=== PATIENT | male | born 1970 | race Caucasian/White ===

== ENCOUNTER → 2020-09-01 11:24 | Outpatient (BNVA) | payer MEDICARE, MEDICAID, SELFPAY | PROVIDERS: PCP Internal Medicine; Visit Provider Anesthesiology | DX: M54.5 Low back pain (principal); M19.011 Primary osteoarthritis, right shoulder; M17.10 Unilateral primary osteoarthritis, unspecified knee; Z79.891 Long term (current) use of opiate analgesic | CPT/HCPCS: 99213 ==

== ENCOUNTER → 2020-10-15 08:23 | Outpatient (BNVA) | payer MEDICARE, MEDICAID, SELFPAY | PROVIDERS: PCP Internal Medicine; Visit Provider Anesthesiology | DX: M19.011 Primary osteoarthritis, right shoulder (principal); M19.012 Primary osteoarthritis, left shoulder; M17.10 Unilateral primary osteoarthritis, unspecified knee; M54.5 Low back pain; Z79.891 Long term (current) use of opiate analgesic | CPT/HCPCS: 99212 ==

== ENCOUNTER → 2020-11-12 09:16 | Outpatient (BNVA) | payer MEDICARE, MEDICAID, SELFPAY | PROVIDERS: PCP Internal Medicine; Visit Provider Anesthesiology | DX: M17.10 Unilateral primary osteoarthritis, unspecified knee (principal); M54.5 Low back pain; M19.011 Primary osteoarthritis, right shoulder; M19.012 Primary osteoarthritis, left shoulder | CPT/HCPCS: 99212 ==

== ENCOUNTER → 2020-12-10 08:48 | Outpatient (BNVA) | payer MEDICARE, MEDICAID, SELFPAY | PROVIDERS: PCP Internal Medicine; Visit Provider Anesthesiology | DX: M54.5 Low back pain (principal); M19.011 Primary osteoarthritis, right shoulder; M19.012 Primary osteoarthritis, left shoulder; M17.10 Unilateral primary osteoarthritis, unspecified knee | CPT/HCPCS: 99212 ==

== ENCOUNTER → 2021-01-07 09:26 | Outpatient (BNVA) | payer MEDICARE, MEDICAID, SELFPAY | PROVIDERS: PCP Internal Medicine; Visit Provider Anesthesiology | DX: M54.5 Low back pain (principal); M19.011 Primary osteoarthritis, right shoulder; M19.012 Primary osteoarthritis, left shoulder; M17.10 Unilateral primary osteoarthritis, unspecified knee | CPT/HCPCS: 99212 ==

== ENCOUNTER → 2021-02-04 15:19 | Outpatient (BNVA) | payer MEDICARE, MEDICAID, SELFPAY | PROVIDERS: PCP Internal Medicine; Visit Provider Anesthesiology | DX: M54.5 Low back pain (principal); M19.011 Primary osteoarthritis, right shoulder; M19.012 Primary osteoarthritis, left shoulder; M17.0 Bilateral primary osteoarthritis of knee; Z79.899 Other long term (current) drug therapy | CPT/HCPCS: 99212 ==

== ENCOUNTER → 2021-03-04 08:29 | Outpatient (BNVA) | payer MEDICARE, MEDICAID, SELFPAY | PROVIDERS: PCP Internal Medicine; Visit Provider Nurse Practitioner Family | DX: M54.5 Low back pain (principal); M19.011 Primary osteoarthritis, right shoulder; M19.012 Primary osteoarthritis, left shoulder; M17.10 Unilateral primary osteoarthritis, unspecified knee | CPT/HCPCS: 99212 ==

== ENCOUNTER → 2021-04-01 08:50 | Outpatient (BNVA) | payer MEDICARE, MEDICAID, SELFPAY | PROVIDERS: PCP Internal Medicine; Visit Provider Nurse Practitioner Family | DX: M54.5 Low back pain (principal); M17.10 Unilateral primary osteoarthritis, unspecified knee; M19.011 Primary osteoarthritis, right shoulder; M19.012 Primary osteoarthritis, left shoulder | CPT/HCPCS: 99212 ==

== ENCOUNTER → 2021-04-29 13:12 | Outpatient (BNVA) | payer MEDICARE, MEDICAID, SELFPAY | PROVIDERS: PCP Internal Medicine; Visit Provider Anesthesiology ==

== ENCOUNTER → 2021-05-28 14:22 | Outpatient (BNVA) | payer MEDICARE, MEDICAID, SELFPAY | PROVIDERS: Visit Provider Anesthesiology | DX: M54.5 Low back pain (principal); M19.011 Primary osteoarthritis, right shoulder; M19.012 Primary osteoarthritis, left shoulder; M17.10 Unilateral primary osteoarthritis, unspecified knee | CPT/HCPCS: 99212 ==

== ENCOUNTER → 2021-06-29 09:34 | Outpatient (BNVA) | payer MEDICARE, MEDICAID, SELFPAY | PROVIDERS: Visit Provider Anesthesiology | DX: M19.011 Primary osteoarthritis, right shoulder (principal); M19.012 Primary osteoarthritis, left shoulder; M17.10 Unilateral primary osteoarthritis, unspecified knee; M54.5 Low back pain | CPT/HCPCS: 99212 ==

== ENCOUNTER → 2021-07-27 08:39 | Outpatient (BNVA) | payer MEDICARE, MEDICAID, SELFPAY | PROVIDERS: PCP Internal Medicine; Visit Provider Anesthesiology | DX: M54.5 Low back pain (principal); M19.011 Primary osteoarthritis, right shoulder; M19.012 Primary osteoarthritis, left shoulder; M17.10 Unilateral primary osteoarthritis, unspecified knee; Z79.899 Other long term (current) drug therapy | CPT/HCPCS: 99212 ==

== ENCOUNTER → 2021-08-24 09:30 | Outpatient (BNVA) | payer MEDICARE, MEDICAID, SELFPAY | PROVIDERS: PCP Internal Medicine; Visit Provider Anesthesiology | DX: Z51.81 Encounter for therapeutic drug level monitoring (principal); M54.5 Low back pain; M19.011 Primary osteoarthritis, right shoulder; M19.012 Primary osteoarthritis, left shoulder; M17.10 Unilateral primary osteoarthritis, unspecified knee | CPT/HCPCS: 99212 ==

== ENCOUNTER → 2021-09-28 09:26 | Outpatient (BNVA) | payer MEDICARE, MEDICAID, SELFPAY | PROVIDERS: PCP Internal Medicine; Visit Provider Anesthesiology | DX: Z51.81 Encounter for therapeutic drug level monitoring (principal); M54.59 Other low back pain; M19.011 Primary osteoarthritis, right shoulder; M19.012 Primary osteoarthritis, left shoulder; M17.10 Unilateral primary osteoarthritis, unspecified knee | CPT/HCPCS: 99212 ==

== ENCOUNTER → 2021-10-26 10:47 | Outpatient (BNVA) | payer MEDICARE, MEDICAID, SELFPAY | PROVIDERS: PCP Internal Medicine; Visit Provider Anesthesiology | DX: Z51.81 Encounter for therapeutic drug level monitoring (principal); M54.59 Other low back pain; M19.011 Primary osteoarthritis, right shoulder; M19.012 Primary osteoarthritis, left shoulder; M17.10 Unilateral primary osteoarthritis, unspecified knee | CPT/HCPCS: 99212 ==

== ENCOUNTER → 2021-11-25 10:50 | Outpatient (BNVA) | payer MEDICARE, MEDICAID, SELFPAY | PROVIDERS: PCP Internal Medicine; Visit Provider Anesthesiology | DX: Z51.81 Encounter for therapeutic drug level monitoring (principal); F11.20 Opioid dependence, uncomplicated; M54.50 Low back pain, unspecified; M19.011 Primary osteoarthritis, right shoulder; M19.012 Primary osteoarthritis, left shoulder; M17.10 Unilateral primary osteoarthritis, unspecified knee | CPT/HCPCS: 99212 ==

== ENCOUNTER → 2021-12-23 09:48 | Outpatient (BNVA) | payer MEDICARE, MEDICAID, SELFPAY | PROVIDERS: PCP Internal Medicine; Visit Provider Anesthesiology | DX: Z51.81 Encounter for therapeutic drug level monitoring (principal); F11.20 Opioid dependence, uncomplicated; M54.50 Low back pain, unspecified; M19.011 Primary osteoarthritis, right shoulder; M19.012 Primary osteoarthritis, left shoulder; M17.10 Unilateral primary osteoarthritis, unspecified knee | CPT/HCPCS: 99212 ==

== ENCOUNTER → 2022-01-20 09:22 | Outpatient (BNVA) | payer MEDICARE, MEDICAID, SELFPAY | PROVIDERS: PCP Internal Medicine; Visit Provider Anesthesiology | DX: Z51.81 Encounter for therapeutic drug level monitoring (principal); F11.20 Opioid dependence, uncomplicated; M54.50 Low back pain, unspecified; M17.10 Unilateral primary osteoarthritis, unspecified knee; M19.011 Primary osteoarthritis, right shoulder; M19.012 Primary osteoarthritis, left shoulder | CPT/HCPCS: 99212 ==

== ENCOUNTER → 2022-03-03 14:19 | Outpatient (BNVA) | payer MEDICARE, MEDICAID, SELFPAY | PROVIDERS: PCP Internal Medicine; Visit Provider Anesthesiology | DX: Z79.891 Long term (current) use of opiate analgesic (principal) | CPT/HCPCS: 99211 ==

== ENCOUNTER → 2022-03-31 10:01 | Outpatient (BNVA) | payer MEDICARE, MEDICAID, SELFPAY | PROVIDERS: PCP Internal Medicine; Visit Provider Anesthesiology | DX: Z51.81 Encounter for therapeutic drug level monitoring (principal); F11.20 Opioid dependence, uncomplicated | CPT/HCPCS: 99211 ==

== ENCOUNTER 2024-02-20 21:56 | Inpatient (IN) | payer MEDICARE, MEDICAID, SELFPAY ==
--- NOTE | ~2024-02-20 | XR_ITS ---
EXAMINATION: XR CHEST CLINICAL INFORMATION: Shortness of breath. COMPARISON: None available. TECHNIQUE: Frontal view of the chest was obtained. FINDINGS: Heart size is normal. There is a subtle patchy opacity at the left lung base for which infection is not excluded. The pleural spaces are clear. There is no pneumothorax. No acute osseous abnormality. XR/XR chest 1V IMPRESSION: Left lower lobe patchy airspace opacity for which infection is not excluded.
[2024-02-20 22:06] VITALS: BP 137/93; PULSE 110; RESP 20; TEMP 36.5; O2SAT 89; BMI 28.0
--- NOTE | 2024-02-20 22:10 | ECG_ITS ---
Test Reason : CHEST PAIN Blood Pressure : / mmHG Vent. Rate : 104 BPM Atrial Rate : 104 BPM P-R Int : 112 ms QRS Dur : 064 ms QT Int : 306 ms P-R-T Axes : 065 036 041 degrees QTc Int : 402 ms Sinus tachycardia Nonspecific T wave abnormality Abnormal ECG No previous ECGs available Referred By: Generic ED Physician Electronically Signed By:Jordan Meehan
--- NOTE | 2024-02-20 22:35 | PC.NURSE ---
Pt A&Ox3, reports 10/10 chest/ABD/headache pain that worsens with coughing. Pt reports increased SOB since 3 weeks, recently Dx with PNA and unable to get prescribed meds r/t insurance issues. Pt SpO2 90% on 2L via NC, RR 22, lung sounds diminished. Pt reports productive cough of yellow/green sputum. IV line placed, blood work collected and sent to lab.
[2024-02-20 22:41] LABS: Basophils Absolute Auto 0.1 X10*3/uL (0.0-0.2); Basophils Percent Auto 0.6 % (0-2); Eosinophils Absolute Auto 5.5 X10*3/uL (0.0-0.4); Eosinophils Percent Auto 25.4 % (0-4); Hematocrit 46.6 % (42.0-52.0); Hemoglobin 15.8 g/dl (14.0-18.0); Imm Gran Abs Auto 0.11 X10*3/uL (0.00-0.03); Imm Gran Pct Auto 0.5 % (0.0-0.4); Lymphocytes Absolute Auto 3.9 X10*3/uL (1.2-4.9); MANUAL DIFF FLAG SCAN; Mean Corpuscular HGB Conc 33.9 g/dl (31.0-36.0); Mean Corpuscular Hemoglobin 29.1 pg (27.0-33.0); Mean Corpuscular Volume 85.8 fL (80.0-98.0); Mean Platelet Volume 10.7 fL (9.4-12.4); Monocytes Absolute Auto 1.4 X10*3/uL (0.1-1.2); Monocytes Percent Auto 6.5 % (2-11); Neutrophils Absolute Auto 10.7 x10*3/uL (2.0-8.3); Platelet Count 314 X10*3/uL (160-400); Red Blood Count 5.43 X10*6/uL (4.60-5.80); Red Cell Distribution Width 13.2 % (11.0-16.0); SCAN SMEAR FLAG 1; White Blood Count 21.8 X10*3/uL (4.8-10.8)
--- NOTE | 2024-02-20 22:55 | ED.CHESTPAIN ---
HPI - Chest Pain General Chief Complaint: Chest Pain Stated Complaint: sob, pneumonina 3 wks ago Time Seen by Provider: 02/20/24 22:33 Source: patient Mode of arrival: ambulatory Limitations: no limitations and language barrier ([place]-speaking director group sales utilized) History of Present Illness HPI narrative: Patient is a 53-year-old male with past medical history of hypertension, diabetes who presents emergency department for evaluation of shortness of breath. Reports onset of symptoms 3 weeks ago. Reportedly was evaluated and diagnosed with pneumonia but states he did not take the antibiotics, because they were not covered by his insurance and unfortunately he could not afford to purchase them. He is having diffuse chest and abdominal pain exacerbated with cough, intermittent headache in addition to shortness of breath. He reports that he has never been intubated in the past due to his asthma. He denies any sick contacts. Denies any fevers, neck pain, neck stiffness, nausea, vomiting, numbness or tingling of the extremities. Related Data Home Medications Medication Instructions Recorded Confirmed rosuvastatin 40 mg tablet 40 mg PO DAILY 08/30/20 02/21/24 albuterol sulfate 90 mcg/actuation 2 puff inhalation Q6H PRN 02/21/24 02/21/24 aerosol inhaler Shortness Of Breath Or Wheezing betamethasone, augmented 0.05 % 1 appl topical BID 02/21/24 02/21/24 topical ointment dulaglutide 4.5 mg/0.5 mL 4.5 mg subcut Q7D 02/21/24 02/21/24 subcutaneous pen injector (Trulicity) enalapril maleate 20 mg tablet 20 mg PO DAILY 02/21/24 02/21/24 ergocalciferol (vitamin D2) 1,250 1,250 mcg PO QWEEK 02/21/24 02/21/24 mcg (50,000 unit) capsule prednisone 10 mg tablet 10 mg PO DAILY 02/21/24 02/21/24 Allergies Allergy/AdvReac Type Severity Reaction Status Date / Time aspirin Allergy Unknown swelling Verified 03/31/22 13:01 Review of Systems Review of Systems: Yes all other systems are reviewed and are negative PMFSH Past Medical History Attestation statement: The following information was validated with the patient. Source: old records reviewed Medical History Depression Pancreatitis Facet arthropathy, cervical Social History Social History Alcohol intake: current Alcohol intake frequency: holidays/special occasions only Patient Tobacco Use Status: Current everyday Tobacco user Cigarettes Per Day: 10 Smoked in Last 30 Days: No Use of substances other than those prescribed or required for medical reasons: No Advance Directives: No Advance Directives Information Provided: No Nutrition Risks: No Nutritional Risk service: No Physical Exam Vital Signs: Vital Signs: Last Vital Signs Temp 98.9 F 02/21/24 16:01 Pulse 102 H 02/21/24 16:02 Resp 16 02/21/24 16:02 BP 150/85 H 02/21/24 16:01 Pulse Ox 93 02/21/24 16:01 O2 Del Method Nasal Cannula 02/21/24 16:01 O2 Flow Rate 3 02/21/24 16:01 BMI result Body Mass Index 28.0 Appearance: Alert.?Oriented to person, place and time. No acute distress.?Normal affect. Eyes: Pupils equal, round and reactive to light.? ENT: Pharynx normal.?? Neck: Normal inspection.? Neck supple.?? CVS: Heart sounds normal. Normal heart rate and rhythm.? Pulses normal.?? Respiratory: Increased work of breathing, room-air hypoxia? Lung sounds tight bilaterally with inspiratory wheezing, rhonchi?? Abdomen: Soft and non-tender. Normoactive bowel sounds. ? Skin: Skin warm and dry.? Normal skin color.?? Extremities: No lower extremity edema.? No calf ttp? Neuro: Moves all extremities spontaneously. Sensation intact bilaterally. Ambulates with normal steady gait. Course Reevaluation(s) Reevaluation #1: O2 saturation 93% on 3 L, reports improvement in shortness of breath but still feels unwell. Auditory wheezing persists though was slightly improved despite Solu-Medrol, and multiple nebulizer dosages with albuterol/DuoNeb/Xopenex. Plan for admission to medicine service for sepsis secondary to pneumonia. Spoke with hospitalist, Dr. Brandon. Time: 01:13 Medications Administered Generic Name Dose Route Start Last Admin Trade Name Freq PRN Reason Stop Dose Admin Acetaminophen 650 mg 02/21/24 01:05 02/21/24 01:30 Acetaminophen 325 Mg Tablet PO 650 mg Q6H PRN Administration Pain, Mild (Pain Scale 1-3) Albuterol/Ipratropium 3 ml 02/21/24 08:00 02/21/24 15:36 Albuterol/Iprat 2.5/0.5mg 3 Ml Ampul.Neb INHALE 3 ml RQ4H WHILE AWAKE IRAM Administration Atorvastatin Calcium 80 mg 02/21/24 09:00 02/21/24 08:48 Atorvastatin Calcium 80 Mg Tablet PO 80 mg DAILY IRAM Administration Enoxaparin Sodium 40 mg 02/21/24 02:00 02/21/24 01:32 Enoxaparin Sodium 40 Mg/0.4 Ml Syringe SUBCUT 40 mg Q24H IRAM Administration Azithromycin 500 mg/ Sodium 250 mls @ 125 mls/hr 02/21/24 01:15 02/21/24 03:33 Chloride IV Infused Q24H IRAM Infusion Insulin Human Lispro 0 unit 02/21/24 07:30 02/21/24 13:14 Insulin Lispro 100 Unit/Ml 3 Ml Vial SUBCUT 8 unit QIDACHS [facility] Administration Protocol Lidocaine 1 patch 02/21/24 13:25 02/21/24 13:36 Lidocaine 4 % Patch Adh..Patch TRANSDERMA Not Given DAILY [facility] Protocol Melatonin 6 mg 02/21/24 01:05 02/21/24 01:51 Melatonin 3 Mg Tablet PO 6 mg BEDTIME PRN Administration Insomnia Methylprednisolone Sodium Succinate 40 mg 02/21/24 09:00 02/21/24 08:47 Methylprednisolone Sod Succ 40 Mg/Ml Vial IVPUSH 40 mg Q12H IRAM Administration Pt Own [Trulicity] 4 4.5 mg 02/21/24 15:00 02/21/24 14:22 .5 Mg/0.5 Ml Pen SUBCUT 4.5 mg Injector Q7D [facility] Administration Sodium Chloride 3 ml 02/21/24 08:00 02/21/24 08:48 0.9 % Sodium Chloride Flush 3 Ml Syringe IVFLUSH 3 ml QSHIFT IRAM Administration Discontinued Medications Generic Name Dose Route Start Last Admin Trade Name Freq PRN Reason Stop Dose Admin Albuterol Sulfate 5 mg/ 7.5 mg 02/21/24 00:04 02/21/24 00:08 Albuterol Sulfate 2.5 mg INHALE 02/21/24 00:05 7.5 mg ONCE ONE Administration Albuterol Sulfate 5 mg/ 0 mg 02/20/24 23:37 02/20/24 23:40 Albuterol/Ipratropium 3 ml INHALE 02/20/24 23:38 2.5 each ONCE ONE Administration Ceftriaxone Sodium 1 gm/ 50 mls @ 100 mls/hr 02/20/24 23:00 02/20/24 23:58 Sodium Chloride IV 02/20/24 23:29 Infused ONCE ONE Infusion Sodium Chloride 2,503.83 mls @ 2,503.83 mls/hr 02/20/24 23:20 02/21/24 00:57 Ns 30 ml/kg infuse over 1 hr (2503.83 ml) 02/21/24 00:19 Infused IV Infusion .Q1H STA Ibuprofen 600 mg 02/21/24 13:23 02/21/24 13:35 Ibuprofen 600 Mg Tablet PO 02/21/24 13:24 Not Given ONCE ONE Levalbuterol HCl 2.5 mg 02/20/24 23:27 02/20/24 23:29 Levalbuterol Hcl 1.25 Mg/3 Ml Vial.Neb INHALE 02/20/24 23:28 2.5 mg ONCE ONE Administration Lisinopril 10 mg 02/21/24 09:00 02/21/24 08:48 Lisinopril 10 Mg Tablet PO 10 mg DAILY IRAM Administration Protocol Methylprednisolone Sodium Succinate 80 mg 02/20/24 23:00 02/20/24 23:15 Methylprednisolone Sod Succ 125 Mg/2 Ml Vial IVPUSH 02/20/24 23:01 80 mg ONCE ONE Administration Medical Decision Making Medical Decision Making [facility] Narrative: Patient is a 53-year-old male with no pneumonia who unfortunately was unable to take his course of antibiotics as prescribed presenting to emergency department with worsening shortness breath. Lung sounds are tight bilaterally with inspiratory wheezing, patient received Solu-Medrol in addition to albuterol nebulizer. Sepsis alert was called, blood cultures pending. Covered with Rocephin for pneumonia; left lower lobe opacity CXR. CBC reveals leukocytosis of 21.8 BMP reveals no evidence of electrolyte derangement, creatinine is 1.21, no priors available for review. Strep a testing is negative. Viral panel negative. No lactic acidosis, no signs of organ dysfunction/severe sepsis. High sensitive troponin 4.3, EKG reveals sinus tachycardia with ventricular rate of 104, QTC 402, no ST elevation, no ST depression, suspect symptoms less likely secondary to ACS. He arrived tachycardic and hypoxic at 89% on room air which improved with 2 L via nasal cannula.. Differential Diagnosis Differential Diagnoses: The differential diagnosis associated with the presentation includes (See narrative above) Admission/Observation Consideration of admission/observation: Escalation of care including admission/observation considered (See narrative above) Consult Healthcare Provider Management of the patient was discussed with: Hospitalist Lab Data MDM Lab Attestation statement: I reviewed the patient's lab results. (See narrative above) 02/21/24 05:45 02/21/24 05:45 Labs: Lab Results 02/20/24 02/20/24 02/20/24 Range/Units 22:29 22:41 23:14 WBC 21.8 H (4.8-10.8) X10*3/uL RBC 5.43 (4.60-5.80) X10*6/uL Hgb 15.8 (14.0-18.0) g/dl Hct 46.6 (42.0-52.0) % MCV 85.8 (80.0-98.0) fL MCH 29.1 (27.0-33.0) pg MCHC 33.9 (31.0-36.0) g/dl RDW 13.2 (11.0-16.0) % Plt Count 314 (160-400) X10*3/uL MPV 10.7 (9.4-12.4) fL Immature Gran % (Auto) 0.5 H (0.0-0.4) % Neut % (Auto) 49.0 (45-73) % Lymph % (Auto) 18.0 L (20-40) % [place] % (Auto) 6.5 (2-11) % Eos % (Auto) 25.4 H (0-4) % Baso % (Auto) 0.6 (0-2) % Lymph # (Auto) 3.9 (1.2-4.9) X10*3/uL [place] # (Auto) 1.4 H (0.1-1.2) X10*3/uL Eos # (Auto) 5.5 H (0.0-0.4) X10*3/uL Baso # (Auto) 0.1 (0.0-0.2) X10*3/uL Abs Immat Gran (auto) 0.11 H (0.00-0.03) X10*3/uL Absolute Neuts (auto) 10.7 H (2.0-8.3) x10*3/uL Absolute Nucleated RBC 0.000 (0.0-0.012) X10*3/uL Nucleated RBC % (auto) 0.0 (0.0-0.2) /100WBC Smear Tech's Comments VERIFIED Sodium 140 (135-145) mmol/L Potassium 4.0 (3.3-5.1) mmol/L Chloride 101 (96-108) mmol/L Carbon Dioxide 29 (22-29) mmol/L Anion Gap 14 (12-20) BUN 14 (9-16) mg/dL Creatinine 1.21 (0.5-1.4) mg/dL Estim Creat Clear Calc 75.1 Estimated GFR > 60 Random Glucose 197 H (60-115) mg/dL Lactic Acid 1.5 (0.5-2.0) mmol/L Calcium 9.9 (8.4-10.2) mg/dL Total Bilirubin 0.7 (0.0-1.0) mg/dL Direct Bilirubin 0.3 (0.0-0.5) mg/dL AST 26 (5-37) U/L ALT 37 (0-40) U/L Alkaline Phosphatase 113 (39-117) U/L Troponin I High Sens 4.3 (<3.5-35.0) ng/L B-Natriuretic Peptide < 10 (<100) pg/mL Total Protein 7.5 (6.5-8.0) g/dL Albumin 4.1 (3.5-5.0) g/dL Influenza Type A (PCR) NEGATIVE (Negative) Influenza Type B (PCR) NEGATIVE (Negative) RSV RNA Qual (PCR) NEGATIVE (Negative) SARS-CoV-2 RNA (RT-PCR) NEGATIVE (Negative) S. pyogenes GrpA SENDY Negative (Negative) Independent Interpretation I performed an independent interpretation of an: Plain X-Ray (Left lower lobe pneumonia) Radiology Impression Discussion of test interpretation with radiology: I have reviewed the radiologist's reading. Radiologist Impression: XR/XR chest 1V IMPRESSION: Left lower lobe patchy airspace opacity for which infection is not excluded. Independent Historian Clinical information obtained from an independent historian. History obtained from or confirmed by: Spouse (Present who confirms history) Critical Care Time Critical Care Time Critical Care Time: Yes Total Critical Care Time: 45 Attestation: I personally attest to this critical care time spent taking care of the patient exclusive of all other billable procedures was approximately 45 minutes including initial evaluation of patient, ordering tests, x-ray interpretation, EKG interpretation, medical consultation, documentation, re-evaluation. Discharge Plan Discharge Clinical Impression: Community acquired pneumonia, Sepsis Patient Disposition: Admitted As Inpatient
[2024-02-20 22:59] LABS: Anion Gap 14 (12-20); Blood Urea Nitrogen 14 mg/dL (9-16); Calcium 9.9 mg/dL (8.4-10.2); Carbon Dioxide 29 mmol/L (22-29); Chloride 101 mmol/L (96-108); Creatinine Clr Calc Pharmacy 75.1; Estimated Glomerular Filt Rate > 60; Glucose Random 197 mg/dL (60-115); Sodium 140 mmol/L (135-145)
[2024-02-20 22:59] LABS: IDNOW Serial# 08D9AD1C; Strep A Nucleic Acid Negative (Negative)
[2024-02-20 23:01] LABS: SLIDE REVIEW VERIFIED
[2024-02-20 23:02] LABS: Troponin-I High Sensitivity 4.3 ng/L (<3.5-35.0)
[2024-02-20 23:03] LABS: Alanine Aminotransferase 37 U/L (0-40); Albumin Level 4.1 g/dL (3.5-5.0); Alkaline Phosphatase 113 U/L (39-117); Aspartate Amino Transferase 26 U/L (5-37); Bilirubin Direct 0.3 mg/dL (0.0-0.5); Bilirubin Total 0.7 mg/dL (0.0-1.0); Total Protein 7.5 g/dL (6.5-8.0)
[2024-02-20 23:14] VITALS: BP 135/96; PULSE 104; RESP 18; O2SAT 94
[2024-02-20] MEDS: methylPREDNISolone Sod Succ 125 MG/2 ML VIAL 80 MG IVPUSH (23:15)
[2024-02-20] MEDS: cefTRIAXone sodium 1 GM in 0.9 % Sodium Chloride 50 ML IV (23:16)
[2024-02-20 23:17] LABS: B Type Natriuretic Peptide < 10 pg/mL (<100)
[2024-02-20 23:18] VITALS: TEMP 37.2
[2024-02-20 23:18] LABS: Influenza A PCR NEGATIVE (Negative); Influenza B PCR NEGATIVE (Negative); Resp Syncy Virus RNA Qual PCR NEGATIVE (Negative); SARS COV2 PCR INHOUSE NEGATIVE (Negative)
[2024-02-20 23:29] VITALS: PULSE 108; RESP 24; O2SAT 93
[2024-02-20] MEDS: levalbuterol HCL 1.25 MG/3 ML VIAL.NEB 2.5 MG INHALE (23:29)
[2024-02-20 23:32] LABS: Lactic Acid 1.5 mmol/L (0.5-2.0)
[2024-02-20] MEDS: Albuterol Sulfate 5 MG, Albuterol/Iprat 2.5/0.5MG 3 ML 3 ML INHALE (23:40)
[2024-02-20 23:41] VITALS: PULSE 87; RESP 24; O2SAT 93
[2024-02-20 23:55] VITALS: BP 149/92; PULSE 102; RESP 20; O2SAT 93
[2024-02-21] VITALS (13 sets, daily range): BP systolic 115–155; BP diastolic 79–99; PULSE 94–116; RESP 14–20; TEMP 36.7–37.2; O2SAT 91–96
[2024-02-21] MEDS: Albuterol Sulfate 5 MG, Albuterol Sulfate (0.083%) 2.5 MG 7.5 MG INHALE (00:08)
--- NOTE | 2024-02-21 01:08 | P.HPHOSP_ITS ---
History of Present Illness Date of Service: 02/21/24 Chief Complaint: Dyspnea This is a 53-year-old male with pertinent history of essential hypertension, mixed hyperlipidemia, [id number] diabetes mellitus who presents to the emergency department for evaluation of dyspnea. Patient states he has been having productive cough, wheezing and shortness of breath for the last 3 weeks. Reportedly he went to an ER in [place] where he was diagnosed with pneumonia and discharged with a prescription of p.o. antibiotics. Patient did not take prescription medications as he states his insurance did not cover and the medications were costly. His symptoms have progressed over the last 3 weeks. Has productive cough, wheezing and dyspnea which is worse with exertion. Does not use home inhalers. No history of asthma or COPD but has a significant smoking history. No fever, chills, chest discomfort, palpitations, abdominal pain, changes in urinary or bowel habits. In the emergency department, patient was found to be septic and imaging concerning for left-sided pneumonia. Review of Systems 2 Constitutional: Constitutional: Reports fatigue, Reports lethargy, Reports malaise, Reports poor appetite and Reports weakness Cardiovascular: Cardiovascular: Reports dyspnea on exertion Respiratory: Respiratory: Reports cough, Reports dyspnea on exertion and Reports wheezing Gastrointestinal: Gastrointestinal: Reports nausea Genitourinary: Genitourinary: Reports no additional male genitourinary complaints Neurologic: Reports weakness Endocrine: Endocrine: Reports fatigue Allergic/Immunologic: Allergic/Immunologic: Reports wheezing [facility] Medical History Depression Pancreatitis Facet arthropathy, cervical Pertinent family history: No family history of CAD Social History Alcohol intake: current Alcohol intake frequency: holidays/special occasions only Patient Tobacco Use Status: Current everyday Tobacco user Cigarettes Per Day: 10 Smoked in Last 30 Days: No Use of substances other than those prescribed or required for medical reasons: No Advance Directives: No Advance Directives Information Provided: No Nutrition Risks: No Nutritional Risk Meds Allergies Allergy/AdvReac Type Severity Reaction Status Date / Time aspirin Allergy Unknown swelling Verified 03/31/22 13:01 Home Medications Medication Instructions Recorded Confirmed Last Taken Type dulaglutide 0.75 mg/0.5 mL 0.75 mg subcut QWEEK 08/30/20 02/21/24 Unknown History subcutaneous pen injector (Trulicity) rosuvastatin 40 mg tablet 40 mg PO DAILY 08/30/20 02/21/24 Unknown History lisinopril 10 mg tablet 10 mg PO DAILY 04/01/21 02/21/24 Unknown History Physical Exam 2 Vital Signs and Narrative: Vital Signs: Last Vital Signs Temp 98.1 F 02/21/24 00:58 Pulse 103 H 02/21/24 00:58 Resp 20 02/21/24 00:58 BP 144/96 H 02/21/24 00:58 Pulse Ox 93 02/21/24 00:58 O2 Del Method Nasal Cannula 02/21/24 00:58 O2 Flow Rate 3 02/21/24 00:58 BMI result Body Mass Index 28.0 Middle-aged male lying in bed in mild distress on supplemental oxygen Neck supple, no JVD Regular rate and rhythm, S1-S2 heard Left-sided crackles with wheezing Abdomen soft nontender, no guarding, no rigidity Patient is awake, alert and oriented to self, place, time and person ; no focal motor deficit Psych: Normal mood No pedal edema Results Labs 02/20/24 22:29 02/20/24 22:29 Labs: Laboratory Results - last 24 hr 02/20/24 02/20/24 02/20/24 22:29 22:41 23:14 MCV 85.8 MCH 29.1 MCHC 33.9 RDW 13.2 Plt Count 314 MPV 10.7 Immature Gran % (Auto) 0.5 H Neut % (Auto) 49.0 Lymph % (Auto) 18.0 L [place] % (Auto) 6.5 Eos % (Auto) 25.4 H Baso % (Auto) 0.6 Lymph # (Auto) 3.9 [place] # (Auto) 1.4 H Eos # (Auto) 5.5 H Baso # (Auto) 0.1 Abs Immat Gran (auto) 0.11 H Absolute Neuts (auto) 10.7 H Absolute Nucleated RBC 0.000 Nucleated RBC % (auto) 0.0 Smear Tech's Comments VERIFIED Anion Gap 14 Estim Creat Clear Calc 75.1 Estimated GFR > 60 Random Glucose 197 H Lactic Acid 1.5 Calcium 9.9 Total Bilirubin 0.7 Direct Bilirubin 0.3 AST 26 ALT 37 Alkaline Phosphatase 113 Troponin I High Sens 4.3 B-Natriuretic Peptide < 10 Total Protein 7.5 Albumin 4.1 Influenza Type A (PCR) NEGATIVE Influenza Type B (PCR) NEGATIVE RSV RNA Qual (PCR) NEGATIVE SARS-CoV-2 RNA (RT-PCR) NEGATIVE S. pyogenes GrpA SENDY Negative Imaging Radiologist's Impressions: Impressions Chest X-Ray 02/20/24 22:25 IMPRESSION: Left lower lobe patchy airspace opacity for which infection is not excluded. Assessment and Plan (1) Hypoxia: Status: Acute (2) Community acquired pneumonia: Status: Acute (3) Sepsis: Status: Acute Plan This is a 53-year-old male with pertinent history of essential hypertension, mixed hyperlipidemia, [id number] diabetes mellitus who presents to the emergency department for evaluation of dyspnea. #. Acute hypoxemic respiratory failure and sepsis due to left-sided pneumonia: Resuscitated with IV crystalloids. Initiating empiric IV antibiotics for community-acquired pneumonia. Blood culture and sputum culture pending. Lactic acid obtained #. Acute exacerbation of obstructive lung disease: Initiating IV systemic steroids. Scheduled and p.r.n. DuoNebs. Likely has underlying COPD with significant smoking history. Will need outpatient follow-up for PFTs #. Ubv-doftsir-zyfzxikfm diabetes mellitus with hyperglycemia: Initiating Accu- Cheks with sliding scale insulin. Obtaining A1c #. Essential hypertension: On lisinopril #. Mixed hyperlipidemia: On rosuvastatin DVT prophylaxis: Lovenox Full code Admit as inpatient and will require two night minimum hospital stay for IV antibiotics, supplemental oxygen (as above), which is not possible in a lesser acute setting. Quality Stroke Does the patient have a stroke diagnosis?: No VTE Prior VTE?: No VTE Risk Level:: Medical - moderate - high VTE Device Contraindication: Treatment Not Indicated VTE Drug Contraindication: N/A - Med Ordered
[2024-02-21] MEDS: Acetaminophen 325 MG TABLET 650 MG PO (01:30)
[2024-02-21] MEDS: Enoxaparin Sodium 40 MG/0.4 ML SYRINGE SUBCUT (01:32)
[2024-02-21] MEDS: Azithromycin 500 MG in 0.9 % Sodium Chloride 250 ML 125 MG IV (01:32)
--- NOTE | 2024-02-21 01:46 | PC.NURSE ---
Med rec done, Pt able to verbalize home meds.
[2024-02-21] MEDS: Melatonin 3 MG TABLET 6 MG PO (01:51)
[2024-02-21 06:43] LABS: Anion Gap 16 (12-20); Blood Urea Nitrogen 17 mg/dL (9-16); Calcium 9.1 mg/dL (8.4-10.2); Carbon Dioxide 25 mmol/L (22-29); Chloride 103 mmol/L (96-108); Creatinine Clr Calc Pharmacy 73.9; Estimated Glomerular Filt Rate > 60; Potassium 4.3 mmol/L (3.3-5.1); Sodium 140 mmol/L (135-145)
[2024-02-21 06:47] LABS: Glucose Random 380 mg/dL (60-115)
[2024-02-21 06:52] LABS: Basophils Percent Auto 0.1 % (0-2); Eosinophils Percent Auto 0.3 % (0-4); Hematocrit 42.1 % (42.0-52.0); Hemoglobin 13.7 g/dl (14.0-18.0); Imm Gran Abs Auto 0.13 X10*3/uL (0.00-0.03); Imm Gran Pct Auto 0.9 % (0.0-0.4); Lymphocytes Absolute Auto 0.9 X10*3/uL (1.2-4.9); Lymphocytes Percent Auto 6.2 % (20-40); MANUAL DIFF FLAG SCAN; Mean Corpuscular HGB Conc 32.5 g/dl (31.0-36.0); Mean Corpuscular Hemoglobin 28.9 pg (27.0-33.0); Mean Corpuscular Volume 88.8 fL (80.0-98.0); Mean Platelet Volume 11.2 fL (9.4-12.4); Monocytes Absolute Auto 0.2 X10*3/uL (0.1-1.2); Monocytes Percent Auto 1.3 % (2-11); Neutrophils Percent Auto 91.2 % (45-73); Platelet Count 268 X10*3/uL (160-400); Red Blood Count 4.74 X10*6/uL (4.60-5.80); Red Cell Distribution Width 12.9 % (11.0-16.0); SCAN SMEAR FLAG 1; White Blood Count 14.3 X10*3/uL (4.8-10.8)
--- NOTE | 2024-02-21 07:06 | PC.NURSE ---
Critical glucose of 380, provider Dr. Brandon made aware, no new orders. Plan of care ongoing.
[2024-02-21 07:26] LABS: Glucose, Whole Blood 289 mg/dL (60-115)
[2024-02-21] MEDS: Albuterol/Iprat 2.5/0.5MG 3 ML AMPUL.NEB INHALE ×5 (07:48→22:01)
[2024-02-21 08:35] LABS: Estimated Average Glucose 260 mg/dL; Hemoglobin A1c % 10.7 % (<6.0)
[2024-02-21] MEDS: Insulin Lispro 100 UNIT/ML 3 ML VIAL SUBCUT ×4 (08:47→21:33)
[2024-02-21] MEDS: methylPREDNISolone Sod Succ 40 MG/ML VIAL IVPUSH ×2 (08:47→21:34)
[2024-02-21] MEDS: Atorvastatin Calcium 80 MG TABLET PO (08:48)
[2024-02-21] MEDS: 0.9 % Sodium Chloride Flush 3 ML SYRINGE IVFLUSH (08:48)
[2024-02-21] MEDS: lisinopriL 10 MG TABLET PO (08:48)
--- NOTE | 2024-02-21 09:06 | PC.NURSE ---
this RN resumed care of pt at this time. vss and up to date aside from pt being sinus tachy on the hospital monitor. pt remains on 3L via NC - resting at 95%. no sob/wob noted. when converasting w/ pt. respirations even and unlabored. pt sitting upright to promote patent airway. pt medicated per provider order/insulin administered per sliding scale. pt c/o 07/07 lower back pain - requesting medication other than tylenol as pt states previous tylenol administration was not helpful. admitting provider notified of pt's request. pt waits for bed assignment at this time. plan of care ongoing. call kessler placed within reach.
--- NOTE | 2024-02-21 09:55 | PHA.MEDREC ---
Addendum entered by Analia Munguia [facility] 02/21/24 10:07: Patient said he's not taking lisinopril 10 mg. He's taking enalapril 20 mg daily now. Original Note: Pharmacy Consult ? Medication Reconciliation Pharmacy has completed the medication reconciliation. Spoke to patient and confirmed medication list.
--- NOTE | 2024-02-21 10:34 | HO.PM.IMPN ---
Subjective Subjective Date of Service: 02/21/24 Review of Systems Follow up resp failure, pna and copd feeling better Physical Exam Vital Signs: Vital Signs: Last Vital Signs Temp 98.1 F 02/21/24 05:28 Pulse 96 02/21/24 05:28 Resp 18 02/21/24 05:28 BP 115/79 02/21/24 05:28 Pulse Ox 96 02/21/24 05:28 O2 Del Method Nasal Cannula 02/21/24 05:28 O2 Flow Rate 3 02/21/24 05:28 BMI result Body Mass Index 28.0 Appearing in no acute distress lung sounds are clear to auscultation heart regular rate rhythm, clear S1, S2 positive bowel sounds, abdomen is soft, nontender neuro patient is alert x3, no focal deficits Objective Data Active Medications Acetaminophen (Acetaminophen 325 Mg Tablet) 650 mg PO Q6H PRN PRN Reason: Pain, Mild (Pain Scale 1-3) Last Admin: 02/21/24 01:30 Dose: 650 mg Documented By: ELISHA Albuterol/Ipratropium (Albuterol/Iprat 2.5/0.5mg 3 Ml Ampul.Neb) 3 ml INHALE RQ4H WHILE AWAKE [facility] Last Admin: 02/21/24 07:48 Dose: 3 ml Documented By: TALIA Albuterol/Ipratropium (Albuterol/Iprat 2.5/0.5mg 3 Ml Ampul.Neb) 3 ml INHALE Q4H PRN PRN Reason: Wheezing Atorvastatin Calcium (Atorvastatin Calcium 80 Mg Tablet) 80 mg PO DAILY [facility] Last Admin: 02/21/24 08:48 Dose: 80 mg Documented By: TE Dextrose (Dextrose 50 % 25 Gm/50 Ml Syringe) 25 gm IVPUSH Q15M PRN; Protocol PRN Reason: per Hypoglycemia Standing Ord. Enoxaparin Sodium (Enoxaparin Sodium 40 Mg/0.4 Ml Syringe) 40 mg SUBCUT Q24H [facility] Last Admin: 02/21/24 01:32 Dose: 40 mg Documented By: ELISHA Glucose (Glucose Gel 15 Gm Gel..Gram.) 15 gm PO Q15M PRN; Protocol PRN Reason: per Hypoglycemia Standing Ord. Ceftriaxone Sodium 1 gm/ (Sodium Chloride) 50 mls @ 100 mls/hr IV Q24H [facility] Azithromycin 500 mg/ Sodium (Chloride) 250 mls @ 125 mls/hr IV Q24H [facility] Last Infusion: 02/21/24 03:33 Dose: Infused Documented By: ELISHA Insulin Human Lispro (Insulin Lispro 100 Unit/Ml 3 Ml Vial) 0 unit SUBCUT QIDACHS [facility]; Protocol Last Admin: 02/21/24 08:47 Dose: 6 unit Documented By: TE Lisinopril (Lisinopril 10 Mg Tablet) 10 mg PO DAILY [facility]; Protocol Last Admin: 02/21/24 08:48 Dose: 10 mg Documented By: TE Melatonin (Melatonin 3 Mg Tablet) 6 mg PO BEDTIME PRN PRN Reason: Insomnia Last Admin: 02/21/24 01:51 Dose: 6 mg Documented By: ELISHA Methylprednisolone Sodium Succinate (Methylprednisolone Sod Succ 40 Mg/Ml Vial) 40 mg IVPUSH Q12H [facility] Last Admin: 02/21/24 08:47 Dose: 40 mg Documented By: TE Ondansetron HCl (Ondansetron Hcl 4 Mg/2 Ml Vial) 4 mg IVPUSH Q8H PRN PRN Reason: Nausea and Vomiting Sodium Chloride (0.9 % Sodium Chloride Flush 3 Ml Syringe) 3 ml IVFLUSH QSHIFT [facility] Last Admin: 02/21/24 08:48 Dose: 3 ml Documented By: TE Labs 02/21/24 05:45 02/21/24 05:45 Labs: Laboratory Results - last 24 hr 02/20/24 02/20/24 02/20/24 22:29 22:41 23:14 MCV 85.8 MCH 29.1 MCHC 33.9 RDW 13.2 Plt Count 314 MPV 10.7 Immature Gran % (Auto) 0.5 H Neut % (Auto) 49.0 Lymph % (Auto) 18.0 L [place] % (Auto) 6.5 Eos % (Auto) 25.4 H Baso % (Auto) 0.6 Lymph # (Auto) 3.9 [place] # (Auto) 1.4 H Eos # (Auto) 5.5 H Baso # (Auto) 0.1 Abs Immat Gran (auto) 0.11 H Absolute Neuts (auto) 10.7 H Absolute Nucleated RBC 0.000 Nucleated RBC % (auto) 0.0 Smear Tech's Comments VERIFIED Anion Gap 14 Estim Creat Clear Calc 75.1 Estimated GFR > 60 POC Glucose Random Glucose 197 H Estimat Average Glucose Hemoglobin A1c % Lactic Acid 1.5 Calcium 9.9 Total Bilirubin 0.7 Direct Bilirubin 0.3 AST 26 ALT 37 Alkaline Phosphatase 113 Troponin I High Sens 4.3 B-Natriuretic Peptide < 10 Total Protein 7.5 Albumin 4.1 Influenza Type A (PCR) NEGATIVE Influenza Type B (PCR) NEGATIVE RSV RNA Qual (PCR) NEGATIVE SARS-CoV-2 RNA (RT-PCR) NEGATIVE S. pyogenes GrpA SENDY Negative 02/21/24 02/21/24 02/21/24 05:45 06:04 07:14 MCV 88.8 MCH 28.9 MCHC 32.5 RDW 12.9 Plt Count 268 MPV 11.2 Immature Gran % (Auto) 0.9 H Neut % (Auto) 91.2 H Lymph % (Auto) 6.2 L [place] % (Auto) 1.3 L Eos % (Auto) 0.3 Baso % (Auto) 0.1 Lymph # (Auto) 0.9 L [place] # (Auto) 0.2 Eos # (Auto) 0.0 Baso # (Auto) 0.0 Abs Immat Gran (auto) 0.13 H Absolute Neuts (auto) 13.0 H Absolute Nucleated RBC 0.000 Nucleated RBC % (auto) 0.0 Smear Tech's Comments Anion Gap 16 Estim Creat Clear Calc 73.9 Estimated GFR > 60 POC Glucose 289 H Random Glucose 380 H* Estimat Average Glucose 260 Hemoglobin A1c % 10.7 H Lactic Acid Calcium 9.1 D Total Bilirubin Direct Bilirubin AST ALT Alkaline Phosphatase Troponin I High Sens B-Natriuretic Peptide Total Protein Albumin Influenza Type A (PCR) Influenza Type B (PCR) RSV RNA Qual (PCR) SARS-CoV-2 RNA (RT-PCR) S. pyogenes GrpA SENDY Microbiology Microbiology Results: Microbiology 02/21/24 01:47 Gram Stain - Final Sputum - Expectorated Assessment and Plan (1) Hypoxia: Status: Acute (2) Community acquired pneumonia: Status: Acute Plan 53-year-old male with pertinent history of essential hypertension, mixed hyperlipidemia, jdd-czthjgi-lihfesfij diabetes mellitus who presents to the emergency department for evaluation of dyspnea. Sepsis secondary to acute hypoxemic respiratory failure due to left-sided pneumonia Resuscitated with IV crystalloids. continue Rocephin and azithromycin Blood culture and sputum culture pending. supplemental oxygen as needed Acute exacerbation of obstructive lung disease continue IV systemic steroids. Scheduled and p.r.nFrank Malhotra. Likely has underlying COPD with significant smoking history. Will need outpatient follow-up for PFTs Dpn-swkvmaf-lhxnagmfh diabetes mellitus with hyperglycemia Initiating Accu-Cheks with sliding scale insulin. Obtaining A1c Essential hypertension On lisinopril Mixed hyperlipidemia On rosuvastatin DVT prophylaxis: Lovenox Attending Dr. Santana Full code continue hospital stay for IV antibiotics, supplemental oxygen (as above), which is not possible in a lesser acute setting. Quality Stroke Does the patient have a stroke diagnosis?: No VTE Prior VTE?: No VTE Risk Level:: Medical - moderate - high VTE Device Contraindication: Treatment Not Indicated VTE Drug Contraindication: N/A - Med Ordered
--- NOTE | 2024-02-21 10:38 | MHC.CM.PN ---
Met with patient and candle wicker in regards to discharge planning. Patient lives with his sig other and daughter, ambulates independently and had no services prior to coming to the hospital. No services anticipated to be needed because patient is not homebound. PCP verified as Yuliya Morrison. Patient denies having a HCP. Information provided. Patient not interested in completing one at this time. Patient vaccinated agains Covid but not boosted. IMM explained and signed. Patient's sig other will transport patient home when medically stable. Continue to monitor for d/c needs.
[2024-02-21 11:57] LABS: Glucose, Whole Blood 328 mg/dL (60-115)
--- NOTE | 2024-02-21 13:40 | PC.NURSE ---
Declined po med/pain patch stating pain patch wont work and he is allergic to asa so cant take ibuprofen or his face will swell, provider notified
--- NOTE | 2024-02-21 14:35 | PC.NURSE ---
pharmacy brought down medication/administered at this time. vss and up to date aside from pt remaining sinus tachy on the groundwater monitoring technician. pt denies chest pain/palpitations. pt still verbalizing 8/10 lower back pain but does not want prn medication. pt resting comfortably in no apparent distress w/ the lights dimmed. pt remains on 3L via NC - no sob/wob noted. respirations remain even and unlabored. partner bedside for support. call kessler placed within reach.
--- NOTE | 2024-02-21 15:27 | PC.NURSE ---
Report given to overroc Reed RN
[2024-02-21 17:36] LABS: Glucose, Whole Blood 221 mg/dL (60-115)
--- NOTE | 2024-02-21 19:25 | PC.NURSE ---
This RN assumed care of pt @ 1900. Pt resting quietly in bed watching TV. RT with pt. Plan of care ongoing.
--- NOTE | 2024-02-21 19:56 | PC.NURSE ---
Pt ambulated to restroom with a steady gait.
--- NOTE | 2024-02-21 19:58 | PC.NURSE ---
Pt ambulated back into room/bed. Plan of care ongoing.
--- NOTE | 2024-02-21 20:40 | PC.NURSE ---
Pt at nurses station requesting and given food. Pt back in bed. Plan of care ongoing.
[2024-02-21 21:00] LABS: Glucose, Whole Blood 238 mg/dL (60-115)
[2024-02-21] MEDS: cefTRIAXone sodium 1 GM in 0.9 % Sodium Chloride 50 ML IV (21:34)
--- NOTE | 2024-02-21 21:38 | PC.NURSE ---
Pt ca&ox4, no signs of distress. Medicated per mar. Pts family member with pt in hospital bed. Pt requesting resp therapist. Resp therapist called. Plan of care ongoing.
--- NOTE | 2024-02-21 21:49 | PC.NURSE ---
Resp therapist with pt. Plan of care ongoing.
--- NOTE | 2024-02-21 23:20 | PC.NURSE ---
Pt requested and given food. Plan of care ongoing.
[2024-02-22] MEDS: 0.9 % Sodium Chloride Flush 3 ML SYRINGE IVFLUSH ×2 (00:45→08:52)
[2024-02-22] MEDS: Azithromycin 500 MG in 0.9 % Sodium Chloride 250 ML 125 MG IV (02:10)
[2024-02-22] MEDS: Enoxaparin Sodium 40 MG/0.4 ML SYRINGE SUBCUT (02:19)
--- NOTE | 2024-02-22 02:36 | PC.NURSE ---
Pt medicated per mar. Plan of care onging.
[2024-02-22 06:15] VITALS: BP 142/86; PULSE 89; RESP 16; TEMP 36.7; O2SAT 94
[2024-02-22 07:41] VITALS: BP 132/88; PULSE 91; RESP 20; TEMP 36.9; O2SAT 93
[2024-02-22] MEDS: Albuterol/Iprat 2.5/0.5MG 3 ML AMPUL.NEB INHALE ×2 (08:15→11:10)
[2024-02-22 08:20] VITALS: PULSE 93; RESP 20; O2SAT 94
--- NOTE | 2024-02-22 08:35 | PC.NURSE ---
PT IS A/O X 4 NO C/O SOB/SEAN NOTED SPEAKS IN FULL SENTENCES. PT IS MAINTAINING HIS O2 LEVEL AT 2L/M VIA N/C. POC 227 GIVEN 4UNITS OF INSULIN COVERAGE PER ORDER. LUNGS - DIMINISHED. NO EDEMA NOTED. PT C/O R SIDE/FLANK AREA PAIN 8/10 TO BE MED WITH PAIN MED. PT AWARE OF PLAN OF CARE WILL CONTINUE TO MONITOR.
--- NOTE | 2024-02-22 08:39 | PC.NURSE ---
PT SEEN BY [facility] WEARING APPAREL ASSEMBLER (GONZÁLEZ) PT AWARE OF PLAN OF CARE.
[2024-02-22] MEDS: methylPREDNISolone Sod Succ 40 MG/ML VIAL IVPUSH (08:51)
[2024-02-22] MEDS: Insulin Lispro 100 UNIT/ML 3 ML VIAL SUBCUT (08:52)
[2024-02-22] MEDS: Atorvastatin Calcium 80 MG TABLET PO (08:53)
[2024-02-22] MEDS: Lidocaine 4 % Patch ADH..PATCH 1 PATCH TRANSDERMA (08:53)
[2024-02-22] MEDS: Enalapril Maleate 10 MG TABLET 20 MG PO (08:58)
[2024-02-22 09:37] LABS: Glucose, Whole Blood 227 mg/dL (60-115)
--- NOTE | 2024-02-22 10:21 | P.DS_ITS ---
DS: Providers Provider Date of Service: 02/22/24 Date of admission: 02/21/24 01:05 Primary care physician: Yuliya Morrison MD DS: Diagnosis Discharge Diagnosis (1) Hypoxia: Status: Acute (2) Community acquired pneumonia: Status: Acute DS: Summary Hospital Course Hospital Course: History and physical as per admitting provider. This is a 53-year-old male with pertinent history of essential hypertension, mixed hyperlipidemia, hdp-pmhfpdm-tsqpxyokv diabetes mellitus who presents to the emergency department for evaluation of dyspnea. Patient states he has been having productive cough, wheezing and shortness of breath for the last 3 weeks. Reportedly he went to an ER in [place] where he was diagnosed with pneumonia and discharged with a prescription of p.o. antibiotics. Patient did not take prescription medications as he states his insurance did not cover and the medications were costly. His symptoms have progressed over the last 3 weeks. Has productive cough, wheezing and dyspnea which is worse with exertion. Does not use home inhalers. No history of asthma or COPD but has a significant smoking history. No fever, chills, chest discomfort, palpitations, abdominal pain, changes in urinary or bowel habits. In the emergency department, patient was found to be septic and imaging concerning for left-sided pneumonia. 53-year-old man treated for acute hypoxemic respiratory failure, sepsis secondary to pneumonia. Treated with IV fluids, Rocephin, azithromycin. Negative blood and sputum cultures. Supplemental oxygen but weaned off to room air. Patient reports a history of smoking and possible asthma versus COPD. Treated with IV systemic steroids and scheduled DuoNebs. He should follow-up with a golf course equipment operator for outpatient PFTs for definitive diagnosis. He was encouraged to quit smoking. Patient will continue total 5 days of antibiotics for pneumonia, prednisone taper. May use Mucinex for dry cough. Albuterol inhaler for wheezing. Hypertension. Continue lisinopril Hyperlipidemia. Continue statin Diabetes mellitus. Continue home medications Time Attestation Discharge Coordination Time (in mins): 45 Quality: Safe Use of Opioids Does Pt have an Active Cancer Diagnosis on the Problem List?: No Quality: Stroke Does the patient have a stroke diagnosis?: No Physical Exam Vital Signs: Vital Signs: Last Vital Signs Temp 98.4 F 02/22/24 07:41 Pulse 93 02/22/24 08:20 Resp 20 02/22/24 08:20 BP 132/88 02/22/24 07:41 Pulse Ox 93 02/22/24 07:41 O2 Del Method Nasal Cannula 02/22/24 07:41 O2 Flow Rate 4 02/22/24 06:15 BMI result Body Mass Index 28.0 Appearing in no acute distress head is normocephalic atraumatic eyes pupils are PERRLA sclera is anicteric mouth throat mucous membranes are intact and moist neck is supple no lymphadenopathy, no JVD noted lung sounds are clear to auscultation heart regular rate rhythm, clear S1, S2 positive bowel sounds, abdomen is soft, nontender neuro patient is alert x3, no focal deficits DS: Data Data Completed and Pending Labs on day of discharge: Laboratory Results - last 24 hr 02/21/24 02/21/24 02/21/24 11:34 17:32 20:56 POC Glucose 328 H 221 H 238 H 02/22/24 07:40 POC Glucose 227 H Preliminary micro results at discharge 02/21/24 01:47 Sputum Culture - Preliminary Sputum - Expectorated Culture in progress. 02/20/24 23:14 Blood Culture - Preliminary Blood - Venous No growth after 24 hours. 02/20/24 23:02 Blood Culture - Preliminary Blood - Venous No growth after 24 hours. Discharge Plan Discharge Anticipated Discharge Date/Time: 02/22/24 09:59 Patient Disposition: Home, Self-Care Discharge Diagnosis: Sepsis Acute hypoxemic respiratory failure Pneumonia Asthma versus COPD Referrals: Yuliya Morrison MD [Primary Care Provider] - 1 Week Miguel Angel Damico MD [Physician] - 1 Week (for workup of copd vs asthma ) Discharge Medications: New cefuroxime axetil 500 mg tablet 500 mg PO BID Qty: 8 0RF azithromycin 500 mg tablet 500 mg PO DAILY 4 Days Qty: 4 0RF prednisone 10 mg tablet See Taper PO DIRECTED Qty: 30 0RF Taper: Prednisone 40 mg daily for 3 Days and 0 Hour 30 mg daily for 3 Days and 0 Hour 20 mg daily for 3 Days and 0 Hour 10 mg daily for 3 Days and 0 Hour Rx Instructions: see taper instructions guaifenesin [Mucus Relief ER] 600 mg tablet extended release 12hr 600 mg PO BID Qty: 6 0RF Continued enalapril maleate 20 mg tablet 20 mg PO DAILY betamethasone, augmented 0.05 % ointment 1 appl topical BID ergocalciferol (vitamin D2) 1,250 mcg (50,000 unit) capsule 1,250 mcg PO QWEEK Trulicity 4.5 mg/0.5 mL pen injector 4.5 mg subcut Q7D albuterol sulfate 90 mcg/actuation HFA aerosol inhaler 2 puff inhalation Q6H PRN (Reason: Shortness Of Breath Or Wheezing) Qty: 6.7 0RF rosuvastatin 40 mg tablet 40 mg PO DAILY Discontinued prednisone 10 mg tablet 10 mg PO DAILY Discharge Orders: Discharge Order (Routine); Ordered 02/22/24 Ordered By: Armida Damico Diet: Advance to usual diet Activity on Discharge: As tolerated Stand Alone Forms: Patient Portal Discharge page Care Plan Goals: Please complete course of antibiotic and steroids Health Concerns: Sepsis Acute hypoxemic respiratory failure Pneumonia Asthma versus COPD Plan of Treatment: Take all medications as prescribed Follow-up with primary care provider as needed Assessment: See discharge summary
--- NOTE | 2024-02-22 10:23 | PC.NURSE ---
PT REFUSED ADL'S AT THIS TIME. PT AMB (I) GAIT STEADY TO BATHROOM AND BTB.
[2024-02-22 11:11] VITALS: PULSE 123; O2SAT 94
[2024-02-22 11:14] VITALS: PULSE 112; RESP 20; O2SAT 93
--- NOTE | 2024-02-22 11:15 | MHC.EDTECH ---
@10:40 Patient ambulated himself and took a shower; independently. He put on street clothing due to him being D/C.
[2024-02-22 11:31] VITALS: BP 132/88; PULSE 112; RESP 20; TEMP 36.9; O2SAT 94
== END 2024-02-22 16:23 | disposition home or self-care (01) | DRG 871 ==
LOC: HO.ED 02-21 01:15 → HO.EDOVER 02-21 01:46
PROVIDERS: Nurse Practitioner Family; Admitting Provider Student in an Organized Health Care Education/Training Program; Emergency Provider Student in an Organized Health Care Education/Training Program; PCP Internal Medicine; Visit Provider Nurse Practitioner Acute Care
DX: A41.9 Sepsis, unspecified organism (principal); J18.9 Pneumonia, unspecified organism; J96.01 Acute respiratory failure with hypoxia; J44.0 Chronic obstructive pulmonary disease with (acute) lower respiratory infection; J44.1 Chronic obstructive pulmonary disease with (acute) exacerbation; E78.2 Mixed hyperlipidemia; I10 Essential (primary) hypertension; E11.65 Type 2 diabetes mellitus with hyperglycemia; T36.96XA Underdosing of unspecified systemic antibiotic, initial encounter; Z91.120 Patient's intentional underdosing of medication regimen due to financial hardship; F17.210 Nicotine dependence, cigarettes, uncomplicated; Z71.6 Tobacco abuse counseling; Z20.822 Contact with and (suspected) exposure to COVID-19; Z79.85 Long-term (current) use of injectable non-insulin antidiabetic drugs; Z79.899 Other long term (current) drug therapy
CPT/HCPCS: 0241U; 36415; 71045; 80048; 80076; 82947; 83036; 83605; 83880; 84484; 85025; 87040; 87070; 87205; 87651; 93005; 94640; 99285; J0456; J0696; J1650; J2920; J2930

== ENCOUNTER → 2024-02-20 22:10 | Outpatient (BNV) | payer MEDICARE, MEDICAID, SELFPAY | PROVIDERS: Admitting Provider Student in an Organized Health Care Education/Training Program; Emergency Provider Student in an Organized Health Care Education/Training Program; PCP Internal Medicine; Visit Provider Internal Medicine Cardiovascular Disease | DX: R07.9 Chest pain, unspecified (principal) | CPT/HCPCS: 93010 ==

== ENCOUNTER → 2024-02-21 01:05 | Outpatient (BNV) | payer MEDICARE, MEDICAID, SELFPAY | PROVIDERS: Admitting Provider Student in an Organized Health Care Education/Training Program; Emergency Provider Student in an Organized Health Care Education/Training Program; Visit Provider Student in an Organized Health Care Education/Training Program | DX: J96.01 Acute respiratory failure with hypoxia (principal); J18.9 Pneumonia, unspecified organism; A41.9 Sepsis, unspecified organism | CPT/HCPCS: 99223; 99239; 99499 ==

== ENCOUNTER 2024-03-30 22:50 | Emergency (ER) | payer OTHER, MEDICAID, SELFPAY ==
--- NOTE | ~2024-03-30 | XR_ITS ---
EXAMINATION: XR CHEST CLINICAL INFORMATION: Cough COMPARISON: 02/20/2024 TECHNIQUE: Frontal view of the chest was obtained. FINDINGS: Linear opacities are again noted at the left lung base, similar to prior and favored to correspond to atelectasis or pleural parenchymal scarring. No consolidation, pneumothorax, or pleural effusion. Cardiac and mediastinal contours are normal. Pulmonary vasculature is unremarkable. Degenerative disc disease is present in the thoracic spine. No acute osseous findings. XR/XR chest 1V IMPRESSION: No acute pulmonary disease.
[2024-03-30 22:51] VITALS: BP 128/87; PULSE 106; RESP 18; TEMP 36.7; O2SAT 94; BMI 27.4
[2024-03-30 23:20] LABS: Basophils Absolute Auto 0.1 X10*3/uL (0.0-0.2); Basophils Percent Auto 0.7 % (0-2); Eosinophils Absolute Auto 1.9 X10*3/uL (0.0-0.4); Eosinophils Percent Auto 13.2 % (0-4); Hematocrit 42.5 % (42.0-52.0); Hemoglobin 14.3 g/dl (14.0-18.0); Imm Gran Abs Auto 0.07 X10*3/uL (0.00-0.03); Imm Gran Pct Auto 0.5 % (0.0-0.4); Lymphocytes Absolute Auto 3.4 X10*3/uL (1.2-4.9); Lymphocytes Percent Auto 23.5 % (20-40); MANUAL DIFF FLAG SCAN; Mean Corpuscular HGB Conc 33.6 g/dl (31.0-36.0); Mean Corpuscular Hemoglobin 29.2 pg (27.0-33.0); Mean Corpuscular Volume 86.9 fL (80.0-98.0); Monocytes Absolute Auto 1.6 X10*3/uL (0.1-1.2); Monocytes Percent Auto 10.8 % (2-11); Neutrophils Absolute Auto 7.4 x10*3/uL (2.0-8.3); Neutrophils Percent Auto 51.3 % (45-73); Platelet Count 299 X10*3/uL (160-400); Red Blood Count 4.89 X10*6/uL (4.60-5.80); Red Cell Distribution Width 13.2 % (11.0-16.0); SCAN SMEAR FLAG 1; White Blood Count 14.5 X10*3/uL (4.8-10.8)
[2024-03-30 23:37] LABS: SLIDE REVIEW VERIFIED
[2024-03-30 23:40] LABS: COVID-19 Test Negative (Negative); IDNOW Serial# 152EDE1D
[2024-03-30 23:42] LABS: IDNOW Serial# 08D9AD1C; Influenza A Negative (Negative); Influenza B2 Negative (Negative)
[2024-03-30 23:48] LABS: Alanine Aminotransferase 37 U/L (0-40); Alkaline Phosphatase 150 U/L (39-117); Anion Gap 18 (12-20); Aspartate Amino Transferase 19 U/L (5-37); Bilirubin Total 0.3 mg/dL (0.0-1.0); Blood Urea Nitrogen 20 mg/dL (9-16); Calcium 9.5 mg/dL (8.4-10.2); Carbon Dioxide 22 mmol/L (22-29); Chloride 97 mmol/L (96-108); Creatinine Clr Calc Pharmacy 47.7; Estimated Glomerular Filt Rate 41; Glucose Random 512 mg/dL (60-115); Potassium 3.8 mmol/L (3.3-5.1); Sodium 133 mmol/L (135-145); Total Protein 6.7 g/dL (6.5-8.0)
[2024-03-31 00:04] VITALS: BP 114/75; PULSE 88; RESP 16; TEMP 36.9; O2SAT 94
--- OUTSIDE RECORDS SUMMARY | 2024-03-31 00:17 | XMS_ITS | Continuity of Care Document ---
Author Organization [facility] Address [address] [place] [address]- Care Team Providers Care Mission Systems Engineer Name Role Phone Not on Staff, PCP Primary Care Physician Unavail able Encounter [facility] [id number] Date(s): 05/26/22 - 07/10/22 [facility] [address] [place] [address]- Encounter Diagnosis Procedure and treatment not carried out for other reasons(Final) - Discharge Disposition: A-D/C Home Attending Physician: Lela Romo DO Admitting Physician: Lela Romo DO Referring Physician: Prince CALLEJAS, Yuliya D Allergies, Adverse Reactions, Alerts No Known Allergies Medications Percocet-5/325 325 mg-5 mg oral tablet 1 tablet, By Mouth, Every 4 hours, PRN for pain, # 15 tablet, 0 Refills, Maintenance, Tablet Start Date: 08/09/11 Status: Ordered
--- OUTSIDE RECORDS SUMMARY | 2024-03-31 00:17 | XMS_ITS | Continuity of Care Document ---
Author Organization [facility] Address [address] [place] [address]- Care Team Providers Care Auto Top Mechanic Name Role Phone Not on Staff, PCP Primary Care Physician Unavail able Encounter [facility] Date(s): 02/17/24 - 02/17/[address] [address]- Discharge Disposition: A-D/C Home Attending Physician: Maury Peace MD Admitting Physician: Maury Peace MD Referring Physician: Not on Staff, Referring MD Allergies, Adverse Reactions, Alerts Substance Reaction Severity Status aspirin Active Medications Albuterol (Eqv-Ventolin HFA) 90 mcg/inh inhalation aerosol 2 puffs, Inhalation, Every 4 hours, for 30 days, INHALE 2 PUFFS EVERY 6 HOURS NEEDED FOR COUGH OR WHEEZING FOR UP TO 30 DAYS, # 8.5 Gm, Physician Stop 03/12/24 20:19:00 EDT Start Date: 02/11/24 Stop Date: 03/12/24 Status: Ordered benzonatate 200 mg oral capsule 1 capsule = 200 mg, By Mouth, 3 times a day, PRN as needed for cough, for 14 days, # 30 capsule, 0 Refills, Acute 02/25/24 22:01:00 EDT, 02/11/24 22:01:00 EDT, Capsule, [id number], Partial fill upon patient request if the prescription is for a... Start Date: 02/11/24 Stop Date: 02/25/24 Status: Ordered cyclobenzaprine 5 mg oral tablet 1 tablet = 5 mg, By Mouth, 3 times a day, # 42 tablet, 0 Refills, Maintenance, 02/11/24 20:20:00 EDT, Tablet, Partial fill upon patient request if the prescription is for a schedule II opioid drug. Start Date: 02/11/24 Stop Date: 02/25/24 Status: Ordered enalapril 10 mg oral tablet 10 mg, 1, tablet, By Mouth, Daily, # 30 tablet, Refills 0, Maintenance, 02/11/24 21:56:00 EDT, Partial fill upon patient request if the prescription is for a schedule II opioid drug. Start Date: 02/11/24 Status: Ordered ezetimibe 10 mg oral tablet 1 tablet = 10 mg, By Mouth, Daily, # 90 tablet, 0 Refills, Maintenance, 02/11/24 20:20:00 EDT, Tablet, Partial fill upon patient request if the prescription is for a schedule II opioid drug. Start Date: 02/11/24 Status: Ordered Percocet-5/325 325 mg-5 mg oral tablet 1 tablet, By Mouth, Every 4 hours, PRN for pain, # 15 tablet, 0 Refills, Maintenance, Tablet Start Date: 08/09/11 Status: Ordered ProAir HFA 90 mcg/inh inhalation aerosol 2 puffs, Inhalation, 4 times a day, PRN as needed for wheezing, use with spacer chamber, # 8.5 Gm, 1 Refills, Maintenance, 02/11/24 22:00:00 EDT, Aerosol, [id number], Partial fill upon patient request if the prescription is for a schedule II o... Start Date: 02/11/24 Stop Date: 04/11/24 Status: Ordered Qvar Redihaler 80 mcg/inh inhalation aerosol 2 puffs, Inhalation, 2 times a day, use with spacer chamber rinse mouth and throat after use Use Albuterol first then follow with QVAR, # 10.6 Gm, 0 Refills, Maintenance, 02/11/24 22:00:00 EDT, Aerosol, [facility] #[id number], Partial fill upon patient... Start Date: 02/11/24 Stop Date: 02/25/24 Status: Ordered rosuvastatin 40 mg oral tablet TAKE 1 TABLET BY MOUTH EVERY DAY Start Date: 02/11/24 Status: Ordered Trulicity Pen 4.5 mg/0.5 mL subcutaneous solution 0 Refills, Maintenance, 02/11/24 20:20:00 EDT, Partial fill upon patient request if the prescription is for a schedule II opioid drug. Start Date: 02/11/24 Status: Ordered Results Radiology Reports * Exam Date Time Procedure Performing Provider Status 02/17/24 4:22 PM Chest 2 Views Frontal and Lat Ping Cooley; Terra (Verified) Notes: (Chest 2 Views Frontal and Lat) Reason For Exam: Chest Pain;Other: RESULT: Chest 2 Views Frontal and Lat Examination: Chest performed on 02/17/2024. History: Shortness of breath and cough. Findings: Frontal and lateral views of the chest are compared to a prior study dated 02/11/24. The cardiac and mediastinal silhouettes are within normal limits. The lungs are clear. The osseous and soft tissue structures are unremarkable. Impression: There is no acute cardiopulmonary disease. WSN: [id number] Ordering Physician: Marsha Hamilton Dictated By: Lara Moreno MD Dictated Date/Time: 02/17/24 4:51 pm Reviewed By: Lara Moreno MD Signed By: Lara Moreno MD Signed Date/Time: 02/17/24 4:51 pm Transcribed By: JASON Transcribed Date/Time: 02/17/24 4:50 pm Vital Signs Most recent to oldest [Reference Range]: 1 2 Height 173 cm (02/17/24 4:05 PM) Weight 84.7 kg (02/17/24 4:05 PM) Oxygen Saturation [94-100 %] 93 % *L* (02/17/24 4:05 PM) 94 % (02/17/24 4:04 PM) Pulse Rate [55-90 bpm] 109 bpm *H* (02/17/24 4:05 PM) 110 bpm *H* (02/17/24 4:04 PM) Blood Pressure [90-138/55-84 mm Hg] 144/ 102mm Hg *H* (02/17/24 4:05 PM) Respiratory Rate [16-30 br/min] 26 br/mi n (02/17/24 4:05 PM) Temperature [96.8-100.4 DegF] 98 DegF (02/17/24 4:05 PM) Mode of Delivery (Oxygen) Room air (02/17/24 4:05 PM) Room air (02/17/24 4:04 PM) Temperature Route Temporal (02/17/24 4:05 PM) Dry Weight 84.7 kg (02/17/24 4:05 PM) Weight Obtained Via Standing scale (02/17/24 4:05 PM) Dry Weight Obtained Via Standing scale (02/17/24 4:05 PM) Patient Care team information Care Team Personnel Name: Not on Staff, PCP Position: S Physician (General Medicine) Member Role: PCP Care Team Related Persons Name: VIRGIE TRUJILLO Address: [address] [address]
--- OUTSIDE RECORDS SUMMARY | 2024-03-31 00:17 | XMS_ITS | Continuity of Care Document ---
Author Organization [facility] Address [address] [place] [address]- Care Team Providers Care Utility Accounts Director Name Role Phone Not on Staff, PCP Primary Care Physician Unavail able [facility] [facility] [place]s): 06/10/22 - 07/10/22 [facility] [address] [place] [id number] Attending Physician: Lisa Boles Admitting Physician: Lisa Boles Referring Physician: Lisa Boles Allergies, Adverse Reactions, Alerts No Known Allergies Medications Percocet-5/325 325 mg-5 mg oral tablet 1 tablet, By Mouth, Every 4 hours, PRN for pain, # 15 tablet, 0 Refills, Maintenance, Tablet Start Date: 08/09/11 Status: Ordered
--- OUTSIDE RECORDS SUMMARY | 2024-03-31 00:17 | XMS_ITS | Continuity of Care Document ---
Author Organization [facility] Address [address] [place] [address]- Care Team Providers Care Inpatient Auditor Name Role Phone Not on Staff, PCP Primary Care Physician Unavail able Encounter [facility] Date(s): 06/10/22 - 07/10/22 [facility] [address] [place] [address]- Allergies, Adverse Reactions, Alerts No Known Allergies Medications Percocet-5/325 325 mg-5 mg oral tablet 1 tablet, By Mouth, Every 4 hours, PRN for pain, # 15 tablet, 0 Refills, Maintenance, Tablet Start Date: 08/09/11 Status: Ordered
--- OUTSIDE RECORDS SUMMARY | 2024-03-31 00:17 | XMS_ITS | Continuity of Care Document ---
Author Organization [facility] Address [address] [place] [address]- Care Team Providers Care Safety Investigator Name Role Phone Not on Staff, PCP Primary Care Physician Unavail able Encounter [facility] Date(s): 02/11/24 - 02/11/[address] [address]- Encounter Diagnosis Acute asthmatic bronchitis(Final) - 02/11/24 Hypertension, uncontrolled(Final) - 02/11/24 Diabetes mellitus, type II(Final) - 02/11/24 Former cigarette smoker(Final) - 02/11/24 Discharge Disposition: A-D/C Home Attending Physician: Kevin Schulte MD Admitting Physician: Kevin Schulte MD Referring Physician: Not on Staff, Referring [...] 22:01:00 EDT, 02/11/24 22:01:00 EDT, Capsule, [id number], Partial fill upon patient request if the [...] 1 Refills, Maintenance, 02/11/24 22:00:00 EDT, Aerosol, [facility] #[id number], Partial fill upon patient request if the prescription is for a schedule II o... Start Date: 02/11/24 Stop Date: 04/11/24 Status: Ordered Qvar Redihaler 80 mcg/inh inhalation aerosol 2 puffs, Inhalation, 2 times a day, use with spacer chamber rinse mouth and throat after use Use Albuterol first then follow with QVAR, # 10.6 Gm, 0 Refills, Maintenance, 02/11/24 22:00:00 EDT, Aerosol, [id number], Partial fill upon patient... Start Date: [...] Exam Date Time Procedure Performing Provider Status 02/11/24 7:53 PM Chest 2 Views Frontal and Lat Carlota Sawyer; Auth (Verified) Notes: (Chest 2 Views Frontal and Lat) Reason For Exam: SOB;Cough RESULT: Chest 2 Views Frontal and Lat Chest 2 Views Frontal and Lat Hx of Present Illness: SOB and non-productive cough that started 2 weeks ago. Pt was seen here and was dx with PNA, but his sx haven't improved. Pt denies fever.; Reason: Cough; SOB; Clinical Question(s): Pneumonia; Special Instructions: This is a protocol film and radiologist should call any findings to the Charge Nurse or appropriate provider COMPARISON: Chest x-ray dated 02/01/2024 FINDINGS: LINES AND TUBES: None. LUNGS AND PLEURA: Interval improved aeration at the lingula. No focal infiltrate or evidence of pulmonary vascular congestion. No pleural effusion. No pneumothorax. HEART, MEDIASTINUM AND DAMEON: Heart is normal in size. Aorta is somewhat tortuous. BONES AND SOFT TISSUES: No acute abnormality. IMPRESSION: Interval improved aeration of the lingula. No acute pulmonary process. WSN: [id number] Ordering Physician: Arsen Vincent Dictated By: Kimberly Canales MD Dictated Date/Time: 02/11/24 8:05 pm Reviewed By: Kimberly Canales MD Signed By: Kimberly Canales MD Signed Date/Time: 02/11/24 8:05 pm Transcribed By: JASON Transcribed Date/Time: 02/11/24 8:04 pm Vital Signs Most recent to oldest [Reference Range]: 1 2 3 Height 173 cm (02/11/24 9:45 PM) 173 cm (02/11/24 7:20 PM) Weight 83.6 kg (02/11/24 9:45 PM) 83.6 kg (02/11/24 7:20 PM) Oxygen Saturation [94-100 %] 97 % (02/11/24 11:51 PM) 95 % (02/11/24 9:45 PM) 95 % (02/11/24 7:20 PM) Pulse Rate [55-90 bpm] 92 bpm *H* (02/11/24 11:51 PM) 91 bpm *H* (02/11/24 9:45 PM) 114 bpm *H* (02/11/24 7:20 PM) Body Mass Index [18.5-24.99 kg/m2] 27.93 kg/m2 *H* (02/11/24 9:45 PM) Blood Pressure [90-138/55-84 mm Hg] 141/97mm Hg *H* (02/11/24 11:51 PM) 163/101mm Hg *H* (02/11/24 9:45 PM) 144/105mm Hg *H* (02/11/24 7:20 PM) Respiratory Rate [16-30 br/min] 17 br/min (02/11/24 11:51 PM) 16 br/min (02/11/24 9:45 PM) 20 br/min (02/11/24 7:20 PM) Temperature [96.8-100.4 DegF] 97.5 DegF (02/11/24 7:20 PM) Mode of Delivery (Oxygen) Room air (02/11/24 11:51 PM) Room air (02/11/24 9:45 PM) Room air (02/11/24 7:20 PM) Blood pressure sites Arm, left (02/11/24 11:51 PM) Arm, left (02/11/24 9:45 PM) Arm, left (02/11/24 7:20 PM) Temperature Route Tympanic (02/11/24 7:20 PM) Dry Weight 83.6 kg (02/11/24 9:45 PM) 83.6 kg (02/11/24 7:20 PM) Weight Obtained Via Standing scale (02/11/24 7:20 PM) Dry Weight Obtained Via Standing scale (02/11/24 7:20 PM) Note * Tone SINGER, Luly WH: PERFORM Event Display: Patient Education Leaflets Authored Date: Using a Metered-Dose Inhaler with a Spacer ?? [id number] Using a Metered-Dose Inhaler with a Spacer To control asthma, you need to use your medicines the right way. Some medicines are inhaled using adevice called a metered-dose??inhaler (MDI). MDIs deliver medicine with a fine spray. Your healthcare provider has prescribed a special chamber or spacer to use with your inhaler. A spacer increases the amount of medicine that goes to your lungs by preventing it from landing on your tongue or the back of your mouth. This reduces the irritation to your throat. It helps increase the amount of medicine that makes it to your lungs. It may make your medicine work better. Steps for using an inhaler with a spacer Step 1: ??? Wash your hands. ??? Check the expiration date and the counter of the inhaler, if present. ??? Remove the cap from the inhaler. ??? Shake the inhaler well. If the inhaler is being used for the first time or has not been used for a while, prime it as directed by the product maker. Make sure to prime the inhaler in the air away from your face. ??? Check to make sure the metal canister is put correctly into the plastic boot, or bustillos, of the inhaler. See the package insert for instructions. ??? Attach the spacer to the inhaler. Then remove the cap from the spacer mouthpiece. Step 2: ??? Breathe out normally, away from the spacer. ??? Put the mouthpiece of the spacer past your teeth and above your tongue. Close your lips tightly around it. ??? Keep your chin up or level. Step 3: ??? Press down on the canister 1 time to release the medicine ??? Then breathe in through your mouth as slowly and deeply as you can. This should take??about 5 to 10??seconds. If you breathe too quickly, you may hear a whistling sound in certain spacers. Step 4: ??? Take the spacer mouthpiece out of your mouth. Close your lips. ??? Hold your breath up to 10 seconds if you are able. ??? Slowly breathe out through your mouth. ??? After using your inhaler, rinse your mouth with water by swishing, gargling, and spitting out the water. Never swallow it. Inhaledcorticosteroids can cause a fungal infection called thrush in your mouth and throat. ??? Wash your hands again when you are done. ?? Important If you???re prescribed more than 1 puff of medicine at a time,??wait up to 60 seconds, or as directed by your healthcare provider, between puffs. This number may be different for different medicines.??Shake the inhaler again. Then repeat steps 2 to 4. You can find important information about the medicine in the package insert. This is the paper thatcomes with the medicine. If you use more than one inhaler, ask your healthcare provider which one to use first. Your healthcare provider or pharmacist can show you how to use your inhaler and spacer the right way. Know how many puffs are left in your inhaler. That way you won't run out of your medicine when you need it. Ask your provider how to know how many puffs are left. Keeping your inhaler and spacer clean will help to keep your inhaler working correctly. Read the package insert for care and cleaning instructions. ?? Last Reviewed Date: 2023 ?? 6204-2772 [employer]. All rights reserved. This information is not intended as a substitute for professional medical care. Always follow your healthcare professional's instructions. ?? Patient Care team information Care Team Personnel Name: Not on Staff, PCP Position: S Physician (General Medicine) Member Role: PCP Care Team Related Persons Name: VIRGIE TRUJILLO Address: [place] [address]
--- OUTSIDE RECORDS SUMMARY | 2024-03-31 00:17 | XMS_ITS | Continuity of Care Document ---
Author Organization [facility] Address [address] [place] [address]- Care Team Providers Care Friction Paint Machine Tender Name Role Phone Not on Staff, PCP Primary Care Physician Unavail able Encounter [facility] Date(s): 02/01/24 - 02/01/[address] [address]- Discharge Disposition: A-D/C Home Attending Physician: Oliver Steven MD Admitting Physician: Oliver Steven MD Referring Physician: Not on Staff, Referring MD Allergies, Adverse Reactions, Alerts No Known Allergies Medications Augmentin 875 mg-125 mg oral tablet 1 tablet, By Mouth, Every 12 hours, for 7 days, # 13 tablet, 0 Refills, Acute 02/08/24 12:22:00 EDT, 02/01/24 12:22:00 EST, Tablet, [id number], Partial fill upon patient request if the prescription is for a schedule II opioid drug., 173, cm, 0... Start Date: 02/01/24 Stop Date: 02/08/24 Status: Ordered Florastor 250 mg oral capsule 1 capsule = 250 mg, By Mouth, 2 times a day, # 50 capsule, 0 Refills, Acute 02/02/24 12:22:00 EST, 02/01/24 12:22:00 EST, Capsule, [id number], Partial fill upon patient request if the prescription is for a schedule II opioid drug., 173, cm, 03... Start Date: 02/01/24 Stop Date: 02/02/24 Status: Ordered Percocet-5/325 325 mg-5 mg oral tablet 1 tablet, By Mouth, Every 4 hours, PRN for pain, # 15 tablet, 0 Refills, Maintenance, Tablet Start Date: 08/09/11 Status: Ordered Zithromax 250 mg oral tablet 1 tablet = 250 mg, By Mouth, Daily, for 4 days, # 4 tablet, 0 Refills, Acute 02/05/24 12:22:00 EDT,02/01/24 12:22:00 EST, Tablet, [facility]/pharm[facility] #[id number], Partial fill upon patient request if the prescription is for a schedule II opioid drug., 173, cm, 03... Start Date: 02/01/24 Stop Date: 02/05/24 Status: Ordered Results Radiology Reports * Exam Date Time Procedure Performing Provider Status 02/01/24 10:28 AM Chest 2 Views Frontal and Lat Mary Silva; Auth (Verified) Notes: (Chest 2 Views Frontal and Lat) Reason For Exam: Cough RESULT: Chest 2 Views Frontal and Lat Chest 2 Views Frontal and Lat Hx of Present Illness: Productive cough, shortenss of breath since yesterday .; Reason: Cough; Clinical Question(s): Pneumonia COMPARISON: None. FINDINGS: LINES AND TUBES: None. LUNGS AND PLEURA: There is patchy airspace opacity within the lingula at the anterior left lung base. Otherwise the lungs are clear. No pleural effusion. No pneumothorax. HEART, MEDIASTINUM AND DAMEON: Heart is normal in size. Normal mediastinal and hilar contour. BONES AND SOFT TISSUES: No acute abnormality. IMPRESSION: Small lingular infiltrate at left anterior lung base. A small developing pneumonia cannot be excluded. An actionable message (Yellow) has been communicated via the [employer] system on 02/01/2024 10:38 AM, Message ID [id number]. WSN: [id number] Ordering Physician: Tobias Gutierres Dictated By: García Vila MD Dictated Date/Time: 02/01/24 10:38 a Reviewed By: García Vila MD Signed By: García Vila MD Signed Date/Time: 02/01/24 10:38 am Transcribed By: JASON Transcribed Date/Time: 02/01/24 10:37 am Vital Signs Most recent to oldest [Reference Range]: 1 Height 173 cm (02/01/24 10:24 AM) Weight 81.9 kg (02/01/24 10:24 AM) Oxygen Saturation [94-100 %] 94 % (02/01/24 10:24 AM) Pulse Rate [55-90 bpm] 73 bpm (02/01/24 10:24 AM) Respiratory Rate [16-30 br/min] 18 br/mi n (02/01/24 10:24 AM) Temperature [96.8-100.4 DegF] 97.3 DegF (02/01/24 10:24 AM) Mode of Delivery (Oxygen) Room air (02/01/24 10:24 AM) Temperature Route Oral (02/01/24 10:24 AM) Dry Weight 81.9 kg (02/01/24 10:24 AM) Weight Obtained Via Standing scale (02/01/24 10:24 AM) Dry Weight Obtained Via Standing scale (02/01/24 10:24 AM) Note * Tenisha CALLEJAS, Oliver Gregory: PERFORM Event Display: Patient Education Leaflets Authored Date: [id number] Zones Pneumonia ?? 438 PNEUMONIA ZONES EVERY DAY EVERY DAY: ??? Take antibiotics as prescribed every day until all pills are gone. ??? Get a pneumonia vaccine and annual flu vaccine. ??? Eat 4-6 small meals, drink 4-6 glasses of water or fluid each day. ??? Get plenty of sleep. ??Rest between activities. ??? Wash your hands often. ??? Make an appointment with your doctor within one week of your discharge. Which Zone are you today? GREEN, YELLOW, or RED? GREEN ZONE ALL CLEAR - This zone is your goal Your symptoms are under control when: ??? Normal temperature (98.6o). ??? Restful night sleep. ??? No shortness of breath. ??? No cough or cold symptoms. ??? No chest pain. ??? Healthy appetite. ??? If you smoke ??? STOP. YELLOW ZONE ?? STOP & CALL CAUTION - This zone is a warning .?? CALL your doctor if you: Doctor: Phone#: Your symptoms may mean that you need an adjustment in your medication. ??? Rash. ??? Fever of 100.5o or higher, may have shaking chills. ??? Shortness of breath. ??? Problem breathing when you are lying down. ??? Cough with greenish, yellow or bloody mucus. ??? More tired, have less energy, or confusion in the elderly. ??? Urinating less or have a fast heart rate. RED ZONE MEDICAL ALERT WHEN: You may need to be evaluated by your doctor right away.?? Call your doctor immediately if: ??? Sharp or stabbing pain in the chest, that worsens with deep breathing. ??? Shortness of breath has increased. ??? Confusion or can???t think clearly. ??? Increased restlessness or nervousness. ? Patient Care team information Care Team Personnel Name: Not on Staff, PCP Position: [facility] Physician (General Medicine) Member Role: PCP Care Team Related Persons Name: VIRGIE TRUJILLO Address: [place] [id number]
--- NOTE | 2024-03-31 00:21 | ED_ITS ---
HPI - SOB/Dyspnea General Chief Complaint: Dyspnea Stated Complaint: pneumonia Time Seen by Provider: 03/31/24 00:07 Source: patient Mode of arrival: ambulatory Limitations: no limitations History of Present Illness HPI Narrative: Patient comes to the emergency room complaining of cough, shortness of breath. Patient states that 2 months ago he was diagnosed with pneumonia, started doing well and then his restarted having symptoms again. Patient states that he has been using albuterol palms without any relief. Also, patient states that he has been out of [facility] for over a month and his glucose has been high when he tests at home. Patient states that he has prescriptions available to him. However, all the pharmacies are out of [facility] due to high demand. Related Data Home Medications ?Medication ?Instructions ?Recorded ?Confirmed rosuvastatin 40 mg tablet 40 mg PO DAILY 08/30/20 02/21/24 betamethasone, augmented 0.05 % 1 appl topical BID 02/21/24 02/21/24 topical ointment dulaglutide 4.5 mg/0.5 mL 4.5 mg subcut Q7D 02/21/24 02/21/24 subcutaneous pen injector ([facility]) enalapril maleate 20 mg tablet 20 mg PO DAILY 02/21/24 02/21/24 ergocalciferol (vitamin D2) 1,250 1,250 mcg PO QWEEK 02/21/24 02/21/24 mcg (50,000 unit) capsule Previous Rx's ?Medication ?Instructions ?Recorded albuterol sulfate 90 mcg/actuation 2 puff inhalation Q6H PRN 02/22/24 aerosol inhaler Shortness Of Breath Or Wheezing #6.7 grams azithromycin 500 mg tablet 500 mg PO DAILY 4 days #4 tabs 02/22/24 cefuroxime axetil 500 mg tablet 500 mg PO BID #8 tabs 02/22/24 guaifenesin 600 mg tablet, 600 mg PO BID #6 tabs 02/22/24 extended release 12 hr (Mucus Relief ER) prednisone 10 mg tablet See Taper PO DIRECTED #30 tabs 02/22/24 albuterol sulfate 90 mcg/actuation 2 puff inhalation Q4-6H PRN 03/31/24 aerosol inhaler shortness of breath or wheezing #8.5 grams glipizide 5 mg tablet 5 mg PO DAILY #30 tabs 03/31/24 prednisone 50 mg tablet 50 mg PO DAILY #4 tabs 03/31/24 Allergies Allergy/AdvReac Type Severity Reaction Status Date / Time aspirin Allergy Unknown swelling Verified 03/30/24 22:53 Review of Systems 2 Review of Systems: Constitutional : No Weight loss, No Fever, No Chills, No Night Sweats, No Fatigue, No Malaise ENT/Mouth : No Hearing loss, No Ear Pain, No Nasal Congestion, No Sinus Pain, No Hoarseness, No sore throat, No Rhinorrhea, No Swallowing Difficulty Eyes: No Eye Pain, No Swelling, No Redness, No Foreign Body, No Discharge, No Vision Changes Cardiovascular : No Chest Pain, No SOB, No Dyspnea on Exertion, No Orthopnea, No Edema, No Palpitations Respiratory : Complaining of cough, wheezing, shortness of breath Gastrointestinal : No Nausea, No Vomiting, No Diarrhea, No Constipation, No abdominal Pain, No Hematochezia, No Melena Genitourinary : no irregular bleeding, No Dysuria, No Urinary Frequency, No Hematuria, No Urinary Incontinence, No Urgency, No Flank Pain, No Urinary Flow Changes, No Hesitancy Musculoskeletal : No joint pain, No Myalgias, No Joint Swelling Skin : No Skin Lesions, No rash Neuro : No Weakness, No Numbness, No Paresthesias, No Loss of Consciousness, No Dizziness, No Headache Psych : No Anxiety/Panic, No Depression, No SI/HI/AH/VH, No Social Issues, Heme/Lymph: No Bruising, No Bleeding,No Lymphadenopathy Endocrine : No Polyuria, No Polydipsia, No Temperature Intolerance [facility] Past Medical History Medical History (Updated 03/31/24 @ 02:46 by Aspen Roth MD) Asthma Depression Pancreatitis Facet arthropathy, cervical Social History Social History Alcohol intake: current Alcohol intake frequency: holidays/special occasions only Patient Tobacco Use Status: Current everyday Tobacco user Cigarettes Per Day: 10 Smoked in Last 30 Days: No Advance Directives: No Advance Directives Information Provided: Yes Do you have a plan to hurt others: No Plan service: No Physical Exam 2 Vital Signs: Vital Signs: Last Vital Signs Temp 98 F 03/31/24 01:57 Pulse 90 03/31/24 01:57 Resp 20 03/31/24 01:57 BP 117/74 03/31/24 01:57 Pulse Ox 93 03/31/24 01:57 O2 Del Method Room Air 03/31/24 01:57 BMI result Body Mass Index 27.4 Const: Other: Appearance: Alert. Oriented X3. No acute distress. Eyes: Pupils equal, round and reactive to light. ENT: Pharynx normal. Neck: Normal inspection. Neck supple. No lymph nodes noted. No crepitus CVS: Normal heart rate and rhythm. Pulses normal. Normal S1 and S2 Respiratory: No respiratory distress. Breath sounds normal. Mild bilateral wheezing, bilateral rales, no crackles Abdomen: Soft and nontender. No rigidity. No distention. Skin: Skin warm and dry. Normal skin color. Normal skin turgor. Extremities: No lower extremity edema. No Lacerations. No Rash Neuro: Oriented X 3. No motor deficit. No sensory deficit. Moving all extremities. No slurred speech. CN 2 through 12 grossly intact Psych: calm, cooperative, normal affect Course Course Course Narrative: -patient receiving nebulization treatments, IV Solu-Medrol and magnesium -also, patient receiving 2 L of normal saline and 10 units of insulin. Medications Administered Discontinued Medications Generic Name Dose Route Start Last Admin Trade Name Freq PRN Reason Stop Dose Admin Albuterol Sulfate 10 mg 03/31/24 00:18 03/31/24 00:32 Albuterol Sulfate (0.083%) 2.5 Mg/3 Ml Vial.Neb INHALE 03/31/24 00:19 10 mg ONCE ONE Administration Sodium Chloride 2,000 mls @ 999 mls/hr 03/31/24 00:10 03/31/24 02:38 Ns IVCONT 03/31/24 02:10 Infused .Q2H1M ONE Infusion Magnesium Sulfate 2 gm in 50 mls @ 25 mls/hr 03/31/24 00:18 03/31/24 02:38 Magnesium Sulfate/H2o IV 03/31/24 02:17 Infused ONCE ONE Infusion Insulin Human Regular 10 unit 03/31/24 00:10 03/31/24 00:26 Insulin Regular, Human 100 Unit/Ml 3 Ml Vial IVPUSH 03/31/24 00:11 10 unit ONCE ONE Administration Methylprednisolone Sodium Succinate 125 mg 03/31/24 00:18 03/31/24 00:28 Methylprednisolone Sod Succ 125 Mg/2 Ml Vial IVPUSH 03/31/24 00:19 125 mg ONCE ONE Administration Medical Decision Making Medical Decision Making [facility] Narrative: -my interpretation of labs: White blood cell count 14.5. Chemistry shows a slightly elevated creatinine at 1.75, new for patient, glucose of 512. Serology negative for COVID and influenza. Hydroxybutyrate negative -patient was ambulated in the emergency room, oxygen saturation above 94% on room air. -my interpretation of chest x-ray: Negative for infiltrates -patient breathing much better, no wheezing, oxygen remains at 94%. -patient's glucose improved to 208. -repeat chemistry: Patient's BYRON resolved, normal creatinine now, glucose 213 -patient requesting p.o. medication for diabetes since his IM medications are not available at any pharmacy. -I discussed with the patient the x-rays, patient likely has bronchitis, no antibiotics indicated. Differential Diagnosis Differential Diagnoses: The differential diagnosis associated with the presentation includes (DKA, hyperglycemia, pneumonia, URI, asthma) Admission/Observation Consideration of admission/observation: Escalation of care including admission/observation considered (Given patient's multiple complaints and labs, admission/observation was considered) Lab Data [facility] Lab Attestation statement: I reviewed the patient's lab results. 03/30/24 23:13 03/31/24 02:15 Labs: Lab Results 03/30/24 03/31/24 Range/Units 23:13 02:15 WBC 14.5 H (4.8-10.8) X10*3/uL RBC 4.89 (4.60-5.80) X10*6/uL Hgb 14.3 (14.0-18.0) g/dl Hct 42.5 (42.0-52.0) % MCV 86.9 (80.0-98.0) fL MCH 29.2 (27.0-33.0) pg MCHC 33.6 (31.0-36.0) g/dl RDW 13.2 (11.0-16.0) % Plt Count 299 (160-400) X10*3/uL MPV 11.0 (9.4-12.4) fL Immature Gran % (Auto) 0.5 H (0.0-0.4) % Neut % (Auto) 51.3 (45-73) % Lymph % (Auto) 23.5 (20-40) % Mercer % (Auto) 10.8 (2-11) % Eos % (Auto) 13.2 H (0-4) % Baso % (Auto) 0.7 (0-2) % Lymph # (Auto) 3.4 (1.2-4.9) X10*3/uL Mercer # (Auto) 1.6 H (0.1-1.2) X10*3/uL Eos # (Auto) 1.9 H (0.0-0.4) X10*3/uL Baso # (Auto) 0.1 (0.0-0.2) X10*3/uL Abs Immat Gran (auto) 0.07 H (0.00-0.03) X10*3/uL Absolute Neuts (auto) 7.4 (2.0-8.3) x10*3/uL Absolute Nucleated RBC 0.000 (0.0-0.012) X10*3/uL Nucleated RBC % (auto) 0.0 (0.0-0.2) /100WBC Smear Tech's Comments VERIFIED Sodium 133 L 142 (135-145) mmol/L Potassium 3.8 3.6 (3.3-5.1) mmol/L Chloride 97 103 (96-108) mmol/L Carbon Dioxide 22 27 (22-29) mmol/L Anion Gap 18 16 (12-20) BUN 20 H 19 H (9-16) mg/dL Creatinine 1.75 H 1.28 (0.5-1.4) mg/dL Estim Creat Clear Calc 47.7 65.3 Estimated GFR 41 59 Random Glucose 512 H* 213 H (60-115) mg/dL Calcium 9.5 8.7 D (8.4-10.2) mg/dL Total Bilirubin 0.3 (0.0-1.0) mg/dL AST 19 (5-37) U/L ALT 37 (0-40) U/L Alkaline Phosphatase 150 H (39-117) U/L Total Protein 6.7 (6.5-8.0) g/dL Albumin 4.0 (3.5-5.0) g/dL Beta-Hydroxybutyrate 0.12 (0.02-0.27) mmol/L COVID-19 (OSMAR) Negative (Negative) COVID-19 Clin Com See Note Influenza Type A (SENDY) Negative (Negative) Influenza Type B (SENDY) Negative (Negative) Influenza A & B Note See Note Independent Interpretation I performed an independent interpretation of an: Plain X-Ray Radiology Impression Discussion of test interpretation with radiology: I have reviewed the radiologist's reading. Radiologist Impression: Linear opacities are again noted at the left lung base, similar to prior and favored to correspond to atelectasis or pleural parenchymal scarring. No consolidation, pneumothorax, or pleural effusion. Cardiac and mediastinal contours are normal. Pulmonary vasculature is unremarkable. Degenerative disc disease is present in the thoracic spine. No acute osseous findings. XR/XR chest 1V IMPRESSION: No acute pulmonary disease. Critical Care Time Critical Care Time Critical Care Time: Yes Total Critical Care Time: 75 Attestation: I have personally provided critical care time. Time includes review of lab data, radiology results, discussion with consultants, and monitoring for potential decompensation. Intervention performed as documented. Discharge Plan Discharge Clinical Impression: BYRON (acute kidney injury), Acute hyperglycemia, Acute viral bronchitis, Asthma exacerbation Patient Disposition: Home, Self-Care Instructions: Asthma (ED), Acute Kidney Injury (DC), Diabetic Hyperglycemia (ED) Additional Instructions: Your glucose will be elevated more than usual over last few days because you will be taking prednisone. Please follow-up with your primary care physician tomorrow. If you have any worsening or new symptoms, please return to the emergency room or call 911 Prescriptions: New albuterol sulfate 90 mcg/actuation HFA aerosol inhaler 2 puff inhalation Q4-6H PRN (Reason: shortness of breath or wheezing) Qty: 8.5 0RF prednisone 50 mg tablet 50 mg PO DAILY Qty: 4 0RF glipizide 5 mg tablet 5 mg PO DAILY Qty: 30 0RF No Action enalapril maleate 20 mg tablet 20 mg PO DAILY betamethasone, augmented 0.05 % ointment 1 appl topical BID ergocalciferol (vitamin D2) 1,250 mcg (50,000 unit) capsule 1,250 mcg PO QWEEK Trulicity 4.5 mg/0.5 mL pen injector 4.5 mg subcut Q7D cefuroxime axetil 500 mg tablet 500 mg PO BID Qty: 8 0RF azithromycin 500 mg tablet 500 mg PO DAILY 4 Days Qty: 4 0RF albuterol sulfate 90 mcg/actuation HFA aerosol inhaler 2 puff inhalation Q6H PRN (Reason: Shortness Of Breath Or Wheezing) Qty: 6.7 0RF prednisone 10 mg tablet See Taper PO DIRECTED Qty: 30 0RF Taper: Prednisone 40 mg daily for 3 Days and 0 Hour 30 mg daily for 3 Days and 0 Hour 20 mg daily for 3 Days and 0 Hour 10 mg daily for 3 Days and 0 Hour Rx Instructions: see taper instructions guaifenesin [Mucus Relief ER] 600 mg tablet extended release 12hr 600 mg PO BID Qty: 6 0RF rosuvastatin 40 mg tablet 40 mg PO DAILY Print Language: Pakistani
[2024-03-31] MEDS: 0.9 % Sodium Chloride 2,000 ML 999 ML IVCONT (00:22)
[2024-03-31] MEDS: Insulin Regular, Human 100 UNIT/ML 3 ML VIAL 10 UNIT IVPUSH (00:26)
[2024-03-31] MEDS: methylPREDNISolone Sod Succ 125 MG/2 ML VIAL IVPUSH (00:28)
[2024-03-31] MEDS: Magnesium Sulfate/H2O 2 GM/50 ML PIGGYBACK IV (00:28)
[2024-03-31 00:29] LABS: Beta-Hydroxybutyrate 0.12 mmol/L (0.02-0.27)
[2024-03-31 00:30] VITALS: O2SAT 94
[2024-03-31 00:32] VITALS: PULSE 95; RESP 20; O2SAT 94
[2024-03-31] MEDS: Albuterol Sulfate (0.083%) 2.5 MG/3 ML VIAL.NEB 10 MG INHALE (00:32)
[2024-03-31 01:57] VITALS: BP 117/74; PULSE 90; RESP 20; TEMP 36.6; O2SAT 93
[2024-03-31 02:31] LABS: Anion Gap 16 (12-20); Blood Urea Nitrogen 19 mg/dL (9-16); Calcium 8.7 mg/dL (8.4-10.2); Carbon Dioxide 27 mmol/L (22-29); Chloride 103 mmol/L (96-108); Creatinine Clr Calc Pharmacy 65.3; Estimated Glomerular Filt Rate 59; Glucose Random 213 mg/dL (60-115); Potassium 3.6 mmol/L (3.3-5.1); Sodium 142 mmol/L (135-145)
[2024-03-31 03:02] VITALS: BP 117/74; PULSE 90; RESP 20; TEMP 36.6; O2SAT 94
[2024-03-31 08:24] LABS: Glucose, Whole Blood 206 mg/dL (60-115)
== END 2024-03-31 03:42 | disposition home or self-care (01) ==
PROVIDERS: Emergency Provider Emergency Medicine
DX: N17.9 Acute kidney failure, unspecified (principal); J20.8 Acute bronchitis due to other specified organisms; E11.65 Type 2 diabetes mellitus with hyperglycemia; J45.901 Unspecified asthma with (acute) exacerbation; R06.02 Shortness of breath; Z79.85 Long-term (current) use of injectable non-insulin antidiabetic drugs; Z79.02 Long term (current) use of antithrombotics/antiplatelets; Z79.899 Other long term (current) drug therapy; F17.210 Nicotine dependence, cigarettes, uncomplicated; Z03.818 Encounter for observation for suspected exposure to other biological agents ruled out
CPT/HCPCS: 36415; 71045; 80048; 80053; 82010; 82947; 85025; 87502; 87635; 94640; 96365; 96366; 96375; 99284; J2919; J3475

== ENCOUNTER 2024-04-16 15:05 | Outpatient (AMB) | payer OTHER, MEDICAID, SELFPAY ==
--- NOTE | 2024-04-16 15:11 | MHC.OFFVIS ---
Vital Signs 04/16/24 15:13 Height 5 ft 8 in Weight 188 lb 7.924 oz BMI 28.7 BP 130/78 Blood Pressure Location Rt brachial Position Sitting Pulse 98 Pulse Source Pulse Oximeter Pulse Oximetry (%) 93 Oxygen Delivery Method Room Air Intake Visit Reasons: Dyspnea ER Follow up Flux Mixer Required: Yes Flux Mixer Language: Cuff Setter Overlock Name: cande Allergies aspirin Allergy (Unknown, Verified 04/16/24 15:17) swelling HPI HPI Dyspnea ER Follow up: Details: Sunny is a pleasant 53-year-old male, former smoker, recently quit 4 months ago with 58 pack-year history, with underlying asthma, HTN and DMII. He was referred from the ED after recent asthma exacerbation 2 weeks ago. He presented to the ED on 03/31/24 with cough and dyspnea, treated with nebs, solumedrol and discharged with prednisone. Prior to this , evaluation, he was seen in January with asthma exacerbation and sepsis secondary to pneumonia, discharged on antibiotics and prednisone. Since discharge he reports moderate improvement in symptoms. Recent CXR unremarkable. He continues to report dyspnea, wheezing, chest tightness and dry cough. He has been using his albuterol every 4 hours with minimal relief. He is not on a daily inhaler. He denies any pertinent family history. He denies any childhood asthma or need for intubation in the past related to respiratory distress. He denies any occupational exposures. He reports seasonal allergies, and no recent allergy testing. He reports recently quitting smoking and has not had any LDCT. [facility] Medical History (Updated 04/16/24 @ 19:57 by Aspen Campos NP) Asthma Depression Pancreatitis Facet arthropathy, cervical Social History (Updated 04/16/24 @ 15:19 by Emily Jimenez CMA) Alcohol intake: current Alcohol intake frequency: holidays/special occasions only Patient Tobacco Use Status: Former Tobacco user Quit Date: quit 4 months ago Cigarettes Per Day: 10 service: No Review of Systems Const Denies chills, Denies excessive sweating, Denies fever(s), Denies headache(s) and Denies night sweats Eyes Denies dry eyes and Denies irritation ENT Reports Normal hearing present, Denies headache(s), Denies nasal discharge, Denies post nasal drip and Denies sore throat Card Denies chest pain, Denies chest pain at rest, Denies chest pain with activity, Denies claudication, Denies leg edema, Denies orthopnea and Denies paroxysmal nocturnal dyspnea Resp Denies chest congestion, Denies excessive phlegm production, Denies pain on inspiration, Denies pain with cough and Denies stridor Musc Denies myalgias Neuro Reports Normal hearing present and Denies headache(s) Endo Denies excessive sweating Geraldo/Lymph Denies lymphadenopathy Physical Exam Vital Signs: Last Vital Signs Pulse 98 04/16/24 15:13 BP 130/78 04/16/24 15:13 Pulse Ox 93 04/16/24 15:13 Oxygen Delivery Method Room Air 04/16/24 15:13 BMI result Body Mass Index 28.7 Const General: cooperative, healthy appearing, comfortable, no acute distress, well developed and alert Orientation/consciousness: patient oriented x3 Limitations: no limitations HEENT Head: Yes normal to inspection, Yes normocephalic and Yes atraumatic Ears: hearing grossly normal bilaterally and external ears normal Eyes General: appearance normal, both eyes and all related structures Eyelids: Yes eyelids normal Sclerae: sclerae normal EOM: EOMs intact bilaterally Neck Neck: Yes normal visual inspection and Yes no lymphadenopathy Lymphatic: no lymphadenopathy noted Chest Chest palpation & inspection: normal inspection of the chest Resp Other: wheezing on exam improved with duoneb Effort & Inspection: normal respiratory effort, able to speak in complete sentences, no audible wheezes, no stridor, not tachypneic, no tripod positioning and no use of accessory muscles Cardio Jugular venous distension: no JVD Rate: regular rate Rhythm: regular rhythm Skin Other: warm, dry General skin exam: no rashes or lesions noted Neuro General: patient oriented x3 Cranial nerves: Yes Normal hearing present Cognition (Neuro): normal cognition Gait exam (Neuro): Normal gait present Extrem General: Yes normal to inspection, Yes capillary refill normal, Yes no clubbing, cyanosis or edema and Yes no pedal edema Psych Appearance: grossly normal and well kempt Speech and movement: Normal speech and movement present and Clear speech present Affect: normal affect Attitude: cooperative Thought process: Normal thought process present Thought content: Normal thought content present Insight: Good insight present (Psych) Judgement: Good judgement present (Psych) Results Reviewed Results Reviewed: [address] [address] XRay Report Signed Patient: Sunny Dorsey MR#: [id number] : 1970 Acct:[id number] Age/Sex: 53 / M ADM Date: 03/31/24 Loc: HO.ED Attending Dr: Ordering Physician: Aspen Roth MD Date of Service: 03/30/24 Procedure(s): XR chest 1V Accession Number(s): [id number] cc: Aspen Roth MD; Physician,Unknown ~ EXAMINATION: XR CHEST CLINICAL INFORMATION: Cough COMPARISON: 02/20/2024 TECHNIQUE: Frontal view of the chest was obtained. FINDINGS: Linear opacities are again noted at the left lung base, similar to prior and favored to correspond to atelectasis or pleural parenchymal scarring. No consolidation, pneumothorax, or pleural effusion. Cardiac and mediastinal contours are normal. Pulmonary vasculature is unremarkable. Degenerative disc disease is present in the thoracic spine. No acute osseous findings. XR/XR chest 1V IMPRESSION: No acute pulmonary disease. Dictated By: Eliazar Ortiz MD Signed By: <Electronically signed by Eliazar Ortiz MD in OV> 03/31/24 0030 DD/ 2303 TD/TT: Manager People: SUZAN Assessment & Plan Assessment & Plan (1) Asthma: Code(s): J45.909 - Unspecified asthma, uncomplicated Category: Medical (2) Environmental allergies: Code(s): Z91.09 - Other allergy status, other than to drugs and biological substances Category: Medical (3) Personal history of tobacco use: Code(s): Z87.891 - Personal history of nicotine dependence Category: Social Hx Plan Sunny's symptoms are likely related to underlying asthma/COPD with possible allergic component. Will send for PFT to assess severity and RAST to evaluate. Will add Breo to regimen, as patient reports suboptimal response to frequent albuterol use. On exam, patient with faint expiratory wheezing throughout, resolved with nebulizer. Nebulizer given in office for home use and duoneb sent to pharmacy. Discussed possible po prednisone, however symptoms resolved with nebulizer and patient is currently having difficulties obtaining trulicity. He has reached out to PCP and is awaiting a call back for an alternative. He is aware if symptoms worsen or signs of hyperglycemia to seek emergent care. All questions were answered and patient is in agreement of plan. Will follow up in 6-8 weeks or sooner if needed. Orders: Orders Complete Blood Count Auto Diff Today Z91.09 - Other allergy status, other than to drugs and biological substances Immunoglobulin E Today Z91.09 - Other allergy status, other than to drugs and biological substances Resp Allergy Profile Region I Today Z91.09 - Other allergy status, other than to drugs and biological substances PFT pulmonary function test Today Z91.09 - Other allergy status, other than to drugs and biological substances CT chest wo IV con Today Z87.891 - Personal history of nicotine dependence Medications: New ipratropium-albuterol 0.5 mg-3 mg(2.5 mg base)/3 mL 3 mL inhalation Q6H PRN 180 mL 0RF wheezing fluticasone furoate-vilanterol 100-25 mcg/dose (Breo Ellipta) 1 inh inhalation DAILY 60 ea 3RF Coding Level of Care Code New Pt Level 4 (92145) Diagnoses Asthma J45.909 Environmental allergies Z91.09 Personal history of tobacco use Z87.891
[2024-04-16 15:13] VITALS: BP 130/78; PULSE 98; O2SAT 93; BMI 28.7
== END 2024-04-16 16:14 | disposition home or self-care (01) ==
PROVIDERS: PCP Student in an Organized Health Care Education/Training Program; Visit Provider Nurse Practitioner Family
DX: J45.909 Unspecified asthma, uncomplicated (principal); Z91.09 Other allergy status, other than to drugs and biological substances; Z87.891 Personal history of nicotine dependence
CPT/HCPCS: 99204

== ENCOUNTER → 2024-04-16 15:05 | Outpatient (BNVA) | payer OTHER, MEDICAID, SELFPAY | PROVIDERS: PCP Student in an Organized Health Care Education/Training Program; Visit Provider Nurse Practitioner Family | DX: J45.909 Unspecified asthma, uncomplicated (principal); Z91.09 Other allergy status, other than to drugs and biological substances; Z87.891 Personal history of nicotine dependence | CPT/HCPCS: 99202 ==

== ENCOUNTER 2024-12-10 15:51 | Emergency (ER) | payer MEDICARE, MEDICAID, SELFPAY ==
--- NOTE | ~2024-12-10 | XR_ITS ---
EXAMINATION: XR CHEST CLINICAL INFORMATION: productive cough COMPARISON: Chest x-ray 03/30/2024 TECHNIQUE: 2 views of the chest were obtained. FINDINGS: The lungs are well-expanded and clear. The heart size and pulmonary vascularity is normal. No gross bony abnormality seen XR/XR chest 2V IMPRESSION: Unremarkable chest examination. Electronically signed by: Manuel Alfonso MD 12/10/2024 04:46 PM EST
[2024-12-10 16:26] VITALS: BP 143/83; PULSE 97; RESP 16; TEMP 36.5; O2SAT 96; BMI 26.6
--- NOTE | 2024-12-10 16:26 | ED.GENADULT ---
HPI - General Adult General Chief complaint: Upper Respiratory Symptoms Stated complaint: diff breathing Time Seen by Provider: 12/10/24 23:42 Related Data Home Medications ?Medication ?Instructions ?Recorded ?Confirmed rosuvastatin 40 mg tablet 40 mg PO DAILY 08/30/20 02/21/24 betamethasone, augmented 0.05 % 1 appl topical BID 02/21/24 02/21/24 topical ointment dulaglutide 4.5 mg/0.5 mL 4.5 mg subcut Q7D 02/21/24 02/21/24 subcutaneous pen injector (Trulicity) enalapril maleate 20 mg tablet 20 mg PO DAILY 02/21/24 02/21/24 ergocalciferol (vitamin D2) 1,250 1,250 mcg PO QWEEK 02/21/24 02/21/24 mcg (50,000 unit) capsule Previous Rx's ?Medication ?Instructions ?Recorded albuterol sulfate 90 mcg/actuation 2 puff inhalation Q6H PRN 02/22/24 aerosol inhaler Shortness Of Breath Or Wheezing #6.7 grams azithromycin 500 mg tablet 500 mg PO DAILY 4 days #4 tabs 02/22/24 cefuroxime axetil 500 mg tablet 500 mg PO BID #8 tabs 02/22/24 guaifenesin 600 mg tablet, 600 mg PO BID #6 tabs 02/22/24 extended release 12 hr (Mucus Relief ER) prednisone 10 mg tablet See Taper PO DIRECTED #30 tabs 02/22/24 albuterol sulfate 90 mcg/actuation 2 puff inhalation Q4-6H PRN 03/31/24 aerosol inhaler shortness of breath or wheezing #8.5 grams glipizide 5 mg tablet 5 mg PO DAILY #30 tabs 03/31/24 prednisone 50 mg tablet 50 mg PO DAILY #4 tabs 03/31/24 ipratropium 0.5 mg-albuterol 3 mg 3 ml inhalation Q6H PRN wheezing 04/16/24 (2.5 mg base)/3 mL nebulization #180 mL soln budesonide-formoterol HFA 80 2 puff inhalation Q12H #10.2 grams 04/20/24 mcg-4.5 mcg/actuation aerosol inhaler (Symbicort) Allergies Allergy/AdvReac Type Severity Reaction Status Date / Time aspirin Allergy Unknown swelling Verified 12/10/24 16:27 [facility] Past Medical History Medical History (Updated 12/13/24 @ 14:48 by Griselda Sweet NP) Asthma Depression Pancreatitis Facet arthropathy, cervical Social History Social History (Updated 04/16/24 @ 15:19 by Emily Jimenez CMA) Alcohol intake: current Alcohol intake frequency: holidays/special occasions only Patient Tobacco Use Status: Former Tobacco user Cigarettes Per Day: 10 Advance Directives: No Advance Directives Information Provided: No Do you have a plan to hurt others: No Plan service: No Physical Exam ED Vital Signs: BMI result Body Mass Index 26.6 Course Course Course Narrative: This is a rapid medical exam performed by Jose Sweet NP: Additional HPI, ROS, PE not included below will be deferred to primary provider. Patient is a 54-year-old male with history of asthma, tobacco use presenting with complaint of cough and shortness of breath for the past 3 days. Generalized abdominal pain which patient attributes to coughing. Denies nausea, vomiting, diarrhea. States symptoms feel similar to when he had pneumonia previously. Plan: viral serology, CXR Medical Decision Making Lab Data Labs: Lab Results 12/10/24 Range/Units 16:38 Influenza Type A (PCR) NEGATIVE (Negative) Influenza Type B (PCR) NEGATIVE (Negative) RSV RNA Qual (PCR) NEGATIVE (Negative) SARS-CoV-2 RNA (RT-PCR) NEGATIVE (Negative) Discharge Plan Discharge Clinical Impression: Cough Patient Disposition: Left W/O Completing Treatment Prescriptions: No Action budesonide-formoterol [Symbicort] 80-4.5 mcg/actuation HFA aerosol inhaler 2 puff inhalation Q12H Qty: 10.2 6RF albuterol sulfate 90 mcg/actuation HFA aerosol inhaler 2 puff inhalation Q4-6H PRN (Reason: shortness of breath or wheezing) Qty: 8.5 0RF prednisone 50 mg tablet 50 mg PO DAILY Qty: 4 0RF glipizide 5 mg tablet 5 mg PO DAILY Qty: 30 0RF enalapril maleate 20 mg tablet 20 mg PO DAILY betamethasone, augmented 0.05 % ointment 1 appl topical BID ergocalciferol (vitamin D2) 1,250 mcg (50,000 unit) capsule 1,250 mcg PO QWEEK Trulicity 4.5 mg/0.5 mL pen injector 4.5 mg subcut Q7D cefuroxime axetil 500 mg tablet 500 mg PO BID Qty: 8 0RF azithromycin 500 mg tablet 500 mg PO DAILY 4 Days Qty: 4 0RF albuterol sulfate 90 mcg/actuation HFA aerosol inhaler 2 puff inhalation Q6H PRN (Reason: Shortness Of Breath Or Wheezing) Qty: 6.7 0RF prednisone 10 mg tablet See Taper PO DIRECTED Qty: 30 0RF Taper: Prednisone 40 mg daily for 3 Days and 0 Hour 30 mg daily for 3 Days and 0 Hour 20 mg daily for 3 Days and 0 Hour 10 mg daily for 3 Days and 0 Hour Rx Instructions: see taper instructions guaifenesin [Mucus Relief ER] 600 mg tablet extended release 12hr 600 mg PO BID Qty: 6 0RF rosuvastatin 40 mg tablet 40 mg PO DAILY ipratropium-albuterol 0.5 mg-3 mg(2.5 mg base)/3 mL solution for nebulization 3 ml inhalation Q6H PRN (Reason: wheezing) Qty: 180 0RF Discharge Date/Time: 12/10/24 23:58
[2024-12-10 17:19] LABS: Influenza A PCR NEGATIVE (Negative); Influenza B PCR NEGATIVE (Negative); Resp Syncy Virus RNA Qual PCR NEGATIVE (Negative); SARS COV2 PCR INHOUSE NEGATIVE (Negative)
--- NOTE | 2024-12-10 23:43 | MHC.EDTECH ---
patient name called in waiting room at [id number] and [phone] with no answer
== END 2024-12-10 23:58 | disposition left against medical advice (07) ==
LOC: HO.ED 12-11 00:01
PROVIDERS: Registered Nurse Emergency; Emergency Provider Emergency Medicine; PCP Student in an Organized Health Care Education/Training Program
DX: R05.9 Cough, unspecified (principal); Z03.818 Encounter for observation for suspected exposure to other biological agents ruled out; J45.909 Unspecified asthma, uncomplicated; Z79.899 Other long term (current) drug therapy; Z87.891 Personal history of nicotine dependence
CPT/HCPCS: 0241U; 71046; 99281; 99283

== ENCOUNTER → 2024-12-10 16:27 | Outpatient (BNV) | payer OTHER, SELFPAY | PROVIDERS: PCP Student in an Organized Health Care Education/Training Program; Visit Provider Radiology Diagnostic Radiology | DX: R05.9 Cough, unspecified (principal) | CPT/HCPCS: 71046 ==

== ENCOUNTER 2024-12-18 18:03 | Emergency (ER) | payer MEDICARE, MEDICAID, SELFPAY ==
--- NOTE | ~2024-12-18 | XR_ITS ---
CLINICAL HISTORY: sob, cough 2 view chest x-ray Comparison: CR/SR - XR CHEST 2V - 12/10/24 16:39 EST Findings: Left basilar subsegmental atelectasis, lungs are otherwise clear. Normal size heart. No acute fracture. IMPRESSION: 1. No acute findings. This document has been electronically signed by: Chantale Mendiola MD on 12/18/2024 19:02:32
--- NOTE | 2024-12-18 18:49 | ED_ITS ---
HPI - SOB/Dyspnea General Chief Complaint: Upper Respiratory Symptoms Stated Complaint: SOB/pneumonia? Related Data Home Medications ?Medication ?Instructions ?Recorded ?Confirmed rosuvastatin 40 mg tablet 40 mg PO DAILY 08/30/20 02/21/24 betamethasone, augmented 0.05 % 1 appl topical BID 02/21/24 02/21/24 topical ointment dulaglutide 4.5 mg/0.5 mL 4.5 mg subcut Q7D 02/21/24 02/21/24 subcutaneous pen injector (Trulicity) enalapril maleate 20 mg tablet 20 mg PO DAILY 02/21/24 02/21/24 ergocalciferol (vitamin D2) 1,250 1,250 mcg PO QWEEK 02/21/24 02/21/24 mcg (50,000 unit) capsule Previous Rx's ?Medication ?Instructions ?Recorded albuterol sulfate 90 mcg/actuation 2 puff inhalation Q6H PRN 02/22/24 aerosol inhaler Shortness Of Breath Or Wheezing #6.7 grams azithromycin 500 mg tablet 500 mg PO DAILY 4 days #4 tabs 02/22/24 cefuroxime axetil 500 mg tablet 500 mg PO BID #8 tabs 02/22/24 guaifenesin 600 mg tablet, 600 mg PO BID #6 tabs 02/22/24 extended release 12 hr (Mucus Relief ER) prednisone 10 mg tablet See Taper PO DIRECTED #30 tabs 02/22/24 albuterol sulfate 90 mcg/actuation 2 puff inhalation Q4-6H PRN 03/31/24 aerosol inhaler shortness of breath or wheezing #8.5 grams glipizide 5 mg tablet 5 mg PO DAILY #30 tabs 03/31/24 prednisone 50 mg tablet 50 mg PO DAILY #4 tabs 03/31/24 ipratropium 0.5 mg-albuterol 3 mg 3 ml inhalation Q6H PRN wheezing 04/16/24 (2.5 mg base)/3 mL nebulization #180 mL soln budesonide-formoterol HFA 80 2 puff inhalation Q12H #10.2 grams 04/20/24 mcg-4.5 mcg/actuation aerosol inhaler (Symbicort) Allergies Allergy/AdvReac Type Severity Reaction Status Date / Time aspirin Allergy Unknown swelling Verified 12/18/24 18:52 [facility] Past Medical History Medical History (Updated 12/19/24 @ 12:06 by GARRETT Bonilla) Asthma Depression Pancreatitis Facet arthropathy, cervical Social History Social History (Updated 04/16/24 @ 15:19 by Emily Jimenez CMA) Alcohol intake: current Alcohol intake frequency: holidays/special occasions only Patient Tobacco Use Status: Former Tobacco user Cigarettes Per Day: 10 Advance Directives: No Advance Directives Information Provided: No service: No Physical Exam Vital Signs: Vital Signs: Last Vital Signs Temp 97.8 F 12/18/24 18:51 Pulse 92 12/18/24 18:51 Resp 18 12/18/24 18:51 BP 149/101 H 12/18/24 18:51 Pulse Ox 96 12/18/24 18:51 O2 Del Method Room Air 12/18/24 18:51 BMI result Body Mass Index 29.2 Course Course Course Narrative: This is a Rapid Medical Examination (RME) performed by Jermaine Pinedo PA-C in triage. Full HPI, ROS, assessment and treatment plan per primary provider in the Main ED. 54 yo male with history of asthma, allergies, PNA who presents to the ER for evaluation of a congested cough, SOB and difficulty breathing for the last 2-3 weeks. he states he got 4 doses of prednisone a few days ago at [facility] that helped a little bit. he states they did not do an xray or swabs. he has been using his inhaler with minimal relief. on exam is he speaking in complete sentences, not in any resp distress. he has a dry cough. he has very mild inspiratory and expiratory wheezes on exam. RRR, no tachycardia. Plan: CXR, viral swab. stable to return to pending bed availabilty Reevaluation(s) Reevaluation #1: patient eloped from the ER prior to completing treatment Medical Decision Making Lab Data Labs: Lab Results 12/18/24 Range/Units 19:21 Influenza Type A (PCR) NEGATIVE (Negative) Influenza Type B (PCR) NEGATIVE (Negative) RSV RNA Qual (PCR) NEGATIVE (Negative) SARS-CoV-2 RNA (RT-PCR) NEGATIVE (Negative) Discharge Plan Discharge Clinical Impression: Cough Patient Disposition: Left W/O Completing Treatment Prescriptions: No Action budesonide-formoterol [Symbicort] 80-4.5 mcg/actuation HFA aerosol inhaler 2 puff inhalation Q12H Qty: 10.2 6RF albuterol sulfate 90 mcg/actuation HFA aerosol inhaler 2 puff inhalation Q4-6H PRN (Reason: shortness of breath or wheezing) Qty: 8.5 0RF prednisone 50 mg tablet 50 mg PO DAILY Qty: 4 0RF glipizide 5 mg tablet 5 mg PO DAILY Qty: 30 0RF enalapril maleate 20 mg tablet 20 mg PO DAILY betamethasone, augmented 0.05 % ointment 1 appl topical BID ergocalciferol (vitamin D2) 1,250 mcg (50,000 unit) capsule 1,250 mcg PO QWEEK Trulicity 4.5 mg/0.5 mL pen injector 4.5 mg subcut Q7D cefuroxime axetil 500 mg tablet 500 mg PO BID Qty: 8 0RF azithromycin 500 mg tablet 500 mg PO DAILY 4 Days Qty: 4 0RF albuterol sulfate 90 mcg/actuation HFA aerosol inhaler 2 puff inhalation Q6H PRN (Reason: Shortness Of Breath Or Wheezing) Qty: 6.7 0RF prednisone 10 mg tablet See Taper PO DIRECTED Qty: 30 0RF Taper: Prednisone 40 mg daily for 3 Days and 0 Hour 30 mg daily for 3 Days and 0 Hour 20 mg daily for 3 Days and 0 Hour 10 mg daily for 3 Days and 0 Hour Rx Instructions: see taper instructions guaifenesin [Mucus Relief ER] 600 mg tablet extended release 12hr 600 mg PO BID Qty: 6 0RF rosuvastatin 40 mg tablet 40 mg PO DAILY ipratropium-albuterol 0.5 mg-3 mg(2.5 mg base)/3 mL solution for nebulization 3 ml inhalation Q6H PRN (Reason: wheezing) Qty: 180 0RF Discharge Date/Time: 12/18/24 22:56
[2024-12-18 18:51] VITALS: BP 149/101; PULSE 92; RESP 18; TEMP 36.6; O2SAT 96; BMI 29.2
[2024-12-18 20:03] LABS: Influenza A PCR NEGATIVE (Negative); Influenza B PCR NEGATIVE (Negative); Resp Syncy Virus RNA Qual PCR NEGATIVE (Negative); SARS COV2 PCR INHOUSE NEGATIVE (Negative)
== END 2024-12-18 22:56 | disposition left against medical advice (07) ==
PROVIDERS: Physician Assistant; Emergency Provider Emergency Medicine; PCP Student in an Organized Health Care Education/Training Program
DX: R05.9 Cough, unspecified (principal); R06.02 Shortness of breath; Z79.899 Other long term (current) drug therapy; Z87.891 Personal history of nicotine dependence; Z03.818 Encounter for observation for suspected exposure to other biological agents ruled out
CPT/HCPCS: 0241U; 71046; 99281; 99283

== ENCOUNTER → 2024-12-18 18:17 | Outpatient (BNV) | payer MEDICARE, MEDICAID, SELFPAY | PROVIDERS: PCP Student in an Organized Health Care Education/Training Program; Visit Provider Student in an Organized Health Care Education/Training Program | DX: R06.02 Shortness of breath (principal); R05.9 Cough, unspecified | CPT/HCPCS: 71046 ==

== ENCOUNTER 2025-01-04 21:19 | Emergency (ER) | payer MEDICARE, MEDICAID, SELFPAY ==
--- NOTE | ~2025-01-04 | XR_ITS ---
CLINICAL HISTORY: sob 1 view chest x-ray Comparison: 12/18/2024 Findings: No consolidation or effusion. Persistent elevation of the left hemidiaphragm. No pneumothorax. Imaged mediastinum and osseous structures appear unchanged bifrontal chest x-ray. IMPRESSION: No consolidation and no significant change compared to 12/18/2024 This document has been electronically signed by: Lamberto Coffman MD on 01/04/2025 22:47:02
[2025-01-04 21:38] VITALS: BP 106/86; PULSE 113; RESP 20; TEMP 37; O2SAT 96; BMI 64.4
[2025-01-04 22:04] LABS: Basophils Absolute Auto 0.1 X10*3/uL (0.0-0.2); Basophils Percent Auto 0.7 % (0-2); Eosinophils Absolute Auto 2.7 X10*3/uL (0.0-0.4); Eosinophils Percent Auto 18.4 % (0-4); Hematocrit 46.9 % (42.0-52.0); Hemoglobin 15.6 g/dl (14.0-18.0); Imm Gran Abs Auto 0.05 X10*3/uL (0.00-0.03); Imm Gran Pct Auto 0.3 % (0.0-0.4); Lymphocytes Absolute Auto 3.9 X10*3/uL (1.2-4.9); MANUAL DIFF FLAG SCAN; Mean Corpuscular HGB Conc 33.3 g/dl (31.0-36.0); Mean Corpuscular Hemoglobin 28.8 pg (27.0-33.0); Mean Corpuscular Volume 86.5 fL (80.0-98.0); Mean Platelet Volume 10.8 fL (9.4-12.4); Monocytes Absolute Auto 1.2 X10*3/uL (0.1-1.2); Monocytes Percent Auto 8.3 % (2-11); Neutrophils Absolute Auto 6.5 x10*3/uL (2.0-8.3); Neutrophils Percent Auto 45.3 % (45-73); Platelet Count 358 X10*3/uL (160-400); Red Blood Count 5.42 X10*6/uL (4.60-5.80); Red Cell Distribution Width 13.2 % (11.0-16.0); SCAN SMEAR FLAG 1; White Blood Count 14.4 X10*3/uL (4.8-10.8)
[2025-01-04 22:17] LABS: Alanine Aminotransferase 29 U/L (0-40); Albumin Level 4.1 g/dL (3.5-5.0); Alkaline Phosphatase 113 U/L (39-117); Anion Gap 15 (12-20); Aspartate Amino Transferase 18 U/L (5-37); Bilirubin Total 0.3 mg/dL (0.0-1.0); Blood Urea Nitrogen 15 mg/dL (9-16); Calcium 9.3 mg/dL (8.4-10.2); Carbon Dioxide 25 mmol/L (22-29); Chloride 105 mmol/L (96-108); Creatinine Clr Calc Pharmacy 180.2; Estimated Glomerular Filt Rate > 60; Glucose Random 162 mg/dL (60-115); Potassium 4.2 mmol/L (3.3-5.1); Sodium 141 mmol/L (135-145); Total Protein 7.2 g/dL (6.5-8.0)
[2025-01-04 22:25] LABS: SLIDE REVIEW VERIFIED
[2025-01-04 22:49] LABS: Influenza A PCR NEGATIVE (Negative); Influenza B PCR NEGATIVE (Negative); Resp Syncy Virus RNA Qual PCR NEGATIVE (Negative); SARS COV2 PCR INHOUSE NEGATIVE (Negative)
--- NOTE | 2025-01-04 23:48 | ED.ASTHMA ---
HPI - Asthma General Chief Complaint: Asthma Stated Complaint: asthma,sob Time Seen by Provider: 01/04/25 23:42 Source: patient and family Limitations: no limitations History of Present Illness HPI Narrative: 54-year-old male who has a history of tobacco use, asthma, diabetes, presents for evaluation of shortness of breath. Patient states symptoms have been going on for approximately 3 weeks. He has been using his albuterol inhaler as well as nebulizer machine however is now out of these medications. Patient states he has been having a dry nonproductive cough. He does have a history of pneumonia. Denies any history of hospital admissions for his asthma. He denies any history of intubation. Patient has otherwise been feeling well. Related Data Home Medications ?Medication ?Instructions ?Recorded ?Confirmed rosuvastatin 40 mg tablet 40 mg PO DAILY 08/30/20 02/21/24 betamethasone, augmented 0.05 % 1 appl topical BID 02/21/24 02/21/24 topical ointment dulaglutide 4.5 mg/0.5 mL 4.5 mg subcut Q7D 02/21/24 02/21/24 subcutaneous pen injector (Trulicity) enalapril maleate 20 mg tablet 20 mg PO DAILY 02/21/24 02/21/24 ergocalciferol (vitamin D2) 1,250 1,250 mcg PO QWEEK 02/21/24 02/21/24 mcg (50,000 unit) capsule Previous Rx's ?Medication ?Instructions ?Recorded albuterol sulfate 90 mcg/actuation 2 puff inhalation Q6H PRN 02/22/24 aerosol inhaler Shortness Of Breath Or Wheezing #6.7 grams azithromycin 500 mg tablet 500 mg PO DAILY 4 days #4 tabs 02/22/24 cefuroxime axetil 500 mg tablet 500 mg PO BID #8 tabs 02/22/24 guaifenesin 600 mg tablet, 600 mg PO BID #6 tabs 02/22/24 extended release 12 hr (Mucus Relief ER) prednisone 10 mg tablet See Taper PO DIRECTED #30 tabs 02/22/24 albuterol sulfate 90 mcg/actuation 2 puff inhalation Q4-6H PRN 03/31/24 aerosol inhaler shortness of breath or wheezing #8.5 grams glipizide 5 mg tablet 5 mg PO DAILY #30 tabs 03/31/24 prednisone 50 mg tablet 50 mg PO DAILY #4 tabs 03/31/24 ipratropium 0.5 mg-albuterol 3 mg 3 ml inhalation Q6H PRN wheezing 04/16/24 (2.5 mg base)/3 mL nebulization #180 mL soln budesonide-formoterol HFA 80 2 puff inhalation Q12H #10.2 grams 04/20/24 mcg-4.5 mcg/actuation aerosol inhaler (Symbicort) albuterol sulfate 2.5 mg/3 mL 2.5 mg (3 mL) inhalation QID PRN 01/05/25 (0.083 %) solution for nebulization shortness of breath or wheezing #75 mL albuterol sulfate 90 mcg/actuation 2 puff inhalation Q6H PRN 01/05/25 aerosol inhaler shortness of breath or wheezing #6.7 grams doxycycline monohydrate 100 mg 100 mg PO BID 7 days #14 tabs 01/05/25 tablet prednisone 20 mg tablet 40 mg (2 x 20 mg) PO DAILY 5 days 01/05/25 #10 tabs Allergies Allergy/AdvReac Type Severity Reaction Status Date / Time aspirin Allergy Unknown swelling Verified 01/04/25 21:40 Review of Systems Constitutional: Constitutional: Denies chills, Denies fever(s) and Denies headache(s) ENT: Denies headache(s), Denies nasal congestion, Denies nasal discharge, Denies neck pain and Denies sore throat Cardiovascular: Cardiovascular: Denies chest pain, Reports dyspnea and Denies orthopnea Respiratory: Respiratory: Reports cough, Reports dyspnea and Reports wheezing Gastrointestinal: Gastrointestinal: Denies abdominal pain, Denies melena, Denies hematochezia, Denies diarrhea, Denies nausea and Denies vomiting Genitourinary: Genitourinary: Denies difficulty urinating, Denies dysuria and Denies urinary urgency Musculoskeletal: Musculoskeletal: Denies back pain, Denies muscle weakness, Denies neck pain and Denies numbness Neurologic: Denies headache(s), Denies focal weakness and Denies numbness Psychiatric: Psychiatric: Denies depression Allergic/Immunologic: Allergic/Immunologic: Reports wheezing PMFSH Past Medical History Medical History Asthma Depression Pancreatitis Facet arthropathy, cervical Social History Social History (Updated 04/16/24 @ 15:19 by Emily Jimenez CMA) Alcohol intake: current Alcohol intake frequency: holidays/special occasions only Patient Tobacco Use Status: Former Tobacco user Cigarettes Per Day: 10 Smoked in Last 30 Days: Yes Use of substances other than those prescribed or required for medical reasons: No Do you have a plan to hurt others: No Plan service: No Physical Exam Vital Signs: Vital Signs: Last Vital Signs Temp 98.3 F 01/05/25 00:00 Pulse 83 01/05/25 00:28 Resp 18 01/05/25 00:28 BP 112/81 01/05/25 00:00 Pulse Ox 94 01/05/25 00:00 O2 Del Method Room Air 01/05/25 00:00 BMI result Body Mass Index 64.4 Speaks full clear sentences. Resp: Other: Diminished lung sounds throughout with coarse wheezing. No intercostal or accessory muscle use. Some clearing with cough. Cardio: Rate: regular rate Rhythm: regular rhythm Extrem: Other: No calf tenderness or pedal edema bilaterally Course Course Course Narrative: Patient with significant improvement after respiratory treatment. Increased aeration without any wheezing. Patient reports feeling better. Ambulatory oxygen saturation 94-96% without any dyspnea or tachypnea. Reviewed all discharge instructions with the patient. No further questions at this time. Medications Administered Discontinued Medications Generic Name Dose Route Start Last Admin Trade Name Freq PRN Reason Stop Dose Admin Albuterol Sulfate 2.5 mg/ 0 mg 01/05/25 00:20 01/05/25 00:25 Albuterol/Ipratropium 3 ml INHALE 01/05/25 00:21 5 dose ONCE ONE Administration Prednisone 60 mg 01/04/25 23:52 01/05/25 00:03 Prednisone 20 Mg Tablet PO 01/04/25 23:53 60 mg ONCE ONE Administration Medical Decision Making Medical Decision Making MDM Narrative: 54-year-old male with a history of asthma, diabetes, with shortness of breath and cough concerning for asthma. Respiratory treatment. Reviewed all labs, viral swab is negative. Remainder of labs are within normal ranges. No evidence of leukocytosis. Chest x-ray without obvious pneumonia. Low suspicion for PE at this time or ACS. Differential Diagnosis Differential Diagnoses: The differential diagnosis associated with the presentation includes Pneumonia Viral syndrome Asthma exacerbation Bronchitis Admission/Observation Consideration of admission/observation: Escalation of care including admission/observation considered Lab Data [facility] Lab Attestation statement: I reviewed the patient's lab results. 01/04/25 21:58 01/04/25 21:58 Labs: Lab Results 01/04/25 Range/Units 21:58 WBC 14.4 H (4.8-10.8) X10*3/uL RBC 5.42 (4.60-5.80) X10*6/uL Hgb 15.6 (14.0-18.0) g/dl Hct 46.9 (42.0-52.0) % MCV 86.5 (80.0-98.0) fL MCH 28.8 (27.0-33.0) pg MCHC 33.3 (31.0-36.0) g/dl RDW 13.2 (11.0-16.0) % Plt Count 358 (160-400) X10*3/uL MPV 10.8 (9.4-12.4) fL Immature Gran % (Auto) 0.3 (0.0-0.4) % Neut % (Auto) 45.3 (45-73) % Lymph % (Auto) 27.0 (20-40) % [place] % (Auto) 8.3 (2-11) % Eos % (Auto) 18.4 H (0-4) % Baso % (Auto) 0.7 (0-2) % Lymph # (Auto) 3.9 (1.2-4.9) X10*3/uL [place] # (Auto) 1.2 (0.1-1.2) X10*3/uL Eos # (Auto) 2.7 H (0.0-0.4) X10*3/uL Baso # (Auto) 0.1 (0.0-0.2) X10*3/uL Abs Immat Gran (auto) 0.05 H (0.00-0.03) X10*3/uL Absolute Neuts (auto) 6.5 (2.0-8.3) x10*3/uL Absolute Nucleated RBC 0.000 (0.0-0.012) X10*3/uL Nucleated RBC % (auto) 0.0 (0.0-0.2) /100WBC Smear Tech's Comments VERIFIED Sodium 141 (135-145) mmol/L Potassium 4.2 (3.3-5.1) mmol/L Chloride 105 (96-108) mmol/L Carbon Dioxide 25 (22-29) mmol/L Anion Gap 15 (12-20) BUN 15 (9-16) mg/dL Creatinine 0.79 (0.5-1.4) mg/dL Estim Creat Clear Calc 180.2 Estimated GFR > 60 Random Glucose 162 H (60-115) mg/dL Calcium 9.3 D (8.4-10.2) mg/dL Total Bilirubin 0.3 (0.0-1.0) mg/dL AST 18 (5-37) U/L ALT 29 (0-40) U/L Alkaline Phosphatase 113 (39-117) U/L Total Protein 7.2 (6.5-8.0) g/dL Albumin 4.1 (3.5-5.0) g/dL Influenza Type A (PCR) NEGATIVE (Negative) Influenza Type B (PCR) NEGATIVE (Negative) RSV RNA Qual (PCR) NEGATIVE (Negative) SARS-CoV-2 RNA (RT-PCR) NEGATIVE (Negative) Radiology Impression Discussion of test interpretation with radiology: I have reviewed the radiologist's reading. Radiologist Impression: [place] [id number] XRay Report Signed Patient: Sunny Dorsey MR#: [id number] : 1970 Acct:[id number] Age/Sex: 54 / M ADM Date: 01/04/25 Loc: .ED Attending Dr: Ordering Physician: Generic ED Physician Date of Service: 01/04/25 Procedure(s): XR chest 1V Accession Number(s): [id number] cc: Generic ED Physician; Camille Patton MD~ CLINICAL HISTORY: sob 1 view chest x-ray Comparison: 12/18/2024 Findings: No consolidation or effusion. Persistent elevation of the left hemidiaphragm. No pneumothorax. Imaged mediastinum and osseous structures appear unchanged bifrontal chest x-ray. IMPRESSION: No consolidation and no significant change compared to 12/18/2024 This document has been electronically signed by: Lamberto Coffman MD on 01/04/2025 22:47:02 Dictated By: Lamberto Coffman MD Signed By: <Electronically signed by Lamberto Coffman MD in OV> 01/04/252246 DD/ 46 TD/TT: 01/04/252246 Cad Detailer: Discharge Plan Discharge Clinical Impression: Acute asthmatic bronchitis Patient Disposition: Home, Self-Care Instructions: Asthma (ED), Acute Bronchitis (ED) Additional Instructions: Continue albuterol as directed. Doxycycline as directed. Finish all antibiotics. Prednisone as directed. Follow-up with your primary care provider. Call this week to schedule a follow-up appointment. Return to the emergency department if you have any worsening of symptoms, or any concerns. Get well soon! Prescriptions: New doxycycline monohydrate 100 mg tablet 100 mg PO BID 7 Days Qty: 14 0RF albuterol sulfate 90 mcg/actuation HFA aerosol inhaler 2 puff inhalation Q6H PRN (Reason: shortness of breath or wheezing) Qty: 6.7 0RF albuterol sulfate 2.5 mg /3 mL (0.083 %) solution for nebulization 2.5 mg inhalation QID PRN (Reason: shortness of breath or wheezing) Qty: 75 0RF prednisone 20 mg tablet 40 mg PO DAILY 5 Days Qty: 10 0RF No Action budesonide-formoterol [Symbicort] 80-4.5 mcg/actuation HFA aerosol inhaler 2 puff inhalation Q12H Qty: 10.2 6RF albuterol sulfate 90 mcg/actuation HFA aerosol inhaler 2 puff inhalation Q4-6H PRN (Reason: shortness of breath or wheezing) Qty: 8.5 0RF prednisone 50 mg tablet 50 mg PO DAILY Qty: 4 0RF glipizide 5 mg tablet 5 mg PO DAILY Qty: 30 0RF enalapril maleate 20 mg tablet 20 mg PO DAILY betamethasone, augmented 0.05 % ointment 1 appl topical BID ergocalciferol (vitamin D2) 1,250 mcg (50,000 unit) capsule 1,250 mcg PO QWEEK Trulicity 4.5 mg/0.5 mL pen injector 4.5 mg subcut Q7D cefuroxime axetil 500 mg tablet 500 mg PO BID Qty: 8 0RF azithromycin 500 mg tablet 500 mg PO DAILY 4 Days Qty: 4 0RF albuterol sulfate 90 mcg/actuation HFA aerosol inhaler 2 puff inhalation Q6H PRN (Reason: Shortness Of Breath Or Wheezing) Qty: 6.7 0RF prednisone 10 mg tablet See Taper PO DIRECTED Qty: 30 0RF Taper: Prednisone 40 mg daily for 3 Days and 0 Hour 30 mg daily for 3 Days and 0 Hour 20 mg daily for 3 Days and 0 Hour 10 mg daily for 3 Days and 0 Hour Rx Instructions: see taper instructions guaifenesin [Mucus Relief ER] 600 mg tablet extended release 12hr 600 mg PO BID Qty: 6 0RF rosuvastatin 40 mg tablet 40 mg PO DAILY ipratropium-albuterol 0.5 mg-3 mg(2.5 mg base)/3 mL solution for nebulization 3 ml inhalation Q6H PRN (Reason: wheezing) Qty: 180 0RF Print Language: Portuguese
[2025-01-05] VITALS: BP 112/81; PULSE 83; RESP 20; TEMP 36.8; O2SAT 94
[2025-01-05] MEDS: predniSONE 20 MG TABLET 60 MG PO (00:03)
[2025-01-05] MEDS: Albuterol Sulfate 2.5 MG, Albuterol/Iprat 2.5/0.5MG 3 ML 3 ML INHALE (00:25)
[2025-01-05 00:28] VITALS: PULSE 83; RESP 18; O2SAT 94
--- OUTSIDE RECORDS SUMMARY | 2025-01-05 01:59 | XMS_ITS | Clinical Summary ---
Author Organization 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 8.5 each 5 12/13/2024 Active guaiFENesin-codeine (ROBITUSSIN-AC) 100-10 mg/5 mL syrup Take 5 mL by mouth every 6 (six) hours if needed for cough for up to 5 days. Max Daily Amount: 20 mL 120 mL 12/20/2024 12/25/2024 azithromycin (ZITHROMAX) 250 mg tablet Take 2 tablets (500 mg total) by mouth 1 (one) time each day for 1 day, THEN 1 tablet (250 mg total) 1 (one) time each day for 4 days. 6 each 12/20/2024 12/25/2024 predniSONE (DELTASONE) 20 mg tablet Take 2 tablets (40 mg total) by mouth 1 (one) time each day for 3 days. 6 each 12/20/2024 12/23/2024 Active Problems No known active problems Encounters Date Type Department Care Team Description 12/20/2024 1:15 AM EST - 12/20/2024 3:10 AM EST Emergency [facility] Emergency [address] [place] [address] Exacerbation of asthma, unspecified asthma severity, unspecified whether persistent (Primary Dx) Discharge Disposition: Home or Self Care from Last 3 Months Immunizations Name Administration Dates Next Due Influenza Quadravalent, MDCK , 0.5ml, preservative free (Flucelvax) 6mo and older 01/23/2024 Pneumococcal conjugate 20 va lent (Prevnar 20, PCV 20) 2mo and older 01/23/2024 Surgical History Surgery Date Site/Laterality Comments HERNIA REPAIR Right PROCEDURE: HISTORICAL HERNIA REPAIR/UMB BACK SURGERY Bilateral PROCEDURE: HISTORICAL BACK SURGERY Medical History Medical History Date Comments Constipation 11/14/2015 DX:Constipation Depression 05/17/2017 DX:Depression Gastro-esophageal reflux dis ease with esophagitis 02/19/2014 DX:Gastro-esophageal reflux disease with esophagitis Hyperlipidemia 06/23/2018 DX:Hyperlipidemi a Hypertension 06/23/2018 DX:Hypertension Insomnia 12/17/2014 DX:Insomnia Obstructive sleep apnea 11/13/2013 DX:Obstr uctive sleep apnea Type 2 diabetes mellitus wit hout complication ([facility]/HCC) 06/23/2018 DX:Type 2 diabetes mellitus without complication ([facility]) Vitamin B12 deficiency 03/01/2013 DX:Vitami n B12 deficiency Vitamin D deficiency 02/07/2015 DX:Vitamin D deficiency Back pain DX:Back pain Family History Medical History Relation Name Comments Colon cancer Brother Diabetes Mother Hypertension Mother Other: HDL Mother Relation Name Status Comments Brother Maternal Grandfather Maternal Grandmother Mother Paternal Grandfather Paternal Grandmother Social History Tobacco Use Types Packs/Day Years Used Date Smoking Tobacco: Every Day Cigarettes Smokeless Tobacco: Never Alcohol Use Standard Drinks/Week Comments Yes 0 (1 standard drink = 0.6 oz pur e alcohol) Sex and Gender Information Value Date Recorded Sex Assigned at Not on file Gender Identity Not on file Sexual Orientation Not on file Job Start Date Occupation Industry Not on file Not on file Not on file Obstetrics History Last Filed Vital Signs Vital Sign Reading Time Taken Comments Blood Pressure 172/115 12/20/2024 1:19 AM EST Pulse 111 12/20/2024 1:19 AM EST Temperature 36.8 ??C (98.2 ??F) 12/20/2024 1:19 AM ES T Respiratory Rate 20 12/20/2024 1:19 AM EST Oxygen Saturation 96% 12/20/2024 1:19 AM EST Inhaled Oxygen Concentration - - Weight 87.1 kg (192 lb) 12/19/2024 3:30 PM EST Height 172.7 cm (5' 8 ) 12/19/2024 3:30 PM EST Body Mass Index 29.19 12/19/2024 3:30 PM EST Plan of Treatment Upcoming Encounters Date Type Department Care Team (Late st Contact Info) Description 01/09/2025 10:45 AM EST Office Visit Internal Medicine - [place] [address] [facility] [address] [place] [id number] Camille Patton MD [address] [facility] [address] [place] [address] Health Maintenance Due Date Last Done Comments Diabetes: Annual Foot Exam 1981 Diabetes: Annual Retina Eye Exam 1981 Hepatitis A Vaccines (1 of 2 - Risk 2-dose series) 1990 Hepatitis B Vaccines (1 of 3 - 19+ 3-dose series) 1990 Zoster Vaccines (1 of 2) 2021 Colorectal Cancer Screening: Colonoscopy 11/06/2022 Depression Screening 11/06/2022 HIV Screening 11/06/2022 Lung Cancer Screening (Low Dose CT) 11/06/2022 Medicare Annual Wellness Visit 11/06/2022 Social Influencers of Health Screening 11/06/2022 Diabetes: Blood Sugar Control Test (HGBA1C) 07/20/2024 01/20/2024 COVID-19 Vaccine ( season) 2024 05/15/2021, 04/17/2021 Influenza Vaccine (#1) 2024 , 08/02/2014, 08/15/2013, Additional history exists Diabetes: Annual Urine Albumin-Creatinine Ratio (uACR) 01/20/2025 01/20/2024 Diabetes: Annual GFR (Glomerular Filtration Rate) 12/19/2025 12/19/2024, 01/20/2024 Hypertension/CHF/CAD Annual BMP Blood Test 12/19/2025 12/19/2024, 01/20/2024 Cholesterol Screening (Lipid Panel) 01/20/2029 01/20/2024 DTaP,Tdap,and Td Vaccines (2 - Td or Tdap) 09/11/2032 09/11/2022 Hepatitis C Screening Completed 01/20/2024 Pneumococcal Vaccine: Pediatrics (0 to 5 Years) and At-Risk Patients (6 to 64 Years) Completed 01/23/2024 HIB Vaccines Aged Out No longer eligi ble based on patient's age to complete this topic HPV Vaccines Aged Out No longer eligi ble based on patient's age to complete this topic IPV Vaccines Aged Out No longer eligi ble based on patient's age to complete this topic MMR Vaccines Aged Out No longer eligi ble based on patient's age to complete this topic Meningococcal ACWY Vaccine Aged Out N o longer eligible based on patient's age to complete this topic RSV Immunization Patients Under 20 months Aged Out No longer eligible based on patient's age to complete this topic Varicella Vaccines Aged Out No longer eligible based on patient's age to complete this topic Procedures Procedure Name Priority Date/Time Associated Diagnosis Comments RESPIRATORY VIRUS PANEL MOLECULAR STUDY STAT 12/20/2024 1:26 AM EST XR CHEST 2 VIEWS STAT 12/19/2024 5:51 PM EST MANUAL DIFFERENTIAL - SYSMEX WAM STAT 12/19/2024 5:43 PM EST CBC WITH AUTO DIFFERENTIAL STAT 12/19/2024 5:43 PM EST BASIC METABOLIC PANEL STAT 12/19/2024 5:43 PM EST CBC AND DIFFERENTIAL STAT 12/19/2024 5:43 PM EST HM HEPATITIS C SCREENING Routine 01/20/2024 HM URINE ALBUMIN CREATININE RATIO Routine 01/20/2024 HEMOGLOBIN A1C Routine 01/20/2024 LIPID PANEL Routine 01/20/2024 from Last 3 Months or Most Recently Relevant to Health Maintenance Results * Respiratory virus panel molecular study (12/20/2024 1:26 AM EST) Adenovirus Detection by PCR Not Detected Not Detected LAB MICROBIOLOGY METHOD 12/20/2024 2:32 AM EST [facility] Influenza A PCR Not Detected Not Detected LAB MICROBIOLOGY METHOD 12/20/2024 2:32 AM EST [facility] Influenza B PCR Not Detected Not Detected LAB MICROBIOLOGY METHOD 12/20/2024 2:32 AM [facility] Coronavirus 229E Not Detected Not Detected LAB MICROBIOLOGY METHOD 12/20/2024 2:32 AM [facility] Coronavirus HKU1 Not Detected Not Detected LAB MICROBIOLOGY METHOD 12/20/2024 2:32 AM [facility] Coronavirus OC43 Not Detected Not Detected LAB MICROBIOLOGY METHOD 12/20/2024 2:32 AM [facility] Coronavirus NL63 Not Detected Not Detected LAB MICROBIOLOGY METHOD 12/20/2024 2:32 AM [facility] Parainfluenza Virus 1 Not Detected Not Detected LAB MICROBIOLOGY METHOD 12/20/2024 2:32 AM [facility] Parainfluenza Virus 2 Not Detected Not Detected LAB MICROBIOLOGY METHOD 12/20/2024 2:32 AM [facility] Parainfluenza Virus 3 Not Detected Not Detected LAB MICROBIOLOGY METHOD 12/20/2024 2:32 AM [facility] Parainfluenza Virus 4 Not Detected Not Detected LAB MICROBIOLOGY METHOD 12/20/2024 2:32 AM [facility] RSV PCR Not Detected Not Detected LAB MICROBIOLOGY METHOD 12/20/2024 2:32 AM [facility] Human Metapneumovirus A and B Not Detected Not Detected LAB MICROBIOLOGY METHOD 12/20/2024 2:32 AM EST [facility] Rhinovirus/Entero virus Not Detected Not Detected LAB MICROBIOLOGY METHOD 12/20/2024 2:32 AM EST [facility] Bordetella pertussis Not Detected Not Detected LAB MICROBIOLOGY METHOD 12/20/2024 2:32 AM EST [facility] Bordetella parapertussis Not Detected Not Detected LAB MICROBIOLOGY METHOD 12/20/2024 2:32 AM EST [facility] Mycoplasma pneumo by PCR Not Detected Not Detected LAB MICROBIOLOGY METHOD 12/20/2024 2:32 AM EST [facility] Chlamydia pneumoniae Not Detected Not Detected LAB MICROBIOLOGY METHOD 12/20/2024 2:32 AM EST [facility] SARS COV-2 Not Detected Not Detected LAB MICROBIOLOGY METHOD 12/20/2024 2:32 AM EST [facility] Swab Both anterior nares / Unknown Non-blood Collection / Unknown 12/20/2024 1:26 AM EST 12/20/2024 1:38 AM EST Narrative [facility] - 12/20/2024 2:32 AM EST Testing was performed using the Admetric Respiratory Pathogen PCR Assay. All results must be correlated with the clinical findings. Results should not be used as the sole basis for diagnosis. False Negative results may occur from the presence of sequence variants in the region targeted by the assay or the presence of inhibitors. Results may be affected by concurrent antiviral/antimicrobial therapy or levels of organisms that are below the limit of detection. Ebonie TUCKER LAB MICROBIOLOGY - G ENERAL ORDERABLES [facility] [address] [place] [address], * XR Chest 2 Views (12/19/2024 5:51 PM EST) Anatomical Region Laterality Modality Body Radiographic Yara ging 12/20/2024 8:07 AM EST Impressions 12/20/2024 8:08 AM EST No acute findings. -------- FINAL REPORT -------- Dictated By: Mauricio Lord Dictated Date: 12/20/2024 08:07 ET Assigned Physician: Mauricio Lord Reviewed and Electronically Signed By: Mauricio Lord Signed Date: 12/20/2024 08:08 ET Workstation ID: [id number] Transcribed By: Self Edit Transcribed Date: 12/20/2024 08:07 ET Narrative 12/20/2024 8:08 AM EST PROCEDURE: PA and lateral radiographs of the chest. HISTORY: dyspnea. COMPARISON: 05/14/2023. FINDINGS: There is a small amount of stable scarring at the left lung base with mild tenting of the diaphragm. ??Lungs otherwise clear. ??Pleural spaces and pulmonary vasculature are normal. ??Cardiomediastinal contours are normal. Procedure Note Mauricio Lord MD - 12/20/2024 PROCEDURE: PA and lateral radiographs of the chest. HISTORY: dyspnea. COMPARISON: 05/14/2023. FINDINGS: There is a small amount of stable scarring at the left lung base with mildtenting of the diaphragm. Lungs otherwise clear. Pleural spaces andpulmonary vasculature are normal. Cardiomediastinal contours arenormal. IMPRESSION: No acute findings. -------- FINAL REPORT -------- Dictated By: Mauricio Lord Dictated Date: 12/20/2024 08:07 ET Assigned Physician: Mauricio Lord Reviewed and Electronically Signed By: Mauricio Lord Signed Date: 12/20/2024 08:08 ET Workstation ID: [id number] Transcribed By: Self Edit Transcribed Date: 12/20/2024 08:07 ET Missael Bass DO IMG XR PROCEDURES * (ABNORMAL) Manual differential (12/19/2024 5:43 PM EST) Neutrophils % 62.0 % LAB HEMETOLOGY METHOD 12/19/2024 6:21 PM EST [facility] Bands % 2.0 % LAB HEMETOLOGY METHOD 12/19/2024 6:21 PM [facility] Lymphocytes % 12.0 % LAB HEMETOLOGY METHOD 12/19/2024 6:21 PM [facility] Monocytes % 10.0 % LAB HEMETOLOGY METHOD 12/19/2024 6:21 PM [facility] Eosinophils % 14.0 % LAB HEMETOLOGY METHOD 12/19/2024 6:21 PM [facility] Basophils % 0.0 % LAB HEMETOLOGY METHOD 12/19/2024 6:21 PM [facility] Neutrophils Absolute Manual 10.48(H) 1.50 - 7.00 K/mcL LAB HEMETOLOGY METHOD 12/19/2024 6:21 PM [facility] Bands Absolute Manual 0.34(H) 0.00 - 0.00 K/mcL LAB HEMETOLOGY METHOD 12/19/2024 6:21 PM [facility] Lymphocytes Absolute 2.03 1.00 - 5.00 K/mcL LAB HEMETOLOGY METHOD 12/19/2024 6:21 PM [facility] Monocytes Absolute Manual 1.69(H) 0.20 - 1.00 K/mcL LAB HEMETOLOGY METHOD 12/19/2024 6:21 PM [facility] Eosinophils Absolute Manual 2.37(H) 0.00 - 0.50 K/mcL LAB HEMETOLOGY METHOD 12/19/2024 6:21 PM [facility] Basophils Absolute Manual 0.00 0.00 - 0.20 K/mcL LAB HEMETOLOGY METHOD 12/19/2024 6:21 PM [facility] Rbc Morphology Consistent with indices Consistent with indices, Normal for [facility] LAB HEMETOLOGY METHOD 12/19/2024 6:21 PM [facility] Comment:RBC: Morphology agre es with CBC Platelet Morphology - WAM See Note(A) Normal LAB HEMETOLOGY METHOD 12/19/2024 6:21 PM [facility] Comment:PLT: Giant platelets seen Blood Venous blood specimen / Unknown Venipuncture / Unknown 12/19/2024 5:43 PM EST 12/19/2024 5:51 PM EST Missael Bass DO LAB BLOOD ORDERABLES [facility] [address] [place] [address], * (ABNORMAL) CBC auto differential (12/19/2024 5:43 PM EST) WBC 16.9(H) 4.8 - 10.8 K/mcL LAB HEMETOLOGY METHOD 12/19/2024 6:21 PM [facility] RBC 5.50 4.50 - 5.50 M/mcL LAB HEMETOLOGY METHOD 12/19/2024 6:21 PM [facility] Hemoglobin 16.0 13.5 - 17.5 g/dL LAB HEMETOLOGY METHOD 12/19/2024 6:21 PM [facility] Hematocrit 49.1 42.0 - 54.0 % LAB HEMETOLOGY METHOD 12/19/2024 6:21 PM [facility] MCV 89.6 79.0 - 98.0 FL LAB HEMETOLOGY METHOD 12/19/2024 6:21 PM [facility] MCH 29.2 27.0 - 32.0 pcg LAB HEMETOLOGY METHOD 12/19/2024 6:21 PM [facility] MCHC 32.6 32.0 - 37.0 g/dL LAB HEMETOLOGY METHOD 12/19/2024 6:21 PM [facility] RDW 12.8 11.0 - 15.0 % LAB HEMETOLOGY METHOD 12/19/2024 6:21 PM [facility] Platelets 324 130 - 400 K/mcL LAB HEMETOLOGY METHOD 12/19/2024 6:21 PM EST [facility] MPV 11.2(H) 7.0 - 11.0 FL LAB HEMETOLOGY METHOD 12/19/2024 6:21 PM [facility] NRBC 0.0 <1.0 % LAB HEMETOLOGY METHOD 12/19/2024 6:21 PM [facility] NRBC Absolute 0.00 <0.10 K/mcL LAB HEMETOLOGY METHOD 12/19/2024 6:21 PM [facility] Blood Venous blood specimen / Unknown Venipuncture / Unknown 12/19/2024 5:43 PM EST 12/19/2024 5:51 PM EST Missael Bass DO LAB BLOOD ORDERABLES [facility] [address] [place] [address], * (ABNORMAL) Basic metabolic panel (12/19/2024 5:43 PM EST) Sodium 139 133 - 145 mmol/L LAB CHEMISTRY METHOD 12/19/2024 6:11 PM [facility] Potassium 4.2 3.5 - 5.5 mmol/L LAB CHEMISTRY METHOD 12/19/2024 6:11 PM [facility] Chloride 105 96 - 110 mmol/L LAB CHEMISTRY METHOD 12/19/2024 6:11 PM [facility] CO2 30 21 - 32 mmol/L LAB CHEMISTRY METHOD 12/19/2024 6:11 PM [facility] Anion Gap 4 3 - 11 LAB CHEMISTRY METHOD 12/19/2024 6:11 PM [facility] Glucose 238(H) 70 - 100 mg/dL LAB CHEMISTRY METHOD 12/19/2024 6:11 PM EST [facility] BUN 12 5 - 25 mg/dL LAB CHEMISTRY METHOD 12/19/2024 6:11 PM [facility] Creatinine 1.41(H) 0.70 - 1.30 mg/dL LAB CHEMISTRY METHOD 12/19/2024 6:11 PM [facility] eGFR 60 >=60 mL/min/1. 73m2 LAB CHEMISTRY METHOD 12/19/2024 6:11 PM [facility] Comment:Calculation based on the??Chronic Kidney Disease Epidemiology Collaboration (CKD-EPI) equation refit??without adjustment for race. BUN/Creatinine Ratio 8.5 LAB CHEMISTRY METHOD 12/19/2024 6:11 PM [facility] Calcium 9.0 8.5 - 10.5 mg/dL LAB CHEMISTRY METHOD 12/19/2024 6:11 PM [facility] Blood Venous blood specimen / Unknown Venipuncture / Unknown 12/19/2024 5:43 PM EST 12/19/2024 5:51 PM EST Missael Bass DO LAB BLOOD ORDERABLES [facility] [address] [place] [address], * Urine Albumin Creatinine Ratio (01/20/2024) Urine Albumin Creatinine Ratio abstracted Historical Provider MD ANUJ TAN E * Hepatitis C Screening (01/20/2024) Pathologist [facility] Hepatitis C Screening abstracted Historical Provider MD ANUJ TAN E * (ABNORMAL) Hemoglobin A1c (01/20/2024) Pathologist [facility] Hemoglobin A1C 10.8(A) 6.5 % Blood Venous blood specimen / Unknown Historical Provider LAB BLOOD ORDERAB LES * (ABNORMAL) Lipid panel (01/20/2024) LDL/HDL Ratio 6(A) 0 - 4 Triglycerides 474(A) 0 - 150 mg/dL Cholesterol 250(A) 0 - 200 mg/dL HDL 42 40 mg/dL LDL Cholesterol 114(A) 0 - 100 mg/dL Blood Venous blood specimen / Unknown Historical Provider LAB BLOOD ORDERAB LES from Last 3 Months or Most Recently Relevant to Health Maintenance Care Teams [employer]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
[2025-01-05 02:03] VITALS: BP 126/78; PULSE 78; RESP 20; TEMP 36.8; O2SAT 96
[2025-01-05 02:10] VITALS: BP 126/78; PULSE 78; RESP 20; TEMP 36.8; O2SAT 96
== END 2025-01-05 02:10 | disposition home or self-care (01) ==
PROVIDERS: Emergency Provider Emergency Medicine; PCP Student in an Organized Health Care Education/Training Program
DX: J20.9 Acute bronchitis, unspecified (principal); J45.909 Unspecified asthma, uncomplicated; R06.02 Shortness of breath; E11.9 Type 2 diabetes mellitus without complications; Z03.818 Encounter for observation for suspected exposure to other biological agents ruled out; Z87.891 Personal history of nicotine dependence; Z79.02 Long term (current) use of antithrombotics/antiplatelets; Z79.85 Long-term (current) use of injectable non-insulin antidiabetic drugs; Z79.899 Other long term (current) drug therapy
CPT/HCPCS: 0241U; 36415; 71045; 80053; 85025; 94640; 99284

== ENCOUNTER → 2025-01-04 22:10 | Outpatient (BNV) | payer MEDICARE, MEDICAID, SELFPAY | PROVIDERS: PCP Student in an Organized Health Care Education/Training Program; Visit Provider Radiology Neuroradiology | DX: R07.9 Chest pain, unspecified (principal); R06.02 Shortness of breath | CPT/HCPCS: 71045 ==

== ENCOUNTER 2025-01-14 16:21 | Emergency (ER) | payer MEDICARE, MEDICAID, SELFPAY ==
--- NOTE | ~2025-01-14 | XR_ITS ---
CLINICAL HISTORY: CP, SOB 2 views of the chest. Comparison 01/04/2025. Findings: Heart size is normal. There is no consolidation. No pleural effusion is seen. There is mild scarring in the left lower lung. Impression: No consolidation. This document has been electronically signed by: Low Quispe MD on 01/14/2025 18:43:16
[2025-01-14 16:52] VITALS: BP 163/109; PULSE 94; RESP 18; TEMP 37.2; O2SAT 94; BMI 29.2
--- NOTE | 2025-01-14 16:57 | ED_ITS ---
HPI - SOB/Dyspnea General Chief Complaint: Upper Respiratory Symptoms Stated Complaint: SOB Related Data Home Medications ?Medication ?Instructions ?Recorded ?Confirmed rosuvastatin 40 mg tablet 40 mg PO DAILY 08/30/20 02/21/24 betamethasone, augmented 0.05 % 1 appl topical BID 02/21/24 02/21/24 topical ointment dulaglutide 4.5 mg/0.5 mL 4.5 mg subcut Q7D 02/21/24 02/21/24 subcutaneous pen injector (Trulicity) enalapril maleate 20 mg tablet 20 mg PO DAILY 02/21/24 02/21/24 ergocalciferol (vitamin D2) 1,250 1,250 mcg PO QWEEK 02/21/24 02/21/24 mcg (50,000 unit) capsule Previous Rx's ?Medication ?Instructions ?Recorded albuterol sulfate 90 mcg/actuation 2 puff inhalation Q6H PRN 02/22/24 aerosol inhaler Shortness Of Breath Or Wheezing #6.7 grams azithromycin 500 mg tablet 500 mg PO DAILY 4 days #4 tabs 02/22/24 cefuroxime axetil 500 mg tablet 500 mg PO BID #8 tabs 02/22/24 guaifenesin 600 mg tablet, 600 mg PO BID #6 tabs 02/22/24 extended release 12 hr (Mucus Relief ER) prednisone 10 mg tablet See Taper PO DIRECTED #30 tabs 02/22/24 albuterol sulfate 90 mcg/actuation 2 puff inhalation Q4-6H PRN 03/31/24 aerosol inhaler shortness of breath or wheezing #8.5 grams glipizide 5 mg tablet 5 mg PO DAILY #30 tabs 03/31/24 prednisone 50 mg tablet 50 mg PO DAILY #4 tabs 03/31/24 ipratropium 0.5 mg-albuterol 3 mg 3 ml inhalation Q6H PRN wheezing 04/16/24 (2.5 mg base)/3 mL nebulization #180 mL soln budesonide-formoterol HFA 80 2 puff inhalation Q12H #10.2 grams 04/20/24 mcg-4.5 mcg/actuation aerosol inhaler (Symbicort) albuterol sulfate 2.5 mg/3 mL 2.5 mg (3 mL) inhalation QID PRN 01/05/25 (0.083 %) solution for nebulization shortness of breath or wheezing #75 mL albuterol sulfate 90 mcg/actuation 2 puff inhalation Q6H PRN 01/05/25 aerosol inhaler shortness of breath or wheezing #6.7 grams doxycycline monohydrate 100 mg 100 mg PO BID 7 days #14 tabs 01/05/25 tablet prednisone 20 mg tablet 40 mg (2 x 20 mg) PO DAILY 5 days 01/05/25 #10 tabs Allergies Allergy/AdvReac Type Severity Reaction Status Date / Time aspirin Allergy Unknown swelling Verified 01/14/25 16:57 [facility] Past Medical History Medical History Asthma Depression Pancreatitis Facet arthropathy, cervical Social History Social History (Updated 04/16/24 @ 15:19 by Emily Jimenez [facility]) Alcohol intake: current Alcohol intake frequency: holidays/special occasions only Patient Tobacco Use Status: Former Tobacco user Cigarettes Per Day: 10 Advance Directives: No Advance Directives Information Provided: No Do you have a plan to hurt others: No Plan service: No Physical Exam 2 Vital Signs: Vital Signs: Last Vital Signs Temp 98.9 F 01/14/25 16:52 Pulse 94 01/14/25 16:52 Resp 18 01/14/25 16:52 BP 163/109 H 01/14/25 16:52 Pulse Ox 94 01/14/25 16:52 O2 Del Method Room Air 01/14/25 16:52 BMI result Body Mass Index 29.2 Course Course Course Narrative: This is an RME: Additional HPI, ROS, PE not included below will be deferred to primary provider. RME assessment and note performed by: Odette Hernandez PA-C 54-year-old male who has a history of tobacco use, asthma, diabetes, presents for evaluation of shortness of breath. Patient has been seen here multiple times, December 10 of December 18, and December 04 for similar symptoms. Plan: Labs, EKG, CXR, further ER eval needed Reevaluation(s) Reevaluation #1: Patient left without completing treatment. Medical Decision Making Lab Data 01/14/25 17:13 01/14/25 17:13 Labs: Lab Results 01/14/25 Range/Units 17:13 WBC 16.1 H (4.8-10.8) X10*3/uL RBC 4.93 (4.60-5.80) X10*6/uL Hgb 14.5 (14.0-18.0) g/dl Hct 42.9 (42.0-52.0) % MCV 87.0 (80.0-98.0) fL MCH 29.4 (27.0-33.0) pg MCHC 33.8 (31.0-36.0) g/dl RDW 12.9 (11.0-16.0) % Plt Count 318 (160-400) X10*3/uL MPV 10.7 (9.4-12.4) fL Immature Gran % (Auto) 0.7 H (0.0-0.4) % Neut % (Auto) 60.1 (45-73) % Lymph % (Auto) 17.8 L (20-40) % Rooks % (Auto) 9.2 (2-11) % Eos % (Auto) 11.5 H (0-4) % Baso % (Auto) 0.7 (0-2) % Lymph # (Auto) 2.9 (1.2-4.9) X10*3/uL Rooks # (Auto) 1.5 H (0.1-1.2) X10*3/uL Eos # (Auto) 1.8 H (0.0-0.4) X10*3/uL Baso # (Auto) 0.1 (0.0-0.2) X10*3/uL Abs Immat Gran (auto) 0.11 H (0.00-0.03) X10*3/uL Absolute Neuts (auto) 9.7 H (2.0-8.3) x10*3/uL Absolute Nucleated RBC 0.000 (0.0-0.012) X10*3/uL Nucleated RBC % (auto) 0.0 (0.0-0.2) /100WBC PT 9.3 L (10.9-12.4) SEC INR 0.8 L (0.9-1.1) APTT 28.1 (26.0-36.8) SEC Sodium 141 (135-145) mmol/L Potassium 4.1 (3.3-5.1) mmol/L Chloride 103 (96-108) mmol/L Carbon Dioxide 31 H (22-29) mmol/L Anion Gap 11 L (12-20) BUN 10 (9-16) mg/dL Creatinine 0.93 (0.5-1.4) mg/dL Estim Creat Clear Calc 98.5 Estimated GFR > 60 Random Glucose 164 H (60-115) mg/dL Calcium 9.1 (8.4-10.2) mg/dL Magnesium 2.2 (1.6-2.6) mg/dL Total Bilirubin 0.4 (0.0-1.0) mg/dL Direct Bilirubin 0.1 (0.0-0.5) mg/dL AST 24 (5-37) U/L ALT 36 (0-40) U/L Alkaline Phosphatase 131 H (39-117) U/L Troponin I High Sens 4.1 (<3.5-35.0) ng/L B-Natriuretic Peptide 23 (<100) pg/mL Total Protein 7.0 (6.5-8.0) g/dL Albumin 4.0 (3.5-5.0) g/dL Influenza Type A (PCR) NEGATIVE (Negative) Influenza Type B (PCR) NEGATIVE (Negative) RSV RNA Qual (PCR) NEGATIVE (Negative) SARS-CoV-2 RNA (RT-PCR) NEGATIVE (Negative) Discharge Plan Discharge Clinical Impression: Shortness of breath Patient Disposition: Left W/O Completing Treatment Prescriptions: No Action budesonide-formoterol [Symbicort] 80-4.5 mcg/actuation HFA aerosol inhaler 2 puff inhalation Q12H Qty: 10.2 6RF albuterol sulfate 90 mcg/actuation HFA aerosol inhaler 2 puff inhalation Q4-6H PRN (Reason: shortness of breath or wheezing) Qty: 8.5 0RF prednisone 50 mg tablet 50 mg PO DAILY Qty: 4 0RF glipizide 5 mg tablet 5 mg PO DAILY Qty: 30 0RF doxycycline monohydrate 100 mg tablet 100 mg PO BID 7 Days Qty: 14 0RF albuterol sulfate 90 mcg/actuation HFA aerosol inhaler 2 puff inhalation Q6H PRN (Reason: shortness of breath or wheezing) Qty: 6.7 0RF albuterol sulfate 2.5 mg /3 mL (0.083 %) solution for nebulization 2.5 mg inhalation QID PRN (Reason: shortness of breath or wheezing) Qty: 75 0RF prednisone 20 mg tablet 40 mg PO DAILY 5 Days Qty: 10 0RF enalapril maleate 20 mg tablet 20 mg PO DAILY betamethasone, augmented 0.05 % ointment 1 appl topical BID ergocalciferol (vitamin D2) 1,250 mcg (50,000 unit) capsule 1,250 mcg PO QWEEK Trulicity 4.5 mg/0.5 mL pen injector 4.5 mg subcut Q7D cefuroxime axetil 500 mg tablet 500 mg PO BID Qty: 8 0RF azithromycin 500 mg tablet 500 mg PO DAILY 4 Days Qty: 4 0RF albuterol sulfate 90 mcg/actuation HFA aerosol inhaler 2 puff inhalation Q6H PRN (Reason: Shortness Of Breath Or Wheezing) Qty: 6.7 0RF prednisone 10 mg tablet See Taper PO DIRECTED Qty: 30 0RF Taper: Prednisone 40 mg daily for 3 Days and 0 Hour 30 mg daily for 3 Days and 0 Hour 20 mg daily for 3 Days and 0 Hour 10 mg daily for 3 Days and 0 Hour Rx Instructions: see taper instructions guaifenesin [Mucus Relief ER] 600 mg tablet extended release 12hr 600 mg PO BID Qty: 6 0RF rosuvastatin 40 mg tablet 40 mg PO DAILY ipratropium-albuterol 0.5 mg-3 mg(2.5 mg base)/3 mL solution for nebulization 3 ml inhalation Q6H PRN (Reason: wheezing) Qty: 180 0RF Discharge Date/Time: 01/14/25 22:31
--- NOTE | 2025-01-14 16:59 | ECG_ITS ---
Test Reason : SOB Blood Pressure : */* mmHG Vent. Rate : 93 BPM Atrial Rate : 93 BPM P-R Int : 124 ms QRS Dur : 66 ms QT Int : 332 ms P-R-T Axes : 60 32 43 degrees QTcB Int : 412 ms Normal sinus rhythm with sinus arrhythmia Normal ECG When compared with ECG of 20-Feb-2024 22:12, No significant change was found Referred By: Odette Hernandez Electronically Signed By: LARA MATA
[2025-01-14 17:20] LABS: MANUAL DIFF FLAG NO
[2025-01-14 17:23] LABS: Basophils Absolute Auto 0.1 X10*3/uL (0.0-0.2); Basophils Percent Auto 0.7 % (0-2); Eosinophils Absolute Auto 1.8 X10*3/uL (0.0-0.4); Eosinophils Percent Auto 11.5 % (0-4); Hematocrit 42.9 % (42.0-52.0); Hemoglobin 14.5 g/dl (14.0-18.0); Imm Gran Abs Auto 0.11 X10*3/uL (0.00-0.03); Imm Gran Pct Auto 0.7 % (0.0-0.4); Lymphocytes Absolute Auto 2.9 X10*3/uL (1.2-4.9); Lymphocytes Percent Auto 17.8 % (20-40); Mean Corpuscular HGB Conc 33.8 g/dl (31.0-36.0); Mean Corpuscular Hemoglobin 29.4 pg (27.0-33.0); Mean Platelet Volume 10.7 fL (9.4-12.4); Monocytes Absolute Auto 1.5 X10*3/uL (0.1-1.2); Monocytes Percent Auto 9.2 % (2-11); Neutrophils Absolute Auto 9.7 x10*3/uL (2.0-8.3); Neutrophils Percent Auto 60.1 % (45-73); Platelet Count 318 X10*3/uL (160-400); Red Blood Count 4.93 X10*6/uL (4.60-5.80); Red Cell Distribution Width 12.9 % (11.0-16.0); White Blood Count 16.1 X10*3/uL (4.8-10.8)
[2025-01-14 17:42] LABS: Alanine Aminotransferase 36 U/L (0-40); Alkaline Phosphatase 131 U/L (39-117); Anion Gap 11 (12-20); Aspartate Amino Transferase 24 U/L (5-37); Bilirubin Direct 0.1 mg/dL (0.0-0.5); Bilirubin Total 0.4 mg/dL (0.0-1.0); Blood Urea Nitrogen 10 mg/dL (9-16); Calcium 9.1 mg/dL (8.4-10.2); Carbon Dioxide 31 mmol/L (22-29); Chloride 103 mmol/L (96-108); Creatinine Clr Calc Pharmacy 98.5; Estimated Glomerular Filt Rate > 60; Glucose Random 164 mg/dL (60-115); INTERNATIONAL NORM RATIO 0.8 (0.9-1.1); Magnesium 2.2 mg/dL (1.6-2.6); Potassium 4.1 mmol/L (3.3-5.1); Prothrombin Time 9.3 SEC (10.9-12.4); Sodium 141 mmol/L (135-145)
[2025-01-14 17:45] LABS: Partial Thromboplastin Time 28.1 SEC (26.0-36.8)
[2025-01-14 17:46] LABS: B Type Natriuretic Peptide 23 pg/mL (<100)
[2025-01-14 17:49] LABS: Troponin-I High Sensitivity 4.1 ng/L (<3.5-35.0)
[2025-01-14 18:00] LABS: Influenza A PCR NEGATIVE (Negative); Influenza B PCR NEGATIVE (Negative); Resp Syncy Virus RNA Qual PCR NEGATIVE (Negative); SARS COV2 PCR INHOUSE NEGATIVE (Negative)
--- OUTSIDE RECORDS SUMMARY | 2025-01-14 22:30 | XMS_ITS | Clinical Summary ---
Author Organization [facility] Address [address] [place] [address] Phone Care Team Providers Care Ux Manager Name Role Phone Camille Patton MD Primary Care Provider [phone] Allergies Active Allergy Reactions Criticality Noted Date Comments Nsaids (Non-Steroidal Anti-I nflammatory Drug) 07/30/2015 Medications albuterol HFA (PROAIR HFA ; PROVENTIL HFA ; VENTOLIN HFA) 90 mcg/actuation inhaler Inhale 2 puffs by mouth every 6 (six) hours if needed for wheezing. 8.5 each 5 12/13/2024 Active rosuvastatin (CRESTOR) 40 mg tablet TAKE 1 TABLET BY MOUTH EVERY DAY 90 tablet 1 01/14/2025 Active guaiFENesin-cod eine (ROBITUSSIN-AC) 100-10 mg/5 mL syrup Take 5 mL by mouth every 6 (six) hours if needed for cough for up to 5 days. Max Daily Amount: 20 mL 120 mL 12/20/2024 12/25/19 25 azithromycin (ZITHROMAX) 250 mg tablet Take 2 tablets (500 mg total) by mouth 1 (one) time each day for 1 day, THEN 1 tablet (250 mg total) 1 (one) time each day for 4 days. 6 each 12/20/2024 12/25/19 25 predniSONE (DELTASONE) 20 mg tablet Take 2 tablets (40 mg total) by mouth 1 (one) time each day for 3 days. 6 each 12/20/2024 12/23/19 25 Active Problems No known active problems Encounters Date Type Department Care Team Description 12/20/2024 1:15 AM EST - 12/20/2024 3:10 AM EST Emergency [facility] Emergency [address] [place] [address] Exacerbation of asthma, unspecified asthma [...] Type 2 diabetes mellitus wit hout complication ([facility]/HCC) 06/23/2018 DX:Type 2 diabetes mellitus without complication (HCC) Vitamin B12 deficiency 03/01/2013 DX:Vitami n B12 [...] Recorded Sex Assigned at Not on file Legal Sex Male 11:52 AM EST Gender Identity Not on file Sexual Orientation Not on file Obstetrics History Last Filed [...] Upcoming Encounters Date Type Department Care Team ([facility] st Contact Info) Description 01/30/2025 1:30 PM EST Office Visit Internal Medicine - [place] [address] [facility] [address] [place] [id number] Camille Patton MD [address] [facility] [address] [place] [address] Health Maintenance Due Date Last Done Comments [...] Hepatitis C Screening Completed 01/20/2024 Pneumococcal Vaccine: 50+ Years Completed 01/23/2024 Pneumococcal Vaccine: Pediatrics (0 to 5 Years) [...] patient's age to complete this topic Meningococcal B Vacine Aged Out No lo nger eligible based on patient's age to complete [...] AND DIFFERENTIAL STAT 12/19/2024 5:43 PM EST HEPATITIS C SCREENING Routine 01/20/2024 HM URINE ALBUMIN CREATININE RATIO Routine 01/20/2024 HEMOGLOBIN A1C Routine 01/20/2024 LIPID PANEL Routine 01/20/2024 from Last 3 Months or Most Recently Relevant to Health Maintenance Results * Respiratory virus panel molecular study (12/20/2024 1:26 AM EST) Pathologist [facility] Adenovirus Detection by PCR Not Detected Not Detected LAB MICROBIOLOGY METHOD 12/20/2024 2:32 AM [facility] Influenza A PCR Not Detected Not Detected LAB MICROBIOLOGY METHOD 12/20/2024 2:32 AM [facility] Influenza B PCR Not Detected Not Detected LAB MICROBIOLOGY METHOD 12/20/2024 2:32 AM [facility] Coronavirus 229E Not Detected Not Detected LAB MICROBIOLOGY METHOD 12/20/2024 2:32 AM [facility] Coronavirus HKU1 Not Detected Not Detected LAB MICROBIOLOGY METHOD 12/20/2024 2:32 AM [facility] Coronavirus OC43 Not Detected Not Detected LAB MICROBIOLOGY METHOD 12/20/2024 2:32 AM [facility] Coronavirus NL63 Not Detected Not Detected LAB MICROBIOLOGY METHOD 12/20/2024 2:32 AM [facility] Parainfluenza Virus 1 Not Detected Not Detected LAB MICROBIOLOGY METHOD 12/20/2024 2:32 AM [facility] Parainfluenza Virus 2 Not Detected Not Detected LAB MICROBIOLOGY METHOD 12/20/2024 2:32 AM [facility] Parainfluenza Virus 3 Not Detected Not Detected LAB MICROBIOLOGY METHOD 12/20/2024 2:32 AM [facility] Parainfluenza Virus 4 Not Detected Not Detected LAB MICROBIOLOGY METHOD 12/20/2024 2:32 AM EST [facility] RSV PCR Not Detected Not Detected LAB MICROBIOLOGY METHOD 12/20/2024 2:32 AM [facility] Human Metapneumovirus A and B Not Detected Not Detected LAB MICROBIOLOGY METHOD 12/20/2024 2:32 AM [facility] Rhinovirus/Entero virus Not Detected Not Detected LAB MICROBIOLOGY METHOD 12/20/2024 2:32 AM EST [facility] Bordetella pertussis Not Detected Not Detected LAB MICROBIOLOGY METHOD 12/20/2024 2:32 AM [facility] Bordetella parapertussis Not Detected Not Detected LAB MICROBIOLOGY METHOD 12/20/2024 2:32 AM [facility] Mycoplasma pneumo by PCR Not Detected Not Detected LAB MICROBIOLOGY METHOD 12/20/2024 2:32 AM [facility] Chlamydia pneumoniae Not Detected Not Detected LAB MICROBIOLOGY METHOD 12/20/2024 2:32 AM [facility] SARS COV-2 Not Detected Not Detected LAB MICROBIOLOGY METHOD 12/20/2024 2:32 AM [facility] Swab Both anterior nares / Unknown Non-blood Collection / Unknown 12/20/2024 1:26 AM EST 12/20/2024 1:38 AM EST [facility] - 12/20/2024 2:32 AM EST Testing was performed using the [employer] Respiratory Pathogen PCR Assay. All results must [...] that are below the limit of detection. us Ebonie TUCKER LAB MICROBIOLOGY - GENERAL ORDER ELISEO Final Result [facility] [address] [place] [address], [place] [phone] * XR Chest 2 Views (12/19/2024 5:51 PM EST) Anatomical Region Laterality Modality Body Radiographic Yara ging 12/20/2024 8:07 AM EST Impressions 12/20/2024 8:08 AM EST No acute findings. -------- FINAL REPORT -------- Dictated By: Mauricio Lord Dictated Date: 12/20/2024 08:07 ET Assigned Physician: Mauricio Lord Reviewed and Electronically Signed By: Mauricio Lord Signed Date: 12/20/2024 08:08 ET Workstation ID: [id number] Transcribed By: Self Edit Transcribed Date: 12/20/2024 [...] Signed Date: 12/20/2024 08:08 ET Workstation ID: [id number] Transcribed By: Self Edit Transcribed Date: 12/20/2024 08:07 ET Missael Bass DO IMG XR PROCEDURES Final Result * (ABNORMAL) Manual differential (12/19/2024 5:43 PM EST) Neutrophils % 62.0 % LAB HEMETOLOGY METHOD 12/19/2024 6:21 PM [facility] Bands % 2.0 % LAB HEMETOLOGY METHOD 12/19/2024 6:21 PM [facility] Lymphocytes % 12.0 % LAB HEMETOLOGY METHOD 12/19/2024 6:21 PM [facility] Monocytes % 10.0 % LAB HEMETOLOGY METHOD 12/19/2024 6:21 PM [facility] Eosinophils % 14.0 % LAB HEMETOLOGY METHOD 12/19/2024 6:21 PM [facility] Basophils % 0.0 % LAB HEMETOLOGY METHOD 12/19/2024 6:21 PM [facility] Neutrophils Absolute Manual 10.48(H) 1.50 - 7.00 K/mcL LAB HEMETOLOGY METHOD 12/19/2024 6:21 PM [facility] Bands Absolute Manual 0.34(H) 0.00 - 0.00 K/mcL LAB HEMETOLOGY METHOD 12/19/2024 6:21 PM [facility] Lymphocytes Absolute 2.03 1.00 - 5.00 K/mcL LAB HEMETOLOGY METHOD 12/19/2024 6:21 PM [facility] Monocytes Absolute Manual 1.69(H) 0.20 - 1.00 K/mcL LAB HEMETOLOGY METHOD 12/19/2024 6:21 PM [facility] Eosinophils Absolute Manual 2.37(H) 0.00 - 0.50 K/mcL LAB HEMETOLOGY METHOD 12/19/2024 6:21 PM [facility] Basophils Absolute Manual 0.00 0.00 - 0.20 K/mcL LAB HEMETOLOGY METHOD 12/19/2024 6:21 PM EST [facility] Rbc Morphology Consistent with indices Consistent with indices, Normal for Richards LAB HEMETOLOGY METHOD 12/19/2024 6:21 PM EST [facility] Comment:RBC: Morphology agre es with CBC Platelet Morphology - WAM See Note(A) Normal LAB HEMETOLOGY METHOD 12/19/2024 6:21 PM EST [facility] Comment:PLT: Giant platelets seen Blood Venous blood specimen / Unknown Venipuncture / Unknown 12/19/2024 5:43 PM EST 12/19/2024 5:51 PM EST us Missael Bass DO LAB BLOOD ORDERABLES Final Resu lt [facility] [address] [place] [address], [place] [phone] * (ABNORMAL) CBC auto differential (12/19/2024 5:43 PM EST) WBC 16.9(H) 4.8 - 10.8 K/mcL LAB HEMETOLOGY METHOD 12/19/2024 6:21 PM [facility] RBC 5.50 4.50 - 5.50 M/mcL LAB HEMETOLOGY METHOD 12/19/2024 6:21 PM [facility] Hemoglobin 16.0 13.5 - 17.5 g/dL LAB HEMETOLOGY METHOD 12/19/2024 6:21 PM EST [facility] Hematocrit 49.1 42.0 - 54.0 % LAB HEMETOLOGY METHOD 12/19/2024 6:21 PM [facility] MCV 89.6 79.0 - 98.0 FL LAB HEMETOLOGY METHOD 12/19/2024 6:21 PM [facility] MCH 29.2 27.0 - 32.0 pcg LAB HEMETOLOGY METHOD 12/19/2024 6:21 PM [facility] MCHC 32.6 32.0 - 37.0 g/dL LAB HEMETOLOGY METHOD 12/19/2024 6:21 PM EST [facility] RDW 12.8 11.0 - 15.0 % LAB HEMETOLOGY METHOD 12/19/2024 6:21 PM [facility] Platelets 324 130 - 400 K/mcL LAB HEMETOLOGY METHOD 12/19/2024 6:21 PM [facility] MPV 11.2(H) 7.0 - 11.0 FL LAB HEMETOLOGY METHOD 12/19/2024 6:21 PM EST [facility] NRBC 0.0 <1.0 % LAB HEMETOLOGY METHOD 12/19/2024 6:21 PM [facility] NRBC Absolute 0.00 <0.10 K/mcL LAB HEMETOLOGY METHOD 12/19/2024 6:21 PM [facility] Blood Venous blood specimen / Unknown Venipuncture / Unknown 12/19/2024 5:43 PM EST 12/19/2024 5:51 PM EST us Missael aBss DO LAB BLOOD ORDERABLES Final Resu lt [facility] [address] [place] [address], * (ABNORMAL) Basic metabolic panel (12/19/2024 5:43 PM EST) Sodium 139 133 - 145 mmol/L LAB CHEMISTRY METHOD 12/19/2024 6:11 PM EST [facility] Potassium 4.2 3.5 - 5.5 mmol/L LAB CHEMISTRY METHOD 12/19/2024 6:11 PM [facility] Chloride 105 96 - 110 mmol/L LAB CHEMISTRY METHOD 12/19/2024 6:11 PM EST [facility] CO2 30 21 - 32 mmol/L LAB CHEMISTRY METHOD 12/19/2024 6:11 PM [facility] Anion Gap 4 3 - 11 LAB CHEMISTRY METHOD 12/19/2024 6:11 PM [facility] Glucose 238(H) 70 - 100 mg/dL LAB CHEMISTRY METHOD 12/19/2024 6:11 PM [facility] BUN 12 5 - 25 mg/dL LAB CHEMISTRY METHOD 12/19/2024 6:11 PM [facility] Creatinine 1.41(H) 0.70 - 1.30 mg/dL LAB CHEMISTRY METHOD 12/19/2024 6:11 PM [facility] eGFR 60 >=60 mL/min/1. 73m2 LAB CHEMISTRY METHOD 12/19/2024 6:11 PM [facility] Comment:Calculation based on the??Chronic Kidney Disease Epidemiology Collaboration (CKD-EPI) equation refit??without adjustment for race. BUN/Creatinine Ratio 8.5 LAB CHEMISTRY METHOD 12/19/2024 6:11 PM [facility] Calcium 9.0 8.5 - 10.5 mg/dL LAB CHEMISTRY METHOD 12/19/2024 6:11 PM [facility] Blood Venous blood specimen / Unknown Venipuncture / Unknown 12/19/2024 5:43 PM EST 12/19/2024 5:51 PM EST us Missael Bass DO LAB BLOOD ORDERABLES Final Resu lt [facility] [address] [place] [address], [place] [phone] * Urine Albumin Creatinine Ratio (01/20/2024) Urine Albumin Creatinine Ratio abstracted us Historical Provider HEALTH MAINTENANCE Final Result * Hepatitis C Screening (01/20/2024) Hepatitis C Screening abstracted Historical Provider HEALTH MAINTENANCE Final Result * (ABNORMAL) Hemoglobin A1c (01/20/2024) Pathologist [facility] Hemoglobin A1C 10.8(A) <=6.5 % Blood Venous blood specimen / Unknown Result [facility] Provider LAB BLOOD ORDERABLES Brandy l Result * (ABNORMAL) Lipid panel (01/20/2024) Pathologist [facility] LDL/HDL Ratio 6(A) 0 - 4 Triglycerides 474(A) 0 - 150 mg/dL Cholesterol 250(A) 0 - 200 mg/dL HDL 42 >=40 mg/dL LDL Cholesterol 114(A) 0 - 100 mg/dL Blood Venous blood specimen / Unknown Result [facility] Provider LAB BLOOD ORDERABLES Brandy l Result from Last 3 Months or Most Recently Relevant to Health Maintenance Insurance MEDICAID - [place] MEDICARE Care Teams Ux Manager Relationship Specialty Start Date End Date Camille Patton MD [address] [place] [address] PCP - General Internal Medicine 12/20/24
--- OUTSIDE RECORDS SUMMARY | 2025-01-14 22:30 | XMS_ITS | Encounter Summary ---
Author Organization [employer] [place] [address] Care Team Providers Care Imaging Account Manager Name Role Phone Camille Patton MD Primary Care Provider [phone] Reason for Visit * Reason Comments Shortness of Breath I have pneumonia I left [place] without treatment yesterday and wasn't put on antibiotics Encounter Details Date Type Department Care Team (Late st Contact Info) Description 12/20/2024 1:15 AM EST - 12/20/2024 3:[address] [facility] Emergency [address] [place] [address] Exacerbation of asthma, unspecified asthma severity, unspecified whether persistent (Primary Dx) Discharge Disposition: Home or Self Care Social History Tobacco Use Types Packs/Day Years Used Date Smoking Tobacco: Every Day Cigarettes Smokeless Tobacco: Never Alcohol Use Standard Drinks/Week Comments Yes 0 (1 standard drink = 0.6 oz pur e alcohol) Sex and Gender Information Value Date Recorded Sex Assigned at Not on file Legal Sex Male 11:52 AM EST Gender Identity Not on file Sexual Orientation Not on file documented as of this encounter Last Filed Vital Signs Vital Sign Reading [...] Mass Index 29.19 12/19/2024 3:30 PM EST documented in this encounter Discharge Instructions * Discharge Instructions* GARRETT Paige - 12/20/2024 3:04 AM EST You may be continuing to have an exacerbation of your underlying asthma. You have been sent a prescription for cough syrup with codeine, please only take this before bedtime as it can cause lethargy/drowsiness but will help cough out any additional phlegm you may be having. Your rib pain is likely due to musculoskeletal strain from your coughing. I extended your steroid course and additionally added on an antibiotic to cover for possible pneumonia given your worsening symptoms. Please follow-up with your primary care provider otherwise you may call 911 or back to the emergency department for any new or worsening symptoms of concern. documented in this encounter Medications at Time of Discharge albuterol HFA (PROAIR HFA ; PROVENTIL HFA ; VENTOLIN HFA) 90 mcg/actuation inhaler Inhale 2 puffs by mouth every 6 (six) hours if needed for wheezing. 8.5 each 5 12/13/2024 azithromycin (ZITHROMAX) 250 mg tablet Take 2 tablets (500 mg total) by mouth 1 (one) time each day for 1 day, THEN 1 tablet (250 mg total) 1 (one) time each day for 4 days. 6 each 12/20/2024 12/25/2024 guaiFENesin-codei ne (ROBITUSSIN-AC) 100-10 mg/5 mL syrup Take 5 mL by mouth every 6 (six) hours if needed for cough for up to 5 days. Max Daily Amount: 20 mL 120 mL 12/20/2024 12/25/2024 predniSONE (DELTASONE) 20 mg tablet Take 2 tablets (40 mg total) by mouth 1 (one) time each day for 3 days. 6 each 12/20/2024 12/23/2024 documented as of this encounter Ordered Prescriptions Prescription Sig Dispense Quantity Refills Last Filled Start Date End Date predniSONE (DELTASONE) 20 mg tablet Take 2 tablets (40 mg total) by mouth 1 (one) time each day for 3 days. 6 each 12/20/2024 5 azithromycin (ZITHROMAX) 250 mg tablet Take 2 tablets (500 mg total) by mouth 1 (one) time each day for 1 day, THEN 1 tablet (250 mg total) 1 (one) time each day for 4 days. 6 each 12/20/2024 5 guaiFENesin-codein e (ROBITUSSIN-AC) 100-10 mg/5 mL syrup Take 5 mL by mouth every 6 (six) hours if needed for cough for up to 5 days. Max Daily Amount: 20 mL 120 mL 12/20/2024 5 documented in this encounter Discharge Disposition Disposition Code Departure Means Destination Comment s Home or Self Care documented in this encounter Progress Notes * Ricarda Francis RN - 12/19/2024 3:33 PM EST Pt comes to ER after experiencing 2-3 weeks of pnemonia . Pt states he was at [facility] yesterday and [place] prior to that. Pt states he received 4 days of prednisone and its not enough. Pt reports SOB with productive cough- yellow sputum. States he was not given abx, just prednisone. Pt able to speakin full sentences, a&ox4, ambulatory. * GARRETT Paige - 12/19/2024 3:22 PM EST Emergency Medicine Note Patient Name: Sunny Tapia Initial Evaluation: 12/19/2024 : 1970 Patient's PCP: Camille Patton MD Emergency Physician: GARRETT Paige History of Present Illness Chief Complaint: Chief Complaint Patient presents with Shortness of Breath I have pneumonia I left [place] without treatment yesterday and wasn't put on antibiotics HPI: This is a 54-year-old male with history of asthma, GERD, hypertension, hyperlipidemia, YOVANNY, diabetes presenting for concerns of pneumonia with worsening symptoms. Patient reports that he has been having flulike illness for the last 2 to 3 weeks, was seen at [facility] yesterday andgiven a 4-day course of prednisone which he reports has not been sufficient in treating his symptoms. Patient does report shortness of breath, cough productive of yellow sputum. Denies fever but endorses chills. No chest pain, headache, lightheadedness or dizziness. He denies being on antibiotics at any point during the course of these symptoms. He has been using his inhaler more frequently during this time, good effect but symptoms resolution is temporary. No sick contacts, recent travel or illness. ROS: I have performed a ROS with the pertinent positives and negatives documented in the history ofpresent illness. Previous History Past Medical History: Diagnosis Date Back pain DX:Back pain Constipation 11/14/2015 DX:Constipation Depression 05/17/2017 DX:Depression Gastro-esophageal reflux disease with esophagitis 02/19/2014 DX:Gastro-esophageal reflux disease with esophagitis Hyperlipidemia 06/23/2018 DX:Hyperlipidemia Hypertension 06/23/2018 DX:Hypertension Insomnia 12/17/2014 DX:Insomnia Obstructive sleep apnea 11/13/2013 DX:Obstructive sleep apnea Type 2 diabetes mellitus without complication ([facility]/HCC) 06/23/2018 DX:Type 2 diabetes mellitus without complication (HCC) Vitamin B12 deficiency 03/01/2013 DX:Vitamin B12 deficiency Vitamin D deficiency 02/07/2015 DX:Vitamin D deficiency Past Surgical History: Procedure Laterality Date BACK SURGERY Bilateral PROCEDURE: HISTORICAL BACK SURGERY HERNIA REPAIR Right PROCEDURE: HISTORICAL HERNIA REPAIR/UMB Social History Tobacco Use Smoking status: Every Day Current packs/day: 0.50 Types: Cigarettes Smokeless tobacco: Never Substance Use Topics Alcohol use: Yes Drug use: Not Currently Family History Problem Relation Name Age of Onset Hypertension Mother Diabetes Mother Other (Other: HDL) Mother Colon cancer Brother is allergic to nsaids (non-steroidal anti-inflammatory drug). No current facility-administered medications on file prior to encounter. Current Outpatient Medications on File Prior to Encounter Medication Sig Dispense Refill albuterol HFA (PROAIR HFA ; PROVENTIL HFA ; VENTOLIN HFA) 90 mcg/actuation inhaler Inhale 2 puffs by mouth every 6 (six) hours if needed for wheezing. 8.5 each 5 Physical Exam ED Triage Vitals [12/19/24 1530] Temp Heart Rate Resp BP 36.9 ??C (98.4 ??F) 90 20 (!) 150/88 SpO2 Temp Source Heart Rate Source Patient Position 94 % Oral Monitor Sitting BP Location FiO2 (%) Right arm -- Physical Exam Constitutional: General: He is awake. He is not in acute distress. Appearance: Normal appearance. He is not ill-appearing or toxic-appearing. HENT: Head: Normocephalic and atraumatic. Eyes: Conjunctiva/sclera: Conjunctivae normal. Pulmonary: Effort: Pulmonary effort is normal. No tachypnea, accessory muscle usage, respiratory distress or retractions. Breath sounds: Wheezing (Diffuse expiratory) present. No decreased breath sounds, rhonchi or rales. Musculoskeletal: General: Normal range of motion. Cervical back: Normal range of motion and neck supple. Skin: General: Skin is warm and dry. Neurological: Mental Status: He is alert, oriented to person, place, and time and easily aroused. Mental status is at baseline. Gait: Gait normal. Psychiatric: Mood and Affect: Mood normal. Behavior: Behavior normal. Thought Content: Thought content normal. Judgment: Judgment normal. Results Labs Reviewed BASIC METABOLIC PANEL - Abnormal Result Value Sodium 139 Potassium 4.2 Chloride 105 CO2 30 Anion Gap 4 Glucose 238 (*) BUN 12 Creatinine 1.41 (*) eGFR 60 BUN/Creatinine Ratio 8.5 Calcium 9.0 CBC WITH AUTO DIFFERENTIAL - Abnormal WBC 16.9 (*) RBC 5.50 Hemoglobin 16.0 Hematocrit 49.1 MCV 89.6 MCH 29.2 MCHC 32.6 RDW 12.8 Platelets 324 MPV 11.2 (*) NRBC 0.0 NRBC Absolute 0.00 MANUAL DIFFERENTIAL - INSTRUMENT DIFFERENTIAL - Abnormal Neutrophils % 62.0 Bands % 2.0 Lymphocytes % 12.0 Monocytes % 10.0 Eosinophils % 14.0 Basophils % 0.0 Neutrophils Absolute Manual 10.48 (*) Bands Absolute Manual 0.34 (*) Lymphocytes Absolute 2.03 Monocytes Absolute Manual 1.69 (*) Eosinophils Absolute Manual 2.37 (*) Basophils Absolute Manual 0.00 Rbc Morphology Consistent with indices Platelet Morphology - WAM See Note (*) RESPIRATORY VIRUS PANEL MOLECULAR STUDY - Normal Adenovirus Detection by PCR Not Detected Influenza A PCR Not Detected Influenza B PCR Not Detected Coronavirus 229E Not Detected Coronavirus HKU1 Not Detected Coronavirus OC43 Not Detected Coronavirus NL63 Not Detected Parainfluenza Virus 1 Not Detected Parainfluenza Virus 2 Not Detected Parainfluenza Virus 3 Not Detected Parainfluenza Virus 4 Not Detected RSV PCR Not Detected Human Metapneumovirus A and B Not Detected Rhinovirus/Enterovirus Not Detected Bordetella pertussis Not Detected Bordetella parapertussis Not Detected Mycoplasma pneumo by PCR Not Detected Chlamydia pneumoniae Not Detected SARS COV-2 Not Detected Narrative: Testing was performed using the [employer] Respiratory Pathogen PCR Assay. All results must [...] that are below the limit of detection. CBC AND DIFFERENTIAL Narrative: The following orders were created for panel order CBC and differential. Procedure Abnormality Status --------- ------ CBC auto differential[[id number]] Abnormal Final result Please view results for these tests on the individual orders. Abnormal Labs Reviewed BASIC METABOLIC PANEL - Abnormal; Notable for the following components: Result Value Glucose 238 (*) Creatinine 1.41 (*) All other components within normal limits CBC WITH AUTO DIFFERENTIAL - Abnormal; Notable for the following components: WBC 16.9 (*) MPV 11.2 (*) All other components within normal limits MANUAL DIFFERENTIAL - INSTRUMENT DIFFERENTIAL - Abnormal; Notable for the following components: Neutrophils Absolute Manual 10.48 (*) Bands Absolute Manual 0.34 (*) Monocytes Absolute Manual 1.69 (*) Eosinophils Absolute Manual 2.37 (*) Platelet Morphology - WAM See Note (*) All other components within normal limits XR Chest 2 Views Final Result No acute findings. -------- FINAL REPORT -------- Dictated By: Mauricio Lord Dictated Date: 12/20/2024 08:07 ET Assigned Physician: Mauricio Lord Reviewed and Electronically Signed By: Mauricio Lord Signed Date: 12/20/2024 08:08 ET Workstation ID: [id number] Transcribed By: Self Edit Transcribed Date: 12/20/2024 08:07 ET I have discussed the incidental/abnormal imaging and/or lab abnormalities with the patient and haveinstructed them the need for further evaluation and workup with their primary care doctor. I have provided the patient with a paper copy of the abnormality. The laboratory results, imaging results and other diagnostic exam results were reviewed in the EMR. EKG Interpretation Critical Care Time None ? Medical Decision Making DDX: Asthma exacerbation, viral illness, pneumonia, dehydration 54-year-old male with history of asthma presenting for continued flulike illness for the last 2 to 3 days. Based on his exam and his symptoms, I do suspect that this is more likely exacerbation of his asthma. He does have heart rate of 111 at the time of my exam and his creatinine is slightly elevated at 1.41, will give fluids for concerns of dehydration. Patient will be given Solu-Medrol and a DuoNeb to see if this improves his wheezing and subjective shortness of breath. As well as some coughsyrup at his request. Notably he does have a white blood cell count of 16.9, this could be secondary to acute infectious process or could be related to recent prednisone use. Chest x-ray is pending. Medications ipratropium-albuteroL (DUONEB) 0.5-2.5 mg/3 mL nebulizer solution 3 mL (3 mL nebulization Given 12/20/24 0126) sodium chloride 0.9 % bolus 1,000 mL (0 mL intravenous Stopped 12/20/24 0233) methylPREDNISolone sodium succ (SOLU-Medrol) injection 125 mg (125 mg intravenous Given 12/20/24 0220) guaiFENesin-codeine (ROBITUSSIN-AC) 100-10 mg/5 mL syrup 10 mL (10 mL oral Given 12/20/24 0233) ED Course as of 01/02/25 0218 Vanessa Dec 20, 2024 0300 Patient feeling significant improvement after DuoNeb and Solu-Medrol. He was additionally given some Robitussin AC, he does have a family member onsite to drive him home. Notably his white countis 16.9, this may be secondary to his prednisone although he was told that he did have findings of pneumonia previously. His chest x-ray today is largely unremarkable but given his length of symptoms, worsening symptoms at this time, I do think that it would be beneficial to give him a Z-Mike for further management. Patient understands and is agreement with this plan, will be appropriate for discharge at this time. [EN] ED Course User Index [EN] GARRETT Paige Clinical Impressions as of 01/02/25217 Exacerbation of asthma, unspecified asthma severity, unspecified whether persistent Procedures Procedures Diagnosis 1. Exacerbation of asthma, unspecified asthma severity, unspecified whether persistent Disposition Discharge ED Prescriptions Medication Sig Dispense Start Date End Date Auth. Provider guaiFENesin-codeine (ROBITUSSIN-AC) 100-10 mg/5 mL syrup () Take 5 mL by mouth every 6 (six)hours if needed for cough for up to 5 days. Max Daily Amount: 20 mL 120 mL 12/20/2024 12/25/2024 GARRETT Paige azithromycin (ZITHROMAX) 250 mg tablet () Take 2 tablets (500 mg total) by mouth 1 (one) time each day for 1 day, THEN 1 tablet (250 mg total) 1 (one) time each day for 4 days. 6 each 12/20/2024 12/25/2024 GARRETT Paige predniSONE (DELTASONE) 20 mg tablet () Take 2 tablets (40 mg total) by mouth 1 (one) time each day for 3 days. 6 each 12/20/2024 12/23/2024 GARRETT Paige Physician Attestation GARRETT Paige 12/28/24725 GARRETT Paige 01/02/25217 Cosigned by Elissa Gonzalez MD at 01/03/2025 8:25 AM EST documented in this encounter Plan of Treatment Upcoming Encounters Date Type Department Care Team (Late st Contact Info) Description 01/30/2025 1:30 PM EST Office Visit Internal Medicine - [address] [place] [phone] Camille Patton MD [address] [address] Scheduled Orders Name Type Priority Associated Diagnoses Orde r Schedule ECG 12 lead ECG STAT Once for 1 Oc currences starting 12/19/2024 until 12/19/2024 documented as of this encounter Procedures Procedure Name Priority Date/Time Associated Diagnosis Comments RESPIRATORY VIRUS PANEL MOLECULAR STUDY STAT 12/20/2024 1:26 AM EST XR CHEST 2 VIEWS STAT 12/19/2024 5:51 PM EST MANUAL DIFFERENTIAL - SYSMEX WAM STAT 12/19/2024 5:43 PM EST CBC WITH AUTO DIFFERENTIAL STAT 12/19/2024 5:43 PM EST CBC AND DIFFERENTIAL STAT 12/19/2024 5:43 PM EST BASIC METABOLIC PANEL STAT 12/19/2024 5:43 PM EST documented in this encounter Results * Respiratory virus panel molecular study (12/20/2024 1:26 AM EST) Adenovirus Detection by PCR Not Detected Not Detected LAB MICROBIOLOGY METHOD 12/20/2024 2:32 AM [facility] Influenza A PCR Not Detected Not Detected LAB MICROBIOLOGY METHOD 12/20/2024 2:32 AM EST [facility] Influenza B PCR Not Detected Not Detected LAB MICROBIOLOGY METHOD 12/20/2024 2:32 AM [facility] Coronavirus 229E Not Detected Not Detected LAB MICROBIOLOGY METHOD 12/20/2024 2:32 AM [facility] Coronavirus HKU1 Not Detected Not Detected LAB MICROBIOLOGY METHOD 12/20/2024 2:32 AM [facility] Coronavirus OC43 Not Detected Not Detected LAB MICROBIOLOGY METHOD 12/20/2024 2:32 AM [facility] Coronavirus NL63 Not Detected Not Detected LAB MICROBIOLOGY METHOD 12/20/2024 2:32 AM [facility] Parainfluenza Virus 1 Not Detected Not Detected LAB MICROBIOLOGY METHOD 12/20/2024 2:32 AM [facility] Parainfluenza Virus 2 Not Detected Not Detected LAB MICROBIOLOGY METHOD 12/20/2024 2:32 AM [facility] Parainfluenza Virus 3 Not Detected Not Detected LAB MICROBIOLOGY METHOD 12/20/2024 2:32 AM [facility] Parainfluenza Virus 4 Not Detected Not Detected LAB MICROBIOLOGY METHOD 12/20/2024 2:32 AM [facility] RSV PCR Not Detected Not Detected LAB MICROBIOLOGY METHOD 12/20/2024 2:32 AM [facility] Human Metapneumovirus A and B Not Detected Not Detected LAB MICROBIOLOGY METHOD 12/20/2024 2:32 AM [facility] Rhinovirus/Entero virus Not Detected Not Detected LAB MICROBIOLOGY METHOD 12/20/2024 2:32 AM [facility] Bordetella pertussis Not Detected Not Detected LAB MICROBIOLOGY METHOD 12/20/2024 2:32 AM [facility] Bordetella parapertussis Not Detected Not Detected LAB MICROBIOLOGY METHOD 12/20/2024 2:32 AM [facility] Mycoplasma pneumo by PCR Not Detected Not Detected LAB MICROBIOLOGY METHOD 12/20/2024 2:32 AM [facility] Chlamydia pneumoniae Not Detected Not Detected LAB MICROBIOLOGY METHOD 12/20/2024 2:32 AM [facility] SARS COV-2 Not Detected Not Detected LAB MICROBIOLOGY METHOD 12/20/2024 2:32 AM [facility] Swab Both anterior nares / Unknown Non-blood Collection / Unknown 12/20/2024 1:26 AM EST 12/20/2024 1:38 AM EST Narrative [facility] [place] [facility] - 12/20/2024 2:32 AM EST Testing was performed using the [employer] Respiratory Pathogen PCR Assay. All results must [...] MICROBIOLOGY - GENERAL ORDER ELISEO Final Result [facility] ([facility]) [facility] [address] [place] [address], * XR Chest 2 Views (12/19/2024 5:51 PM EST) Anatomical Region Laterality Modality Body Radiographic Yara ging 12/20/2024 8:07 AM EST Impressions 12/20/2024 8:08 AM EST No acute findings. -------- FINAL REPORT -------- Dictated By: Mauricio Lord Dictated Date: 12/20/2024 08:07 ET Assigned Physician: Mauricio Lord Reviewed and Electronically Signed By: Mauricio Lord Signed Date: 12/20/2024 08:08 ET Workstation ID: [id number] Transcribed By: Self Edit Transcribed Date: 12/20/2024 [...] Signed Date: 12/20/2024 08:08 ET Workstation ID: [id number] Transcribed By: Self Edit Transcribed Date: 12/20/2024 08:07 ET Missael Bass DO IMG XR PROCEDURES Final Result * (ABNORMAL) Manual differential (12/19/2024 5:43 PM EST) Neutrophils % 62.0 % LAB HEMETOLOGY METHOD 12/19/2024 6:21 PM [facility] Bands % 2.0 % LAB HEMETOLOGY METHOD 12/19/2024 6:21 PM [facility] Lymphocytes % 12.0 % LAB HEMETOLOGY METHOD 12/19/2024 6:21 PM [facility] Monocytes % 10.0 % LAB HEMETOLOGY METHOD 12/19/2024 6:21 PM [facility] Eosinophils % 14.0 % LAB HEMETOLOGY METHOD 12/19/2024 6:21 PM [facility] Basophils % 0.0 % LAB HEMETOLOGY METHOD 12/19/2024 6:21 PM [facility] Neutrophils Absolute Manual 10.48(H) 1.50 - 7.00 K/mcL LAB HEMETOLOGY METHOD 12/19/2024 6:21 PM [facility] Bands Absolute Manual 0.34(H) 0.00 - 0.00 K/mcL LAB HEMETOLOGY METHOD 12/19/2024 6:21 PM [facility] Lymphocytes Absolute 2.03 1.00 - 5.00 K/[facility] LAB HEMETOLOGY METHOD 12/19/2024 6:21 PM EST [facility] Monocytes Absolute Manual 1.69(H) 0.20 - 1.00 K/[facility] LAB HEMETOLOGY METHOD 12/19/2024 6:21 PM EST [facility] Eosinophils Absolute Manual 2.37(H) 0.00 - 0.50 K/[facility] LAB HEMETOLOGY METHOD 12/19/2024 6:21 PM EST [facility] Basophils Absolute Manual 0.00 0.00 - 0.20 K/[facility] LAB HEMETOLOGY METHOD 12/19/2024 6:21 PM EST [facility] Rbc Morphology Consistent with indices Consistent with indices, Normal for LAB HEMETOLOGY METHOD 12/19/2024 6:21 PM EST [facility] Comment:RBC: Morphology agre es with CBC Platelet Morphology - WAM See Note(A) Normal LAB HEMETOLOGY METHOD 12/19/2024 6:21 PM EST [facility] Comment:PLT: Giant platelets seen Blood Venous blood specimen / Unknown Venipuncture / Unknown 12/19/2024 5:43 PM EST 12/19/2024 5:51 PM EST us Missael Bass DO LAB BLOOD ORDERABLES Final Resu lt [facility] [address] [place] [address], [place] [phone] * (ABNORMAL) CBC auto differential (12/19/2024 5:43 PM EST) WBC 16.9(H) 4.8 - 10.8 K/[facility] HEMETOLOGY METHOD 12/19/2024 6:21 PM EST [facility] RBC 5.50 4.50 - 5.50 M/[facility] LAB HEMETOLOGY METHOD 12/19/2024 6:21 PM EST [facility] Hemoglobin 16.0 13.5 - 17.5 g/dL LAB HEMETOLOGY METHOD 12/19/2024 6:21 PM [facility] Hematocrit 49.1 42.0 - 54.0 % LAB HEMETOLOGY METHOD 12/19/2024 6:21 PM [facility] MCV 89.6 79.0 - 98.0 FL LAB HEMETOLOGY METHOD 12/19/2024 6:21 PM EST [facility] MCH 29.2 27.0 - 32.0 pcg LAB HEMETOLOGY METHOD 12/19/2024 6:21 PM [facility] MCHC 32.6 32.0 - 37.0 g/dL LAB HEMETOLOGY METHOD 12/19/2024 6:21 PM [facility] RDW 12.8 11.0 - 15.0 % LAB HEMETOLOGY METHOD 12/19/2024 6:21 PM [facility] Platelets 324 130 - 400 K/mcL LAB HEMETOLOGY METHOD 12/19/2024 6:21 PM [facility] MPV 11.2(H) 7.0 - 11.0 FL LAB HEMETOLOGY METHOD 12/19/2024 6:21 PM [facility] NRBC 0.0 <1.0 % LAB HEMETOLOGY METHOD 12/19/2024 6:21 PM [facility] NRBC Absolute 0.00 <0.10 K/mcL LAB HEMETOLOGY METHOD 12/19/2024 6:21 PM [facility] Blood Venous blood specimen / Unknown Venipuncture / Unknown 12/19/2024 5:43 PM EST 12/19/2024 5:51 PM EST us Missael Bass DO LAB BLOOD ORDERABLES Final Resu lt [facility] [address] [place] [address], [place] [phone] * (ABNORMAL) Basic metabolic panel (12/19/2024 5:43 PM EST) Sodium 139 133 - 145 mmol/L LAB CHEMISTRY METHOD 12/19/2024 6:11 PM EST [facility] Potassium 4.2 3.5 - 5.5 mmol/L LAB CHEMISTRY METHOD 12/19/2024 6:11 PM [facility] Chloride 105 96 - 110 mmol/L LAB CHEMISTRY METHOD 12/19/2024 6:11 PM [facility] CO2 30 21 - 32 mmol/L LAB CHEMISTRY METHOD 12/19/2024 6:11 PM [facility] Anion Gap 4 3 - 11 LAB CHEMISTRY METHOD 12/19/2024 6:11 PM [facility] Glucose 238(H) 70 - 100 mg/dL LAB CHEMISTRY METHOD 12/19/2024 6:11 PM [facility] BUN 12 5 - 25 mg/dL LAB CHEMISTRY METHOD 12/19/2024 6:11 PM [facility] Creatinine 1.41(H) 0.70 - 1.30 mg/dL LAB CHEMISTRY METHOD 12/19/2024 6:11 PM [facility] eGFR 60 >=60 mL/min/1. 73m2 LAB CHEMISTRY METHOD 12/19/2024 6:11 PM [facility] Comment:Calculation based on the??Chronic Kidney Disease Epidemiology Collaboration (CKD-EPI) equation refit??without adjustment for race. BUN/Creatinine Ratio 8.5 LAB CHEMISTRY METHOD 12/19/2024 6:11 PM [facility] Calcium 9.0 8.5 - 10.5 mg/dL LAB CHEMISTRY METHOD 12/19/2024 6:11 PM [facility] Blood Venous blood specimen / Unknown Venipuncture / Unknown 12/19/2024 5:43 PM EST 12/19/2024 5:51 PM EST us Missael John Bass DO LAB BLOOD ORDERABLES Final [facility] lt [facility] [address] [place] [address], documented in this encounter Visit Diagnoses Diagnosis Exacerbation of asthma, unspecified asthma severity, unspecified whether persistent- Primary documented in this encounter Administered Medications Inactive Administered Medications - up to 3 most recent administrations Medication Order MAR Action Action Date Dose Rate Site guaiFENesin-codeine (ROBITUSSIN-AC) 100-10 mg/5 mL syrup 10 mL 10 mL, oral, Once, On Vanessa 12/20/24 at 0224, For 1 dose Given 12/20/2024 2:33 AM EST 10 mL ipratropium-albuteroL (DUONEB) 0.5-2.5 mg/3 mL nebulizer solution 3 mL 3 mL, nebulization, Once, On Vanessa 12/20/24 at 0124, For 1 dose Given 12/20/2024 1:26 AM EST 3 mL methylPREDNISolone sodium succ (SOLU-Medrol) injection 125 mg 125 mg, intravenous, Once, On Vanessa 12/20/24 at 0217, For 1 dose, Reconstitute each 125 mg vial with 2 mL sterile water for injection to a concentration of 62.5 mg/mL. Given 12/20/2024 2:20 AM EST 125 mg sodium chloride 0.9 % bolus 1,000 mL 1,000 mL, intravenous, at 2,000 mL/hr, Administer over 30 Minutes, Once, On Vanessa 12/20/24 at 0142, For 1 dose New Bag 12/20/2024 1:43 AM EST 1,000 mL 2000 mL/hr documented in this encounter Active and Recently Administered Medications Times are shown in EST. Scheduled Medication Order 12/18/2024 12/19/2024 12/20/2024 guaiFENesin-codeine (ROBITUSSIN-AC) 100-10 mg/5 mL syrup 10 mL (COMPLETED) 10 mL, oral, Once, On Vanessa 1/23/25 at 0224, For 1 dose 0233 (Given - Provid er: Patience Valentine RN) ipratropium-albuteroL (DUONEB) 0.5-2.5 mg/3 mL nebulizer solution 3 mL (COMPLETED) 3 mL, nebulization, Once, On Vanessa 12/20/24 at 0124, For 1 dose 0126 (Given - Provid er: Patience Valentine RN) methylPREDNISolone sodium succ (SOLU-Medrol) injection 125 mg (COMPLETED) 125 mg, intravenous, Once, On Vanessa 12/20/24 at 0217, For 1 dose, Reconstitute each 125 mg vial with 2 mL sterile water for injection to a concentration of 62.5 mg/mL. 0220 (Given - Provid er: Patience Valentine RN) sodium chloride 0.9 % bolus 1,000 mL (COMPLETED) 1,000 mL, intravenous, at 2,000 mL/hr, Administer over 30 Minutes, Once, On Vanessa 12/20/24 at 0142, For 1 dose 0143 (New Bag - Prov ider: Patience Valentine RN)0233 (Stopped - Provider: Patience Valentine RN) documented in this encounter Additional Health Concerns Infection Onset Date Last Indicated Resolved Time Respiratory Rule-Out 12/20/2024 12/20/2024 025 2:32 AM EST COVID-19 Rule-Out 12/20/2024 12/20/2024 12/20/2024 2:32 AM EST documented as of this encounter Care Teams Imaging Account Manager Relationship Specialty Start Date End Date Camille Patton MD [address] [place] [address] PCP - General Internal Medicine 12/20/24 documented as of this encounter
== END 2025-01-14 22:31 | disposition left against medical advice (07) ==
LOC: HO.ED 22:28
PROVIDERS: Physician Assistant Medical; Emergency Provider Emergency Medicine; PCP Internal Medicine
DX: R06.02 Shortness of breath (principal); I49.8 Other specified cardiac arrhythmias; R07.89 Other chest pain; Z87.891 Personal history of nicotine dependence; Z79.899 Other long term (current) drug therapy; Z03.818 Encounter for observation for suspected exposure to other biological agents ruled out
CPT/HCPCS: 0241U; 36415; 71046; 80048; 80076; 83735; 83880; 84484; 85025; 85610; 85730; 93005; 99283

== ENCOUNTER → 2025-01-14 16:59 | Outpatient (BNV) | payer MEDICARE, MEDICAID, SELFPAY | PROVIDERS: PCP Internal Medicine; Visit Provider Radiology Diagnostic Radiology | DX: R07.9 Chest pain, unspecified (principal); R06.02 Shortness of breath | CPT/HCPCS: 71046 ==

== ENCOUNTER → 2025-01-14 16:59 | Outpatient (BNV) | payer MEDICARE, MEDICAID, SELFPAY | PROVIDERS: Emergency Provider Emergency Medicine; PCP Internal Medicine; Visit Provider Internal Medicine | DX: R06.02 Shortness of breath (principal); I49.8 Other specified cardiac arrhythmias | CPT/HCPCS: 93010 ==

== ENCOUNTER 2025-03-07 15:24 | Emergency (ER) | payer MEDICARE, MEDICAID, SELFPAY ==
--- NOTE | ~2025-03-07 | XR_ITS ---
CLINICAL HISTORY: cough 2 view chest x-ray Comparison: CR - XR CHEST 2V - 01/14/25 17:23 EST Findings: No consolidation, pleural effusion or pneumothorax. Mild left lower lobe scarring. Normal size heart. No acute fracture. IMPRESSION: No acute cardiopulmonary process. This document has been electronically signed by: Cecilia Magana DO on 03/07/2025 16:57:59
--- NOTE | 2025-03-07 15:44 | ED.URI ---
HPI - URI/Sore Throat General Chief Complaint: Asthma Stated Complaint: SOB Time Seen by Provider: 03/07/25 15:57 Source: patient, family, RN notes reviewed and old records reviewed Mode of arrival: ambulatory Limitations: no limitations History of Present Illness ED Provider: Sahara Carranza PA-C HPI Narrative: Patient seeks medical attention in emergency department today for concerns of his asthma worsening. Over the past week he has felt short of breath with a dry cough. He has not had an inhaler for at least a month or 2 now from what he can recall. He only has a rescue inhaler but also has albuterol via nebulization. No maintenance. He has not had any fevers or chills or night sweats denies any abdominal discomfort nausea vomiting or diarrhea. Enzymes in the morning he has clear white sputum when he wakes up but otherwise remains dry. Denies any body aches joint pain or rashes he is without any headaches or dizziness. Patient is accompanied by his significant other. Past medical history significant for tobacco use He received a rapid medical exam when he arrived he was given 8 puffs of an albuterol inhaler with chest x-ray labs ordered as well. He has never had to be hospitalized or intubated for his asthma but was hospitalized for cap last January 2024. He was formally seen by [facility] on 04/16/2024: This note mentions that his hospitalization in 2023 for pneumonia was actually sepsis secondary to pneumonia with an acute asthma exacerbation. Note: Sunny's symptoms are likely related to underlying asthma/COPD with possible allergic component he had formal pulmonary function test ordered along with CT of the chest without contrast. He was given nebulization for DuoNeb as well as given script for Breo Ellipta. He was seen her multiple times for sob. Last seen here on 01/14/2025: Given prednisone taper and he left prior to completing treatment.CXR without consolidation, but WBC was noted to be 16.1 Asthma History: childhood onset MD elicited complaint: cough Related Data Home Medications ?Medication ?Instructions ?Recorded ?Confirmed rosuvastatin 40 mg tablet 40 mg PO DAILY 08/30/20 02/21/24 betamethasone, augmented 0.05 % 1 appl topical BID 02/21/24 02/21/24 topical ointment dulaglutide 4.5 mg/0.5 mL 4.5 mg subcut Q7D 02/21/24 02/21/24 subcutaneous pen injector (Trulicity) enalapril maleate 20 mg tablet 20 mg PO DAILY 02/21/24 02/21/24 ergocalciferol (vitamin D2) 1,250 1,250 mcg PO QWEEK 02/21/24 02/21/24 mcg (50,000 unit) capsule Previous Rx's ?Medication ?Instructions ?Recorded albuterol sulfate 90 mcg/actuation 2 puff inhalation Q6H PRN 02/22/24 aerosol inhaler Shortness Of Breath Or Wheezing #6.7 grams azithromycin 500 mg tablet 500 mg PO DAILY 4 days #4 tabs 02/22/24 cefuroxime axetil 500 mg tablet 500 mg PO BID #8 tabs 02/22/24 guaifenesin 600 mg tablet, 600 mg PO BID #6 tabs 02/22/24 extended release 12 hr (Mucus Relief ER) prednisone 10 mg tablet See Taper PO DIRECTED #30 tabs 02/22/24 albuterol sulfate 90 mcg/actuation 2 puff inhalation Q4-6H PRN 03/31/24 aerosol inhaler shortness of breath or wheezing #8.5 grams glipizide 5 mg tablet 5 mg PO DAILY #30 tabs 03/31/24 prednisone 50 mg tablet 50 mg PO DAILY #4 tabs 03/31/24 ipratropium 0.5 mg-albuterol 3 mg 3 ml inhalation Q6H PRN wheezing 04/16/24 (2.5 mg base)/3 mL nebulization #180 mL soln budesonide-formoterol HFA 80 2 puff inhalation Q12H #10.2 grams 04/20/24 mcg-4.5 mcg/actuation aerosol inhaler (Symbicort) albuterol sulfate 2.5 mg/3 mL 2.5 mg (3 mL) inhalation QID PRN 01/05/25 (0.083 %) solution for nebulization shortness of breath or wheezing #75 mL albuterol sulfate 90 mcg/actuation 2 puff inhalation Q6H PRN 01/05/25 aerosol inhaler shortness of breath or wheezing #6.7 grams doxycycline monohydrate 100 mg 100 mg PO BID 7 days #14 tabs 01/05/25 tablet prednisone 20 mg tablet 40 mg (2 x 20 mg) PO DAILY 5 days 02/08/25 #10 tabs albuterol sulfate 2.5 mg/3 mL 2.5 mg (3 mL) inhalation Q6H prn 03/07/25 (0.083 %) solution for nebulization wheezing #180 mL albuterol sulfate 90 mcg/actuation 2 puff inhalation Q6H PRN 03/07/25 aerosol inhaler shortness of breath or wheezing #6.7 grams fluticasone furoate 50 2 inh inhalation BID 30 days #1 ea 03/07/25 mcg-vilanterol 25 mcg/dose inhalation powder (Breo Ellipta) inhalational spacing device (Michael #1 ea 03/07/25 Aerosol [place] Enhancer spacer) prednisone 20 mg tablet 40 mg (2 x 20 mg) PO DAILY 5 days 03/07/25 #10 tabs Allergies Allergy/AdvReac Type Severity Reaction Status Date / Time aspirin Allergy Unknown swelling Verified 03/07/25 15:46 Review of Systems Review of Systems: Yes all other systems are reviewed and are negative PMFSH Past Medical History Attestation statement: The following information was validated with the patient. Source: old records reviewed, obtained from family and nursing notes reviewed Medical History Asthma Depression Pancreatitis Facet arthropathy, cervical Social History Social History Alcohol intake: current Alcohol intake frequency: a few times a month Patient Tobacco Use Status: Former Tobacco user Cigarettes Per Day: 10 Use of substances other than those prescribed or required for medical reasons: No Advance Directives: No Advance Directives Information Provided: Yes Do you have a plan to hurt others: No Plan service: No Physical Exam Vital Signs: Vital Signs: Last Vital Signs Temp 98.3 F 03/07/25 18:28 Pulse 89 03/07/25 18:28 Resp 20 03/07/25 18:28 BP 132/84 03/07/25 18:28 Pulse Ox 98 03/07/25 18:28 O2 Del Method Room Air 03/07/25 18:28 BMI result Body Mass Index 29.6 Const: General: cooperative, healthy appearing, comfortable, no acute distress, well developed, alert, awake and Physically active Nutritional Appearance: average body habitus Orientation/consciousness: patient oriented x3 Limitations: no limitations HEENT: Head: Yes normal to inspection Ears: hearing grossly normal bilaterally General nose exam: Normal external nose present, Normal nares present, No nasal polyps present, Normal nasal mucous membranes and turbinates present and Normal septum present Face and sinus: Yes normal facial exam Mouth: Normal oral and palatal mucosa present, lip normal, tongue normal, Normal salivary glands and ducts present, oropharynx normal and moist mucous membranes Teeth and gingiva: dentition normal Throat: Yes posterior oropharynx normal Eyes: General: appearance normal, both eyes and all related structures Visual Arzate: normal visual arzate by confrontation Periorbital: periorbital findings normal Eyelids: Yes eyelids normal Conjunctivae: conjunctivae normal Sclerae: sclerae normal Corneas: corneas normal Pupils: Equal, round and reactive pupils present EOM: EOMs intact bilaterally Neck: Neck: Yes normal visual inspection, Yes full ROM and Yes no lymphadenopathy Chest: Chest palpation & inspection: normal inspection of the chest and normal palpation of entire chest wall Resp: Effort & Inspection: Actively coughing and prolonged expiratory phase Auscultation: wheezes expiratory wheezes and throughout Percussion: percussion normal Cardio: Jugular venous distension: no JVD Palpation: normal PMI Rate: regular rate Rhythm: regular rhythm Heart sounds: S1 normal heart sound present and S2 normal heart sound present GI: Inspection: Yes normal to inspection Skin: General skin exam: no rashes or lesions noted Lesions: no lesions Rashes: no rashes Wounds: no wounds Neuro: General: patient oriented x3 Cranial nerves: Yes Equal, round and reactive pupils present Extrem: General: Yes normal to inspection and Yes capillary refill normal Course Course Course Narrative: This is a Rapid Medical Exam performed in triage by Keshia Perkins PA-C. Full HPI, ROS and PE to be performed by primary ED provider. 54 yo M w/PMHx asthma, presenting to the ED c/o congestion, prod cough x 1 week. States ran out of home asthma meds. +SOB. Denies CP PE: lungs w/insp/exp wheeze, dry cough appreciated Plan: EKG, CXR, SARs, Labs Medications Administered Discontinued Medications Generic Name Dose Route Start Last Admin Trade Name Freq PRN Reason Stop Dose Admin Albuterol Sulfate 5 mg/ 0 mg 03/07/25 15:57 03/07/25 15:59 Albuterol/Ipratropium 3 ml INHALE 03/07/25 15:58 1 each ONCE ONE Administration Magnesium Sulfate 2 gm in 50 mls @ 25 mls/hr 03/07/25 16:01 03/07/25 16:16 Magnesium Sulfate/H2o IV 03/07/25 18:00 25 mls/hr ONCE ONE Administration Methylprednisolone Sodium Succinate 60 mg 03/07/25 16:01 03/07/25 16:16 Methylprednisolone Sod Succ 125 Mg/2 Ml Vial IVPUSH 03/07/25 16:02 60 mg ONCE ONE Administration Medical Decision Making Medical Decision Making [facility] Narrative: Well-appearing 54-year-old male presenting to the emergency department today for evaluation of respiratory symptoms. Past medical history significant for asthma. He arrived via private vehicle. Upon arrival he was noted to be mildly tachycardic at 01:12 and have an oxygen saturation on room air at 93 but with normal respirations. On physical exam he has decreased lung sounds with faint wheezing. Nebulization initiated the same time I saw patient. I ordered to 2mg of Mag as well as IV Solu-Medrol 60 mg. Basic labs COVID and flu and chest x-ray ordered. He is stable at this time does not require CPAP or BiPAP or nasal cannula oxygen. Chest x-ray compared to imaging that he had on January 14 2025 as well as 01/04/2025 he left prior to completing treatment. Both showing no evidence of acute consolidation but scarring in the left lower lung no changes today. He is afebrile. 4:55 pm: White blood cell count today is 14.5 lower than it was from January 14 when he was here last at 16.1 eosinophils remain high at 15.4. No shift. Troponin is normal this is not consistent with cardiac etiology such as ACS, EKG without evidence of acute ischemia or malignant arrhythmia. Oxygen saturation remains around his baseline at his prior visits low clinical concern for PE. COVID and flu test negative. Lungs improved. Patient feeling better. Will d/c to home. His presentation seems likely viral URI with mild asthma exacerbation. Refill on his asthma medications have been given. He was given strict return precautions. Pt demonstrated verbal understanding of the plan and agreed; he was d/c to home stable. Differential Diagnosis Differential Diagnoses: The differential diagnosis associated with the presentation includes asthma exacerbation pneumonia ACS/PE: deemed very unlikely COVID FLU Admission/Observation Consideration of admission/observation: Escalation of care including admission/observation considered Patient would have been admitted to the hospital had his work up had any findings where hospital admission was appropriate and had his clinical presentation warranted hospital admission. Lab Data MDM Lab Attestation statement: I reviewed the patient's lab results. 03/07/25 16:13 03/07/25 16:13 Labs: Lab Results 03/07/25 03/07/25 Range/Units 16:13 16:16 WBC 14.5 H (4.8-10.8) X10*3/uL RBC 5.04 (4.60-5.80) X10*6/uL Hgb 14.8 (14.0-18.0) g/dl Hct 43.1 (42.0-52.0) % MCV 85.5 (80.0-98.0) fL MCH 29.4 (27.0-33.0) pg MCHC 34.3 (31.0-36.0) g/dl RDW 13.3 (11.0-16.0) % Plt Count 288 (160-400) X10*3/uL MPV 11.1 (9.4-12.4) fL Immature Gran % (Auto) 0.4 (0.0-0.4) % Neut % (Auto) 57.2 (45-73) % Lymph % (Auto) 16.8 L (20-40) % [place] % (Auto) 9.4 (2-11) % Eos % (Auto) 15.4 H (0-4) % Baso % (Auto) 0.8 (0-2) % Lymph # (Auto) 2.4 (1.2-4.9) X10*3/uL [place] # (Auto) 1.4 H (0.1-1.2) X10*3/uL Eos # (Auto) 2.2 H (0.0-0.4) X10*3/uL Baso # (Auto) 0.1 (0.0-0.2) X10*3/uL Abs Immat Gran (auto) 0.06 H (0.00-0.03) X10*3/uL Absolute Neuts (auto) 8.3 (2.0-8.3) x10*3/uL Absolute Nucleated RBC 0.000 (0.0-0.012) X10*3/uL Nucleated RBC % (auto) 0.0 (0.0-0.2) /100WBC Smear Tech's Comments VERIFIED Sodium 144 (135-145) mmol/L Potassium 4.1 (3.3-5.1) mmol/L Chloride 111 H (96-108) mmol/L Carbon Dioxide 25 (22-29) mmol/L Anion Gap 12 (12-20) BUN 9 (9-16) mg/dL Creatinine 0.92 (0.5-1.4) mg/dL Estim Creat Clear Calc 97.1 Estimated GFR > 60 Random Glucose 147 H (60-115) mg/dL Calcium 8.8 (8.4-10.2) mg/dL Troponin I High Sens < 2.7 (<3.5-35.0) ng/L Influenza Type A (PCR) NEGATIVE (Negative) Influenza Type B (PCR) NEGATIVE (Negative) RSV RNA Qual (PCR) NEGATIVE (Negative) SARS-CoV-2 RNA (RT-PCR) NEGATIVE (Negative) Independent Interpretation I performed an independent interpretation of an: EKG and Plain X-Ray Interpretation: CXR: Compared to imaging on January 04 and January 12 this year: no acute cardiacpulmonary pathology. EKG: No malignant arrhythmia, acute ischemia, delta or epsilon waves noted. Radiology Impression Discussion of test interpretation with radiology: I have reviewed the radiologist's reading. Radiologist Impression: No acute cardiopulmonary process Independent Historian Clinical information obtained from an independent historian. History obtained from or confirmed by: Spouse External Record Review External record reviewed: Inpatient record, Office record, Outpatient record and Prior outpatient labs [facility] pulmonary [place] reviewed discussed in HPI Tests considered The following testing was considered but not selected: The patient's oxygen status worsened I would have considered D-dimer testing as well as further ACS workup and potential admit Prescription Management I considered prescription management with: Antibiotic and Other Asthma medications discussed; no bacterial infection to warrant PO abx. Chronic Conditions Patient?s care impacted by: Other ASTHMA, nicotine dependence Discharge Plan Discharge Clinical Impression: Asthma exacerbation, Upper respiratory infection, viral Patient Disposition: Home, Self-Care Instructions: Asthma (ED), How to Use a Nebulizer (ED) Additional Instructions: You seen in the emergency department today due to worsening asthma and a cough. He had a chest x-ray that shows no acute pneumonia. It does not appear that your asthma is well controlled. 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 I have also put you on small amount of a steroid. We discussed the risks of being on chronic steroid medications such as decreasing her immune system. Please return for any worsening of symptoms such as increased work of breathing or shortness of breath hope you continue to feel better soon Prescriptions: New albuterol sulfate 90 mcg/actuation HFA aerosol inhaler 2 puff inhalation Q6H PRN (Reason: shortness of breath or wheezing) Qty: 6.7 1RF albuterol sulfate 2.5 mg /3 mL (0.083 %) solution for nebulization 2.5 mg inhalation Q6H Qty: 180 0RF Breo Ellipta 50-25 mcg/dose blister with device 2 inh inhalation BID 30 Days Qty: 1 0RF (DME) Michael Aerosol [place] Enhancer Spacer See Rx Instructions .Route Qty: 1 0RF Rx Instructions: As directed prednisone 20 mg tablet 40 mg PO DAILY 5 Days Qty: 10 0RF No Action budesonide-formoterol [Symbicort] 80-4.5 mcg/actuation HFA aerosol inhaler 2 puff inhalation Q12H Qty: 10.2 6RF albuterol sulfate 90 mcg/actuation HFA aerosol inhaler 2 puff inhalation Q4-6H PRN (Reason: shortness of breath or wheezing) Qty: 8.5 0RF prednisone 50 mg tablet 50 mg PO DAILY Qty: 4 0RF glipizide 5 mg tablet 5 mg PO DAILY Qty: 30 0RF doxycycline monohydrate 100 mg tablet 100 mg PO BID 7 Days Qty: 14 0RF albuterol sulfate 90 mcg/actuation HFA aerosol inhaler 2 puff inhalation Q6H PRN (Reason: shortness of breath or wheezing) Qty: 6.7 0RF albuterol sulfate 2.5 mg /3 mL (0.083 %) solution for nebulization 2.5 mg inhalation QID PRN (Reason: shortness of breath or wheezing) Qty: 75 0RF prednisone 20 mg tablet 40 mg PO DAILY 5 Days Qty: 10 0RF enalapril maleate 20 mg tablet 20 mg PO DAILY betamethasone, augmented 0.05 % ointment 1 appl topical BID ergocalciferol (vitamin D2) 1,250 mcg (50,000 unit) capsule 1,250 mcg PO QWEEK Trulicity 4.5 mg/0.5 mL pen injector 4.5 mg subcut Q7D cefuroxime axetil 500 mg tablet 500 mg PO BID Qty: 8 0RF azithromycin 500 mg tablet 500 mg PO DAILY 4 Days Qty: 4 0RF albuterol sulfate 90 mcg/actuation HFA aerosol inhaler 2 puff inhalation Q6H PRN (Reason: Shortness Of Breath Or Wheezing) Qty: 6.7 0RF prednisone 10 mg tablet See Taper PO DIRECTED Qty: 30 0RF Taper: Prednisone 40 mg daily for 3 Days and 0 Hour 30 mg daily for 3 Days and 0 Hour 20 mg daily for 3 Days and 0 Hour 10 mg daily for 3 Days and 0 Hour Rx Instructions: see taper instructions guaifenesin [Mucus Relief ER] 600 mg tablet extended release 12hr 600 mg PO BID Qty: 6 0RF rosuvastatin 40 mg tablet 40 mg PO DAILY ipratropium-albuterol 0.5 mg-3 mg(2.5 mg base)/3 mL solution for nebulization 3 ml inhalation Q6H PRN (Reason: wheezing) Qty: 180 0RF Referrals: [facility] [Provider Group] - 1 week Interventions: ED Discharge Assessment Last Done: 03/07/25 18:28 Discharge Date/Time: 03/07/25 18:30 Print Language: Monegasque
[2025-03-07 15:45] VITALS: BP 116/83; PULSE 112; RESP 18; TEMP 36.3; O2SAT 93; BMI 29.6
--- NOTE | 2025-03-07 15:46 | ECG_ITS ---
Test Reason : sob Blood Pressure : */* mmHG Vent. Rate : 92 BPM Atrial Rate : 92 BPM P-R Int : 120 ms QRS Dur : 70 ms QT Int : 346 ms P-R-T Axes : 57 27 36 degrees QTcB Int : 427 ms Normal sinus rhythm Nonspecific T wave abnormality Abnormal ECG When compared with ECG of 14-Jan-2025 17:08, No significant change was found Referred By: Keshia Perkins Electronically Signed By: Jordan Meehan
[2025-03-07] MEDS: Albuterol Sulfate 5 MG, Albuterol/Iprat 2.5/0.5MG 3 ML 3 ML INHALE (15:59)
[2025-03-07 16:01] VITALS: PULSE 103; RESP 24; O2SAT 94
[2025-03-07] MEDS: Magnesium Sulfate/H2O 2 GM/50 ML PIGGYBACK IV (16:16)
[2025-03-07] MEDS: methylPREDNISolone Sod Succ 125 MG/2 ML VIAL 60 MG IVPUSH (16:16)
[2025-03-07 16:26] LABS: Basophils Absolute Auto 0.1 X10*3/uL (0.0-0.2); Basophils Percent Auto 0.8 % (0-2); Eosinophils Absolute Auto 2.2 X10*3/uL (0.0-0.4); Eosinophils Percent Auto 15.4 % (0-4); Hematocrit 43.1 % (42.0-52.0); Hemoglobin 14.8 g/dl (14.0-18.0); Imm Gran Abs Auto 0.06 X10*3/uL (0.00-0.03); Imm Gran Pct Auto 0.4 % (0.0-0.4); Lymphocytes Absolute Auto 2.4 X10*3/uL (1.2-4.9); Lymphocytes Percent Auto 16.8 % (20-40); MANUAL DIFF FLAG SCAN; Mean Corpuscular HGB Conc 34.3 g/dl (31.0-36.0); Mean Corpuscular Hemoglobin 29.4 pg (27.0-33.0); Mean Corpuscular Volume 85.5 fL (80.0-98.0); Mean Platelet Volume 11.1 fL (9.4-12.4); Monocytes Absolute Auto 1.4 X10*3/uL (0.1-1.2); Monocytes Percent Auto 9.4 % (2-11); Neutrophils Absolute Auto 8.3 x10*3/uL (2.0-8.3); Neutrophils Percent Auto 57.2 % (45-73); Platelet Count 288 X10*3/uL (160-400); Red Blood Count 5.04 X10*6/uL (4.60-5.80); Red Cell Distribution Width 13.3 % (11.0-16.0); SCAN SMEAR FLAG 1; White Blood Count 14.5 X10*3/uL (4.8-10.8)
[2025-03-07 16:29] LABS: Anion Gap 12 (12-20); Blood Urea Nitrogen 9 mg/dL (9-16); Calcium 8.8 mg/dL (8.4-10.2); Carbon Dioxide 25 mmol/L (22-29); Chloride 111 mmol/L (96-108); Creatinine Clr Calc Pharmacy 97.1; Estimated Glomerular Filt Rate > 60; Glucose Random 147 mg/dL (60-115); Potassium 4.1 mmol/L (3.3-5.1); Sodium 144 mmol/L (135-145)
--- NOTE | 2025-03-07 16:37 | ED_ITS ---
HPI - Asthma General Chief Complaint: Asthma Stated Complaint: SOB Time Seen by Provider: 03/07/25 15:57 Source: patient and family Mode of arrival: ambulatory Limitations: no limitations History of Present Illness ED Provider: Sahara Carranza PA-C HPI Narrative: Patient seeks medical attention in emergency department today for concerns of his asthma worsening. Over the past week he has felt short of breath with a dry cough. He has not had an inhaler for at least a month or 2 now from what he can recall. He only has a rescue inhaler but also has albuterol via nebulization. No maintenance. He has not had any fevers or chills or night sweats denies any abdominal discomfort nausea vomiting or diarrhea. Enzymes in the morning he has clear white sputum when he wakes up but otherwise remains dry. Denies any body aches joint pain or rashes he is without any headaches or dizziness. Patient is accompanied by his significant other. Past medical history significant for tobacco use He received a rapid medical exam when he arrived he was given 8 puffs of an albuterol inhaler with chest x-ray labs ordered as well. He has never had to be hospitalized or intubated for his asthma but was hospitalized for cap last January 2024. He was formally seen by [facility] pulmonary center on 04/16/2024: This note mentions that his hospitalization in 2023 for pneumonia was actually sepsis secondary to pneumonia with an acute asthma exacerbation. Note: Sunny's symptoms are likely related to underlying asthma/COPD with possible allergic component he had formal pulmonary function test ordered along with CT of the chest without contrast. He was given nebulization for DuoNeb as well as given script for Breo Ellipta. He was seen her multiple times for sob. Last seen here on 01/14/2025: Given prednisone taper and he left prior to completing treatment.CXR without consolidation, but WBC was noted to be 16.1 Asthma History: childhood onset Related Data Current Asthma Therapy: inhaled bronchodilator Home Medications ?Medication ?Instructions ?Recorded ?Confirmed rosuvastatin 40 mg tablet 40 mg PO DAILY 08/30/20 02/21/24 betamethasone, augmented 0.05 % 1 appl topical BID 02/21/24 02/21/24 topical ointment dulaglutide 4.5 mg/0.5 mL 4.5 mg subcut Q7D 02/21/24 02/21/24 subcutaneous pen injector (Trulicity) enalapril maleate 20 mg tablet 20 mg PO DAILY 02/21/24 02/21/24 ergocalciferol (vitamin D2) 1,250 1,250 mcg PO QWEEK 02/21/24 02/21/24 mcg (50,000 unit) capsule Previous Rx's ?Medication ?Instructions ?Recorded albuterol sulfate 90 mcg/actuation 2 puff inhalation Q6H PRN 02/22/24 aerosol inhaler Shortness Of Breath Or Wheezing #6.7 grams azithromycin 500 mg tablet 500 mg PO DAILY 4 days #4 tabs 02/22/24 cefuroxime axetil 500 mg tablet 500 mg PO BID #8 tabs 02/22/24 guaifenesin 600 mg tablet, 600 mg PO BID #6 tabs 02/22/24 extended release 12 hr (Mucus Relief ER) prednisone 10 mg tablet See Taper PO DIRECTED #30 tabs 02/22/24 albuterol sulfate 90 mcg/actuation 2 puff inhalation Q4-6H PRN 03/31/24 aerosol inhaler shortness of breath or wheezing #8.5 grams glipizide 5 mg tablet 5 mg PO DAILY #30 tabs 03/31/24 prednisone 50 mg tablet 50 mg PO DAILY #4 tabs 03/31/24 ipratropium 0.5 mg-albuterol 3 mg 3 ml inhalation Q6H PRN wheezing 04/16/24 (2.5 mg base)/3 mL nebulization #180 mL soln budesonide-formoterol HFA 80 2 puff inhalation Q12H #10.2 grams 04/20/24 mcg-4.5 mcg/actuation aerosol inhaler (Symbicort) albuterol sulfate 2.5 mg/3 mL 2.5 mg (3 mL) inhalation QID PRN 01/05/25 (0.083 %) solution for nebulization shortness of breath or wheezing #75 mL albuterol sulfate 90 mcg/actuation 2 puff inhalation Q6H PRN 01/05/25 aerosol inhaler shortness of breath or wheezing #6.7 grams doxycycline monohydrate 100 mg 100 mg PO BID 7 days #14 tabs 01/05/25 tablet prednisone 20 mg tablet 40 mg (2 x 20 mg) PO DAILY 5 days 01/05/25 #10 tabs albuterol sulfate 2.5 mg/3 mL 2.5 mg (3 mL) inhalation Q6H prn 03/07/25 (0.083 %) solution for nebulization wheezing #180 mL albuterol sulfate 90 mcg/actuation 2 puff inhalation Q6H PRN 03/07/25 aerosol inhaler shortness of breath or wheezing #6.7 grams fluticasone furoate 50 2 inh inhalation BID 30 days #1 ea 03/07/25 mcg-vilanterol 25 mcg/dose inhalation powder (Breo Ellipta) inhalational spacing device (Michael #1 ea 03/07/25 Aerosol Kidder Enhancer spacer) prednisone 20 mg tablet 40 mg (2 x 20 mg) PO DAILY 5 days 03/07/25 #10 tabs Allergies Allergy/AdvReac Type Severity Reaction Status Date / Time aspirin Allergy Unknown swelling Verified 03/07/25 15:46 Review of Systems 2 Review of Systems: Yes all other systems are reviewed and are negative PMFSH Past Medical History Attestation statement: The following information was validated with the patient. Source: obtained from family and nursing notes reviewed Medical History Asthma Depression Pancreatitis Facet arthropathy, cervical Social History Social History Alcohol intake: current Alcohol intake frequency: a few times a month Patient Tobacco Use Status: Former Tobacco user Cigarettes Per Day: 10 Use of substances other than those prescribed or required for medical reasons: No Advance Directives: No Advance Directives Information Provided: Yes Do you have a plan to hurt others: No Plan service: No Physical Exam 2 Vital Signs: Vital Signs: Last Vital Signs Temp 98.3 F 03/07/25 18:28 Pulse 89 03/07/25 18:28 Resp 20 03/07/25 18:28 BP 132/84 03/07/25 18:28 Pulse Ox 98 03/07/25 18:28 O2 Del Method Room Air 03/07/25 18:28 BMI result Body Mass Index 29.6 Const: General: cooperative, healthy appearing, comfortable, no acute distress and alert Nutritional Appearance: obese Orientation/consciousness: patient oriented x3 Limitations: no limitations HEENT: Head: Yes normal to inspection Ears: hearing grossly normal bilaterally, external ears normal and TM's normal bilaterally General nose exam: Normal external nose present, Normal nares present, No nasal polyps present, Normal nasal mucous membranes and turbinates present and Nasal discharge present (trace clear) clear Face and sinus: Yes normal facial exam and Yes sinuses nontender Mouth: Normal oral and palatal mucosa present, lip normal, tongue normal, oropharynx normal and moist mucous membranes Throat: Y es posterior oropharynx normal Eyes: General: appearance normal, both eyes and all related structures E yelids: Yes eyelids normal Conjunctivae: conjunctivae normal Sclerae: s clerae normal Corneas: corneas normal Neck: Neck: Yes normal visual inspection, Yes full ROM and Yes no lymphadenopathy Resp: Effort & Inspection: able to speak in complete sentences, Actively coughing and prolonged expiratory phase Auscultation: wheezes expiratory wheezes, inspiratory wheezes, scattered wheezes and throughout Cardio: Jugular venous distension: no JVD Rate: regular rate Rhythm: r egular rhythm Peripheral pulses: Peripheral pulses 2+ throughout GI: Inspection: Yes normal to inspection Skin: General skin exam: no rashes or lesions noted, elasticity normal and turgor normal Rashes: no rashes Neuro: General: patient oriented x3 Extrem: General: Yes no clubbing, cyanosis or edema and Yes no pedal edema Right upper extremity: normal capillary refill Left upper extremity: normal capillary refill Right lower extremity: normal capillary refill Left lower extremity: normal capillary refill Medications Administered Discontinued Medications Generic Name Dose Route Start Last Admin Trade Name Freq PRN Reason Stop Dose Admin Albuterol Sulfate 5 mg/ 0 mg 03/07/25 15:57 03/07/25 15:59 Albuterol/Ipratropium 3 ml INHALE 03/07/25 15:58 1 each ONCE ONE Administration Magnesium Sulfate 2 gm in 50 mls @ 25 mls/hr 03/07/25 16:01 03/07/25 16:16 Magnesium Sulfate/H2o IV 03/07/25 18:00 25 mls/hr ONCE ONE Administration Methylprednisolone Sodium Succinate 60 mg 03/07/25 16:01 03/07/25 16:16 Methylprednisolone Sod Succ 125 Mg/2 Ml Vial IVPUSH 03/07/25 16:02 60 mg ONCE ONE Administration Medical Decision Making Medical Decision Making MDM Narrative: Well-appearing 54-year-old male presenting to the emergency department today for evaluation of respiratory symptoms. Past medical history significant for asthma. He arrived via private vehicle. Upon arrival he was noted to be mildly tachycardic at 01:12 and have an oxygen saturation on room air at 93 but with normal respirations. On physical exam he has decreased lung sounds with faint wheezing. Nebulization initiated the same time I saw patient. I ordered to 2mg of Mag as well as IV Solu-Medrol 60 mg. Basic labs COVID and flu and chest x- ray ordered. He is stable at this time does not require CPAP or BiPAP or nasal cannula oxygen. Chest x-ray compared to imaging that he had on January 14 2025 as well as 01/04/2025 he left prior to completing treatment. Both showing no evidence of acute consolidation but scarring in the left lower lung no changes today. He is afebrile. 4:55 pm: White blood cell count today is 14.5 lower than it was from January 14 when he was here last at 16.1 eosinophils remain high at 15.4. No shift. Troponin is normal this is not consistent with cardiac etiology such as ACS, EKG without acute ischemic findings, troponin negative. Oxygen saturation remains around his baseline at his prior visits low clinical concern for PE. COVID and flu test pending. COVID/FLU/RSV negative, final read CXR no infiltrate. ML viral URI with mild asthma exacerbation. Steroids given along with asthma medicine refills. Advised f/u with outdoor fitness trainer and PCP. He was given return precautions. Lungs clear. He demonstrated verbal understanding of the plan and agreed; he was d/c to home stable. Differential Diagnosis Differential Diagnoses: The differential diagnosis associated with the presentation includes See above. Admission/Observation Consideration of admission/observation: Escalation of care including admission/observation considered Patient would have been admitted to the hospital had his work up and clinical presentation had any findings where hospital admission was appropriate and warranted. Lab Data [facility] Lab Attestation statement: I reviewed the patient's lab results. see [facility] 03/07/25 16:13 03/07/25 16:13 Labs: Lab Results 03/07/25 03/07/25 Range/Units 16:13 16:16 WBC 14.5 H (4.8-10.8) X10*3/uL RBC 5.04 (4.60-5.80) X10*6/uL Hgb 14.8 (14.0-18.0) g/dl Hct 43.1 (42.0-52.0) % MCV 85.5 (80.0-98.0) fL MCH 29.4 (27.0-33.0) pg MCHC 34.3 (31.0-36.0) g/dl RDW 13.3 (11.0-16.0) % Plt Count 288 (160-400) X10*3/uL MPV 11.1 (9.4-12.4) fL Immature Gran % (Auto) 0.4 (0.0-0.4) % Neut % (Auto) 57.2 (45-73) % Lymph % (Auto) 16.8 L (20-40) % Emery % (Auto) 9.4 (2-11) % Eos % (Auto) 15.4 H (0-4) % Baso % (Auto) 0.8 (0-2) % Lymph # (Auto) 2.4 (1.2-4.9) X10*3/uL Emery # (Auto) 1.4 H (0.1-1.2) X10*3/uL Eos # (Auto) 2.2 H (0.0-0.4) X10*3/uL Baso # (Auto) 0.1 (0.0-0.2) X10*3/uL Abs Immat Gran (auto) 0.06 H (0.00-0.03) X10*3/uL Absolute Neuts (auto) 8.3 (2.0-8.3) x10*3/uL Absolute Nucleated RBC 0.000 (0.0-0.012) X10*3/uL Nucleated RBC % (auto) 0.0 (0.0-0.2) /100WBC Smear Tech's Comments VERIFIED Sodium 144 (135-145) mmol/L Potassium 4.1 (3.3-5.1) mmol/L Chloride 111 H (96-108) mmol/L Carbon Dioxide 25 (22-29) mmol/L Anion Gap 12 (12-20) BUN 9 (9-16) mg/dL Creatinine 0.92 (0.5-1.4) mg/dL Estim Creat Clear Calc 97.1 Estimated GFR > 60 Random Glucose 147 H (60-115) mg/dL Calcium 8.8 (8.4-10.2) mg/dL Troponin I High Sens < 2.7 (<3.5-35.0) ng/L Influenza Type A (PCR) NEGATIVE (Negative) Influenza Type B (PCR) NEGATIVE (Negative) RSV RNA Qual (PCR) NEGATIVE (Negative) SARS-CoV-2 RNA (RT-PCR) NEGATIVE (Negative) Independent Interpretation I performed an independent interpretation of an: EKG and Plain X-Ray Interpretation: See MDM Radiology Impression Discussion of test interpretation with radiology: I have reviewed the radiologist's reading. Independent Historian Clinical information obtained from an independent historian. History obtained from or confirmed by: Spouse External Record Review External record reviewed: Outpatient record and Primary care record Tests considered The following testing was considered but not selected: considered further cardiac work up including ruling out PE had his breathing not improved with nebulization. Prescription Management I considered prescription management with: Pain Medication and Antibiotic No infectious etiology noted, ABX not indicated. Chronic Conditions Patient?s care impacted by: Other (Moderate asthma, not being treated adequately at home) Discharge Plan Discharge Clinical Impression: Asthma exacerbation, Upper respiratory infection, viral Patient Disposition: Home, Self-Care Instructions: Asthma (ED), How to Use a Nebulizer (ED) Additional Instructions: You seen in the emergency department today due to worsening asthma and a cough. He had a chest x-ray that shows no acute pneumonia. It does not appear that your asthma is well controlled. Used to be on a steroid long-acting inhaler I have given you a prescription for this I can not guarantee this will be covered by insurance without a prior authorization therefore you should contact your primary care versus outdoor fitness trainer to receive this but just in case I still sent to your rescue inhaler and medication for your nebulizer. I have also put you on small amount of a steroid. We discussed the risks of being on chronic steroid medications such as decreasing her immune system. Please return for any worsening of symptoms such as increased work of breathing or shortness of breath hope you continue to feel better soon Prescriptions: New albuterol sulfate 90 mcg/actuation HFA aerosol inhaler 2 puff inhalation Q6H PRN (Reason: shortness of breath or wheezing) Qty: 6.7 1RF albuterol sulfate 2.5 mg /3 mL (0.083 %) solution for nebulization 2.5 mg inhalation Q6H Qty: 180 0RF Breo Ellipta 50-25 mcg/dose blister with device 2 inh inhalation BID 30 Days Qty: 1 0RF (DME) Michael Aerosol Kidder Enhancer Spacer See Rx Instructions .Route Qty: 1 0RF Rx Instructions: As directed prednisone 20 mg tablet 40 mg PO DAILY 5 Days Qty: 10 0RF No Action budesonide-formoterol [Symbicort] 80-4.5 mcg/actuation HFA aerosol inhaler 2 puff inhalation Q12H Qty: 10.2 6RF albuterol sulfate 90 mcg/actuation HFA aerosol inhaler 2 puff inhalation Q4-6H PRN (Reason: shortness of breath or wheezing) Qty: 8.5 0RF prednisone 50 mg tablet 50 mg PO DAILY Qty: 4 0RF glipizide 5 mg tablet 5 mg PO DAILY Qty: 30 0RF doxycycline monohydrate 100 mg tablet 100 mg PO BID 7 Days Qty: 14 0RF albuterol sulfate 90 mcg/actuation HFA aerosol inhaler 2 puff inhalation Q6H PRN (Reason: shortness of breath or wheezing) Qty: 6.7 0RF albuterol sulfate 2.5 mg /3 mL (0.083 %) solution for nebulization 2.5 mg inhalation QID PRN (Reason: shortness of breath or wheezing) Qty: 75 0RF prednisone 20 mg tablet 40 mg PO DAILY 5 Days Qty: 10 0RF enalapril maleate 20 mg tablet 20 mg PO DAILY betamethasone, augmented 0.05 % ointment 1 appl topical BID ergocalciferol (vitamin D2) 1,250 mcg (50,000 unit) capsule 1,250 mcg PO QWEEK Trulicity 4.5 mg/0.5 mL pen injector 4.5 mg subcut Q7D cefuroxime axetil 500 mg tablet 500 mg PO BID Qty: 8 0RF azithromycin 500 mg tablet 500 mg PO DAILY 4 Days Qty: 4 0RF albuterol sulfate 90 mcg/actuation HFA aerosol inhaler 2 puff inhalation Q6H PRN (Reason: Shortness Of Breath Or Wheezing) Qty: 6.7 0RF prednisone 10 mg tablet See Taper PO DIRECTED Qty: 30 0RF Taper: Prednisone 40 mg daily for 3 Days and 0 Hour 30 mg daily for 3 Days and 0 Hour 20 mg daily for 3 Days and 0 Hour 10 mg daily for 3 Days and 0 Hour Rx Instructions: see taper instructions guaifenesin [Mucus Relief ER] 600 mg tablet extended release 12hr 600 mg PO BID Qty: 6 0RF rosuvastatin 40 mg tablet 40 mg PO DAILY ipratropium-albuterol 0.5 mg-3 mg(2.5 mg base)/3 mL solution for nebulization 3 ml inhalation Q6H PRN (Reason: wheezing) Qty: 180 0RF Referrals: [facility] Pulmonology Services [Provider Group] - 1 week Interventions: ED Discharge Assessment Last Done: 03/07/25 18:28 Discharge Date/Time: 03/07/25 18:30 Print Language: Qatari
[2025-03-07 16:38] LABS: Troponin-I High Sensitivity < 2.7 ng/L (<3.5-35.0)
[2025-03-07 16:39] LABS: SLIDE REVIEW VERIFIED
[2025-03-07 17:00] VITALS: BP 132/84; PULSE 103; RESP 20; O2SAT 93
[2025-03-07 17:11] LABS: Influenza A PCR NEGATIVE (Negative); Influenza B PCR NEGATIVE (Negative); Resp Syncy Virus RNA Qual PCR NEGATIVE (Negative); SARS COV2 PCR INHOUSE NEGATIVE (Negative)
--- OUTSIDE RECORDS SUMMARY | 2025-03-07 18:07 | XMS_ITS | Encounter Summary ---
Author Organization [employer] Address [address] [place] [address] Care Team Providers Care Diabetes Nurse Name Role Phone Camille Patton MD Primary Care Provider [phone] Reason for Visit * Reason Onset Date Comments Pooja: X-Ray 02/08/2025 Encounter Details Date Type Department Care Team (Late st Contact Info) Description 02/08/2025 Telephone Internal Medicine - [place] [address] [address] Camille Patton MD 175 [facility] [address] [place] [address] Pooja: X-Ray Social History Tobacco Use Types Packs/Day Years [...] on file documented as of this encounter Progress Notes * Vale Lopez MA - 02/11/2025 11:31 AM EDT Patient is aware of the message and the date of the pulmonology appt * Camille Patton MD - 02/09/2025 12:32 PM EDT For heart tightness of the chest and shortness of the breath I sent the patient to the pulmonology.Pulmonology will decide if she need any x-ray. Please help the patient to get the pulmonology appointment as soon as possible. * Vale Lopez MA - 02/08/2025 3:10 PM EDT Please advice * Odilia Rodriguez - 02/08/2025 2:38 PM EDT *[facility] Preferred PT requesting x-ray of right of chest, PT discussed during last visit however order was not placed. Would like to be called once order is placed. PT states that he has a tightness in right of chest. Please call: [phone] documented in this encounter Plan of Treatment Upcoming Encounters Date Type Department Care Team (Late st Contact Info) Description 05/02/2025 10:30 AM EDT Office Visit Internal Medicine - [address] [phone] Camille Patton MD [address] [id number] documented as of this encounter Visit Diagnoses Not on filedocumented in this encounter Care Teams Diabetes Nurse Relationship Specialty Start Date End Date Camille Patton MD [address] [place] [id number] PCP - General Internal Medicine 12/20/24 documented as of this encounter
--- OUTSIDE RECORDS SUMMARY | 2025-03-07 18:08 | XMS_ITS | Clinical Summary ---
Author Organization [facility] Address [address] [place] [address] Phone Care Team Providers Care Correction Warden Name Role Phone Camille Patton MD Primary Care Provider [phone] Allergies Active Allergy Reactions Criticality Noted Date Comments Nsaids (Non-Steroidal Anti-I nflammatory Drug) 07/30/2015 Medications rosuvastatin (CRESTOR) 40 mg tablet TAKE 1 TABLET BY MOUTH EVERY DAY 90 tablet 1 01/14/20 25 Active dulaglutide (Trulicity) 1.5 mg/0.5 mL pen injector injectionIndic ations:Type 2 diabetes mellitus without complication, without long-term current use of insulin ([facility] V24, [facility] V28) Inject 0.5 mL (1.5 mg total) under the skin every 7 (seven) days. 2 mL 5 01/31/20 25 025 Active enalapril (Vasotec) 20 mg tablet Take 1 tablet (20 mg total) by mouth 1 (one) time each day. 30 each 11 01/31/20 25 026 Active guaiFENesin (MUCINEX) 1,200 mg 12 hr tablet Take 1 tablet (1,200 mg total) by mouth 2 (two) times a day if needed for cough. 60 tablet 01/31/20 25 025 Active albuterol HFA (PROAIR HFA ; PROVENTIL HFA ; VENTOLIN HFA) 90 mcg/actuation inhaler Inhale 2 puffs by mouth every 6 (six) hours if needed for wheezing. 8.5 each 5 01/31/20 25 Active albuterol 2.5 mg /3 mL (0.083 %) nebulizer solutionIndica tions:Chronic obstructive pulmonary disease, unspecified COPD type (CMS/HCC V24, CMS/HCC V28) Take 3 mL (2.5 mg total) by nebulization 4 (four) times a day if needed for wheezing or shortness of breath. 75 mL 3 01/31/20 25 025 Active clotrimazole-b etamethasone (LOTRISONE) 1-0.05 % cream Apply topically 2 (two) times a day. 30 g 1 01/31/20 25 025 Active fexofenadine (HEBERT) 180 mg tablet TAKE 1 TABLET (180 MG TOTAL) BY MOUTH 1 (ONE) TIME EACH DAY IF NEEDED (COUGH). 30 tablet 02/05/20 25 Active fluticasone furoate-vilant Carlos (Breo Ellipta) 200-25 mcg/dose inhaler Inhale 1 puff by mouth 1 (one) time each day. 1 each 02/27/20 25 026 Active fluticasone-sa lmeterol (ADVAIR DISKUS) 250-50 mcg/dose diskus inhaler Inhale 1 puff by mouth 2 (two) times a day. Rinse mouth with water after use to reduce aftertaste and incidence of candidiasis. Do not swallow. 1 each 01/31/20 25 025 Discontinued benzonatate (TESSALON) 100 mg capsule Take 1 capsule (100 mg total) by mouth 3 (three) times a day if needed for cough. Do not crush or chew. 42 capsule 01/31/20 25 025 fluticasone furoate-vilant Carlos (Breo Ellipta) 200-25 mcg/dose inhaler Inhale 1 puff by mouth 1 (one) time each day. 1 each 02/27/20 25 025 Discontinued Active Problems Problem Noted Date Diagnosed Date Mixed hyperlipidemia 01/30/2025 Type 2 diabetes mellitus wit hout complication, without long-term current use of insulin ([facility], [facility] V28) 01/30/2025 Primary hypertension 01/30/2025 Encounters Date Type Department Care Team Description 02/08/2025 Telephone Internal Medicine [facility] [address] [address] Camille Patton MD Khan: X-Ray 01/30/2025 1:30 PM EST Office Visit Internal Medicine [facility] 175 [facility] [address] [place] [address] Camille Patton MD Adult general medical examination (Primary Dx); Chronic obstructive pulmonary disease, unspecified COPD type ([facility] V24, [facility] V28); Mixed hyperlipidemia; Type 2 diabetes mellitus without complication, without long-term current use of insulin ([facility] V24, [facility] V28); Primary hypertension; Elevated blood pressure reading; Other fatigue; Skin rash; Chronic cough 12/20/2024 1:15 AM EST - 12/20/2024 3:10 AM EST Emergency Emergency [address] [place] [address] Exacerbation of asthma, unspecified asthma [...] Type 2 diabetes mellitus wit hout complication ([facility] V24, CMS/HCC V28) 06/23/2018 DX:Type 2 diabetes mellitus without complication [...] Sign Reading Time Taken Comments Blood Pressure 148/98 01/30/2025 1:36 PM EST Pulse 104 01/30/2025 1:35 PM EST Temperature 36.8 ??C (98.2 ??F) 12/20/2024 1:19 AM ES T Respiratory Rate 20 12/20/2024 1:19 AM EST Oxygen Saturation 96% 01/30/2025 1:35 PM EST Inhaled Oxygen Concentration - - Weight 86.2 kg (190 lb) 01/30/2025 1:35 PM EST Height 172.7 cm (5' 8 ) 12/19/2024 3:30 PM EST Body Mass Index 28.89 12/19/2024 3:30 PM EST Plan of Treatment Upcoming Encounters Date Type Department Care Team (Late st Contact Info) Description 05/02/2025 10:30 AM EDT Office Visit Internal Medicine - [place] [address] [facility] [address] [place] [phone] Camille Patton MD [address] [address] Health Maintenance Due Date Last Done Comments Diabetes: Annual Foot Exam 1981 Diabetes: Annual Retina Eye Exam 1981 Hepatitis B Vaccines (1 of 3 - 19+ 3-dose series) 1990 Zoster Vaccines (1 of 2) 2021 Colorectal Cancer Screening: Colonoscopy 11/06/2022 Depression Screening 11/06/2022 HIV Screening 11/06/2022 Lung Cancer Screening (Low Dose CT) 11/06/2022 Medicare Annual Wellness Visit 11/06/2022 Social Influencers of Health Screening 11/06/2022 Diabetes: Blood Sugar Control Test (HGBA1C) 07/20/2024 01/20/2024 COVID-19 Vaccine ( season) 2024 05/15/2021, 04/17/2021 Diabetes: Annual Urine Albumin-Creatinine Ratio (uACR) 01/20/2025 01/20/2024 Influenza Vaccine (Season Ended) 2025 01/23/2024, 08/02/2014, 08/15/2013, Additional history exists Diabetes: Annual GFR (Glomerular Filtration Rate) 12/19/2025 [...] on patient's age to complete this topic Hepatitis A Vaccines Aged Out No long er eligible based on patient's age to complete this topic IPV Vaccines Aged Out No longer eligi ble based on patient's age to complete this topic MMR Vaccines Aged Out No longer eligi ble based on patient's age to complete this topic Meningococcal ACWY Vaccine Aged Out N o longer eligible based on patient's age to complete this topic Meningococcal B Vaccine Aged Out No l onger eligible based on patient's age to complete [...] LAB MICROBIOLOGY METHOD 12/20/2024 2:32 AM EST [facility] Influenza A PCR Not Detected Not Detected LAB MICROBIOLOGY METHOD 12/20/2024 2:32 AM EST [facility] Influenza B PCR Not Detected Not Detected LAB MICROBIOLOGY METHOD 12/20/2024 2:32 AM EST [facility] Coronavirus 229E Not Detected Not Detected LAB MICROBIOLOGY METHOD 12/20/2024 2:32 AM EST [facility] Coronavirus HKU1 Not Detected Not Detected LAB MICROBIOLOGY METHOD 12/20/2024 2:32 AM EST [facility] Coronavirus OC43 Not Detected Not Detected LAB MICROBIOLOGY METHOD 12/20/2024 2:32 AM [facility] Coronavirus NL63 Not Detected Not Detected LAB MICROBIOLOGY METHOD 12/20/2024 2:32 AM [facility] Parainfluenza Virus 1 Not Detected Not Detected LAB MICROBIOLOGY METHOD 12/20/2024 2:32 AM [facility] Parainfluenza Virus 2 Not Detected Not Detected LAB MICROBIOLOGY METHOD 12/20/2024 2:32 AM [facility] Parainfluenza Virus 3 Not Detected Not Detected LAB MICROBIOLOGY METHOD 12/20/2024 2:32 AM [facility] Parainfluenza Virus 4 Not Detected Not Detected LAB MICROBIOLOGY METHOD 12/20/2024 2:32 AM [facility] RSV PCR Not Detected Not Detected LAB MICROBIOLOGY METHOD 12/20/2024 2:32 AM [facility] Human Metapneumovirus A and B Not Detected Not Detected LAB MICROBIOLOGY METHOD 12/20/2024 2:32 AM [facility] Rhinovirus/Entero virus Not Detected Not Detected LAB MICROBIOLOGY METHOD 12/20/2024 2:32 AM [facility] Bordetella pertussis Not Detected Not Detected LAB MICROBIOLOGY METHOD 12/20/2024 2:32 AM [facility] Bordetella parapertussis Not Detected Not Detected LAB MICROBIOLOGY METHOD 12/20/2024 2:32 AM [facility] Mycoplasma pneumo by PCR Not Detected Not Detected LAB MICROBIOLOGY METHOD 12/20/2024 2:32 AM [facility] Chlamydia pneumoniae Not Detected Not Detected LAB MICROBIOLOGY METHOD 12/20/2024 2:32 AM [facility] SARS COV-2 Not Detected Not Detected LAB MICROBIOLOGY METHOD 12/20/2024 2:32 AM [facility] Swab Both anterior nares / Unknown Non-blood Collection / Unknown 12/20/2024 1:26 AM EST 12/20/2024 1:38 AM EST [facility]ative [facility] - 12/20/2024 2:32 AM EST Testing was performed using the SezWho Respiratory Pathogen PCR Assay. All results must [...] MICROBIOLOGY - GENERAL ORDER ELISEO Final Result [facility] [address] [place] [address], * XR Chest 2 Views (12/19/2024 5:51 PM EST) Anatomical Region Laterality Modality Body Radiographic Yara ging 12/20/2024 8:07 AM EST Impressions 12/20/2024 8:08 AM EST No acute findings. -------- FINAL REPORT -------- Dictated By: Mauricio Lord Dictated Date: 12/20/2024 08:07 ET Assigned Physician: Mauricio Lord Reviewed and Electronically Signed By: Mauricio Lord Signed Date: 12/20/2024 08:08 ET Workstation ID: [id number] Transcribed By: Self Edit Transcribed Date: 12/20/2024 [...] Signed Date: 12/20/2024 08:08 ET Workstation ID: [id number] Transcribed By: Self Edit Transcribed Date: 12/20/2024 08:07 ET us Missael Bass DO IMG XR PROCEDURES Final Result * (ABNORMAL) Manual differential (12/19/2024 5:43 PM EST) Neutrophils % 62.0 % LAB HEMETOLOGY METHOD 12/19/2024 6:21 PM [facility] Bands % 2.0 % LAB HEMETOLOGY METHOD 12/19/2024 6:21 PM [facility] Lymphocytes % 12.0 % LAB HEMETOLOGY METHOD 12/19/2024 6:21 PM [facility] Monocytes % 10.0 % LAB HEMETOLOGY METHOD 12/19/2024 6:21 PM [facility] Eosinophils % 14.0 % LAB HEMETOLOGY METHOD 12/19/2024 6:21 PM [facility] Basophils % 0.0 % LAB HEMETOLOGY METHOD 12/19/2024 6:21 PM [facility] Neutrophils Absolute Manual 10.48(H) 1.50 - 7.00 K/mcL LAB HEMETOLOGY METHOD 12/19/2024 6:21 PM [facility] Bands Absolute Manual 0.34(H) 0.00 - 0.00 K/mcL LAB HEMETOLOGY METHOD 12/19/2024 6:21 PM EST [facility] Lymphocytes Absolute 2.03 1.00 - 5.00 K/[facility] LAB HEMETOLOGY METHOD 12/19/2024 6:21 PM EST [facility] Monocytes Absolute Manual 1.69(H) 0.20 - 1.00 K/mcL LAB HEMETOLOGY METHOD 12/19/2024 6:21 PM EST [facility] Eosinophils Absolute Manual 2.37(H) 0.00 - 0.50 K/[facility] LAB HEMETOLOGY METHOD 12/19/2024 6:21 PM EST [facility] Basophils Absolute Manual 0.00 0.00 - 0.20 K/[facility] LAB HEMETOLOGY METHOD 12/19/2024 6:21 PM [facility] Rbc Morphology Consistent with indices Consistent with indices, Normal for [place] LAB HEMETOLOGY METHOD 12/19/2024 6:21 PM [facility] Comment:RBC: Morphology agre es with CBC Platelet Morphology - WAM See Note(A) Normal LAB HEMETOLOGY METHOD 12/19/2024 6:21 PM EST [facility] Comment:PLT: Giant platelets seen Blood Venous blood specimen / Unknown Venipuncture / Unknown 12/19/2024 5:43 PM EST 12/19/2024 5:51 PM EST us Missael Bass DO LAB BLOOD ORDERABLES Final Resu lt [facility] [address] [place] [address], [place] [phone] * (ABNORMAL) CBC auto differential (12/19/2024 5:43 PM EST) WBC 16.9(H) 4.8 - 10.8 K/mcL LAB HEMETOLOGY METHOD 12/19/2024 6:21 PM EST [facility] RBC 5.50 4.50 - 5.50 M/mcL LAB HEMETOLOGY METHOD 12/19/2024 6:21 PM [facility] Hemoglobin 16.0 13.5 - 17.5 g/dL LAB HEMETOLOGY METHOD 12/19/2024 6:21 PM [facility] Hematocrit 49.1 42.0 - 54.0 % LAB HEMETOLOGY METHOD 12/19/2024 6:21 PM [facility] MCV 89.6 79.0 - 98.0 FL LAB HEMETOLOGY METHOD 12/19/2024 6:21 PM [facility] MCH 29.2 27.0 - 32.0 pcg LAB HEMETOLOGY METHOD 12/19/2024 6:21 PM [facility] MCHC 32.6 32.0 - 37.0 g/dL LAB HEMETOLOGY METHOD 12/19/2024 6:21 PM [facility] RDW 12.8 11.0 - 15.0 % LAB HEMETOLOGY METHOD 12/19/2024 6:21 PM [facility] Platelets 324 130 - 400 K/mcL LAB HEMETOLOGY METHOD 12/19/2024 6:21 PM [facility] MPV 11.2(H) 7.0 - 11.0 FL LAB HEMETOLOGY METHOD 12/19/2024 6:21 PM [facility] NRBC 0.0 <1.0 % LAB HEMETOLOGY METHOD 12/19/2024 6:21 PM [facility] NRBC Absolute 0.00 <0.10 K/mcL LAB HEMETOLOGY METHOD 12/19/2024 6:21 PM [facility] Blood Venous blood specimen / Unknown Venipuncture / Unknown 12/19/2024 5:43 PM EST 12/19/2024 5:51 PM EST us Missael Bass DO LAB BLOOD ORDERABLES Final Resu lt [facility] [address] [place] [address], [place] [phone] * (ABNORMAL) Basic metabolic panel (12/19/2024 5:43 PM EST) Sodium 139 133 - 145 mmol/L LAB CHEMISTRY METHOD 12/19/2024 6:11 PM EST [facility] Potassium 4.2 3.5 - 5.5 mmol/L LAB CHEMISTRY METHOD 12/19/2024 6:11 PM [facility] Chloride 105 96 - 110 mmol/L LAB CHEMISTRY METHOD 12/19/2024 6:11 PM [facility] CO2 30 21 - 32 mmol/L LAB CHEMISTRY METHOD 12/19/2024 6:11 PM [facility] Anion Gap 4 3 - 11 LAB CHEMISTRY METHOD 12/19/2024 6:11 PM [facility] Glucose 238(H) 70 - 100 mg/dL LAB CHEMISTRY METHOD 12/19/2024 6:11 PM [facility] BUN 12 5 - 25 mg/dL LAB CHEMISTRY METHOD 12/19/2024 6:11 PM [facility] Creatinine 1.41(H) 0.70 - 1.30 mg/dL LAB CHEMISTRY METHOD 12/19/2024 6:11 PM [facility] eGFR 60 >=60 mL/min/1. 73m2 LAB CHEMISTRY METHOD 12/19/2024 6:11 PM [facility] Comment:Calculation based on the??Chronic Kidney Disease Epidemiology Collaboration (CKD-EPI) equation refit??without adjustment for race. BUN/Creatinine Ratio 8.5 LAB CHEMISTRY METHOD 12/19/2024 6:11 PM [facility] Calcium 9.0 8.5 - 10.5 mg/dL LAB CHEMISTRY METHOD 12/19/2024 6:11 PM [facility] Blood Venous blood specimen / Unknown Venipuncture / Unknown 12/19/2024 5:43 PM EST 12/19/2024 5:51 PM EST Missael Bass DO LAB BLOOD ORDERABLES Final Resu lt [facility] [address] [place] [address], * HM Urine Albumin Creatinine Ratio (01/20/2024) Urine Albumin Creatinine Ratio abstracted Historical Provider HEALTH MAINTENANCE Final Result * Hepatitis C Screening (01/20/2024) Pathologist [facility] Hepatitis C Screening abstracted Historical Provider HEALTH MAINTENANCE Final Result * (ABNORMAL) Hemoglobin A1c (01/20/2024) Pathologist [facility] Hemoglobin A1C 10.8(A) <=6.5 % Blood Venous blood specimen / Unknown Historical Provider LAB BLOOD ORDERABLES Brandy l Result * (ABNORMAL) Lipid panel (01/20/2024) Pathologist [facility] LDL/HDL Ratio 6(A) 0 - 4 Triglycerides 474(A) 0 - 150 mg/dL Cholesterol 250(A) 0 - 200 mg/dL HDL 42 >=40 mg/dL LDL Cholesterol 114(A) 0 - 100 mg/dL Blood Venous blood specimen / Unknown Historical Provider LAB BLOOD ORDERABLES Brandy l Result from Last 3 Months or Most Recently Relevant to Health Maintenance Insurance MEDICAID - [place] MEDICARE Care Teams Correction Warden Relationship Specialty Start Date End Date Camille Patton MD [address] [place] [address] PCP - General Internal Medicine 12/20/24
[2025-03-07 18:28] VITALS: BP 132/84; PULSE 89; RESP 20; TEMP 36.8; O2SAT 98
== END 2025-03-07 18:30 | disposition home or self-care (01) ==
PROVIDERS: Physician Assistant; Emergency Provider Emergency Medicine Emergency Medical Services
DX: J06.9 Acute upper respiratory infection, unspecified (principal); J45.901 Unspecified asthma with (acute) exacerbation; R06.02 Shortness of breath; Z03.818 Encounter for observation for suspected exposure to other biological agents ruled out
CPT/HCPCS: 0241U; 71046; 80048; 84484; 85025; 93005; 94640; 96374; 96375; 99284; 99285; J2919; J3475

== ENCOUNTER → 2025-03-07 15:46 | Outpatient (BNV) | payer MEDICARE, MEDICAID, SELFPAY | PROVIDERS: Visit Provider Radiology Diagnostic Radiology | DX: R05.9 Cough, unspecified (principal) | CPT/HCPCS: 71046 ==

== ENCOUNTER → 2025-03-07 15:46 | Outpatient (BNV) | payer MEDICARE, MEDICAID, SELFPAY | PROVIDERS: Emergency Provider Emergency Medicine Emergency Medical Services; Visit Provider Internal Medicine Cardiovascular Disease | DX: R94.31 Abnormal electrocardiogram [ECG] [EKG] (principal); R06.02 Shortness of breath | CPT/HCPCS: 93010 ==

== ENCOUNTER 2025-04-11 09:29 | Outpatient (AMB) | payer MEDICARE, MEDICAID, SELFPAY ==
--- NOTE | 2025-04-11 09:31 | MHC.OFFVIS ---
Vital Signs 04/11/25 09:37 04/11/25 09:38 Height 5 ft 8 in Weight 198 lb 2 oz BMI 30.1 BP 195/125 H 114/96 H Blood Pressure Location Rt brachial Lt brachial Position Sitting Sitting Pulse 114 H Pulse Oximetry (%) 96 Oxygen Delivery Method Room Air Comment bp recheck, patient states he doesnt take his bp meds Intake Visit Reasons: Chronic mid line low back pain/last seen 2021 Allergies aspirin Allergy (Unknown, Verified 03/07/25 15:46) swelling HPI Comments Details: Sunny is very pleasant 54 years old gentleman who presents in my office with complains on pain in the lower back with radiation down the right lower extremity all the way to the ankle, however not into the foot and not into the toe. He also reports on cervicalgia but cervicalgia is on the background. He was under care of this office originally he came with the intention to receive comprehensive pain management in our office however later on he refused to receive any injections on the premise that he is diabetic. I explained today to the patient that we are interventional pain management office and we will be able to help him only if he agrees to participate in interventional pain management. Patient expressed understanding and agreed to go for interventional pain treatment. He reports flexing forward and flexing backwards aggravate his pain. Because of his pain he can not sleep normally can not do activities of daily living, he can take care of himself, but he can not function normally. He is on permanent disability. He reports his pain very severe 08/07. He reports his pain in terms of tissue damage are stabbing and lancinating. He had images of his lumbar spine long time ago. He had MRI also long time ago. More than 5 years ago. He never had physical therapy. He never had any injections. [facility] Medical History (Updated 04/11/25 @ 09:50 by Juarez Montoya MD) Eczema Chronic midline low back pain Mixed hyperlipidemia Hypertension Diabetes mellitus without complication, without long-term current use of insulin COPD (chronic obstructive pulmonary disease) Cigarette smoker Asthma Depression Pancreatitis Facet arthropathy, cervical Social History Alcohol intake: current Alcohol intake frequency: a few times a month Patient Tobacco Use Status: Former Tobacco user Cigarettes Per Day: 10 service: No Review of Systems Const All systems reviewed & are unremarkable except as noted in HPI and below ENT Reports Normal hearing present Neuro Reports Normal hearing present, Denies Abnormal speech present, Denies confusion and Denies Sensory deficit (Neuro) Psych Denies confusion Physical Exam Vital Signs: Last Vital Signs Pulse 114 H 04/11/25 09:37 BP 114/96 H 04/11/25 09:38 Pulse Ox 96 04/11/25 09:37 Oxygen Delivery Method Room Air 04/11/25 09:37 BMI result Body Mass Index 30.1 Const General: no acute distress; No confusion Orientation/consciousness: patient oriented x3 and No confusion Eyes General: appearance normal, both eyes and all related structures Pupils: Equal, round and reactive pupils present EOM: EOMs intact bilaterally Neck Neck: Yes full ROM Chest Chest palpation & inspection: normal inspection of the chest Resp Effort & Inspection: normal respiratory effort, able to speak in complete sentences, normal respiratory pattern, no audible wheezes and no cough Cardio Jugular venous distension: no JVD GI Inspection: Yes normal to inspection Back/Spine/Pelvis Other: Able to stand on bilateral tiptoes in bilateral heels without difficulty. Gait is unaffected. Flexing forward and flexing backwards aggravate his pain. SLR is positive on the right. Lasegue test is positive on the right. Neuro General: patient oriented x3, gait normal and No confusion Cranial nerves: Yes CN's II-XII intact bilaterally, Yes Equal, round and reactive pupils present, Yes Normal hearing present and Yes Ability to bilaterally elevate shoulders present Speech: No Abnormal speech present Gait exam (Neuro): Normal gait present Motor exam (neuro): 5/5 motor strength present throughout Sensory Exam: No Sensory deficit (Neuro) Extrem General: No pedal edema Psych Speech and movement: Normal speech and movement present Affect: normal affect Attitude: cooperative Thought process: Normal thought process present Thought content: Normal thought content present Insight: Good insight present (Psych) Judgement: Good judgement present (Psych) Assessment & Plan Assessment & Plan (1) Disc degeneration, lumbar: Code(s): M51.369 - Other intervertebral disc degeneration, lumbar region without mention of lumbar back pain or lower extremity pain Category: Medical (2) Spondylosis of lumbar joint: Code(s): M47.816 - Spondylosis without myelopathy or radiculopathy, lumbar region Category: Medical (3) Radiculopathy, lumbar region: Code(s): M54.16 - Radiculopathy, lumbar region Category: Medical Plan This patient reports severe pain out of 10 radiating down to the lower extremity. Suspicious for radiculopathy. Never had physical therapy. I will send him for physical therapy today. However severity of his pain make me think about advanced changes in his lumbar spine. I will send him for the MRI of the lumbar spine. Possibility exists that the patient is required to be examined by a neurosurgeon and then MRI will be required for him to be examined by neurosurgeon. I will see him after MRI is done and ready. Orders: Orders PT Evaluation and Treatment Today M47.816 - Spondylosis without myelopathy or radiculopathy, lumbar region, M51.369 - Other intervertebral disc degeneration, lumbar region without mention of lumbar back pain or lower extremity pain, M54.16 - Radiculopathy, lumbar region MR lumbar spine wo con Today M47.816 - Spondylosis without myelopathy or radiculopathy, lumbar region, M51.369 - Other intervertebral disc degeneration, lumbar region without mention of lumbar back pain or lower extremity pain, M54.16 - Radiculopathy, lumbar region Coding Level of Care Code New Pt Level 3 (34610) Diagnoses Disc degeneration, lumbar M51.369 Spondylosis of lumbar joint M47.816 Radiculopathy, lumbar region M54.16
[2025-04-11 09:37] VITALS: BP 195/125; PULSE 114; O2SAT 96; BMI 30.1
[2025-04-11 09:38] VITALS: BP 114/96
--- OUTSIDE RECORDS SUMMARY | 2025-04-11 10:16 | XMS_ITS | Encounter Summary ---
Author Organization [facility] Address [address] [place] [address] Care Team Providers Care Diamond Broker Name Role Phone Camille Patton MD Primary Care Provider [phone] Encounter Details Date Type Department Care Team ([facility] Contact Info) Description 03/12/2025 Telephone Internal Medicine - [place] 175 [facility] 200 [place] [phone] Camille Patton MD 175 [facility] 200 [place] [address] Social History Tobacco Use Types Packs/Day Years [...] on file documented as of this encounter Plan of Treatment Upcoming Encounters Date Type Department Care Team (Late Contact Info) Description 05/02/2025 10:30 AM EDT Office Visit Internal Medicine - [place] 175 [facility] 200 [place] [phone] Camille Patton MD 175 [facility] 200 [place] [address] 05/02/2025 1:45 PM EDT Clinical Support Lung Screening Program - [place] 299 [facility] 410 [place] [phone] 05/02/2025 2:15 PM EDT Appointment [facility] Scan [address] [place] [address] 07/01/2025 1:00 PM EDT Ancillary Procedure [facility] - [facility] [address] [place] [address] 10/04/2025 10:45 AM EST Office Visit Pulmonolgy - [place] 175 [facility] [address] [place] [address] Deborah Molina MD 175 [facility] 200 [place] [address] documented as of this encounter Visit Diagnoses Not on filedocumented in this encounter Care Teams Diamond Broker Relationship Specialty Start Date End Date Camille Patton MD [address] [place] [address] PCP - General Internal Medicine 12/20/24 documented as of this encounter
--- OUTSIDE RECORDS SUMMARY | 2025-04-11 10:16 | XMS_ITS | Clinical Summary ---
Author Organization [facility] Address [address] [place] [address] Phone Care Team Providers Care Orchid Grower Name Role Phone Camille Patton MD Primary Care Provider [phone] Allergies Active Allergy Reactions Criticality Noted Date Comments Nsaids (Non-Steroidal Anti-I nflammatory Drug) 07/30/2015 Medications rosuvastatin (CRESTOR) 40 mg tablet TAKE 1 TABLET BY MOUTH EVERY DAY 90 tablet 1 01/14/20 25 Active enalapril (Vasotec) 20 mg tablet Take 1 tablet (20 mg total) by mouth 1 (one) time each day. 30 each 01/31/20 25 026 Active fexofenadine (HEBERT) 180 mg tablet TAKE 1 TABLET (180 MG TOTAL) BY MOUTH 1 (ONE) TIME EACH DAY IF NEEDED (COUGH). 30 tablet 02/05/20 25 Active albuterol 2.5 mg /3 mL (0.083 %) nebulizer solutionIndicat ions:Chronic obstructive pulmonary disease, unspecified COPD type ([facility] V24, [facility] V28) Take 3 mL (2.5 mg total) by nebulization 4 (four) times a day if needed for wheezing or shortness of breath. 75 mL 3 03/11/20 25 025 Active insulin syringe-needle U-100 0.5 mL 29 gauge x 1/2 syringe Use to inject 1-4 times daily. 100 each 11 03/13/20 25 026 Active albuterol HFA (PROAIR HFA ; PROVENTIL HFA ; VENTOLIN HFA) 90 mcg/actuation inhaler Inhale 2 puffs by mouth every 6 (six) hours if needed for wheezing. 8.5 each 5 03/13/20 25 Active fluticasone furoate-vilante roL (Breo Ellipta) 100-25 mcg/dose inhaler Inhale 2 puffs by mouth 1 (one) time each day. 1 each 12 03/13/20 25 026 Active dulaglutide (Trulicity) 1.5 mg/0.5 mL pen injector injectionIndica tions:Type 2 diabetes mellitus without complication, without long-term current use of insulin ([facility] V24, [facility] V28) Inject 0.5 mL (1.5 mg total) under the skin every 7 (seven) days. 2 mL 5 03/15/20 25 025 Active clotrimazole-be tamethasone (LOTRISONE) 1-0.05 % cream Apply topically 2 (two) times a day. 30 g 1 03/15/20 25 025 Active ipratropium-alb uteroL (Combivent Respimat) 20-100 mcg/actuation inhaler Inhale 1 puff by mouth 4 (four) times a day. 3 g 4 03/29/20 25 026 Active dulaglutide (Trulicity) 1.5 mg/0.5 mL pen injector injectionIndica tions:Type 2 diabetes mellitus without complication, without long-term current use of insulin ([facility] V24, [facility] V28) Inject 0.5 mL (1.5 mg total) under the skin every 7 (seven) days. 2 mL 5 01/31/20 25 025 Discontinu ed(Non-com pliance) guaiFENesin (MUCINEX) 1,200 mg 12 hr tablet Take 1 tablet (1,200 mg total) by mouth 2 (two) times a day if needed for cough. 60 tablet 01/31/20 25 025 albuterol HFA (PROAIR HFA ; PROVENTIL HFA ; VENTOLIN HFA) 90 mcg/actuation inhaler Inhale 2 puffs by mouth every 6 (six) hours if needed for wheezing. 8.5 each 5 03/05/ 025 Discontinu ed(Reorder ) clotrimazole-be tamethasone (LOTRISONE) 1-0.05 % cream Apply topically 2 (two) times a day. 30 g 1 01/31/20 25 025 Discontinu ed(Reorder ) fluticasone furoate-vilante roL (Breo Ellipta) 200-25 mcg/dose inhaler Inhale 1 puff by mouth 1 (one) time each day. 1 each 12 02/27/20 25 025 Discontinu ed(Reorder ) tirzepatide 2.5 mg/0.1 mL syringe Inject 2.5 mg under the skin every 7 (seven) days. 10 mL 3 03/13/20 25 025 Discontinu ed(Cost of medication ) Active Problems Problem Noted Date Diagnosed Date Chronic obstructive pulmonar y disease ([facility] V24, [facility] V28) 03/13/2025 Mixed hyperlipidemia 01/30/2025 Type 2 diabetes mellitus wit hout complication, without long-term current use of insulin ([facility] V24, [facility] V28) 01/30/2025 Primary hypertension 01/30/2025 Encounters Date Type Department Care Team Description 03/29/2025 8:45 AM EDT Office Visit Pulmonolgy [address] [phone] Deborah Molina MD Chronic obstructive pulmonary disease, unspecified COPD type ([facility] V24, [facility] V28) (Primary Dx); Ex-smoker; CONNER (dyspnea on exertion) 03/13/2025 1:30 PM EDT Office Visit Internal Medicine [address] [phone] Camille Patton MD Chronic obstructive pulmonary disease, unspecified COPD type ([facility] V24, [facility] V28) (Primary Dx); Cigarette smoker; Type 2 diabetes mellitus without complication, without long-term current use of insulin ([facility] V24, [facility] V28); Primary hypertension; Mixed hyperlipidemia; Chronic midline low back pain, unspecified whether sciatica present; Eczema, unspecified type 03/12/2025 Telephone Internal Medicine - [address] [place] [address] Camille Patton MD 03/12/2025 Telephone Internal Medicine [address] [place] [address] Camille Patton MD Khan: Medication 02/08/2025 Telephone Internal Medicine [address] [place] [address] Camille Patton MD Khan: X-Ray 01/30/2025 1:30 PM EST Office Visit Internal Medicine [address] [phone] Camille Patton MD Adult general medical examination (Primary Dx); Chronic obstructive pulmonary disease, unspecified COPD type ([facility] V24, [facility] V28); Mixed hyperlipidemia; Type 2 diabetes mellitus without complication, without long-term current use of insulin ([facility] V24, [facility] V28); Primary hypertension; Elevated blood pressure reading; Other fatigue; Skin rash; Chronic cough from Last 3 Months Immunizations Name Administration [...] Type 2 diabetes mellitus wit hout complication ([facility] V24, [facility] V28) 06/23/2018 DX:Type 2 diabetes mellitus without complication ([facility]) Vitamin B12 deficiency 03/01/2013 DX:Vitami n B12 deficiency Vitamin D deficiency 02/07/2015 DX:Vitamin D deficiency Back pain DX:Back pain Family History Medical History Relation Name Comments Colon cancer Brother Diabetes Mother Hypertension Mother Other: HDL Mother Relation Name Status Comments Brother Maternal Grandfather Maternal Grandmother Mother Paternal Grandfather Paternal Grandmother Social History Tobacco Use Types Packs/Day Years Used Date Smoking Tobacco: Former Cigarettes 0.8 36 1 2024 Smokeless Tobacco: Never Tobacco Cessation:Counseling Given: Not Answered Alcohol Use Standard Drinks/Week Comments Yes 0 (1 standard drink = 0.6 oz pur e alcohol) Sex and Gender Information Value Date Recorded Sex Assigned at Not on file Legal Sex Male 11:52 AM EST Gender Identity Not on file Sexual Orientation Not on file Obstetrics History Last Filed Vital Signs Vital Sign Reading Time Taken Comments Blood Pressure 135/89 03/29/2025 8:32 AM EDT Pulse 87 03/29/2025 8:32 AM EDT Temperature 35.5 ??C (95.9 ??F) 03/29/2025 8:32 AM ED T Respiratory Rate 16 03/29/2025 8:32 AM EDT Oxygen Saturation 95% 03/29/2025 8:32 AM EDT Inhaled Oxygen Concentration - - Weight 85.6 kg (188 lb 12.8 oz) 03/29/2025 8:32 AM EDT Height 172.7 cm (5' 8 ) 03/29/2025 8:32 AM EDT Body Mass Index 28.71 03/29/2025 8:32 AM EDT Plan of Treatment Upcoming Encounters Date Type Department Care Team (Late st Contact Info) Description 05/02/2025 10:30 AM EDT Office Visit Internal Medicine - [place] 175 [facility] 200 [place] [phone] Camille Patton MD 175 [facility] 200 [place] [address] 05/02/2025 1:45 PM EDT Clinical Support Lung Screening Program - [place] 299 [facility] [address] [place] [phone] 05/02/2025 2:15 PM EDT Appointment [facility] Scan [address] [place] [phone] 07/01/2025 1:00 PM EDT Ancillary Procedure [facility] - [facility] [address] [facility] [address] [place] [phone] 10/04/2025 10:45 AM EST Office Visit Pulmonolgy - [place] 175 [facility] [address] [place] [phone] Deborah Molina MD 175 [facility] 200 [place] [address] Health Maintenance Due Date Last Done Comments [...] 11/06/2022 Social Influencers of Health Screening 11/06/2022 COVID-19 Vaccine ( season) 2024 05/15/2021, 04/17/2021 Influenza Vaccine (Season Ended) 2025 01/23/2024, 08/02/2014, 08/15/2013, Additional history exists Diabetes: Blood Sugar Control Test (HGBA1C) 09/12/2025 03/13/2025, 01/20/2024 Diabetes: Annual Urine Albumin-Creatinine Ratio (uACR) 03/13/2026 03/13/2025, 01/20/2024 Diabetes: Annual GFR (Glomerular Filtration Rate) 03/13/2026 03/13/2025, 12/19/2024, 01/20/2024 Hypertension/CHF/CAD Annual BMP Blood Test 03/13/2026 03/13/2025, 12/19/2024, 01/20/2024 Cholesterol Screening (Lipid Panel) 03/13/2030 03/13/2025, 01/20/2024 DTaP,Tdap,and Td Vaccines (2 - Td [...] Procedure Name Priority Date/Time Associated Diagnosis Comments MANUAL DIFFERENTIAL - SYSMEX WAM Routine 03/13/2025 11:16 AM EDT Adult general medical examination Other fatigue CBC WITH AUTO DIFFERENTIAL Routine 03/13/2025 11:16 AM EDT Adult general medical examination Other fatigue LIPID PANEL WITH REFLEX TO DIRECT LDL Routine 03/13/2025 11:16 AM EDT Mixed hyperlipidemia Adult general medical examination CBC AND DIFFERENTIAL Routine 03/13/2025 11:16 AM EDT Adult general medical examination Other fatigue COMPREHENSIVE METABOLIC PANEL Routine 03/13/2025 11:16 AM EDT Adult general medical examination HEMOGLOBIN A1C Routine 03/13/2025 11:16 AM EDT Type 2 diabetes mellitus without complication, without long-term current use of insulin ([facility] V24, [facility] V28) Adult general medical examination MICROALBUMIN CREATININE URINE RATIO Routine 03/13/2025 11:16 AM EDT Type 2 diabetes mellitus without complication, without long-term current use of insulin ([facility] V24, [facility] V28) Adult general medical examination HEPATITIS C SCREENING Routine 01/20/2024 from Last 3 Months or Most Recently Relevant to Health Maintenance Results * (ABNORMAL) Lipid panel with reflex to direct LDL (03/13/2025 11:16 AM EDT) Cholesterol 170 0 - 200 mg/dL LAB CHEMISTRY METHOD 03/13/2025 4:48 PM EDT [facility] Triglycerides 244(H) 0 - 150 mg/dL LAB CHEMISTRY METHOD 03/13/2025 4:48 PM EDT [facility] HDL 51 >=40 mg/dL LAB CHEMISTRY METHOD 03/13/2025 4:48 PM EDT [facility] LDL Calculated 70 0 - 100 mg/dL LAB CHEMISTRY METHOD 03/13/2025 4:48 PM EDT [facility] VLDL Cholesterol Toribio 48.8 mg/dL LAB CHEMISTRY METHOD 03/13/2025 4:48 PM EDT [facility] Non HDL Chol. (LDL+VLDL) 119 <145 mg/dL LAB CHEMISTRY METHOD 03/13/2025 4:48 PM EDT [facility] Chol/HDL Ratio 3.3 0.0 - 4.4 LAB CHEMISTRY METHOD 03/13/2025 4:48 PM EDT [facility] Blood Venous blood specimen / Unknown Venipuncture / Unknown 03/13/2025 11:16 AM EDT 03/13/2025 11:28 AM EDT us Camille Patton MD LAB BLOOD ORDERABLES Final Resul t [facility] [address] [place] [address], * (ABNORMAL) Manual differential (03/13/2025 11:16 AM EDT) Neutrophils % 50.0 % LAB [facility] Lymphocytes % 31.0 % [facility] Reactive Lymphocyte 6.00 % LAB [facility]EM[facility]OLOGY [facility]/13[facility]25 12:[facility] Monocytes % 5.0 % LAB [facility]EM[facility]OLOGY METHOD 03/13[facility]2025 12:[facility] PM [facility] Eosinophils % 5.0 % LAB HEMETOLOGY METHOD 03/13/2025 12:31 PM [facility] Basophils % 4.0 % LAB HEMETOLOGY METHOD 03/13/2025 12:31 PM [facility] Neutrophils Absolute Manual 7.30(H) 1.50 - 7.00 K/mcL LAB HEMETOLOGY METHOD 03/13/2025 12:31 PM [facility] Lymphocytes Absolute 4.53 1.00 - 5.00 K/mcL LAB HEMETOLOGY METHOD 03/13/2025 12:31 PM [facility] Reactive Lymph Abs Manual 0.88(H) 0.00 - 0.00 lym LAB HEMETOLOGY METHOD 03/13/2025 12:31 PM [facility] Monocytes Absolute Manual 0.73 0.20 - 1.00 K/mcL LAB HEMETOLOGY METHOD 03/13/2025 12:31 PM [facility] Eosinophils Absolute Manual 0.73(H) 0.00 - 0.50 K/mcL LAB HEMETOLOGY METHOD 03/13/2025 12:31 PM [facility] Basophils Absolute Manual 0.58(H) 0.00 - 0.20 K/mcL LAB HEMETOLOGY METHOD 03/13/2025 12:31 PM EDT [facility] Rbc Morphology Consistent with indices Consistent with indices, Normal for Comfrey LAB HEMETOLOGY METHOD 03/13/2025 12:31 PM EDT [facility] Platelet Morphology - WAM See Note(A) Normal LAB HEMETOLOGY METHOD 03/13/2025 12:31 PM EDT [facility] Comment:PLT: Normal Blood Venous blood specimen / Unknown Venipuncture / Unknown 03/13/2025 11:16 AM EDT 03/13/2025 11:34 AM EDT Camille Patton MD LAB BLOOD ORDERABLES Final Resul t [facility] [address] [place] [address], [place] [phone] * (ABNORMAL) CBC auto differential (03/13/2025 11:16 AM EDT) WBC 14.6(H) 4.8 - 10.8 K/mcL LAB HEMETOLOGY METHOD 03/13/2025 12:31 PM EDT [facility] RBC 5.20 4.50 - 5.50 M/mcL LAB HEMETOLOGY METHOD 03/13[facility]25 12[facility] PM [facility] Hemoglobin 15.2 13.5 - 17.5 g/dL LAB HEMETOLOGY METHOD 03/13/2025 12:31 PM EDT [facility] Hematocrit 46.1 42.0 - 54.0 % LAB HEMETOLOGY METHOD 03/13/2025 12:31 PM EDT [facility] MCV 88.5 79.0 - 98.0 FL LAB HEMETOLOGY METHOD 03/13/2025 12:31 PM [facility] MCH 29.2 27.0 - 32.0 pcg LAB HEMETOLOGY METHOD 03/13/2025 12:31 PM EDT [facility] MCHC 33.0 32.0 - 37.0 g/dL LAB HEMETOLOGY METHOD 03/13/2025 12:31 PM EDT [facility] RDW 12.9 11.0 - 15.0 % LAB HEMETOLOGY METHOD 03/13/2025 12:31 PM EDT [facility] Platelets 323 130 - 400 K/mcL LAB HEMETOLOGY METHOD 03/13/2025 12:31 PM EDT [facility] MPV 11.4(H) 7.0 - 11.0 FL LAB HEMETOLOGY METHOD 03/13/2025 12:31 PM EDT [facility] NRBC 0.0 <1.0 % LAB HEMETOLOGY METHOD 03/13/2025 12:31 PM EDT [facility] NRBC Absolute 0.00 <0.10 K/mcL LAB HEMETOLOGY METHOD 03/13/2025 12:31 PM EDT [facility] Blood Venous blood specimen / Unknown Venipuncture / Unknown 03/13/2025 11:16 AM EDT 03/13/2025 11:34 AM EDT Camille Patton MD LAB BLOOD ORDERABLES Final Resul t [facility] [address] [place] [address], * Microalbumin creatinine urine ratio (03/13/2025 11:16 AM EDT) Creatinine, Urine 157.0 mg/dL LAB CHEMISTRY METHOD 03/13/2025 8:33 PM EDT [facility] Microalb, Ur 9.4 0.0 - 29.0 mg/L LAB CHEMISTRY METHOD 03/13/2025 8:33 PM EDT [facility] Microalb/Creat Ratio 6 <30 mg/g creat LAB CHEMISTRY METHOD 03/13/2025 8:33 PM EDT [facility] Urine Urine specimen from urethra / Unknown Non-blood Collection / Unknown 03/13/2025 11:16 AM EDT 03/13/2025 11:35 AM EDT Camille Patton MD LAB URINE ORDERABLES Final Resul t Performing Organization Address [facility] de Phone Number [facility] [address] [place] [address], [place] [phone] * (ABNORMAL) Hemoglobin A1c (03/13/2025 11:16 AM EDT) Hemoglobin A1C 8.5(H) <6.5 % LAB CHEMISTRY METHOD 03/13/2025 1:13 PM EDT [facility] Mean Bld Glu Estim. 197 mg/dL LAB CHEMISTRY METHOD 03/13/2025 1:13 PM EDT [facility] Blood Venous blood specimen / Unknown Venipuncture / Unknown 03/13/2025 11:16 AM EDT 03/13/2025 11:34 AM EDT Camille Patton MD LAB BLOOD ORDERABLES Final Resul t Performing Organization Address [facility] de Phone Number [facility] [address] [place] [address], [place] [phone] * (ABNORMAL) Comprehensive metabolic panel (03/13/2025 11:16 AM EDT) Sodium 140 133 - 145 mmol/L LAB CHEMISTRY METHOD 03/13/2025 4:48 PM EDT [facility] Potassium 4.0 3.5 - 5.5 mmol/L LAB CHEMISTRY METHOD 03/13/2025 4:48 PM EDT [facility] Chloride 106 96 - 110 mmol/L LAB CHEMISTRY METHOD 03/13/2025 4:48 PM EDT [facility] CO2 27 21 - 32 mmol/L LAB CHEMISTRY METHOD 03/13/2025 4:48 PM [facility] Anion Gap 7 3 - 11 LAB CHEMISTRY METHOD 03/13/2025 4:48 PM [facility] Glucose 186(H) 70 - 100 mg/dL LAB CHEMISTRY METHOD 03/13/2025 4:48 PM [facility] BUN 13 5 - 25 mg/dL LAB CHEMISTRY METHOD 03/13/2025 4:48 PM [facility] Creatinine 1.00 0.70 - 1.30 mg/dL LAB CHEMISTRY METHOD 03/13/2025 4:48 PM [facility] eGFR 90 >=60 mL/min/1. 73m2 LAB CHEMISTRY METHOD 03/13/2025 4:48 PM [facility] Comment:Calculation based on the??Chronic Kidney Disease Epidemiology Collaboration (CKD-EPI) equation refit??without adjustment for race. BUN/Creatinine Ratio 13.0 LAB CHEMISTRY METHOD 03/13/2025 4:48 PM [facility] Calcium 8.9 8.5 - 10.5 mg/dL LAB CHEMISTRY METHOD 03/13/2025 4:48 PM [facility] AST (SGOT) 15 10 - 42 unit/L LAB CHEMISTRY METHOD 03/13/2025 4:48 PM [facility] ALT (SGPT) 29 10 - 60 unit/L LAB CHEMISTRY METHOD 03/13/2025 4:48 PM [facility] Alkaline Phosphatase 134(H) 42 - 121 unit/L LAB CHEMISTRY METHOD 03/13/2025 4:48 PM [facility] Total Protein 6.1 6.0 - 8.0 g/dL LAB CHEMISTRY METHOD 03/13/2025 4:48 PM [facility] Albumin 3.2 3.2 - 5.0 g/dL LAB CHEMISTRY METHOD 03/13/2025 4:48 PM EDT [facility] Total Bilirubin 0.3 0.0 - 1.4 mg/dL LAB CHEMISTRY METHOD 03/13/2025 4:48 PM EDT [facility] Blood Venous blood specimen / Unknown Venipuncture / Unknown 03/13/2025 11:16 AM EDT 03/13/2025 11:28 AM EDT Camille Patton MD LAB BLOOD ORDERABLES Final Resul t [facility] [address] [place] [address], * Hepatitis C Screening (01/20/2024) [facility] Hepatitis C Screening abstracted Historical Provider HEALTH MAINTENANCE Final Result from Last 3 Months or Most Recently Relevant to Health Maintenance Insurance MEDICAID - [place] MEDICARE Care Teams Orchid Grower Relationship Specialty Start Date End Date Camille aPtton MD [address] [place] [address] PCP - General Internal Medicine 12/20/24
== END 2025-04-11 09:46 | disposition home or self-care (01) ==
LOC: HO.PMC 09:30
PROVIDERS: PCP Student in an Organized Health Care Education/Training Program; Referring Provider Student in an Organized Health Care Education/Training Program; Visit Provider Anesthesiology
DX: M51.369 Other intervertebral disc degeneration, lumbar region without mention of lumbar back pain or lower extremity pain (principal); M47.816 Spondylosis without myelopathy or radiculopathy, lumbar region; M54.16 Radiculopathy, lumbar region
CPT/HCPCS: 99203

== ENCOUNTER → 2025-04-11 09:29 | Outpatient (BNVA) | payer MEDICARE, MEDICAID, SELFPAY | PROVIDERS: PCP Student in an Organized Health Care Education/Training Program; Referring Provider Student in an Organized Health Care Education/Training Program; Visit Provider Anesthesiology | DX: M51.369 Other intervertebral disc degeneration, lumbar region without mention of lumbar back pain or lower extremity pain (principal); M47.816 Spondylosis without myelopathy or radiculopathy, lumbar region; M54.16 Radiculopathy, lumbar region | CPT/HCPCS: 99202 ==

== ENCOUNTER → 2025-07-27 09:43 | Outpatient (BNV) | payer MEDICARE, MEDICAID, SELFPAY | PROVIDERS: Visit Provider Radiology Diagnostic Radiology | DX: M54.16 Radiculopathy, lumbar region (principal) | CPT/HCPCS: 72148 ==

== ENCOUNTER 2025-07-27 09:50 | Outpatient (REF) | payer MEDICARE, MEDICAID, SELFPAY ==
--- NOTE | ~2025-07-27 | MR_ITS ---
EXAMINATION: MR LUMBAR SPINE WITHOUT CONTRAST CLINICAL INFORMATION: Radiculopathy, lumbar region. COMPARISON: None available. TECHNIQUE: MRI of the lumbar spine was obtained using routine sequences without contrast. FINDINGS: Last rib-bearing vertebra labeled T12. No bone marrow STIR signal abnormality. Marginal osteophyte formation, decreased intervertebral disc height and signal at L4-5, L3-4 and to a lesser extent L2-3, L1 to and L5-S1 levels. There is a grade 1 retrolisthesis L4-5. Conus medullaris ends at inferior endplate of T12 with normal signal. T11-12: No disc herniation. No neuroforamina stenosis. T12-L1: No disc herniation. No neuroforamina stenosis. L1-2: Broad-based disc bulging. No central spinal canal or neuroforamina stenosis. L2-3: Broad based disc bulging. Facet joint hypertrophy. Reduced AP diameter of the thecal sac and neuroforamina. No compression upon neural limits. L3-4: Broad-based disc bulging. Facet joint and ligamentum flavum hypertrophy. Reduced AP diameter of the thecal sac and bilateral neuroforamina stenosis encroaching the neural elements. L4-5: Grade 1 retrolisthesis a central and right subarticular herniated disc with caudal migration beneath the posterior longitudinal ligament on the posterior right of L5. Facet joint and ligamentum flavum hypertrophy. Reduced AP diameter of the thecal sac and bilateral neuroforamina narrowing encroaching the neural elements mostly the right L5 nerve root. L5-S1: Broad-based disc bulging. Facet joint hypertrophy. No central spinal canal or neuroforamina stenosis. No prevertebral compartment hematoma, mass or fluid collection. There is a 9 mm isointense T2 nodular lesion in the left adrenal gland. There is a questionable 5 mm isointense T2 nodular lesion in the right adrenal gland. MR/MR lumbar spine wo con IMPRESSION: Multilevel spondylosis resulting in grade 1 retrolisthesis L4-5 and right subarticular extruded disc with caudal migration at L4-5 encroaching the right L5 nerve root. Central spinal canal and bilateral neuroforamina stenosis at L3-4 encroaching the neural elements of the thecal sac. Probable subcentimeter nodular lesions, adrenal glands. Statistically may represent adenoma. Electronically signed by: Billy Mckeon MD 07/29/2025 09:56 AM EDT
--- OUTSIDE RECORDS SUMMARY | 2025-07-27 10:02 | XMS_ITS | Clinical Summary ---
Author Organization [facility] Address [address] [place] [address] Phone Care Team Providers Care Assistant Professor Of Education Name Role Phone Camille Patton MD Primary Care Provider [phone] Allergies Active Allergy Reactions Criticality Noted Date Comments Nsaids (Non-Steroidal Anti-I nflammatory Drug) 07/30/2015 Medications rosuvastatin (CRESTOR) 40 mg tablet TAKE 1 TABLET BY MOUTH EVERY DAY 90 tablet 1 5 Active enalapril (Vasotec) 20 mg tablet Take 1 tablet (20 mg total) by mouth 1 (one) time each day. 30 each 5 01/31/20 26 Active fexofenadine (HEBERT) 180 mg tablet TAKE 1 TABLET (180 MG TOTAL) BY MOUTH 1 (ONE) TIME EACH DAY IF NEEDED (COUGH). 30 tablet 5 Active albuterol 2.5 mg /3 mL (0.083 %) nebulizer solutionIndicat ions:Chronic obstructive pulmonary disease, unspecified COPD type (CMS/HCC V24, CMS/HCC V28) Take 3 mL (2.5 mg total) by nebulization 4 (four) times a day if needed for wheezing or shortness of breath. 75 mL 3 5 09/07/20 25 Active insulin syringe-needle U-100 0.5 mL 29 gauge x 1/2 syringe Use to inject 1-4 times daily. 100 each 5 03/13/20 26 Active albuterol HFA (PROAIR HFA ; PROVENTIL HFA ; VENTOLIN HFA) 90 mcg/actuation inhaler Inhale 2 puffs by mouth every 6 (six) hours if needed for wheezing. 8.5 each 5 5 Active fluticasone furoate-vilante roL (Breo Ellipta) 100-25 mcg/dose inhaler Inhale 2 puffs by mouth 1 (one) time each day. 1 each 12 5 03/13/20 26 Active dulaglutide (Trulicity) 1.5 mg/0.5 mL pen injector injectionIndica tions:Type 2 diabetes mellitus without complication, without long-term current use of insulin ([facility] V24, [facility] V28) Inject 0.5 mL (1.5 mg total) under the skin every 7 (seven) days. 2 mL 5 5 09/11/20 25 Active ipratropium-alb uteroL (Combivent Respimat) 20-100 mcg/actuation inhaler Inhale 1 puff by mouth 4 (four) times a day. 3 g 4 5 03/29/20 26 Active Active Problems Problem Noted Date Diagnosed Date Chronic obstructive pulmonar y disease ([facility] V24, [facility] V28) 03/13/2025 Mixed hyperlipidemia 01/30/2025 Type 2 diabetes mellitus wit hout complication, without long-term current use of insulin ([facility] V24, [facility] V28) 01/30/2025 Primary hypertension 01/30/2025 Encounters Date Type Department Care Team Description 05/07/2025 Telephone Internal Medicine - [place] [address] [facility] [address] [place] [address] Dmitriy Young MA 05/02/2025 2:11 PM EDT - 05/02/2025 11:59 PM EDT Hospital Encounter [facility] CT Scan [address] [place] [address] Encounter for screening for malignant neoplasm of respiratory organs; Nicotine dependence, cigarettes, uncomplicated Discharge Disposition: Home or Self Care 05/02/2025 1:45 PM EDT Office Visit Lung Screening Program - [place] [address] [facility] [address] [place] [address] Zamzam Mijares PA Encounter for screening for malignant neoplasm of lung in former smoker who quit in past 15 years with 30 pack year history or greater (Primary Dx); Ex-smoker from Last 3 Months Immunizations Name Administration [...] Type 2 diabetes mellitus wit hout complication (CMS/HCC V24, CMS/HCC V28) 06/23/2018 DX:Type 2 diabetes mellitus without complication ([facility]) Vitamin B12 deficiency 03/01/2013 DX:Vitami n B12 deficiency Vitamin D deficiency 02/07/2015 DX:Vitamin D deficiency Back pain DX:Back pain Family History Medical History Relation Name Comments Colon cancer Brother Diabetes Mother Hypertension Mother Other: HDL Mother Lung cancer Neg Hx Relation Name Status Comments Brother Maternal Grandfather Maternal Grandmother Mother Paternal Grandfather Paternal Grandmother Social History Tobacco Use Types Packs/Day Years Used Date Smoking Tobacco: Former Cigarettes 0.8 37.2 1 988 - 01/26/2025 Smokeless Tobacco: Never Alcohol Use Standard Drinks/Week [...] Pulse 87 03/29/2025 8:32 AM EDT Temperature 36.8 C (98.2 F) 05/02/2025 1:49 PM EDT Respiratory Rate 16 03/29/2025 8:32 AM EDT Oxygen Saturation 95% 03/29/2025 8:32 AM EDT Inhaled Oxygen Concentration - - Weight 85.6 kg (188 lb 12.8 oz) 03/29/2025 8:32 AM EDT Height 172.7 cm (5' 8 ) 03/29/2025 8:32 AM EDT Body Mass Index 28.71 03/29/2025 8:32 AM EDT Plan of Treatment Upcoming Encounters Date Type Department Care Team (Late st Contact Info) Description 10/04/2025 10:45 AM EST Office Visit Pulmonolgy - [address] [place] [address] Deborah Molina MD [address] [place] [phone] Health Maintenance Due Date Last Done Comments Diabetes: Annual Foot Exam 1981 Diabetes: Annual Retina Eye Exam 1981 Hepatitis B Vaccines (1 of 3 - 19+ 3-dose series) 1990 Zoster Vaccines (1 of 2) 2021 Colorectal Cancer Screening: Colonoscopy 11/06/2022 HIV Screening 11/06/2022 Medicare Annual Wellness Visit 11/06/2022 Social Influencers of Health Screening 11/06/2022 COVID-19 Vaccine ( season) 2024 05/15/2021, 04/17/2021 Depression Screening 11/28/2024 Influenza Vaccine (#1) 2025 , 08/02/2014, 08/15/2013, Additional history exists Diabetes: Blood Sugar Control Test (HGBA1C) 09/12/2025 03/13/2025, 01/20/2024 Diabetes: Annual Urine Albumin-Creatinine Ratio (uACR) 03/13/2026 03/13/2025, 01/20/2024 Diabetes: Annual GFR (Glomerular Filtration Rate) 03/13/2026 03/13/2025, 12/19/2024, 01/20/2024 Hypertension/CHF/CAD Annual BMP Blood Test 03/13/2026 03/13/2025, 12/19/2024, 01/20/2024 Lung Cancer Screening (Low Dose CT) 05/02/2026 05/02/2025 Cholesterol Screening (Lipid Panel) 03/13/2030 03/13/2025, 01/20/2024 DTaP,Tdap,and Td Vaccines (2 - Td or Tdap) 09/11/2032 09/11/2022 Hepatitis C Screening Completed 01/20/2024 Pneumococcal Vaccine: 50+ Years Completed 01/23/2024 HIB Vaccines Aged Out No [...] Procedure Name Priority Date/Time Associated Diagnosis Comments CT LUNG SCREENING Routine 05/02/2025 2:1 8 PM EDT Encounter for screening for malignant neoplasm of respiratory organs Nicotine dependence, cigarettes, uncomplicated MICROALBUMIN CREATININE URINE RATIO Routine 03/13/2025 11:16 AM EDT Type 2 diabetes mellitus without complication, without long-term current use of insulin ([facility] V24, CMS/[facility] V28) Adult general medical examination COMPREHENSIVE METABOLIC PANEL Routine 03/13/2025 11:16 AM EDT Adult general medical examination HEMOGLOBIN A1C Routine 03/13/2025 11:16 AM EDT Type 2 diabetes mellitus without complication, without long-term current use of insulin (CMS/HCC V24, CMS/[facility] V28) Adult general medical examination LIPID PANEL WITH REFLEX TO DIRECT LDL Routine 03/13/2025 11:16 AM EDT Mixed hyperlipidemia Adult general medical examination HEPATITIS C SCREENING Routine 01/20/2024 from Last 3 Months or Most Recently Relevant to Health Maintenance Results * CT Lung Screening (05/02/2025 2:18 PM EDT) Anatomical Region Laterality Modality Chest Computed Tomogra phy 05/02/2025 4:31 PM EDT Impressions 05/02/2025 4:43 PM EDT Lung RADS 1. No suspicious pulmonary nodule. Guidelines recommend repeat low-dose screening CT in 12 months. -------- FINAL REPORT -------- Dictated By: Mauricio Lord Dictated Date: 05/02/2025 16:31 ET Assigned Physician: Mauricio Lord Reviewed and Electronically Signed By: Mauricio Lord Signed Date: 05/02/2025 16:43 ET Workstation ID: [id number] Transcribed By: Self Edit Transcribed Date: 05/02/2025 16:31 ET Narrative 05/02/2025 4:43 PM EDT PROCEDURE: Low-dose CT of the chest without intravenous contrast. TECHNIQUE: Low-dose CT of the chest without intravenous contrast administration. Coronal and sagittal reformats and MIP reconstructions were created. Dose length product: 114 mGy-cm. HISTORY: Lung cancer screening, >=20 pk yr current smoker (Age 50-80y) COMPARISON: No prior studies available for review. FINDINGS: Lungs/pleura: Small amount of aspirated debris in the trachea. Mild diffuse bronchial wall thickening. Small amount of scarring in the anterolateral lingula. Mild peripheral scarring at the right lung apex. No suspicious pulmonary nodule. No pleural effusion or pneumothorax. Mediastinum/marie: No mediastinal mass or lymphadenopathy. No appreciable hilar lymphadenopathy on limited noncontrast evaluation. Vasculature: Normal caliber pulmonary arteries. Normal appearance of the great vessels. Cardiac: Normal heart size. Mild coronary artery calcification. Chest wall: No axillary or supraclavicular lymphadenopathy. Limited abdomen: Unremarkable. Bones: Degenerative changes of the spine. Procedure Note Mauricio Lord MD - 05/02/2025 PROCEDURE: Low-dose CT of the chest without intravenous contrast. TECHNIQUE: Low-dose CT of the chest without intravenous contrastadministration. Coronal and sagittal reformats and MIP reconstructionswere created. Dose length product: 114 mGy-cm. HISTORY: Lung cancer screening, >=20 pk yr current smoker (Age 50-80y) COMPARISON: No prior studies available for review. FINDINGS: Lungs/pleura: Small amount of aspirated debris in the trachea. Milddiffuse bronchial wall thickening. Small amount of scarring in theanterolateral lingula. Mild peripheral scarring at the right lung apex.No suspicious pulmonary nodule. No pleural effusion or pneumothorax. Mediastinum/marie: No mediastinal mass or lymphadenopathy. No appreciablehilar lymphadenopathy on limited noncontrast evaluation. Vasculature: Normal caliber pulmonary arteries. Normal appearance of thegreat vessels. Cardiac: Normal heart size. Mild coronary artery calcification. Chest wall: No axillary or supraclavicular lymphadenopathy. Limited abdomen: Unremarkable. Bones: Degenerative changes of the spine. IMPRESSION: Lung RADS 1. No suspicious pulmonary nodule. Guidelines recommend repeatlow-dose screening CT in 12 months. -------- FINAL REPORT -------- Dictated By: Mauricio Lord Dictated Date: 05/02/2025 16:31 ET Assigned Physician: Mauricio Lord Reviewed and Electronically Signed By: Mauricio Lord Signed Date: 05/02/2025 16:43 ET Workstation ID: [id number] Transcribed By: Self Edit Transcribed Date: 05/02/2025 16:31 ET Miguel Dexter MD [facility] PROCEDURES Final Result * (ABNORMAL) Lipid panel with reflex to direct LDL (03/13/2025 11:16 AM EDT) Cholesterol 170 0 - 200 mg/dL LAB CHEMISTRY METHOD 03/13/2025 4:48 PM EDT [facility] Triglycerides 244(H) 0 - 150 mg/dL LAB CHEMISTRY METHOD 03/13/2025 4:48 PM EDT [facility] HDL 51 >=40 mg/dL LAB CHEMISTRY METHOD 03/13/2025 4:48 PM EDT [facility] LDL Calculated 70 0 - 100 mg/dL LAB CHEMISTRY METHOD 03/13/2025 4:48 PM EDT [facility] VLDL Cholesterol Toribio 48.8 mg/dL LAB CHEMISTRY METHOD 03/13/2025 4:48 PM EDT [facility] Non HDL Chol. (LDL+VLDL) 119 <145 mg/dL LAB CHEMISTRY METHOD 03/13/2025 4:48 PM EDT [facility] Chol/HDL Ratio 3.3 0.0 - 4.4 LAB CHEMISTRY METHOD 03/13/2025 4:48 PM EDT [facility] Blood Venous blood specimen / Unknown Venipuncture / Unknown 03/13/2025 11:16 AM EDT 03/13/2025 11:28 AM EDT Camille Patton MD LAB BLOOD ORDERABLES Final Resul t [facility] [address] [place] [address], [place] [phone] * Microalbumin creatinine urine ratio (03/13/2025 11:16 AM EDT) Creatinine, Urine 157.0 mg/dL LAB CHEMISTRY METHOD 03/13/2025 8:33 PM EDT [facility] Microalb, Ur 9.4 0.0 - 29.0 mg/L LAB CHEMISTRY METHOD 03/13/2025 8:33 PM EDT [facility] Microalb/Creat Ratio 6 <30 mg/g creat LAB CHEMISTRY METHOD 03/13/2025 8:33 PM EDT [facility] Urine Urine specimen from urethra / Unknown Non-blood Collection / Unknown 03/13/2025 11:16 AM EDT 03/13/2025 11:35 AM EDT Camille Patton MD LAB URINE ORDERABLES Final Resul t Performing Organization Address [facility] Co de Phone Number [facility] [address] [place] [address], * (ABNORMAL) Hemoglobin A1c (03/13/2025 11:16 AM EDT) Hemoglobin A1C 8.5(H) <6.5 % LAB CHEMISTRY METHOD 03/13/2025 1:13 PM EDT [facility] Mean Bld Glu Estim. 197 mg/dL LAB CHEMISTRY METHOD 03/13/2025 1:13 PM EDT [facility] Blood Venous blood specimen / Unknown Venipuncture / Unknown 03/13/2025 11:16 AM EDT 03/13/2025 11:34 AM EDT Camille Patton MD LAB BLOOD ORDERABLES Final Resul t Performing Organization Address [facility] Co de Phone Number [facility] [address] [place] [address], [place] [phone] * (ABNORMAL) Comprehensive metabolic panel (03/13/2025 11:16 AM EDT) Pathologist [facility] Sodium 140 133 - 145 mmol/L LAB CHEMISTRY METHOD 03/13/2025 4:48 PM EDT [facility] Potassium 4.0 3.5 - 5.5 mmol/L LAB CHEMISTRY METHOD 03/13/2025 4:48 PM EDT [facility] Chloride 106 96 - 110 mmol/L LAB CHEMISTRY METHOD 03/13/2025 4:48 PM EDT [facility] CO2 27 21 - 32 mmol/L LAB CHEMISTRY METHOD 03/13/2025 4:48 PM EDT [facility] Anion Gap 7 3 - 11 LAB CHEMISTRY METHOD 03/13/2025 4:48 PM EDT [facility] Glucose 186(H) 70 - 100 mg/dL LAB CHEMISTRY METHOD 03/13/2025 4:48 PM [facility] BUN 13 5 - 25 mg/dL LAB CHEMISTRY METHOD 03/13/2025 4:48 PM [facility] Creatinine 1.00 0.70 - 1.30 mg/dL LAB CHEMISTRY METHOD 03/13/2025 4:48 PM [facility] eGFR 90 >=60 mL/min/1. 73m2 LAB CHEMISTRY METHOD 03/13/2025 4:48 PM [facility] Comment:Calculation based on the Chronic Kidney Disease Epidemiology Collaboration (CKD-EPI) equation refit without adjustment for race. BUN/Creatinine Ratio 13.0 LAB CHEMISTRY METHOD 03/13/2025 4:48 PM [facility] Calcium 8.9 8.5 - 10.5 mg/dL LAB CHEMISTRY METHOD 03/13/2025 4:48 PM [facility] AST (SGOT) 15 10 - 42 unit/L LAB CHEMISTRY METHOD 03/13/2025 4:48 PM [facility] ALT (SGPT) 29 10 - 60 unit/L LAB CHEMISTRY METHOD 03/13/2025 4:48 PM [facility] Alkaline Phosphatase 134(H) 42 - 121 unit/L LAB CHEMISTRY METHOD 03/13/2025 4:48 PM [facility] Total Protein 6.1 6.0 - 8.0 g/dL LAB CHEMISTRY METHOD 03/13/2025 4:48 PM [facility] Albumin 3.2 3.2 - 5.0 g/dL LAB CHEMISTRY METHOD 03/13/2025 4:48 PM [facility] Total Bilirubin 0.3 0.0 - 1.4 mg/dL LAB CHEMISTRY METHOD 03/13/2025 4:48 PM [facility] Blood Venous blood specimen / Unknown Venipuncture / Unknown 03/13/2025 11:16 AM EDT 03/13/2025 11:28 AM EDT Camille Patton MD LAB BLOOD ORDERABLES Final Resul t [facility] [address] [place] [address], * Hepatitis C Screening (01/20/2024) Pathologist [facility] Hepatitis C Screening abstracted Historical Provider HEALTH MAINTENANCE Final Result from Last 3 Months or Most Recently Relevant to Health Maintenance Insurance [place]ICA[place] - [place] MEDICARE Care Teams Assistant Professor Of Education Relationship Specialty Start Date End Date Camille Patton MD [address] [place] [phone] PCP - General Internal Medicine 12/20/24
== END 2025-07-27 09:51 | disposition home or self-care (01) ==
LOC: HO.MRI 09:50
PROVIDERS: Visit Provider Anesthesiology
DX: M54.16 Radiculopathy, lumbar region (principal); M47.816 Spondylosis without myelopathy or radiculopathy, lumbar region; M51.369 Other intervertebral disc degeneration, lumbar region without mention of lumbar back pain or lower extremity pain
CPT/HCPCS: 72148

== ENCOUNTER 2025-08-03 18:18 | Emergency (ER) | payer MEDICARE, MEDICAID, SELFPAY ==
--- NOTE | ~2025-08-03 | XR_ITS ---
CLINICAL HISTORY: sob Two views of the chest. COMPARISON: XR chest dated 03/07/25 at 16:39 EDT FINDINGS: Normal heart and mediastinal contours. Mild tethering of the left hemidiaphragm, similar to prior imaging. No consolidation. Mild bronchial wall thickening. No pleural effusion or pneumothorax. No acute fracture. IMPRESSION: 1. Bronchial wall thickening. Nonspecific finding can be seen with a multifocal infectious or inflammatory process. This document has been electronically signed by: Steve Lang MD on 08/03/2025 19:33:03
[2025-08-03 18:36] VITALS: BP 153/99; PULSE 92; RESP 22; TEMP 37; O2SAT 94; BMI 28.2
--- NOTE | 2025-08-03 18:36 | ED_ITS ---
HPI - General Adult General Chief complaint: Dyspnea Stated complaint: sob Time Seen by Provider: 08/03/25 20:02 Source: patient Mode of arrival: ambulatory Limitations: no limitations History of Present Illness ED Provider: Vivi Hollingsworth PA-C HPI narrative: Patient is a 54 year old assigned male at with a history of asthma, OA, and tobacco use presenting to the emergency department today with shortness of breath and a cough. Patient states that over the last 3 days he has had wheezing, a cough, and increased inhaler use. Patient denies any other complaints at this time. Related Data Home Medications ?Medication ?Instructions ?Recorded ?Confirmed rosuvastatin 40 mg tablet 40 mg PO DAILY 08/30/2001/27 enalapril maleate 20 mg tablet 20 mg PO DAILY 02/21/24 02/21/24 ergocalciferol (vitamin D2) 1,250 1,250 mcg PO QWEEK 0 02/21/24 02/21/24 mcg (50,000 unit) capsule dulaglutide 1.5 mg/0.5 mL mg subcut 04/11/25 subcutaneous pen injector (Trulicity) fluticasone furoate 100 1 ea inhalation DAILY mcg-vilanterol 25 mcg/dose inhalation powder (Breo Ellipta) Previous Rx's ?Medication ?Instructions ?Recorded guaifenesin 600 mg tablet, 600 mg PO BID #6 tabs 02/21 extended release 12 hr (Mucus Relief ER) glipizide 5 mg tablet 5 mg PO DAILY #30 tabs 03/31 albuterol sulfate 2.5 mg/3 mL 2.5 mg (3 mL) inhalation QID PRN 01/05/25 (0.083 %) solution for nebulization shortness of breat h or wheezing #75 mL albuterol sulfate 90 mcg/actuation 2 puff inhalation Q 6H PRN 03/07/25 aerosol inhaler shortness of breath or wheez ing #6.7 grams inhalational spacing device (Michael #1 ea 03/07/25 Aerosol Mono Enhancer spacer) amoxicillin 875 mg-potassium 1 tab PO BID 7 days #14 t abs 08/03/25 clavulanate 125 mg tablet doxycycline hyclate 100 mg tablet 100 mg PO BID 7 days #14 tabs 08/03/25 prednisone 20 mg tablet 40 mg (2 x 20 mg) PO DAILY C OPD 08/03/25 exacerbation 5 days #10 tabs Allergies Allergy/AdvReac Type Severity Reaction Status Date / Time aspirin Allergy Unknown swelling Verified 08/03/25 18:38 Review of Systems Constitutional: Constitutional: Reports as per HPI Eyes: Eyes: Reports as per HPI ENT: Reports as per HPI Cardiovascular: Cardiovascular: Reports as per HPI Respiratory: Respiratory: Reports as per HPI Gastrointestinal: Gastrointestinal: Reports as per HPI Genitourinary: Genitourinary: Reports as per HPI Musculoskeletal: Musculoskeletal: Reports as per HPI Integumentary/Breasts: Skin/Breast: Reports as per HPI Neurologic: Reports as per HPI Psychiatric: Psychiatric: Reports as per HPI Endocrine: Endocrine: Reports as per HPI Hematologic/Lymphatic: Hematologic/Lymphatic: Reports as per HPI Allergic/Immunologic: Allergic/Immunologic: Reports as per HPI PMFSH Past Medical History Attestation statement: The following information was validated with the patient. Source: old records reviewed and nursing notes reviewed Medical History Eczema Chronic midline low back pain Mixed hyperlipidemia Hypertension Diabetes mellitus without complication, without long-term current use of insulin COPD (chronic obstructive pulmonary disease) Cigarette smoker Asthma Depression Pancreatitis Facet arthropathy, cervical Social History Social History Alcohol intake: current Alcohol intake frequency: a few times a month Patient Tobacco Use Status: Former Tobacco user Cigarettes Per Day: 10 Advance Directives: No Advance Directives Information Provided: No service: No Physical Exam ED Vital Signs: Vital Signs - 24 hr 08/03/25 18:36 08/03/25 20:22 Temperature 98.6 F Pulse Rate 92 82 Respiratory Rate 22 H 18 Blood Pressure 153/99 H Pulse Oximetry 94 Oxygen Delivery Method Room Air BMI result Body Mass Index 28.2 Const General: cooperative, no acute distress, alert and awake Nutritional Appearance: well nourished Orientation/consciousness: patient oriented x3 HENMT Head: Yes normal to inspection and Yes atraumatic Ears: hearing grossly normal bilaterally and external ears normal General nose exam: Normal external nose present, no nasal discharge noted and no epistaxis Face and sinus: Yes normal facial exam, No abrasion and No laceration Mouth: Normal oral and palatal mucosa present, no drooling and no muffled voice Eyes General: appearance normal, both eyes and all related structures Periorbital: periorbital findings normal Eyelids: Yes eyelids normal Conjunctivae: conjunctivae normal Pupils: Equal, round and reactive pupils present EOM: EOMs intact bilaterally Neck Neck: Yes normal visual inspection and Yes full ROM Resp Effort & Inspection: normal respiratory effort, able to speak in complete sentences and Actively coughing Auscultation: wheezes Neuro General: patient oriented x3, moves all extremities and CN's II-XI intact bilaterally Cranial nerves: Yes Equal, round and reactive pupils present Cognition (Neuro): normal cognition Extrem General: Yes normal to inspection, Yes full ROM and Yes capillary refill normal Psych Appearance: grossly normal Mental Status: mental status grossly normal Affect: normal affect Attitude: cooperative Thought process: Normal thought process present Thought content: Normal thought content present Insight: Good insight present (Psych) Course Course Course Narrative: This is a Rapid Medical Examination (RME) performed by Rohit Santoyo PA-C in triage. Full HPI, ROS, assessment and treatment plan per primary provider in the Main ED. Hx: 54 yo M hx of asthma here for eval of sob x3 days. I feel like im going to . reports using his inhaler >10 times today, no relief. PE/vitals: diffuse exp wheezes and rhonchi. satting 95% on RA. Plan: cxr, flu/covid. will need steroid tx. Medications Administered Discontinued Medications Generic Name Dose Route Start Last Admin Trade Name Freq PRN Reason Stop Dose Admin Amoxicillin/Clavulanate Potassium 875 mg 08/03/25 20:05 08/03/25 20:32 Amoxicillin/Potassium Clav 875 Mg Tablet PO 08/03/25 20:06 875 mg ONCE ONE Administration Doxycycline Monohydrate 100 mg 08/03/25 20:05 08/03/25 20:32 Doxycycline Monohydrate 100 Mg Capsule PO 08/03/25 20:06 100 mg ONCE ONE Administration Methylprednisolone Sodium Succinate 60 mg 08/03/25 20:02 08/03/25 20:31 Methylprednisolone Sod Succ 125 Mg/2 Ml Vial IM 08/03/25 20:03 60 mg ONCE ONE Administration Medical Decision Making Medical Decision Making MDM Narrative: Patient is a 54 year old assigned male at with a history of asthma, OA, and tobacco use presenting to the emergency department today with shortness of breath and a cough. Patient's physical exam was as noted in the physical exam portion of this note. Patient's chest x-ray showed evidence of pneumonia and asthma. I explained my physical exam findings as well as all test results to the patient. I answered all questions asked by the patient. Patient received solu- medrol and a breathing treatment which, upon re-evaluation, he stated it helped his symptoms significantly. I stressed the importance of the patient taking his medication as directed (either prescribed or as the over the counter packaging recommends). I stressed the importance of the patient following up with his primary care provider. I stressed the importance of the patient returning to the emergency department immediately if his symptoms were to worsen or if he were to develop any dizziness, shortness of breath, difficulty breathing, chest pain, blurry vision, loss of vision, nausea, vomiting, abdominal pain, fever, chills, back pain, or any other complaints. Patient verbalized agreement and understanding with this treatment plan and discharge. Differential Diagnosis Differential Diagnoses: The differential diagnosis associated with the presentation includes Pneumonia Wheezing Asthma exacerbation COVID-19 Influenza Admission/Observation Consideration of admission/observation: Escalation of care including admission/observation considered Patient would have been admitted to the hospital had his work up had any findings where hospital admission was appropriate and his clinical presentation warranted hospital admission. Lab Data MDM Lab Attestation statement: I reviewed the patient's lab results. My interpretation of these studies and their corresponding values is that they are grossly normal. Labs: Lab Results 08/03/25 Range/Units 18:59 COVID-19 (OSMAR) Negative (Negative) COVID-19 Clin Com See Note Influenza Type A (SENDY) Negative (Negative) Influenza Type B (SENDY) Negative (Negative) Influenza A & B Note See Note Independent Interpretation I performed an independent interpretation of an: Plain X-Ray Interpretation: My interpretation is in agreement with the radiologist's impression of this imaging study. CLINICAL HISTORY: sob Two views of the chest. COMPARISON: XR chest dated 03/07/25 at 16:39 EDT FINDINGS: Normal heart and mediastinal contours. Mild tethering of the left hemidiaphragm, similar to prior imaging. No consolidation. Mild bronchial wall thickening. No pleural effusion or pneumothorax. No acute fracture. IMPRESSION: 1. Bronchial wall thickening. Nonspecific finding can be seen with a multifocal infectious or inflammatory process. This document has been electronically signed by: Steve Lang MD on 08/03/2025 19:33:03 Dictated By: Steve Lang MD Signed By: Electronically signed by Steve Lang MD 08/03/251933 Radiology Impression Discussion of test interpretation with radiology: I have reviewed the radiologist's reading. Prescription Management I considered prescription management with: Antibiotic (patient prescribed an antibiotic for PNA) Discharge Plan Discharge Clinical Impression: Atypical pneumonia, Asthma exacerbation Patient Disposition: Home, Self-Care Instructions: Asthma (DC), Pneumonia (ED) Additional Instructions: Take your medication as prescribed. Avoid prolonged periods of time in the direct sunlight while on your antibiotics. IF you are prescribed home medications and/or you are taking over the counter medications at home - it is very important you continue to do so as prescribed / directed unless told otherwise. SI le recetan medicamentos y/o est? tomando medicamentos de venta archana, es muy importante que contin?e haci?ndolo seg?n lo recetado/indicado a menos que le indiquen lo contrario. Follow up with your primary care provider. Return to the emergency department immediately if your symptoms worsen or if you develop any dizziness, shortness of breath, difficulty breathing, chest pain, blurry vision, loss of vision, nausea, vomiting, abdominal pain, fever, chills, back pain, or any other complaints. Katelynn?seguimiento?con decker m?dico de atenci?n primaria. Acuda inmediatamente al servicio de urgencias si mary kate s?ntomas empeoran o si presenta falta de aliento, dificultad para respirar, dolor tor?cico, mareos, aturdimiento, dolor de espalda, dolor abdominal, fiebre, escalofr?os o cualquier otro s?ntoma. If you do not have a primary care provider - call any of the below numbers to establish and follow up with a primary care provider. Si no tiene un proveedor de atenci?n primaria, llame a cualquiera de los n?meros que aparecen a continuaci?n para establecer y hacer seguimiento con un proveedor de atenci?n primaria. [facility] ([place]) [phone] [place] [address], [address] [facility] ([facility] [place]) [phone] [place] [address], [address] [facility], [address] [facility] ([facility] [address] [place]) [phone] [place] [address], [address] [facility], [address] [facility] ([place]) [phone] [place] [address], [address] [facility], [address] [facility] [phone] [place] [address], [address] Please see the information below about our Patient Portal. If you are not yet enrolled in the [facility] Patient Portal, you will receive an enrollment email invitation following your visit to any [facility] setting. You may also self-enroll in the Patient Portal by visiting our website: [email or web address] The following information is required to access the Patient Portal: - Your [facility] Medical Record Number - Your personal home email address (must match what is in your electronic medical record, Registration staff can assist with this) - Name - Date of Capabilities of the Patient Portal: - Message some providers - View upcoming appointments - Access your health summary, medical history, and visit history - View current conditions and allergies - View procedure and lab results - View your medications, including guidelines, side effects, and precautions - Complete pre-appointment questionnaires requested by your provider - Ready summary reports of your office visits and procedures To access the Patient Portal Mobile Veronique, follow these directions: - Search [email or web address] in the Veronique Store or 4moms Store - Download the Veronique - Search for [facility] - Enter your login/password Portal del paciente Si usted no esta inscrito en el portal de pacientes de [facility], recibira logan invitacion de inscripcion despues de decker visita al [facility] o al [facility] via correo electronico. Tambien puede inscribirse voluntariamente en el portal de pacientes visitando nuestra pagina web: [email or web address] La siguiente informacion sera requerida para acceder al portal: - Decker maggie de historia medica de [facility] - Decker direccion de correo electronico personal - Nombre - Fecha de nacimiento Capacidades: Las siguientes capacidades estan disponibles en el portal de pacientes: - Enviar mensajes a algunos doctores - Verificar proximas citas - Acceso a decker historial de hank, registro medico e historial de visitas - Jane las condiciones actuales y alergias jane procedimientos y resultados del laboratorio - Jane mary kate medicamentos, incluyendo las pautas - Efectos secundarios y precauciones - Completar o llenar formularios / cuestionarios de - Citas solicitadas por decker doctor - Leer los resumenes de reportes medicos de mary kate visitas y procedimientos Avinash acceder a la aplicacion movil: - Busque [email or web address] en la Veronique Store o [employer]moms Store - Descargue la aplicacion - Busque [facility] - Ingrese decker nombre de usuario / Contrasena Prescriptions: New prednisone 20 mg tablet 40 mg PO DAILY 5 Days Qty: 10 0RF doxycycline hyclate 100 mg tablet 100 mg PO BID 7 Days Qty: 14 0RF amoxicillin-pot clavulanate 875-125 mg tablet 1 tab PO BID 7 Days Qty: 14 0RF No Action glipizide 5 mg tablet 5 mg PO DAILY Qty: 30 0RF albuterol sulfate 2.5 mg /3 mL (0.083 %) solution for nebulization 2.5 mg inhalation QID PRN (Reason: shortness of breath or wheezing) Qty: 75 0RF enalapril maleate 20 mg tablet 20 mg PO DAILY ergocalciferol (vitamin D2) 1,250 mcg (50,000 unit) capsule 1,250 mcg PO QWEEK guaifenesin [Mucus Relief ER] 600 mg tablet extended release 12hr 600 mg PO BID Qty: 6 0RF albuterol sulfate 90 mcg/actuation HFA aerosol inhaler 2 puff inhalation Q6H PRN (Reason: shortness of breath or wheezing) Qty: 6.7 1RF (DME) Michael Aerosol Mono Enhancer Spacer See Rx Instructions .Route Qty: 1 0RF Rx Instructions: As directed rosuvastatin 40 mg tablet 40 mg PO DAILY fluticasone furoate-vilanterol [Breo Ellipta] 100-25 mcg/dose blister with device 1 ea inhalation DAILY Trulicity 1.5 mg/0.5 mL pen injector subcut Print Language: Albanian
[2025-08-03 19:56] LABS: COVID-19 Test Negative (Negative); IDNOW Serial# 152EDE1D; IDNOW Serial# 16C4AD1C; Influenza B2 Negative (Negative)
--- OUTSIDE RECORDS SUMMARY | 2025-08-03 20:07 | XMS_ITS | Patient Health Record ---
Author Organization [facility] Address [address] [place] [address] Care Team Providers Care Concrete Buildings Assembler Name Role Phone Prince CALLEJAS, Yuliya Primary Care Provider Unavailab le Allergies Allergen (clinical drug ingredient) Drug/Non Drug Allergy documented on EMR Reaction Allergy Type Onset Date Status aspirin Aspirin Unknown Drug Allergy Active oxycodone OxyContin hives Drug Allergy Active Reason For Referral No Information Medications Medication SIG (Take, Route, Frequency, Duration) Notes Start Date End Date Status Dicyclomine HCl 20 MG 1 tablet Orally Tw ice a day Active Rosuvastatin Calcium 40 MG 1 tablet Oral ly Once a day Active Enalapril Maleate 10 MG 1 tablet Orally Once a day Active Varenicline Tartrate 0.5 MG X 11 & 1 MG X 42 as directed Orally Activ e oxyCODONE HCl 10 MG 1 tablet Orally TID Active hydrOXYzine HCl 50 MG 1 tablet Orally BID Active Insulin Aspart 100 UNIT/ML 0.3 Unit/KG S ubcutaneous one time Active Folic Acid 1 MG 1 tablet Orally Once a day Active Hydrocortisone 2.5 % 1 application Exter yesi Twice a day Active Naloxone HCl 4 MG/0.1ML Nasally Active Nystatin 446105 UNIT/GM Externally 1-2 t imes a day Active Insulin Glargine 100 UNIT/ML Subcutaneous Active metFORMIN HCl 500 MG Orally Active Diclofenac Potassium 25 MG 1 capsule Ora lly Twice a day Active Social History Tobacco Use: Social History Observation Description Date Details (start date - stop date) Former Smoker NA - NA Tobacco Use/Smoking Question Answer Notes Are you a former smoker How long has it been since you last smoked? 1-5 years Additional Findings: Tobacco Non-User Current no n-smoker Alcohol Screen (Audit-C) Question Answer Notes Did you have a drink containing alcohol in the p ast year? No Points 0 Interpretation Negative Plan Of Treatment No Information Insurance Providers Payer Name Payer Address Payer Phone Subscriber Number Group Number Insured Name Patient Relationship to Insured Coverage Start Date Coverage End Date [place] [address] [place] [id number] MARIBETH LAWRENCE Self - patient is the insured [employer] of [place] [address] [place] [address] [id number] MARIBETH LAWRENCE Self - patient is the insured Medical (General) History Medical History History ICD Code type 2 diabetes hypertension hypercholesterolemia major depressive disorder anemia vitamin D deficiency Surgical History Surgery Date(Month/Year) hernia 2009
--- OUTSIDE RECORDS SUMMARY | 2025-08-03 20:07 | XMS_ITS | Clinical Summary ---
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 2 mL 5 5 09/11/20 25 Active ipratropium-alb uteroL (Combivent Respimat) 20-100 mcg/actuation inhaler Inhale 1 puff by mouth 4 (four) times a day. 3 g 4 5 03/29/20 26 Active Active Problems Problem Noted Date Diagnosed Date Chronic obstructive pulmonar y disease ([facility] [place] [facility] [place] 03/13/2025 Mixed hyperlipidemia 01/30/2025 Type 2 diabetes mellitus wit hout complication, without long-term current use of insulin [place] [place] [facility] [place] 01/30/2025 Primary hypertension 01/30/2025 Encounters Date Type Department Care Team Description 05/07/2025 Telephone Internal Medicine - [address] [place] [address] Dmitriy Young MA from Last 3 Months Immunizations Name Administration [...] Type 2 diabetes mellitus wit hout complication ([facility] V24, [facility] V28) 06/23/2018 DX:Type 2 diabetes mellitus without complication ([facility]) Vitamin B12 deficiency 03/01/2013 DX:Vitami n B12 [...] 10:45 AM EST Office Visit Pulmonolgy - [place] [address] [facility] [address] [place] [address] Deborah Molina MD [address] [place] [address] [address] [place] [address] Health Maintenance Due Date Last Done Comments Diabetes: Annual Foot Exam 1981 Diabetes: Annual Retina Eye Exam 1981 Hepatitis B Vaccines (1 of 3 - 19+ 3-dose series) 1990 Zoster Vaccines (1 of 2) 2021 Colorectal Cancer Screening: Colonoscopy 11/06/2022 HIV Screening 11/06/2022 Medicare Annual Wellness Visit 11/06/2022 Social Influencers of Health Screening 11/06/2022 Depression Screening 11/28/2024 COVID-19 Vaccine ( season) 2025 05/15/2021, 04/17/2021 Influenza Vaccine (#1) 2025 , 08/02/2014, 08/15/2013, [...] complication, without long-term current use of insulin ([facility] V24, [facility] V28) Adult general medical examination COMPREHENSIVE METABOLIC PANEL Routine 03/13/2025 11:16 AM EDT Adult general medical examination HEMOGLOBIN A1C Routine 03/13/2025 11:16 AM EDT Type 2 diabetes mellitus without complication, without long-term current use of insulin ([facility] V24, [facility] V28) Adult general medical examination LIPID PANEL WITH REFLEX TO DIRECT LDL Routine 03/13/2025 11:16 AM EDT Mixed hyperlipidemia Adult general medical examination HM HEPATITIS C SCREENING Routine 01/20/2024 from Last [...] Signed Date: 05/02/2025 16:43 ET Workstation ID: [id number] Transcribed By: Self Edit Transcribed Date: 05/02/2025 [...] Signed Date: 05/02/2025 16:43 ET Workstation ID: [id number] Transcribed By: Self Edit Transcribed Date: 05/02/2025 16:31 ET Miguel Dexter MD [facility] PROCEDURES Final Result * (ABNORMAL) Lipid panel with reflex to direct LDL (03/13/2025 11:16 AM EDT) Cholesterol 170 0 - 200 mg/dL LAB CHEMISTRY METHOD 03/13/2025 4:48 PM EDT [facility] Triglycerides 244(H) 0 - 150 mg/dL LAB CHEMISTRY METHOD 03/13/2025 4:48 PM EDT [facility] HDL 51 >=40 mg/dL LAB CHEMISTRY METHOD 03/13/2025 4:48 PM EDT [facility] LDL Calculated 70 0 - 100 mg/dL LAB CHEMISTRY METHOD 03/13/2025 4:48 PM EDT [facility] VLDL Cholesterol Toribio 48.8 mg/dL LAB CHEMISTRY METHOD 03/13/2025 4:48 PM EDT [facility] Non HDL Chol. (LDL+VLDL) 119 <145 mg/dL LAB CHEMISTRY METHOD 03/13/2025 4:48 PM EDT [facility] Chol/HDL Ratio 3.3 0.0 - 4.4 LAB CHEMISTRY METHOD 03/13/2025 4:48 PM EDT [facility] Blood Venous blood specimen / Unknown Venipuncture / Unknown 03/13/2025 11:16 AM EDT 03/13/2025 11:28 AM EDT Camille Patton MD LAB BLOOD ORDERABLES Final Resul t Performing Organization Address City/[facility]/ZIP Co de Phone Number [facility] [address] [place] [address], [place] [phone] * Microalbumin creatinine urine ratio (03/13/2025 11:16 AM EDT) Creatinine, Urine 157.0 mg/dL LAB CHEMISTRY METHOD 03/13/2025 8:33 PM EDT [facility] Microalb, Ur 9.4 0.0 - 29.0 mg/L LAB CHEMISTRY METHOD 03/13/2025 8:33 PM EDT [facility] Microalb/Creat Ratio 6 <30 mg/g creat LAB CHEMISTRY METHOD 03/13/2025 8:33 PM EDT [facility] Urine Urine specimen from urethra / Unknown Non-blood Collection / Unknown 03/13/2025 11:16 AM EDT 03/13/2025 11:35 AM EDT us Camille Patton MD LAB URINE ORDERABLES Final Resul t Performing Organization Address City/[facility]/ZIP Co de Phone Number [facility] [address] [place] [address], [place] [phone] * (ABNORMAL) Hemoglobin A1c (03/13/2025 11:16 AM EDT) Hemoglobin A1C 8.5(H) <6.5 % LAB CHEMISTRY METHOD 03/13/2025 1:13 PM EDT [facility] Mean Bld Glu Estim. 197 mg/dL LAB CHEMISTRY METHOD 03/13/2025 1:13 PM EDT [facility] Blood Venous blood specimen / Unknown Venipuncture / Unknown 03/13/2025 11:16 AM EDT 03/13/2025 11:34 AM EDT us Camille Patton MD LAB BLOOD ORDERABLES Final Resul t [facility] [address] [place] [address], * (ABNORMAL) Comprehensive metabolic panel (03/13/2025 11:16 AM EDT) Sodium 140 133 - 145 mmol/L LAB CHEMISTRY METHOD 03/13/2025 4:48 PM [facility] Potassium 4.0 3.5 - 5.5 mmol/L LAB CHEMISTRY METHOD 03/13/2025 4:48 PM [facility] Chloride 106 96 - 110 mmol/L LAB CHEMISTRY METHOD 03/13/2025 4:48 PM [facility] CO2 27 21 - 32 mmol/L LAB CHEMISTRY METHOD 03/13/2025 4:48 PM [facility] Anion Gap 7 3 - 11 LAB CHEMISTRY METHOD 03/13/2025 4:48 PM [facility] Glucose 186(H) 70 - 100 mg/dL LAB CHEMISTRY METHOD 03/13/2025 4:48 PM [facility] BUN 13 5 - 25 mg/dL LAB CHEMISTRY METHOD 03/13/2025 4:48 PM [facility] Creatinine 1.00 0.70 - 1.30 mg/dL LAB CHEMISTRY METHOD 03/13/2025 4:48 PM [facility] eGFR 90 >=60 mL/min/1. 73m2 LAB CHEMISTRY METHOD 03/13/2025 4:48 PM [facility] Comment:Calculation based on the Chronic Kidney Disease Epidemiology Collaboration (CKD-EPI) equation refit without adjustment for race. BUN/Creatinine Ratio 13.0 LAB CHEMISTRY METHOD 03/13/2025 4:48 PM EDT [facility] Calcium 8.9 8.5 - 10.5 mg/dL LAB CHEMISTRY METHOD 03/13/2025 4:48 PM EDT [facility] AST (SGOT) 15 10 - 42 unit/L LAB CHEMISTRY METHOD 03/13/2025 4:48 PM T [facility] ALT (SGPT) 29 10 - 60 unit/L LAB CHEMISTRY METHOD 03/13/2025 4:48 PM T [facility] Alkaline Phosphatase 134(H) 42 - 121 unit/L LAB CHEMISTRY METHOD 03/13/2025 4:48 PM EDT [facility] Total Protein 6.1 6.0 - 8.0 g/dL LAB CHEMISTRY METHOD 03/13/2025 4:48 PM EDT [facility] Albumin 3.2 3.2 - 5.0 g/dL LAB CHEMISTRY METHOD 03/13/2025 4:48 PM [facility] Total Bilirubin 0.3 0.0 - 1.4 mg/dL LAB CHEMISTRY METHOD 03/13/2025 4:48 PM [facility] Blood Venous blood specimen / Unknown Venipuncture / Unknown 03/13/2025 11:16 AM EDT 03/13/2025 11:28 AM EDT Camille Patton MD LAB BLOOD ORDERABLES Final Resul t [facility] [address] [place] [address], * Hepatitis C Screening (01/20/2024) Hepatitis C Screening abstracted us Historical Provider HEALTH MAINTENANCE Final Result from Last 3 Months or Most Recently Relevant to Health Maintenance Insurance MEDICA[place] - [place] MEDICARE Care Teams Journeyman 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
[2025-08-03 20:22] VITALS: PULSE 82; RESP 18; O2SAT 94
[2025-08-03] MEDS: Albuterol Sulfate 2.5 MG, Albuterol/Iprat 2.5/0.5MG 3 ML 3 ML INHALE (20:33)
[2025-08-03 20:45] VITALS: BP 140/76; PULSE 82; RESP 18; TEMP 36.8; O2SAT 97
== END 2025-08-03 20:45 | disposition home or self-care (01) ==
PROVIDERS: Physician Assistant Medical; Emergency Provider Emergency Medicine
DX: J18.8 Other pneumonia, unspecified organism (principal); J45.901 Unspecified asthma with (acute) exacerbation; R06.00 Dyspnea, unspecified; J45.909 Unspecified asthma, uncomplicated; M19.90 Unspecified osteoarthritis, unspecified site; R06.02 Shortness of breath; R05.9 Cough, unspecified; F17.200 Nicotine dependence, unspecified, uncomplicated
CPT/HCPCS: 71046; 87502; 87635; 94640; 96372; 99283; 99284; J2919

== ENCOUNTER → 2025-08-03 18:38 | Outpatient (BNV) | payer MEDICARE, MEDICAID, SELFPAY | PROVIDERS: Visit Provider Radiology Diagnostic Radiology | DX: R06.02 Shortness of breath (principal) | CPT/HCPCS: 71046 ==

== ENCOUNTER 2025-08-14 14:58 | Outpatient (AMB) | payer MEDICARE, MEDICAID, SELFPAY ==
[2025-08-14 15:02] VITALS: BP 137/92; PULSE 101; RESP 20; O2SAT 94
--- NOTE | 2025-08-14 15:02 | A.OFFVIS_ITS ---
Vital Signs 08/14/25 15:02 Weight 190 lb BP 137/92 H Blood Pressure Location Lt brachial Position Sitting Respiration 20 Pulse 101 H Pulse Source Pulse Oximeter Pulse Oximetry (%) 94 Oxygen Delivery Method Room Air Intake Visit Reasons: Lumbar Spine MRI Review Allergies aspirin Allergy (Unknown, Verified 08/03/25 18:38) swelling HPI Comments Details: Sunny is back in my office after MRI was done. He also completed full course of physical therapy and reported very minimal pain improvement after physical therapy. The full dictation of the MRI reported as below, however attention was attracted to L4-5 nerve root compression on the right. The patient has right- sided radiculopathic pain. I will schedule him for transforaminal L4-5 epidural steroid injection. I will see him 4 weeks after the procedure. very pleasant 54 years old gentleman who presents in my office with complains on pain in the lower back with radiation down the right lower extremity all the way to the ankle, however not into the foot and not into the toe. He also reports on cervicalgia but cervicalgia is on the background. He was under care of this office originally he came with the intention to receive comprehensive pain management in our office however later on he refused to receive any injections on the premise that he is diabetic. I explained today to the patient that we are interventional pain management office and we will be able to help him only if he agrees to participate in interventional pain management. Patient expressed understanding and agreed to go for interventional pain treatment. [facility] Medical History Eczema Chronic midline low back pain Mixed hyperlipidemia Hypertension Diabetes mellitus without complication, without long-term current use of insulin COPD (chronic obstructive pulmonary disease) Cigarette smoker Asthma Depression Pancreatitis Facet arthropathy, cervical Social History Alcohol intake: current Alcohol intake frequency: a few times a month Patient Tobacco Use Status: Former Tobacco user Cigarettes Per Day: 10 service: No Review of Systems Const All systems reviewed & are unremarkable except as noted in HPI and below ENT Reports Normal hearing present Neuro Reports Normal hearing present, Denies Abnormal speech present, Denies confusion and Denies Sensory deficit (Neuro) Psych Denies confusion Physical Exam Vital Signs: Last Vital Signs Pulse 101 H 08/14/25 15:02 Resp 20 08/14/25 15:02 BP 137/92 H 09/17/25 15:02 Pulse Ox 94 08/14/25 15:02 Oxygen Delivery Method Room Air 08/14/25 15:02 Const General: no acute distress; No confusion Orientation/consciousness: patient oriented x3 and No confusion Eyes General: appearance normal, both eyes and all related structures Pupils: Equal, round and reactive pupils present EOM: EOMs intact bilaterally Neck Neck: Yes full ROM Chest Chest palpation & inspection: normal inspection of the chest Resp Effort & Inspection: normal respiratory effort, able to speak in complete sentences, normal respiratory pattern, no audible wheezes and no cough Cardio Jugular venous distension: no JVD GI Inspection: Yes normal to inspection Back/Spine/Pelvis Other: Able to stand on bilateral tiptoes in bilateral heels without difficulty. Gait is unaffected. Flexing forward and flexing backwards aggravate his pain. SLR is positive on the right. Lasegue test is positive on the right. Neuro General: patient oriented x3, gait normal and No confusion Cranial nerves: Yes CN's II-XII intact bilaterally, Yes Equal, round and reactive pupils present, Yes Normal hearing present and Yes Ability to bilaterally elevate shoulders present Speech: No Abnormal speech present Gait exam (Neuro): Normal gait present Motor exam (neuro): 5/5 motor strength present throughout Sensory Exam: No Sensory deficit (Neuro) Extrem General: No pedal edema Psych Speech and movement: Normal speech and movement present Affect: normal affect Attitude: cooperative Thought process: Normal thought process present Thought content: Normal thought content present Insight: Good insight present (Psych) Judgement: Good judgement present (Psych) Results Reviewed Results Reviewed: MR LUMBAR SPINE WITHOUT CONTRAST CLINICAL INFORMATION: Radiculopathy, lumbar region. COMPARISON: None available. TECHNIQUE: MRI of the lumbar spine was obtained using routine sequences without contrast. FINDINGS: Last rib-bearing vertebra labeled T12. No bone marrow STIR signal abnormality. Marginal osteophyte formation, decreased intervertebral disc height and signal at L4-5, L3-4 and to a lesser extent L2-3, L1 to and L5-S1 levels. There is a grade 1 retrolisthesis L4-5. Conus medullaris ends at inferior endplate of T12 with normal signal. T11-12: No disc herniation. No neuroforamina stenosis. T12-L1: No disc herniation. No neuroforamina stenosis. L1-2: Broad-based disc bulging. No central spinal canal or neuroforamina stenosis. L2-3: Broad based disc bulging. Facet joint hypertrophy. Reduced AP diameter of the thecal sac and neuroforamina. No compression upon neural limits. L3-4: Broad-based disc bulging. Facet joint and ligamentum flavum hypertrophy. Reduced AP diameter of the thecal sac and bilateral neuroforamina stenosis encroaching the neural elements. L4-5: Grade 1 retrolisthesis a central and right subarticular herniated disc with caudal migration beneath the posterior longitudinal ligament on the posterior right of L5. Facet joint and ligamentum flavum hypertrophy. Reduced AP diameter of the thecal sac and bilateral neuroforamina narrowing encroaching the neural elements mostly the right L5 nerve root. L5-S1: Broad-based disc bulging. Facet joint hypertrophy. No central spinal canal or neuroforamina stenosis. No prevertebral compartment hematoma, mass or fluid collection. There is a 9 mm isointense T2 nodular lesion in the left adrenal gland. There is a questionable 5 mm isointense T2 nodular lesion in the right adrenal gland. IMPRESSION: Multilevel spondylosis resulting in grade 1 retrolisthesis L4-5 and right subarticular extruded disc with caudal migration at L4-5 encroaching the right L5 nerve root. Central spinal canal and bilateral neuroforamina stenosis at L3-4 encroaching the neural elements of the thecal sac. Probable subcentimeter nodular lesions, adrenal glands. Statistically may represent adenoma. Assessment & Plan Assessment & Plan (1) Disc degeneration, lumbar: Code(s): M51.369 - Other intervertebral disc degeneration, lumbar region without mention of lumbar back pain or lower extremity pain Category: Medical (2) Spondylosis of lumbar joint: Code(s): M47.816 - Spondylosis without myelopathy or radiculopathy, lumbar region Category: Medical (3) Radiculopathy, lumbar region: Code(s): M54.16 - Radiculopathy, lumbar region Category: Medical Plan This patient reports severe pain out of 10 radiating down to the lower extremity. Suspicious for radiculopathy. He completed physical therapy with minimal improvement. Continues home exercise program at this time with minimal improvement. The dictation of the MRI see as above. I will schedule him for L4-5 transforaminal epidural steroid injection on the right.. I will see this patient 4 weeks after the procedure. Patient Instructions: I here by testify that I spent 30 minutes in conversation with this patient as well as planning his care and organizing this note. documentation lead Miranda Taylor was helping us to maintain this conversation in Sinhala. Coding Level of Care Code Est Pt Level 4 (19358) Diagnoses Disc degeneration, lumbar M51.369 Spondylosis of lumbar joint M47.816 Radiculopathy, lumbar region M54.16
--- OUTSIDE RECORDS SUMMARY | 2025-08-14 18:31 | XMS_ITS | Patient Health Record ---
Author Organization [facility] Address [address] [place] [address] Care Team Providers Care Location Man Name Role Phone Prince CALLEJAS, Yuliya Primary [...] Naloxone HCl 4 MG/0.1ML Nasally Active Nystatin [id number] UNIT/GM Externally 1-2 t imes a day [...] B [place] [address] [place] [address] [id number] MARIBETH LAWRENCE Self - patient is the insured [employer] of [place] [address] [place] [address] [id number] MARIBETH LAWRENCE Self - patient is the insured Medical (General) History Medical History History ICD Code type 2 diabetes hypertension hypercholesterolemia major depressive disorder anemia vitamin D deficiency Surgical History Surgery Date(Month/Year) hernia 2009
== END 2025-08-14 15:16 | disposition home or self-care (01) ==
LOC: HO.PMC 14:59
PROVIDERS: Visit Provider Anesthesiology
DX: M51.369 Other intervertebral disc degeneration, lumbar region without mention of lumbar back pain or lower extremity pain (principal); M47.816 Spondylosis without myelopathy or radiculopathy, lumbar region; M54.16 Radiculopathy, lumbar region
CPT/HCPCS: 99214

== ENCOUNTER → 2025-08-14 14:58 | Outpatient (BNVA) | payer MEDICARE, MEDICAID, SELFPAY | PROVIDERS: Visit Provider Anesthesiology | DX: M51.362 Other intervertebral disc degeneration, lumbar region with discogenic back pain and lower extremity pain (principal); M47.26 Other spondylosis with radiculopathy, lumbar region | CPT/HCPCS: 99212 ==

== ENCOUNTER 2025-09-24 06:22 | Outpatient (REF) | payer MEDICARE, MEDICAID, SELFPAY ==
--- OUTSIDE RECORDS SUMMARY | 2025-09-24 06:24 | XMS_ITS | Clinical Summary ---
Author Organization [facility] Address [address] [place] [address] Phone Care Team Providers Care Billing Manager Name Role Phone Camille Patton MD Primary Care Provider Allergies Active Allergy Reactions Criticality Noted Date Comments Nsaids (Non-Steroidal Anti-I nflammatory Drug) 07/30/2015 Medications rosuvastatin (CRESTOR) 40 mg tablet TAKE 1 TABLET BY MOUTH EVERY DAY 90 tablet 1 5 Active enalapril (Vasotec) 20 mg tablet Take 1 tablet (20 mg total) by mouth 1 (one) time each day. 30 each 5 026 Active fexofenadine (HEBERT) 180 mg tablet [...] shortness of breath. 75 mL 3 5 Active insulin syringe-needle U-100 0.5 mL 29 gauge x 1/2 syringe Use to inject 1-4 times daily. 100 each 11 5 026 Active albuterol HFA (PROAIR HFA ; PROVENTIL HFA ; VENTOLIN HFA) 90 mcg/actuation inhaler Inhale 2 puffs by mouth every 6 (six) hours if needed for wheezing. 8.5 each 5 5 Active fluticasone furoate-vilante roL (Breo Ellipta) 100-25 mcg/dose inhaler Inhale 2 puffs by mouth 1 (one) time each day. 1 each 12 5 026 Active ipratropium-alb uteroL (Combivent Respimat) 20-100 mcg/actuation inhaler Inhale 1 puff by mouth 4 (four) times a day. 3 g 4 5 026 Active dulaglutide (Trulicity) 1.5 mg/0.5 mL pen injector injectionIndica tions:Type 2 diabetes mellitus without complication, without long-term current use of insulin ([facility] V24, [facility] V28) Inject 0.5 mL (1.5 mg total) under the skin every 7 (seven) days. 2 mL 5 5 025 Active Problems Problem Noted Date Diagnosed Date Chronic obstructive pulmonar y disease ([facility] V24, [facility] V28) 03/13/2025 Mixed hyperlipidemia 01/30/2025 Type 2 diabetes mellitus wit hout complication, without long-term current use of insulin ([facility] V24, [facility] V28) 01/30/2025 Primary hypertension 01/30/2025 Immunizations Immunization Administration Dates Next Due Influenza Quadravalent, MDCK [...] Type 2 diabetes mellitus wit hout complication 06/23/2018 DX:Type 2 diabetes mellitus without complication [...] Description 10/04/2025 10:45 AM EST Office Visit Pulmonology - [address] [place] [address] Deborah Molina MD [address] [place] [phone] Health Maintenance Due Date Last Done Comments Colorectal Cancer Screening: Colonoscopy 1971 Diabetes: Annual Foot Exam 1981 Diabetes: Annual Retina Eye Exam 1981 Hepatitis B Vaccines (1 of 3 - 19+ 3-dose series) 1990 RSV Immunization Adult Patients (1 - Risk 50-74 years 1-dose series) 2021 Zoster Vaccines (1 of 2) 2021 HIV Screening 11/06/2022 Medicare Annual Wellness Visit 11/06/2022 Social Influencers of Health Screening 11/06/2022 Depression Screening 11/28/2024 COVID-19 Vaccine (3 - 2024- season) 2025 05/15/2021, 04/17/2021 Influenza Vaccine (#1) [...] complication, without long-term current use of insulin ([facility] V24, [facility] V28) Adult general medical examination COMPREHENSIVE METABOLIC PANEL Routine 03/13/2025 11:16 AM EDT Adult general medical examination HEMOGLOBIN A1C Routine 03/13/2025 11:16 AM EDT Type 2 diabetes mellitus without complication, without long-term current use of insulin ([facility] V24, [facility] V28) Adult general medical examination LIPID PANEL [...] Signed Date: 05/02/2025 16:43 ET Workstation ID: [id number] Transcribed By: Self Edit Transcribed Date: 05/02/2025 [...] Signed Date: 05/02/2025 16:43 ET Workstation ID: [id number] Transcribed By: Self Edit Transcribed Date: 05/02/2025 16:31 ET Miguel Dexter MD [facility] CT PROCEDURES Final Result * (ABNORMAL) Lipid panel with reflex to direct LDL (03/13/2025 11:16 AM EDT) Cholesterol 170 0 - 200 mg/dL LAB CHEMISTRY METHOD 03/13/2025 4:48 PM [facility] Triglycerides 244(H) 0 - 150 mg/dL LAB CHEMISTRY METHOD 03/13/2025 4:48 PM [facility] HDL 51 >=40 mg/dL LAB CHEMISTRY METHOD 03/13/2025 4:48 PM [facility] LDL Calculated 70 0 - 100 mg/dL LAB CHEMISTRY METHOD 03/13/2025 4:48 PM [facility] VLDL Cholesterol Toribio 48.8 mg/dL LAB CHEMISTRY METHOD 03/13/2025 4:48 PM [facility] Non HDL Chol. (LDL+VLDL) 119 <145 mg/dL LAB CHEMISTRY METHOD 03/13/2025 4:48 PM [facility] Chol/HDL Ratio 3.3 0.0 - 4.4 LAB CHEMISTRY METHOD 03/13/2025 4:48 PM [facility] Blood Venous blood specimen / Unknown Venipuncture / Unknown 03/13/2025 11:16 AM EDT 03/13/2025 11:28 AM EDT Camille Patton MD LAB BLOOD ORDERABLES Final Resul t Performing Organization Address City/[facility]/ZIP Co de Phone Number [facility] [address] [place] [address], [place] [phone] * Microalbumin creatinine urine ratio (03/13/2025 11:16 AM EDT) Creatinine, Urine 157.0 mg/dL LAB CHEMISTRY METHOD 03/13/2025 8:33 PM EDT [facility] Microalb, Ur 9.4 0.0 - 29.0 mg/L LAB CHEMISTRY METHOD 03/13/2025 8:33 PM EDT [facility] Microalb/Creat Ratio 6 <30 mg/g creat LAB CHEMISTRY METHOD 03/13/2025 8:33 PM EDT [facility] Urine Urine specimen from urethra / Unknown Non-blood Collection / Unknown 03/13/2025 11:16 AM EDT 03/13/2025 11:35 AM EDT Camille Patton MD LAB URINE ORDERABLES Final Resul t Performing Organization Address [facility] Co de Phone Number [facility] [address] [place] [address], [place] [phone] * (ABNORMAL) Hemoglobin A1c (03/13/2025 11:16 AM EDT) Hemoglobin A1C 8.5(H) <6.5 % LAB CHEMISTRY METHOD 03/13/2025 1:13 PM EDT [facility] Mean Bld Glu Estim. 197 mg/dL LAB CHEMISTRY METHOD 03/13/2025 1:13 PM EDT [facility] Blood Venous blood specimen / Unknown Venipuncture / Unknown 03/13/2025 11:16 AM EDT 03/13/2025 11:34 AM EDT us Camille Patton MD LAB BLOOD ORDERABLES Final Resul t [facility] [address] [place] [address], [place] [phone] * (ABNORMAL) Comprehensive metabolic panel (03/13/2025 11:16 AM EDT) Sodium 140 133 - 145 mmol/L LAB CHEMISTRY METHOD 03/13/2025 4:48 PM [facility] Potassium 4.0 3.5 - 5.5 mmol/L LAB CHEMISTRY METHOD 03/13/2025 4:48 PM [facility] Chloride 106 96 - 110 mmol/L LAB CHEMISTRY METHOD 03/13/2025 4:48 PM [facility] CO2 27 21 - 32 mmol/L LAB CHEMISTRY METHOD 03/13/2025 4:48 PM [facility] Anion Gap 7 3 - 11 LAB CHEMISTRY METHOD 03/13/2025 4:48 PM [facility] Glucose 186(H) 70 - 100 mg/dL LAB CHEMISTRY METHOD 03/13/2025 4:48 PM [facility] BUN 13 5 - 25 mg/dL LAB CHEMISTRY METHOD 03/13/2025 4:48 PM [facility] Creatinine 1.00 0.70 - 1.30 mg/dL LAB CHEMISTRY METHOD 03/13/2025 4:48 PM [facility] eGFR 90 >=60 mL/min/1. 73m2 LAB CHEMISTRY METHOD 03/13/2025 4:48 PM [facility] Comment:Calculation based on the Chronic Kidney Disease Epidemiology Collaboration (CKD-EPI) equation refit without adjustment for race. BUN/Creatinine Ratio 13.0 LAB CHEMISTRY METHOD 03/13/2025 4:48 PM [facility] Calcium 8.9 8.5 - 10.5 mg/dL LAB CHEMISTRY METHOD 03/13/2025 4:48 PM EDT [facility] AST (SGOT) 15 10 - 42 unit/L LAB CHEMISTRY METHOD 03/13/2025 4:48 PM EDT [facility] ALT (SGPT) 29 10 - 60 unit/L LAB CHEMISTRY METHOD 03/13/2025 4:48 PM EDT [facility] Alkaline Phosphatase 134(H) 42 - 121 unit/L LAB CHEMISTRY METHOD 03/13/2025 4:48 PM T [facility] Total Protein 6.1 6.0 - 8.0 g/dL LAB CHEMISTRY METHOD 03/13/2025 4:48 PM [facility] Albumin 3.2 3.2 - 5.0 g/dL LAB CHEMISTRY METHOD 03/13/2025 4:48 PM [facility] Total Bilirubin 0.3 0.0 - 1.4 mg/dL LAB CHEMISTRY METHOD 03/13/2025 4:48 PM T [facility] Blood Venous blood specimen / Unknown Venipuncture / Unknown 03/13/2025 11:16 AM EDT 03/13/2025 11:28 AM EDT Camille Patton MD LAB BLOOD ORDERABLES Final Resul t [facility] [address] [place] [address], * Hepatitis C Screening (01/20/2024) Hepatitis C Screening abstracted Historical Provider HEALTH MAINTENANCE Final Result from Last 3 Months or Most Recently Relevant to Health Maintenance Insurance [place]ARE Care Teams Billing Manager Relationship Specialty Start Date End Date Camille Patton MD [address] [place] [address] PCP - General Internal Medicine 12/20/24
--- OUTSIDE RECORDS SUMMARY | 2025-09-24 06:24 | XMS_ITS | Patient Health Record ---
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 Name Role Phone Prince CALLEJAS, Yuliya Primary Care Provider Unavailab le Allergies Allergen (clinical drug ingredient) Drug/Non Drug Allergy documented on EMR Reaction Allergy Type Onset Date Status aspirin Aspirin Unknown Drug Allergy Active oxycodone OxyContin hives Drug Allergy Active Reason For Referral No Information Medications Medication SIG (Take, Route, Frequency, Duration) Notes Start Date End Date Status Dicyclomine HCl 20 MG Tablet 1 tablet Orally Twice a day Active Rosuvastatin Calcium 40 MG Tablet 1 tablet Orally Once a day Active Enalapril Maleate 10 MG Tablet 1 tablet Orally Once a day Active Varenicline Tartrate 0.5 MG X 11 & 1 MG X 42 Miscellaneous as directed Orally Active oxyCODONE HCl 10 MG Tablet 1 tablet Orally TID Active hydrOXYzine HCl 50 MG Tablet 1 tablet Orally BID Active Insulin Aspart 100 UNIT/ML Solution 0.3 Unit/KG Subcutaneous one time Active Folic Acid 1 MG Tablet 1 tablet Orally O nce a day Active Hydrocortisone 2.5 % Lotion 1 applicatio n Externally Twice a day Active Naloxone HCl 4 MG/0.1ML Liquid Nasally Active Nystatin [id number] UNIT/GM Powder Externally 1-2 times a day Active Insulin Glargine 100 UNIT/ML Solution Subcutaneous Active metFORMIN HCl 500 MG Tablet Orally Active Diclofenac Potassium 25 MG Capsule 1 capsule Orally Twice a day Active Social History Tobacco Use: Social History Observation Description Date Details (start date - stop date) Former Smoker NA - NA Social History Drugs/Alcohol: Social Info Question Answer Notes Alcohol Screen (Audit-C) Did you have a drink containing alcohol in the past year? No Points 0 Interpretation Negative Tobacco Use: Social Info Question Answer Notes Tobacco Use/Smoking Are you a former smoker How long has it been since you last smoked? 1-5 years Additional Findings: Tobacco Non-User Current no n-smoker Plan Of Treatment No Information Insurance Providers Payer Name Payer Address Payer Phone Subscriber Number Group Number Insured Name Patient Relationship to Insured Coverage Start Date Coverage End Date Medicare B [facility] [address] N[place] CARLY ALONZO [id number] MARIBETH LAWRENCE Self - patient is the insured [employer] of [place] [address] [place] [address] [id number] MARIBETH LAWRENCE Self - patient is the insured Medical (General) History Medical History History ICD Code type 2 diabetes hypertension hypercholesterolemia major depressive disorder anemia vitamin D deficiency Surgical History Surgery Date(Month/Year) hernia 2009
== END 2025-09-24 06:23 | disposition home or self-care (01) ==
LOC: CF 06:22
PROVIDERS: Visit Provider Anesthesiology
DX: Z13.89 Encounter for screening for other disorder (principal)

== ENCOUNTER 2025-10-12 22:43 | Emergency (ER) | payer MEDICARE, MEDICAID, SELFPAY ==
--- NOTE | ~2025-10-12 | XR_ITS ---
CLINICAL HISTORY: sob 1 view chest x-ray. Comparison: CR - XR CHEST 2V - 08/03/25 19:00 EDT Findings: Heart size is normal. No consolidation or effusion. Bronchial wall thickening similar to prior exam. No acute fracture. The visualized upper abdomen is unremarkable. Impression: No acute cardiopulmonary process. Bronchial wall thickening similar to prior exam which can be seen with reactive airway disease or bronchitis. This document has been electronically signed by: Mar Meadows MD on 10/12/2025 23:36:42
[2025-10-12 22:46] VITALS: BP 147/89; PULSE 103; RESP 22; TEMP 36.7; O2SAT 96; BMI 28.3
--- NOTE | 2025-10-13 00:40 | ED.GENADULT ---
HPI - General Adult General Chief complaint: Upper Respiratory Symptoms Stated complaint: Asthma Time Seen by Provider: 10/13/25 00:21 Source: patient Mode of arrival: ambulatory Limitations: no limitations History of Present Illness ED Provider: Dr. Aspen Roth HPI narrative: Patient comes to the emergency room complaining of 3 days of cough and asthma exacerbation. Patient has stopped smoking 4 days ago. patient states that he has been using albuterol with the relief. Denies any fever chills, denies any chest pain Related Data Home Medications ?Medication ?Instructions ?Recorded ?Confirmed rosuvastatin 40 mg tablet 40 mg PO DAILY 08/30/20 02/21/24 enalapril maleate 20 mg tablet 20 mg PO DAILY 02/21/24 02/21/24 ergocalciferol (vitamin D2) 1,250 1,250 mcg PO QWEEK 02/21/24 02/21/24 mcg (50,000 unit) capsule dulaglutide 1.5 mg/0.5 mL mg subcut 04/11/25 subcutaneous pen injector (TrHipboneity) fluticasone furoate 100 1 ea inhalation DAILY 04/11/25 mcg-vilanterol 25 mcg/dose inhalation powder (Breo Ellipta) Previous Rx's ?Medication ?Instructions ?Recorded guaifenesin 600 mg tablet, 600 mg PO BID #6 tabs 02/22/24 extended release 12 hr (Mucus Relief ER) glipizide 5 mg tablet 5 mg PO DAILY #30 tabs 03/31/24 albuterol sulfate 2.5 mg/3 mL 2.5 mg (3 mL) inhalation QID PRN 01/05/25 (0.083 %) solution for nebulization shortness of breath or wheezing #75 mL albuterol sulfate 90 mcg/actuation 2 puff inhalation Q6H PRN 03/07/25 aerosol inhaler shortness of breath or wheezing #6.7 grams inhalational spacing device (Michael #1 ea 03/07/25 Aerosol [place]ek[place] Enhancer spacer) amoxicillin 875 mg-potassium 1 tab PO BID 7 days #14 tabs 08/03/25 clavulanate 125 mg tablet doxycycline hyclate 100 mg tablet 100 mg PO BID 7 days #14 tabs 08/03/25 prednisone 20 mg tablet 40 mg (2 x 20 mg) PO DAILY COPD 08/03/25 exacerbation 5 days #10 tabs albuterol sulfate 90 mcg/actuation 2 puff inhalation Q4-6H PRN 10/13/25 aerosol inhaler (Ventolin HFA) shortness of breath or wheezing #8.5 grams prednisone 50 mg tablet 50 mg PO DAILY #5 tabs 10/13/25 Allergies Allergy/AdvReac Type Severity Reaction Status Date / Time aspirin Allergy Unknown swelling Verified 10/12/25 22:49 Review of Systems Review of Systems: Constitutional : No Weight loss, No Fever, No Chills, No Night Sweats, No Fatigue, No Malaise ENT/Mouth : No Hearing loss, No Ear Pain, No Nasal Congestion, No Sinus Pain, No Hoarseness, No sore throat, No Rhinorrhea, No Swallowing Difficulty Eyes: No Eye Pain, No Swelling, No Redness, No Foreign Body, No Discharge, No Vision Changes Cardiovascular : No Chest Pain, No SOB, No Dyspnea on Exertion, No Orthopnea, No Edema, No Palpitations Respiratory : complaining of cough and wheezing, mild shortness of breath Gastrointestinal : No Nausea, No Vomiting, No Diarrhea, No Constipation, No abdominal Pain, No Hematochezia, No Melena Genitourinary : no irregular bleeding, No Dysuria, No Urinary Frequency, No Hematuria, No Urinary Incontinence, No Urgency, No Flank Pain, No Urinary Flow Changes, No Hesitancy Musculoskeletal : No joint pain, No Myalgias, No Joint Swelling Skin : No Skin Lesions, No rash Neuro : No Weakness, No Numbness, No Paresthesias, No Loss of Consciousness, No Dizziness, No Headache Psych : No Anxiety/Panic, No Depression, No SI/HI/AH/VH, No Social Issues, Heme/Lymph: No Bruising, No Bleeding,No Lymphadenopathy Endocrine : No Polyuria, No Polydipsia, No Temperature Intolerance [facility] Past Medical History Medical History Eczema Chronic midline low back pain Mixed hyperlipidemia Hypertension Diabetes mellitus without complication, without long-term current use of insulin COPD (chronic obstructive pulmonary disease) Cigarette smoker Asthma Depression Pancreatitis Facet arthropathy, cervical Social History Social History Alcohol intake: current Alcohol intake frequency: a few times a month Patient Tobacco Use Status: Former Tobacco user Cigarettes Per Day: 10 Advance Directives: No Advance Directives Information Provided: Yes Do you have a plan to hurt others: No Plan service: No Physical Exam ED Exam Exam: Appearance: Alert. Oriented X3. No acute distress. Eyes: Pupils equal, round and reactive to light. ENT: Pharynx normal. Neck: Normal inspection. Neck supple. No lymph nodes noted. No crepitus CVS: Normal heart rate and rhythm. Pulses normal. Normal S1 and S2 Respiratory: no respiratory distress, bilateral wheezing, no rales or crackles Abdomen: Soft and nontender. No rigidity. No distention. Skin: Skin warm and dry. Normal skin color. Normal skin turgor. Extremities: No lower extremity edema. No Lacerations. No Rash Neuro: Oriented X 3. No motor deficit. No sensory deficit. Moving all extremities. No slurred speech. CN 2 through 12 grossly intact Psych: calm, cooperative, normal affect Vital Signs: Vital Signs - 24 hr 10/12/25 22:46 10/13/25 00:54 10/13/25 02:27 Temperature 98.0 F Pulse Rate 103 H 96 Respiratory Rate 22 H 18 Blood Pressure 147/89 H Pulse Oximetry 96 94 Oxygen Delivery Method Room Air BMI result Body Mass Index 28.3 Course Course Course Narrative: on physical exam, patient is wheezing. All of patient's labs and imaging pending.. Patient is receiving albuterol, IV Solu-Medrol and magnesium. Medications Administered Discontinued Medications Generic Name Dose Route Start Last Admin Trade Name Freq PRN Reason Stop Dose Admin Albuterol Sulfate 2.5 mg/ 0 mg 10/13/25 00:52 10/13/25 00:53 Albuterol/Ipratropium 3 ml INHALE 10/13/25 00:53 5 dose ONCE ONE Administration Magnesium Sulfate 2 gm in 50 mls @ 150 mls/hr 10/13/25 00:35 10/13/25 01:19 Magnesium Sulfate/H2o IV 10/13/25 00:54 150 mls/hr ONCE ONE Administration Methylprednisolone Sodium Succinate 125 mg 10/13/25 00:35 10/13/25 01:19 Methylprednisolone Sod Succ 125 Mg/2 Ml Vial IVPUSH 10/13/25 00:36 125 mg ONCE ONE Administration Medical Decision Making Medical Decision Making [facility] Narrative: My interpretation of labs: Patient has chronic leukocytosis, no acute abnormality in patient's hematology or chemistry. No abnormality in LFTs, serology negative for influenza a B, RSV and COVID. Chest x-ray does not show any signs of pneumonia, no consolidations After albuterol treatment, magnesium and Solu-Medrol, patient is no longer wheezing, oxygen saturation 94-97% with ambulation with a oxygen desaturation. Patient feels well and ready to be discharged. Patient states that he has albuterol for his neb machine, he just ran out of his pump Differential Diagnosis Differential Diagnoses: The differential diagnosis associated with the presentation includes (COVID, RSV, influenza, viral syndrome, asthma exacerbation) Admission/Observation Consideration of admission/observation: Escalation of care including admission/observation considered (Given patient's initial presentation, observation was considered) Lab Data MDM Lab Attestation statement: I reviewed the patient's lab results. 10/13/25 01:01 10/13/25 01:01 Labs: Lab Results 10/13/25 Range/Units 01:01 WBC 16.3 H (4.8-10.8) X10*3/uL RBC 5.16 (4.60-5.80) X10*6/uL Hgb 15.1 (14.0-18.0) g/dl Hct 45.7 (42.0-52.0) % MCV 88.6 (80.0-98.0) fL MCH 29.3 (27.0-33.0) pg MCHC 33.0 (31.0-36.0) g/dl RDW 13.2 (11.0-16.0) % Plt Count 290 (160-400) X10*3/uL MPV 11.0 (9.4-12.4) fL Immature Gran % (Auto) 0.4 (0.0-0.4) % Neut % (Auto) 61.5 (45-73) % Lymph % (Auto) 17.9 L (20-40) % Alexander % (Auto) 8.6 (2-11) % Eos % (Auto) 10.9 H (0-4) % Baso % (Auto) 0.7 (0-2) % Lymph # (Auto) 2.9 (1.2-4.9) X10*3/uL Alexander # (Auto) 1.4 H (0.1-1.2) X10*3/uL Eos # (Auto) 1.8 H (0.0-0.4) X10*3/uL Baso # (Auto) 0.1 (0.0-0.2) X10*3/uL Abs Immat Gran (auto) 0.07 H (0.00-0.03) X10*3/uL Absolute Neuts (auto) 10.0 H (2.0-8.3) x10*3/uL Absolute Nucleated RBC 0.000 (0.0-0.012) X10*3/uL Nucleated RBC % (auto) 0.0 (0.0-0.2) /100WBC Sodium 142 (135-145) mmol/L Potassium 4.0 (3.3-5.1) mmol/L Chloride 105 (96-108) mmol/L Carbon Dioxide 29 (22-29) mmol/L Anion Gap 12 (12-20) BUN 11 (9-16) mg/dL Creatinine 0.89 (0.5-1.4) mg/dL Estim Creat Clear Calc 100.3 Estimated GFR > 60 Random Glucose 132 H (60-115) mg/dL Calcium 9.0 (8.4-10.2) mg/dL Total Bilirubin 0.2 (0.0-1.0) mg/dL AST 19 (5-37) U/L ALT 20 (0-40) U/L Alkaline Phosphatase 120 H (39-117) U/L Total Protein 6.7 (6.5-8.0) g/dL Albumin 4.2 (3.5-5.0) g/dL Influenza Type A (PCR) NEGATIVE (Negative) Influenza Type B (PCR) NEGATIVE (Negative) RSV RNA Qual (PCR) NEGATIVE (Negative) SARS-CoV-2 RNA (RT-PCR) NEGATIVE (Negative) Independent Interpretation I performed an independent interpretation of an: Plain X-Ray Radiology Impression Discussion of test interpretation with radiology: I have reviewed the radiologist's reading. Radiologist Impression: Heart size is normal. No consolidation or effusion. Bronchial wall thickening similar to prior exam. No acute fracture. The visualized upper abdomen is unremarkable. Impression: No acute cardiopulmonary process. Critical Care Time Critical Care Time Critical Care Time: Yes Total Critical Care Time: 35 Attestation: I have personally provided critical care time. Time includes review of lab data, radiology results, discussion with consultants, and monitoring for potential decompensation. Intervention performed as documented. Discharge Plan Discharge Clinical Impression: Asthma Patient Disposition: Home, Self-Care Instructions: Asthma (ED) Additional Instructions: Please follow-up with your primary care physician tomorrow. If you have any worsening or new symptoms, please return to the emergency room or call 911 Prescriptions: New albuterol sulfate [Ventolin HFA] 90 mcg/actuation HFA aerosol inhaler 2 puff inhalation Q4-6H PRN (Reason: shortness of breath or wheezing) Qty: 8.5 1RF prednisone 50 mg tablet 50 mg PO DAILY Qty: 5 0RF No Action glipizide 5 mg tablet 5 mg PO DAILY Qty: 30 0RF albuterol sulfate 2.5 mg /3 mL (0.083 %) solution for nebulization 2.5 mg inhalation QID PRN (Reason: shortness of breath or wheezing) Qty: 75 0RF prednisone 20 mg tablet 40 mg PO DAILY 5 Days Qty: 10 0RF doxycycline hyclate 100 mg tablet 100 mg PO BID 7 Days Qty: 14 0RF amoxicillin-pot clavulanate 875-125 mg tablet 1 tab PO BID 7 Days Qty: 14 0RF enalapril maleate 20 mg tablet 20 mg PO DAILY ergocalciferol (vitamin D2) 1,250 mcg (50,000 unit) capsule 1,250 mcg PO QWEEK guaifenesin [Mucus Relief ER] 600 mg tablet extended release 12hr 600 mg PO BID Qty: 6 0RF albuterol sulfate 90 mcg/actuation HFA aerosol inhaler 2 puff inhalation Q6H PRN (Reason: shortness of breath or wheezing) Qty: 6.7 1RF (DME) Michael Aerosol [place] Enhancer Spacer See Rx Instructions .Route Qty: 1 0RF Rx Instructions: As directed rosuvastatin 40 mg tablet 40 mg PO DAILY fluticasone furoate-vilanterol [Breo Ellipta] 100-25 mcg/dose blister with device 1 ea inhalation DAILY Trulicity 1.5 mg/0.5 mL pen injector subcut Print Language: Lithuanian
[2025-10-13] MEDS: Albuterol Sulfate 2.5 MG, Albuterol/Iprat 2.5/0.5MG 3 ML 3 ML INHALE (00:53)
[2025-10-13 00:54] VITALS: PULSE 96; RESP 18; O2SAT 90
[2025-10-13 01:08] LABS: MANUAL DIFF FLAG NO
[2025-10-13 01:10] LABS: Hematocrit 45.7 % (42.0-52.0); Hemoglobin 15.1 g/dl (14.0-18.0); Imm Gran Abs Auto 0.07 X10*3/uL (0.00-0.03); Imm Gran Pct Auto 0.4 % (0.0-0.4); Lymphocytes Absolute Auto 2.9 X10*3/uL (1.2-4.9); Mean Corpuscular HGB Conc 33.0 g/dl (31.0-36.0); Mean Corpuscular Hemoglobin 29.3 pg (27.0-33.0); Mean Corpuscular Volume 88.6 fL (80.0-98.0); NRBC Abs Auto 0.000 X10*3/uL (0.0-0.012); NRBC Pct Auto 0.0 /100WBC (0.0-0.2); Platelet Count 290 X10*3/uL (160-400); Red Blood Count 5.16 X10*6/uL (4.60-5.80); White Blood Count 16.3 X10*3/uL (4.8-10.8)
[2025-10-13] MEDS: Magnesium Sulfate/H2O 2 GM/50 ML PIGGYBACK IV (01:19)
[2025-10-13 01:26] LABS: Alanine Aminotransferase 20 U/L (0-40); Albumin Level 4.2 g/dL (3.5-5.0); Alkaline Phosphatase 120 U/L (39-117); Anion Gap 12 (12-20); Aspartate Amino Transferase 19 U/L (5-37); Blood Urea Nitrogen 11 mg/dL (9-16); Calcium 9.0 mg/dL (8.4-10.2); Carbon Dioxide 29 mmol/L (22-29); Chloride 105 mmol/L (96-108); Creatinine Clr Calc Pharmacy 100.3; Estimated Glomerular Filt Rate > 60; Potassium 4.0 mmol/L (3.3-5.1); Sodium 142 mmol/L (135-145); Total Protein 6.7 g/dL (6.5-8.0)
[2025-10-13 01:47] LABS: Resp Syncy Virus RNA Qual PCR NEGATIVE (Negative); SARS COV2 PCR INHOUSE NEGATIVE (Negative)
[2025-10-13 02:27] VITALS: O2SAT 94
[2025-10-13 03:23] VITALS: BP 144/88; PULSE 91; RESP 16; TEMP 37; O2SAT 93
== END 2025-10-13 03:24 | disposition home or self-care (01) ==
PROVIDERS: Emergency Provider Emergency Medicine
DX: J45.901 Unspecified asthma with (acute) exacerbation (principal); I10 Essential (primary) hypertension; E11.9 Type 2 diabetes mellitus without complications; Z87.891 Personal history of nicotine dependence; Z79.899 Other long term (current) drug therapy
CPT/HCPCS: 71045; 80053; 85025; 87637; 94640; 96365; 96366; 96375; 99283; 99284; J2919; J3475